=== PATIENT | male | born 1950 | race Caucasian/White ===

== ENCOUNTER 2017-06-30 04:22 | Inpatient (IN) | payer MEDICARE, OTHER ==
[2017-06-30] MEDS ORDERED: IBUPROFEN 600 MG TAB PO STA (04:39)
[2017-06-30] MEDS ORDERED: ACETAMINOPHEN TAB 500 MG TAB PO STA (04:39)
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
[2017-06-30] MEDS ORDERED: ONDANSETRON 4 MG/2 ML VIAL IVP STA (04:55)
[2017-06-30] MEDS: SODIUM CHLORIDE 0.9% 500 ML IV SCH ×2 (05:12→05:47)
[2017-06-30 05:21] LABS: Basophils # (A) 0.1 k/uL (0-0.2); Basophils % (A) 0 %; Eosinophils # (A) 0.1 k/uL (0-0.7); Eosinophils % (A) 1 %; HCT 38.3 % (39.0-53.0); HGB 12.9 gm/dL (13.0-17.5); Lymphocytes # (A) 1.7 k/uL (1.0-4.8); Lymphocytes % (A) 10 %; MCH 31.2 pg (25.0-35.0); MCHC 33.8 g/dL (31.0-37.0); MCV 92.4 fL (80.0-100.0); Mean Platelet Volume 7.4; Monocytes # (A) 1.2 k/uL (0-1.0); Monocytes % (A) 7 %; Neutrophils # (A) 14.3 k/uL (1.3-7.7); Neutrophils % (A) 82 %; Platelet Count 274 k/uL (150-450); RBC 4.15 m/uL (4.30-5.90); RDW 13.9 % (11.5-15.5); WBC 17.5 k/uL (3.8-10.6)
[2017-06-30 05:27] LABS: INR 1.2 (<1.2); Prothrombin Time 11.5 sec (9.0-12.0)
[2017-06-30 05:36] LABS: Calcium 9.3 mg/dL (8.4-10.2); Potassium 5.1 mmol/L (3.5-5.1); Total Bilirubin 0.3 mg/dL (0.2-1.3); Total Protein 7.3 g/dL (6.3-8.2)
[2017-06-30 05:54] LABS: Appearance,Urine Clear (Clear); Bilirubin,Urine Negative (Negative); Blood,Urine Negative (Negative); Color,Urine Yellow; Glucose,Urine (UA) Negative (Negative); Ketones,Urine Trace (Negative); Leukocyte Esterase,Urine Negative (Negative); Nitrite,Urine Negative (Negative); PH, Urine 5.5 (5.0-8.0); Protein,Urine Negative (Negative); Urobilinogen,Urine <2.0 mg/dL (<2.0)
--- NOTE | 2017-06-30 06:17 | CT ---
EXAM: CT Head Without Intravenous Contrast CLINICAL HISTORY: ITS.REASON CT Reason: Pain TECHNIQUE: Axial computed tomography images of the head/brain without intravenous contrast. CTDI is 58 mGy and DLP is 1047 mGy-cm. This CT exam was performed using one or more of the following dose reduction techniques: automated exposure control, adjustment of the mA and/or kV according to patient size, and/or use of iterative reconstruction technique. COMPARISON: No relevant prior studies available. FINDINGS: Brain: No hemorrhage, large hypodensity, or mass effect. Patchy periventricular matter hypodensities reflective of senescent changes. Ventricles: No hydrocephalus. Moderate ventriculomegaly secondary to cerebral volume loss. Bones/joints: Unremarkable. Soft tissues: Unremarkable. Sinuses: Unremarkable. Mastoid air cells: Clear. IMPRESSION: No acute hemorrhage, hydrocephalus, or mass effect.
--- NOTE | 2017-06-30 06:26 | XR ---
EXAM: XR Chest, 2 Views CLINICAL HISTORY: ITS.REASON XR Reason: Fever TECHNIQUE: Frontal and lateral views of the chest. COMPARISON: No relevant prior studies available. FINDINGS: Lungs: Right middle/lower lobe airspace opacity. Pleural space: Trace effusion along the bilateral major fissures. No pneumothorax. Heart: Unremarkable. No cardiomegaly. Mediastinum: Unremarkable. Bones/joints: Unremarkable. IMPRESSION: Right middle/lower lobe opacity. Represent edema versus infection. Trace pleural effusions along the fissures.
[2017-06-30] MEDS ORDERED: SODIUM CHLORIDE 0.9% 1,000 ML IV ONE (06:37)
[2017-06-30] MEDS ORDERED: LEVOFLOXACIN 750MG-D5W PMX 750 MG in DEXTROSE/WATER 1 150ML.BAG IVPB STA (06:37)
[2017-06-30] MEDS ORDERED: PNEUMONIA PROTOCOL UTILIZED 1 EACH MISC PO PRN (06:39)
[2017-06-30] MEDS ORDERED: ONDANSETRON 4 MG/2 ML VIAL IVP PRN (06:40)
[2017-06-30] MEDS ORDERED: LEVOFLOXACIN 750MG-D5W PMX 750 MG in DEXTROSE/WATER 1 150ML.BAG IVPB SCH (06:45)
[2017-06-30] MEDS: ALBUTEROL NEBULIZED 2.5 MG/3 ML INHALATION SCH ×4 (08:44→21:00)
--- NOTE | 2017-06-30 11:45 | CT ---
EXAMINATION TYPE: CT chest wo con DATE OF EXAM: 06/30/2017 COMPARISON: NONE HISTORY: Patient poor historian CT DLP: 422.3 mGycm, Automated exposure control for dose reduction was used. CONTRAST: Performed injected with 0 mL of Omnipaque 350. TECHNIQUE: Axial images were obtained at 5 mm thick sections. Reconstructed images are reviewed on [place] computer in the coronal plane. FINDINGS: Portion of the thyroid visualized is normal. There appears be some mild atelectasis or pneumonia within the right middle lobe above the diaphragm. Mild infiltrate is also present within the posterior lung bases bilaterally. Atelectasis and pneumon ia could be considered. Very minimal pleural effusions may be present. There is a 1.0 cm transverse dimension lymph node in the pretracheal space. Additional [place] lymphad enopathy is through the mediastinum. The ascending aorta diameter at the level of the main pulmonary artery is 3.5 cm. The main pulmonary artery diameter at the bifurcation is 3.6 cm. Coronary artery c alcification is present. Limited CT sections are obtained through the upper abdomen. Abdomen is essentially unremarkable. IMPRESSIONS: 1. Clinical correlation recommended for right middle lobe pneumonia. 2. Additional pneumonia or atelectasis is within the dependent portions of the lung bases bilaterally . 3. Enlarged mediastinal lymph node with additional smaller lymph nodes. Follow-up is recommended.
[2017-06-30 11:47] LABS: Glucose,Whole Blood 238 mg/dL (75-99)
[2017-06-30] MEDS: SERTRALINE 25 MG TAB PO SCH (13:22)
[2017-06-30] MEDS: DIVALPROEX 500 MG TABLET.DR PO SCH ×3 (13:23→20:58)
[2017-06-30] MEDS: CLINDAMYCIN 300 MG in DEXTROSE 5% IN WATER 50 ML IVPB SCH ×6 (13:31→23:16)
[2017-06-30] MEDS: SODIUM CHLORIDE 0.9% 1,000 ML IV SCH (13:31)
[2017-06-30] MEDS: INSULIN ASPART 100 UNIT/ML 1 ML 10 ML VIAL SQ SCH ×3 (13:35→22:23)
--- NOTE | 2017-06-30 14:07 | HP ---
HISTORY AND PHYSICAL ATTENDING PHYSICIAN: Dr. Louie Stearns. ADMITTING PHYSICIAN: Dr. Castro Mccollum. CHIEF COMPLAINT: Nausea, vomiting. HISTORY OF PRESENT ILLNESS: This is a 67-year-old gentleman who lives at the [facility]. The patient apparently this morning started vomiting spontaneously. He also had an associated fever. The patient in view of this, brought in the emergency room. The patient does not have any headache associated with that. He does have a previous history of head injury. He has some right hemiparesis from that. The patient is able to give adequate history. He denies any abdominal pain. No diarrhea. The patient since being in the emergency room has had no further episodes of vomiting. The patient in the ER had a brain CT scan done, which revealed no evidence of any mass effect or hemorrhage. Chest x-ray suggested right upper lobe and right middle lobe infiltrate. It is actually a poor inspiration view. In view of this, I have ordered a CT scan of the chest. The patient had leukocytosis. The patient at the time of examination, denies any major cough, congestion symptoms. His right eye has some crustiness and stuck together. PAST MEDICAL HISTORY: Significant for previous left foot infection. History of diabetes mellitus, previous head injury with some right hemiparesis, history of hypertension, seizure disorder. PAST SURGICAL HISTORY: Left leg. PERSONAL HISTORY: Never smoker. Alcohol none. ALLERGIES: TO PIPERACILLIN, TAZOBACTAM AND SODIUM. MEDICATIONS: Medications at present include metformin 1000 mg b.i.d., glipizide 10 mg daily, Norvasc 10 mg daily, spironolactone 25 mg b.i.d., Zocor 20 mg daily, Zoloft 75 mg daily, Prilosec 20 mg daily, Claritin 10 mg daily, Novolin 70/30 20 units every morning and then NovoLog 5 units at lunch and NovoLog 5 units at supper time p.r.n., Lasix 40 mg in the morning, 20 mg in the evening. Lisinopril 20 mg daily. Depakote 500 mg q.i.d., vitamin C, Lac-Hydrin. SOCIAL HISTORY: The patient lives in a nursing facility. FAMILY MEDICAL HISTORY: Not obtainable. REVIEW OF SYSTEMS: NEURO: Denies any headaches, dizziness. No double vision, blurred vision. No symptoms of seizures. Psych: No anxiety or depression. Cardiac: No chest pain, angina, palpitations. Respiratory: Denies shortness of breath, cough, hemoptysis. GI: Episode of nausea, vomiting. No abdominal pain. No diarrhea, constipation, hematochezia, melena. : No symptoms of dysuria, hematuria, urgency, frequency. Does have some incontinence. Extremities denies pain. Has chronic edema. Musculoskeletal: Some pain in various joints. Skin: Chronic and venous stasis changes in the left lower leg. Constitutional: Fever, no chills. HEENT denies any symptoms. Eyes: Sticky eyelids on the right side today. PHYSICAL EXAMINATION: Pleasant gentleman in no distress. His vital signs are temperature 100.4, pulse 111, respirations 20, blood pressure 120/72, pulse ox 92% on room air. HEENT: Normocephalic. Neck is decreased range of motion. Nostrils are clear. Oral cavity is dry. Ears reveal no drainage. Neck reveals no JVD, carotid bruits or thyromegaly. CHEST: Clear to auscultation with mild decreased air flow at the bases. Cardiac: Normal S1, S2 with no gallop. Systolic murmur 2/6 left sternal border. ABDOMEN: Soft. No palpable masses. Bowel sounds normal. No organomegaly. No abdominal bruits. Extremities reveal 1+ edema. The patient does have chronic venous stasis changes both lower legs. Pedal pulses are adequate. Neurological awake, alert, oriented to place, person. Moves both upper and lower extremities. However, he has definite weakness on the right upper extremity, which is apparently an old finding. LABORATORY DATA: CT scan of the brain which was unremarkable. Chest x-ray suggested a right middle and right upper lobe infiltrates. CT scan done reveals a right middle lobe pneumonia. There is some mediastinal lymphadenopathy. White count was 17.5, hemoglobin 12.9. Electrolytes were okay. BUN 42, creatinine 1.53, glucose is 214, albumin 4.0. Urinalysis is unremarkable. Influenza negative. ASSESSMENT: 1. Right middle lobe pneumonia and also basal pneumonias bilateral. The possibility of aspiration pneumonia not ruled out. 2. Nausea, vomiting. 3. Diabetes mellitus with chronic kidney disease. 4. Chronic kidney disease, stage III. 5. Previous head injury with sequelae. 6. Chronic venous stasis with skin changes. PLAN: Continue present medical regimen. Patient's condition is discussed with the patient. Prognosis remains guarded. The patient since HE IS ALLERGIC TO ZOSYN, we will start the patient on Clindamycin and Levaquin. Patient's condition discussed with the patient. Prognosis guarded. MICHEL / SNEHA: [id number] /
[2017-06-30 17:15] LABS: Glucose,Whole Blood 297 mg/dL (75-99)
[2017-06-30 21:41] LABS: Glucose,Whole Blood 209 mg/dL (75-99)
[2017-07-01] MEDS: CLINDAMYCIN 300 MG in DEXTROSE 5% IN WATER 50 ML IVPB SCH ×8 (05:18→23:57)
[2017-07-01 07:10] LABS: Glucose,Whole Blood 308 mg/dL (75-99)
[2017-07-01] MEDS: ALBUTEROL NEBULIZED 2.5 MG/3 ML INHALATION SCH (07:16)
[2017-07-01] MEDS: LEVOFLOXACIN 750MG-D5W PMX 750 MG in DEXTROSE/WATER 1 150ML.BAG IVPB SCH (08:06)
[2017-07-01] MEDS: amLODIPine 10 MG TAB PO SCH (08:14)
[2017-07-01] MEDS: DIVALPROEX 500 MG TABLET.DR PO SCH ×4 (08:14→21:32)
[2017-07-01] MEDS: SERTRALINE 25 MG TAB PO SCH (08:15)
[2017-07-01] MEDS: PANTOPRAZOLE 40 MG TABLET PO SCH (08:15)
[2017-07-01] MEDS: INSULIN ASPART 100 UNIT/ML 1 ML 10 ML VIAL SQ SCH ×4 (08:15→21:32)
[2017-07-01] MEDS: LISINOPRIL 20 MG TAB PO SCH (08:15)
[2017-07-01] MEDS: SODIUM CHLORIDE 0.9% 1,000 ML IV SCH (08:16)
[2017-07-01] MEDS: ACETAMINOPHEN TAB 325 MG TAB PO PRN (08:27)
--- NOTE | 2017-07-01 08:58 | XR ---
EXAMINATION TYPE: XR chest 1V portable DATE OF EXAM: 07/01/2017 CLINICAL HISTORY: Difficulty breathing and pneumonia progress study. TECHNIQUE: Single AP portable upright view of the chest is obtained. COMPARISON: Chest x-ray and CTA chest from one day earlier FINDINGS: There are low lung volumes with bibasilar opacities redemonstrated. There is mild cardiome fortunato with atherosclerotic thoracic aorta. Osseous structures are intact. IMPRESSION: Overall stable findings, cardiomegaly and low lung volumes with persistent bibasilar in filtrate and/or atelectasis.
[2017-07-01] MEDS: SODIUM CHLORIDE 0.9% 500 ML IV SCH (09:41)
[2017-07-01] MEDS ORDERED: VANCOMYCIN IV PER PHARMACY 1 EACH MISC MISCELLANE PRN (10:57)
[2017-07-01] MEDS: IPRATROPIUM-ALBUTEROL 3 ML NEB INHALATION SCH ×3 (11:18→20:25)
[2017-07-01 11:26] LABS: Glucose,Whole Blood 321 mg/dL (75-99)
[2017-07-01] MEDS ORDERED: VANCOMYCIN 1,750 MG in SODIUM CHLORIDE 0.9% 250 ML IVPB ONE (11:30)
[2017-07-01] MEDS: CIPROFLOXACIN 0.3% OPHTH SOLN 5 ML BTL BOTH EYES SCH ×4 (13:17→23:57)
--- NOTE | 2017-07-01 13:18 | NM ---
EXAMINATION TYPE: NM pul vent and perfuse DATE OF EXAM: 07/01/2017 COMPARISON: CT chest from yesterday. HISTORY: Shortness of breath rule out pulmonary embolism TECHNIQUE: Utilizing inhalation of 68.5 mCi Tc 99m DTPA aerosol and intravenous injection of 5.5 mCi of Tc 99m MAA, ventilation and perfusion images are acquired post injection in multiple projections. FINDINGS: Normal radiotracer distribution is noted in the lungs. There is no evidence of mismatched defects. IMPRESSION: Low scintigraphic evidence for pulmonary embolism
[2017-07-01] MEDS: MULTIVITAMINS, THERA 1 EACH TAB PO SCH (13:20)
--- NOTE | 2017-07-01 13:21 | US ---
EXAMINATION TYPE: US venous doppler duplex LE DATE OF EXAM: 07/01/2017 12:58 PM COMPARISON: US December 31 2014 CLINICAL HISTORY: eval for DVT. Bilateral leg swelling, patient disoriented, poor historian SIDE PERFORMED: Bilateral TECHNIQUE: The lower extremity deep venous system is examined utilizing real time linear array sonog elvia with graded compression, doppler sonography and color-flow sonography. VESSELS IMAGED: External Iliac Vein (EIV) Common Femoral Vein Deep Femoral Vein Greater Saphenous Vein * Femoral Vein Popliteal Vein Small Saphenous Vein * Proximal Calf Veins (* superficial vessels) Technically difficult study due to bilateral leg swelling Right Leg: Appears negative for DVT Left Leg: Appears negative for DVT Grayscale, color doppler, spectral doppler imaging performed of the deep veins of the bilateral lower extremities. There is normal flow, compressibility, vascular waveforms. IMPRESSION: Suboptimal study but no ultrasound evidence for acute DVT in either lower extremity.
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
[2017-07-01 17:00] LABS: Glucose,Whole Blood 332 mg/dL (75-99)
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
[2017-07-01 21:25] LABS: Glucose,Whole Blood 263 mg/dL (75-99)
[2017-07-01] MEDS: HEPARIN SODIUM,PORCINE 5,000 UNIT/ML 1 ML VIAL SQ SCH (21:32)
[2017-07-02] MEDS: CIPROFLOXACIN 0.3% OPHTH SOLN 5 ML BTL BOTH EYES SCH ×6 (03:54→23:22)
[2017-07-02] MEDS: CLINDAMYCIN 300 MG in DEXTROSE 5% IN WATER 50 ML IVPB SCH ×8 (05:08→23:24)
[2017-07-02] MEDS ORDERED: VANCOMYCIN 1,750 MG in SODIUM CHLORIDE 0.9% 250 ML IVPB SCH ×2 (06:00→22:00)
[2017-07-02 07:40] LABS: Glucose,Whole Blood 292 mg/dL (75-99)
[2017-07-02] MEDS: SERTRALINE 25 MG TAB PO SCH (07:51)
[2017-07-02] MEDS: LEVOFLOXACIN 750MG-D5W PMX 750 MG in DEXTROSE/WATER 1 150ML.BAG IVPB SCH (07:51)
[2017-07-02] MEDS: DIVALPROEX 500 MG TABLET.DR PO SCH ×4 (07:51→20:44)
[2017-07-02] MEDS: HEPARIN SODIUM,PORCINE 5,000 UNIT/ML 1 ML VIAL SQ SCH ×2 (07:51→20:44)
[2017-07-02] MEDS: PANTOPRAZOLE 40 MG TABLET PO SCH (07:52)
[2017-07-02] MEDS: LISINOPRIL 20 MG TAB PO SCH (07:52)
[2017-07-02] MEDS: amLODIPine 10 MG TAB PO SCH (07:52)
[2017-07-02] MEDS: INSULIN ASPART 100 UNIT/ML 1 ML 10 ML VIAL SQ SCH ×4 (07:52→20:44)
[2017-07-02 08:13] LABS: HCT 34.1 % (39.0-53.0); HGB 11.9 gm/dL (13.0-17.5); MCH 31.8 pg (25.0-35.0); MCHC 34.7 g/dL (31.0-37.0); MCV 91.6 fL (80.0-100.0); Mean Platelet Volume 7.4; Platelet Count 227 k/uL (150-450); RBC 3.73 m/uL (4.30-5.90); RDW 14.2 % (11.5-15.5); WBC 11.6 k/uL (3.8-10.6)
[2017-07-02 08:38] LABS: ALT 20 U/L (21-72); AST 17 U/L (17-59); Albumin 3.2 g/dL (3.5-5.0); Alkaline Phosphatase 58 U/L (38-126); Anion Gap 11 mmol/L; Blood Urea Nitrogen 21 mg/dL (9-20); Calcium 9.2 mg/dL (8.4-10.2); Carbon Dioxide 27 mmol/L (22-30); Chloride 105 mmol/L (98-107); Glucose 276 mg/dL (74-99); Magnesium 2.1 mg/dL (1.6-2.3); Phosphorus 3.2 mg/dL (2.5-4.5); Potassium 4.6 mmol/L (3.5-5.1); Sodium 143 mmol/L (137-145); Total Bilirubin 0.3 mg/dL (0.2-1.3); Total Protein 6.2 g/dL (6.3-8.2)
[2017-07-02] MEDS: IPRATROPIUM-ALBUTEROL 3 ML NEB INHALATION SCH ×4 (08:49→19:50)
--- NOTE | 2017-07-02 08:56 | XR ---
EXAMINATION TYPE: XR chest 1V portable DATE OF EXAM: 07/02/2017 Comparison: 07/01/2017 Clinical History: 67-year-old male f/u pneumonia Findings: Low volumes. Heart likely upper limits of normal in size but heart margins are partially obscured by adjacent pleural-parenchymal disease. Interstitial and perihilar densities. Suggestion of small effus ions with prominent bibasilar densities. Impression: Continued interstitial and focal bibasilar densities. Small effusions are suggested. While underlying pneumonia is possible, correlate to exclude CHF and interstitial pulmonary edema.
[2017-07-02] MEDS: SODIUM CHLORIDE 0.9% 1,000 ML IV SCH (11:14)
[2017-07-02] MEDS: SODIUM CHLORIDE 0.9% 500 ML IV SCH (11:15)
[2017-07-02 12:09] LABS: Glucose,Whole Blood 358 mg/dL (75-99)
[2017-07-02] MEDS: MULTIVITAMINS, THERA 1 EACH TAB PO SCH (12:51)
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
[2017-07-02] MEDS: ACETAMINOPHEN TAB 325 MG TAB PO PRN (15:12)
[2017-07-02 17:18] LABS: Glucose,Whole Blood 276 mg/dL (75-99)
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
[2017-07-02 21:10] LABS: Glucose,Whole Blood 290 mg/dL (75-99)
[2017-07-03] MEDS: CIPROFLOXACIN 0.3% OPHTH SOLN 5 ML BTL BOTH EYES SCH ×6 (04:01→23:01)
[2017-07-03] MEDS: CLINDAMYCIN 300 MG in DEXTROSE 5% IN WATER 50 ML IVPB SCH ×8 (05:16→23:01)
[2017-07-03 07:11] LABS: Glucose,Whole Blood 287 mg/dL (75-99)
[2017-07-03] MEDS: HEPARIN SODIUM,PORCINE 5,000 UNIT/ML 1 ML VIAL SQ SCH ×2 (07:35→21:26)
[2017-07-03] MEDS: INSULIN ASPART 100 UNIT/ML 1 ML 10 ML VIAL SQ SCH ×4 (07:35→21:26)
[2017-07-03] MEDS: LEVOFLOXACIN 750 MG TAB PO SCH (07:35)
[2017-07-03] MEDS: amLODIPine 10 MG TAB PO SCH (07:36)
[2017-07-03] MEDS: DIVALPROEX 500 MG TABLET.DR PO SCH ×4 (07:36→21:25)
[2017-07-03] MEDS: LISINOPRIL 20 MG TAB PO SCH (07:36)
[2017-07-03] MEDS: PANTOPRAZOLE 40 MG TABLET PO SCH (07:36)
[2017-07-03] MEDS: SERTRALINE 25 MG TAB PO SCH (07:36)
[2017-07-03] MEDS: IPRATROPIUM-ALBUTEROL 3 ML NEB INHALATION SCH ×4 (07:39→20:23)
[2017-07-03] MEDS: SODIUM CHLORIDE 0.9% 500 ML IV SCH (07:55)
[2017-07-03 12:47] LABS: Glucose,Whole Blood 255 mg/dL (75-99)
[2017-07-03] MEDS ORDERED: FUROSEMIDE 10 MG/ML 4 ML VIAL IV STA (13:31)
[2017-07-03] MEDS: MULTIVITAMINS, THERA 1 EACH TAB PO SCH (13:47)
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
[2017-07-03] MEDS: VANCOMYCIN 1,750 MG in SODIUM CHLORIDE 0.9% 250 ML IVPB SCH (15:37)
--- NOTE | 2017-07-03 15:58 | P.CRDCN ---
History of Present Illness Consult date: 07/03/17 Consult reason: congestive heart failure, shortness of breath History of present illness: Mr. Molina is a pleasant 67-year-old male past medical history significant for closed heard injury, hypertension, diabetes mellitus, chronic venous stasis, seizure disorder and gastroesophageal reflux disease. He came to the hospital after having frequent episodes of vomiting. He was febrile on admission and found to have b/l lobe pneumonia with infiltrated in b/l lower lobes and a questionable infiltrate in the right middle lobe. He has been receiving IV antibiotics. He is requiring high flow oxygen to maintain oxygen saturations. Upon admission his creatinine was elevated at 1.53 and for that reason his lasix and aldactone were held. Repeat chest xray yesterday revealed evidence of underlying heart failure and interstitial pulmonary edema. ProBNP was ordered and came back 3680. He was given a one time dose of IV lasix today 40 mg and placed back on his oral regimen. EKG on arrival reveals sinus tachycardia with first degree AV block with flattening of T-waves inferiorly. Laboratory data reviewed, proBNP 3680, creatinine 1.12, potassium 4.6, magnesium 2.1, hemoglobin 11.9, platelets 227, and WBC 11.6. Current cardiac medications include amlodipine 10 mg daily, Aldactone 25 mg twice a day, Zocor 20 mg daily, Lasix 40 mg in the morning and 20 mg at night, and enalapril 20 mg daily. Review of Systems At the time of exam: CONSTITUTIONAL: Denies fever. Denies chills. EYES: Denies blurred vision. Denies vision changes. Denies eye pain. EARS, NOSE, MOUTH & THROAT: Denies headache. Denies sore throat. Denies ear pain. CARDIOVASCULAR: Denies chest pain. Complains of shortness of breath. Denies orthopnea. Denies PND. Denies palpitations. RESPIRATORY: Complains of cough. GASTROINTESTINAL: Denies abdominal pain. Denies diarrhea. Denies constipation. Denies nausea. Denies vomiting. MUSCULOSKELETAL: Denies myalgias. INTEGUMENTARY: Denies pruitis. Denies rash. NEUROLOGIC: Denies numbness. Denies tingling. Denies weakness. PSYCHIATRIC: Denies anxiety. Denies depression. ENDOCRINE: Denies fatigue. Denies weight change. Denies polydipsia. Denies polyurina. GENITOURINARY: Denies burning, hematuria or urgency with micturation. HEMATOLOGIC: Denies history of anemia. Denies bleeding. Past Medical History Past Medical History: Asthma, CVA/TIA, Diabetes Mellitus, GERD/Reflux, Hypertension, Neurologic Disorder, Skin Disorder, Vascular Disorder Additional Past Medical History / Comment(s): PRIOR CLOSED HEAD INJURY/ WOUND ON RIGHT FOOT; Seizures History of Any Multi-Drug Resistant Organisms: MRSA Date of last positivie culture/infection: 2013 MDRO Source:: RT FOOT Past Surgical History: Appendectomy, Orthopedic Surgery, Tonsillectomy Additional Past Surgical History / Comment(s): spleenectomy, partial removal of pancreas Past Anesthesia/Blood Transfusion Reactions: No Reported Reaction Past Psychological History: Anxiety, Depression Smoking Status: Never smoker Past Alcohol Use History: None Reported Past Drug Use History: None Reported - Past Family History Mother Family Medical History: Unable to Obtain Father Family Medical History: Unable to Obtain Medications and Allergies Home Medications Medication Instructions Recorded Confirmed Type Divalproex [Depakote] 500 mg PO QID 08/27/13 06/30/17 History Omeprazole [PriLOSEC] 20 mg PO DAILY 08/27/13 06/30/17 History Eucerin Topical Cream 1 applic TOPICAL DAILY 03/04/16 06/30/17 History Insulin Aspart [NovoLOG Flexpen] 5 units SQ AC-LUNCH PRN 03/04/16 06/30/17 History Insulin Aspart [NovoLOG Flexpen] 5 units SQ AC-SUPPER PRN 03/04/16 06/30/17 History Enalapril Maleate [Vasotec] 20 mg PO DAILY 03/21/16 06/30/17 History Furosemide [Lasix] 20 mg PO HS 03/21/16 06/30/17 History Insulin NPH Hum/Reg Insulin Hm 20 unit SQ AC-BRKFST 03/21/16 06/30/17 History [NovoLIN 70-30 100 UNIT/ML VIAL] Mometasone Furoate [Nasonex Nasal 1 - 2 spray EA NOSTRIL DAILY PRN 03/21/1608/14 History Gary] Sertraline [Zoloft] 75 mg PO DAILY 03/21/16 06/30/17 History Ammonium Lactate Cream [Lac-Hydrin 1 applic TOPICAL DAILY 06/30/17 06/30/17 History 12% Cream] Ascorbic Acid [Vitamin C] 250 mg PO DAILY 06/30/17 06/30/17 History Clotrimazole [Clotrimazole 1% Top 2 drops TOPICAL DAILY 06/30/17 06/30/17 History Soln] Furosemide [Lasix] 40 mg PO DAILY 06/30/17 06/30/17 History Loratadine [Claritin] 10 mg PO DAILY 06/30/17 06/30/17 History Multivitamins, Thera [Multivitamin 1 tab PO DAILY 06/30/17 06/30/17 History (formulary)] Mupirocin [Mupirocin 2%] 1 applic TOPICAL DAILY 06/30/17 06/30/17 History Simvastatin [Zocor] 20 mg PO DAILY@199906/30/17 06/30/17 History Spironolactone [Aldactone] 25 mg PO BID 06/30/17 06/30/17 History amLODIPine [Norvasc] 10 mg PO DAILY 06/30/17 06/30/17 History glipiZIDE [Glucotrol XL] 10 mg PO DAILY 06/30/17 06/30/17 History metFORMIN HCL [metFORMIN HCL ER] 1,000 mg PO AC-BID 06/30/17 06/30/17 History Allergies Allergy/AdvReac Type Severity Reaction Status Date / Time piperacillin sodium Allergy Rash/Hives Verified 06/30/17 09:03 [From Zosyn] tazobactam sodium Allergy Rash/Hives Verified 06/30/17 09:03 [From Zosyn] Physical Exam Vitals: Vital Signs Temp Pulse Pulse Resp BP BP Pulse Ox 07/03/17 15:00 98.5 F 95 28 H 120/65 86 L 07/03/17 11:22 100 07/03/17 11:11 98 07/03/17 07:50 102 H 07/03/17 07:42 96 07/03/17 06:15 96.9 F L 95 16 145/83 87 L 07/02/17 23:20 91 L 07/02/17 22:50 100.4 F H 91 20 142/79 85 L 07/02/17 20:00 112 H 07/02/17 19:53 112 H 07/02/17 16:35 112 H 07/02/17 16:16 112 H Intake and Output 07/03/17 07/03/17 07/03/17 06:59 14:59 22:59 Intake Total 240 Balance 240 Intake: Oral 240 Other: Voiding Method Incontinent # Voids 4 1 # Bowel Movements 0 Blood pressure 120/65 heart rate 95 afebrile high flow oxygen being administered. GENERAL: This is a 67-year-old male in mild respiratory distress at the time of my examination. HEENT: Head is atraumatic, normocephalic. Pupils are equal, round. Sclerae anicteric. Conjunctivae are clear. Mucous membranes of the mouth are moist. Neck is supple. There is no jugular venous distention. No carotid bruit is heard. LUNGS: Bibasilar rales with scattered rhonchi throughout and expiratory wheezes. No chest wall tenderness is noted on palpation or with deep breathing. HEART: Regular rate and rhythm with systolic ejection murmur at the base, no rubs or gallops. S1 and S2 heard. ABDOMEN: Soft, nontender. Bowel sounds are heard. No organomegaly noted. EXTREMITIES: Significant b/l lower extremity edema 2+ pitting. No calf tenderness noted. VASCULAR: Radial and dorsalis pedis pulses palpated, no evidence of clubbing. NEUROLOGIC: Patient is awake, alert and oriented x3. Somewhat limited secondary to high flow oxygen. Results 07/02/17 07:33 07/02/17 07:33 Current Medications Generic Name Dose Route Start Last Admin Trade Name Freq PRN Reason Stop Dose Admin Acetaminophen 650 mg 07/01/17 08:17 07/02/17 15:12 Tylenol Tab PO 650 mg Q6HR PRN Administration Fever and/ or Mild Pain Albuterol/Ipratropium 3 ml 07/01/17 12:00 07/03/17 11:11 Duoneb 0.5 Mg-3 Mg/3 Ml Soln INHALATION 3 ml RT-QID OSVALDO Administration Amlodipine Besylate 10 mg 07/01/17 09:00 07/03/17 07:36 Norvasc PO 10 mg DAILY OSVALDO Administration Ciprofloxacin 1 drops 07/01/17 12:00 07/03/17 15:11 Cipro Ophth Soln BOTH EYES 07/04/17 20:01 1 drops Q4HR OSVALDO Administration Divalproex Sodium 500 mg 06/30/17 13:00 07/03/17 13:52 Depakote PO 500 mg QID OSVALDO Administration Furosemide 40 mg 07/03/17 16:00 07/03/17 15:11 Lasix PO 40 mg BID@0900,1600 OSVALDO Administration Heparin Sodium (Porcine) 5,000 unit 07/01/17 21:00 07/03/17 07:35 Heparin SQ 5,000 unit Q12HR OSVALDO Administration Clindamycin Phosphate 300 mg/ 52 mls @ 100 mls/hr 06/30/17 12:00 07/03/17 13: 46 Dextrose/Water IVPB 100 mls/hr Q6HR OSVALDO Administration Sodium Chloride 500 mls @ 20 mls/hr 07/01/17 09:30 07/03/17 07:55 Saline 0.9% IV Not Given .Q24H OSVALDO Vancomycin HCl 1,750 mg/ 250 mls @ 125 mls/hr 07/03/17 15:00 Sodium Chloride IVPB Q16H OSVALDO Insulin Aspart 0 unit 06/30/17 12:30 07/03/17 13:47 Novolog SQ 4 unit ACHS OSVALDO Administration Protocol Levofloxacin 750 mg 07/03/17 09:00 07/03/17 07:35 Levaquin PO 750 mg DAILY OSVALDO Administration Lisinopril 40 mg 07/01/17 09:00 07/03/17 07:36 Zestril PO 40 mg DAILY OSVALDO Administration Miscellaneous Information 1 each 06/30/17 06:39 Pneumonia Protocol Utilized PO ONCE PRN Per Protocol Multivitamins 1 each 07/01/17 12:00 07/03/17 13:47 Theragran PO 1 each DAILY@1200 OSVALDO Administration Ondansetron HCl 4 mg 06/30/17 06:40 Zofran IVP Q6HR PRN Nausea And Vomiting Pantoprazole Sodium 40 mg 07/01/17 07:30 07/03/17 07:36 Protonix PO 40 mg AC-BRKFST OSVALDO Administration Sertraline HCl 75 mg 06/30/17 11:00 07/03/17 07:36 Zoloft PO 75 mg DAILY OSVALDO Administration Intake and Output 07/03/17 07/03/17 07/03/17 06:59 14:59 22:59 Intake Total 240 Balance 240 Intake: Oral 240 Other: Voiding Method Incontinent # Voids 4 1 # Bowel Movements 0 07/02/17 07:33 07/02/17 07:33 Assessment and Plan Assessment: ASSESSMENT 1. Acute on chronic diastolic heart failure 2. Bilateral lower lobe pneumonia with also a component of possible aspiration pneumonia 3. Acute hypoxic respiratory failure 4. Leukocytosis 5. Hypertension 6. Diabetes mellitus 7. History of closed head injury PLAN We will review 2-D echocardiogram and Doppler study to assess cardiac structure and function. Will add Lasix 40 mg IV twice a day. Possibly re-add Aldactone shows no improvement by tomorrow. Daily weights. Strict intake and output. Follow kidney function and electrolytes daily. Further recommendations to follow. Thank you kindly for this consultation. Nurse Practitioner note has been reviewed, I agree with a documented findings and plan of care. Patient was seen and examined.
[2017-07-03] MEDS ORDERED: FUROSEMIDE 40 MG TAB PO SCH (16:00)
--- NOTE | 2017-07-03 16:57 | ECHOF ---
Referral Reason:Cardiac echo, chf MEASUREMENTS -------- HEIGHT: 167.6 cm WEIGHT: 98.0 kg BP: RVIDd: 3.1 cm (< 3.3) IVSd: 1.1 cm (0.6 - 1.1) LVIDd: 4.3 cm (3.9 - 5.3) LVPWd: 1.1 cm (0.6 - 1.1) IVSs: 1.8 cm LVIDs: 2.4 cm LVPWs: 1.7 cm LAESV Index (A-L): 30.98 ml/m Ao Diam: 3.3 cm (2.0 - 3.7) AV Cusp: 0.8 cm (1.5 - 2.6) LA Diam: 4.6 cm (2.7 - 3.8) MV E Marco Antonio: 1.11 m/s MV DecT: 255 ms MV A Marco Antonio: 1.27 m/s MV E/A Ratio: 0.87 AV maxP.23 mmHg AV meanP.98 mmHg RAP: 5.00 mmHg RVSP: 15.04 mmHg FINDINGS -------- Sinus rhythm. This was a technically difficult study with suboptimal views. The left ventricular size is normal. There is mild concentric left ventricular hypertrophy. Overa ll left ventricular systolic function is normal with, an EF between 65 - 70 %. The right ventricle is mildly enlarged. LA is midly dilated 29-33ml/m2. The right atrium was not well visualized. 5ml of Lumason was utilized for enhancement of images. There is mild to moderate aortic valve sclerosis. There is no evidence of aortic regurgitation. T here is mild to moderate aortic stenosis present. Peak/mean gradient across the Aortic Valve is 34. 23mmHg / 19.98mmHg. The mitral valve leaflets are mildly thickened. Mild mitral regurgitation is present. Mild tricuspid regurgitation present. Right ventricular systolic pressure is normal at < 35 mmHg. There is no evidence of pulmonary hypertension. The pulmonic valve was not well visualized. The aortic root size is normal. Normal inferior vena cava with normal inspiratory collapse consistent with estimated right atrial pre ssure of 5 mmHg. The pericardium is normal. There is no pericardial effusion. CONCLUSIONS -------- 1. Sinus rhythm. 2. This was a technically difficult study with suboptimal views. 3. The left ventricular size is normal. 4. There is mild concentric left ventricular hypertrophy. 5. Overall left ventricular systolic function is normal with, an EF between 65 - 70 %. 6. The right ventricle is mildly enlarged. 7. LA is midly dilated 29-33ml/m2. 8. The right atrium was not well visualized. 9. 5ml of Lumason was utilized for enhancement of images. 10. There is mild to moderate aortic valve sclerosis. 11. There is mild to moderate aortic stenosis present. 12. Peak/mean gradient across the Aortic Valve is 34.23mmHg / 19.98mmHg. 13. The mitral valve leaflets are mildly thickened. 14. Mild mitral regurgitation is present. 15. Mild tricuspid regurgitation present. 16. Right ventricular systolic pressure is normal at < 35 mmHg. 17. There is no evidence of pulmonary hypertension. 18. The pulmonic valve was not well visualized. 19. The aortic root size is normal. 20. There is no pericardial effusion. CNA: Alcides Tilley RDCS
[2017-07-03 17:06] LABS: Glucose,Whole Blood 289 mg/dL (75-99)
--- NOTE | 2017-07-03 19:09 | P.PN ---
Subjective Progress Note Date: 07/03/17 Principal diagnosis: Bilateral pneumonia likely aspiration pneumonia, acute hypoxic respiratory failure, acute exacerbation of CHF likely acute on chronic diastolic heart failure, associated systolic heart failure cannot be associated excluded, lower extremity cellulitis, morbid obesity hypertension hypertensive cardiovascular disease 07/03/2017, patient seen eval examined during the rounds he is more calm and comfortable and breathing more regularly respiratory congestion has improved patient has been diuresed aggressively has received 3 doses of Lasix today eyes and nose are reviewed, patient remains on airvo 50%, appears to be tolerating well along with continuation of antibiotics, urine and blood culture results and reports are reviewed, leukocytosis have improved significantly sugar continued to be run continue to be running on higher 200s side Ammann primary service is adjusting insulin off note patient is not on his steroids, radiographic studies reviewed 07/02/2017, patient seen and evaluated examined today care plan discussed with the primary service also nursing staff and [id number] present at bedside, patient the noted to have severe D of inflammatory changes in the right eye has improved significantly able to open eyes to discharge as well as noted yesterday has improved, patient underwent duplex ultrasound lower extremity and VQ scan both are negative, patient is currently on airvo high flow 50% oxygen, tolerating very well, laboratory data reviewed x-ray findings reviewed care plan discussed the leukocytosis seen yesterday has improved down to 11,600 Sirs including urine and blood are negative patient slightly breathing more comfortably chest x-ray from today reviewed and compared with prior x-ray noted to have bibasilar atelectasis versus infiltrate as per RN patient noted to have some choking sensation as well while eating a chronic intermittent aspiration cannot be excluded no more episodes of emesis or nausea vomiting has been noted at this point of time Erik Hayes is a 67-year-old male with closed head injury, consult is requested for severe hypoxia and hypoxic respiratory failure appears to be acute process, patient is a resident of [facility]. Patient was noted to have a spiking fever or shortness of breath and was transferred to [facility] for further evaluation, it appears that patient major concern was in Mrs. when he presented into the emergency department without any nausea or abdominal pain, most of the data has been opted from the chart as well as sister present at bedside, patient continued to require significant amount of oxygen inspired on 15 L high flow oxygen patient sats remained in mid to high 80s however does not appear to be severely short of breath patient somnolent but arousable opens eyes does follow simple commands the right eyes closed as per sister has recent inflammatory processes and lot of discharge has been noted , on arrival in the emergency department patient was not only hypoxic but also had low-grade temperature 100.4 patient was tachypneic and the cardiac as well, review of the data reveals that patient had recent intermittent falls as well as has been vomiting as well, on arrival to emergency department patient was noted to be leukocytosis along with a stage III renal failure my EKG revealed sinus tachycardia was in the AV block chest x-ray revealed developing right mid lower lobe opacity suspicious of developing pneumonia him a computed tomography scan of the chest revealed right middle lobe pneumonia as well as by basilar lower lobe pneumonia mediastinal and hilar likely reactive lymphadenopathy, computed tomography scan of the brain failed to reveal any significant acute pathology Objective - Vital Signs Vital signs: Vital Signs Temp 98.5 F 07/03/17 15:00 Pulse 93 07/03/17 16:05 Resp 28 H 07/03/17 15:00 BP 120/65 07/03/17 15:00 Pulse Ox 86 L 07/03/17 15:00 Intake & Output 07/03/17 07/03/17 07/04/17 06:59 18:59 06:59 Intake Total 250 480 Balance 250 480 Weight 97.976 kg 86.5 kg Intake: Oral 250 480 Other: Voiding Method Incontinent Diaper Incontinent # Voids 4 3 # Bowel Movements 0 - Exam GENERAL: Patient is well-developed and well-nourished. Patient is nontoxic and well- hydrated and is in mild distress. ENT: Neck is soft and supple. No significant lymphadenopathy is noted. Oropharynx is clear. Moist mucous membranes. EYES: The sclera were anicteric and right conjunctiva were less pink and moist significant reduction in discharge. Extraocular movements were intact and pupils were equal round and reactive to light. Eyelids were unremarkable. PULMONARY: Unlabored respirations. Good breath sounds bilaterally. Slight crackles noted bilateral bases with bilateral basal bronchial breath sounds CARDIOVASCULAR: There is a regular rate and rhythm without any murmurs gallops or rubs. ABDOMEN: Soft and nontender with normal bowel sounds. No palpable organomegaly was noted. There is no palpable pulsatile mass. SKIN: Skin is clear with no lesions or rashes and otherwise unremarkable. NEUROLOGIC: Patient is alert and oriented x3. Cranial nerves II through XII are grossly intact. Motor and sensory are also intact. Normal speech, volume and content. Symmetrical smile. MUSCULOSKELETAL: Normal extremities with adequate strength and full range of motion. 2+ with left being larger than the right. Chronic bilateral lower extremity inflammation he skin changes are noted right greater than left LYMPHATICS: No significant lymphadenopathy is noted - Labs CBC & Chem 7: 07/02/17 07:33 07/02/17 07:33 Labs: Abnormal Lab Results - Last 24 Hours (Table) 07/02/17 07/03/17 07/03/17 Range/Units 20:36 07:09 12:20 POC Glucose (mg/dL) 290 H 287 H 255 H (75-99) mg/dL 07/03/17 Range/Units 17:03 POC Glucose (mg/dL) 289 H (75-99) mg/dL Microbiology - Last 24 Hours (Table) 06/30/17 04:57 Blood Culture - Preliminary Blood No Growth after 72 hours Assessment and Plan Assessment: Severe and acute sepsis related to aspiration pneumonia Acute exacerbation of CHF likely acute diastolic heart failure Ammann gently being diuresed Acute hypoxic respiratory failure related to above Right middle lobe, bilateral lower lobe pneumonia likely aspiration related Uncontrolled diabetes and hyperglycemia Severe morbid obesity with baseline close head injury Bilateral lower extremity cellulitis 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 Maintain patient on heparin 5000 units subcu every 12 Patient will undergo echocardiogram with cardiovascular evaluation, will do the aspiration evaluation including swallow with speech with this region cardiovascular services has been consulted Time with Patient: Greater than 30
[2017-07-03 20:55] LABS: Glucose,Whole Blood 235 mg/dL (75-99)
[2017-07-03] MEDS: FUROSEMIDE 10 MG/ML 4 ML VIAL IV SCH (21:26)
[2017-07-03] MEDS: ACETAMINOPHEN TAB 325 MG TAB PO PRN (23:01)
[2017-07-04] MEDS: CIPROFLOXACIN 0.3% OPHTH SOLN 5 ML BTL BOTH EYES SCH ×5 (04:06→21:02)
[2017-07-04] MEDS: CLINDAMYCIN 300 MG in DEXTROSE 5% IN WATER 50 ML IVPB SCH ×2 (06:07)
[2017-07-04 07:26] LABS: Glucose,Whole Blood 303 mg/dL (75-99)
[2017-07-04] MEDS: IPRATROPIUM-ALBUTEROL 3 ML NEB INHALATION SCH ×4 (07:47→19:06)
[2017-07-04] MEDS: VANCOMYCIN 1,750 MG in SODIUM CHLORIDE 0.9% 250 ML IVPB SCH ×2 (08:02→23:56)
[2017-07-04] MEDS: SODIUM CHLORIDE 0.9% 500 ML IV SCH (08:02)
[2017-07-04] MEDS: INSULIN ASPART 100 UNIT/ML 1 ML 10 ML VIAL SQ SCH ×4 (08:03→21:20)
[2017-07-04] MEDS: PANTOPRAZOLE 40 MG TABLET PO SCH (08:04)
[2017-07-04] MEDS: FUROSEMIDE 10 MG/ML 4 ML VIAL IV SCH ×2 (08:04→21:01)
[2017-07-04] MEDS: HEPARIN SODIUM,PORCINE 5,000 UNIT/ML 1 ML VIAL SQ SCH ×2 (08:04→21:01)
[2017-07-04] MEDS: LEVOFLOXACIN 750 MG TAB PO SCH (08:05)
[2017-07-04] MEDS: amLODIPine 10 MG TAB PO SCH (08:05)
[2017-07-04] MEDS: SERTRALINE 25 MG TAB PO SCH (08:05)
[2017-07-04] MEDS: DIVALPROEX 500 MG TABLET.DR PO SCH ×4 (08:05→21:01)
[2017-07-04] MEDS: LISINOPRIL 20 MG TAB PO SCH (08:05)
--- NOTE | 2017-07-04 09:25 | P.PN ---
Subjective Progress Note Date: 07/04/17 Principal diagnosis: Bilateral pneumonia likely aspiration pneumonia, acute hypoxic respiratory failure, acute exacerbation of CHF likely acute on chronic diastolic heart failure, associated systolic heart failure cannot be associated excluded, lower extremity cellulitis, morbid obesity hypertension hypertensive cardiovascular disease 07/04/2017, patient seen eval reexamined during the rounds he is awake has significant tremors today which appears to be worsening of chronic tremors however advise RN to get in touch with the primary service if neurological evaluation is needed or a trial of Sinemet can be considered, from respiratory standpoint patient is doing slightly better he's off of airvo, he is on the 100 % oxygen with a saturation 100%, patient was on room air for short period of time but that his oxygen were 88% we'll try 4-6 L nasal cannula as tolerated, continue antibiotics continue gentle diuresis patient had a Alfredo's catheter placed due to acute urinary retention over 700 mL of urine has been evacuated besides tremor he appears more calm and comfortable 07/03/2017, patient seen eval examined during the rounds he is more calm and comfortable and breathing more regularly respiratory congestion has improved patient has been diuresed aggressively has received 3 doses of Lasix today eyes and nose are reviewed, patient remains on airvo 50%, appears to be tolerating well along with continuation of antibiotics, urine and blood culture results and reports are reviewed, leukocytosis have improved significantly sugar continued to be run continue to be running on higher 200s side Ammann primary service is adjusting insulin off note patient is not on his steroids, radiographic studies reviewed 07/02/2017, patient seen and evaluated examined today care plan discussed with the primary service also nursing staff and [id number] present at bedside, patient the noted to have severe D of inflammatory changes in the right eye has improved significantly able to open eyes to discharge as well as noted yesterday has improved, patient underwent duplex ultrasound lower extremity and VQ scan both are negative, patient is currently on airvo high flow 50% oxygen, tolerating very well, laboratory data reviewed x-ray findings reviewed care plan discussed the leukocytosis seen yesterday has improved down to 11,600 Sirs including urine and blood are negative patient slightly breathing more comfortably chest x-ray from today reviewed and compared with prior x-ray noted to have bibasilar atelectasis versus infiltrate as per RN patient noted to have some choking sensation as well while eating a chronic intermittent aspiration cannot be excluded no more episodes of emesis or nausea vomiting has been noted at this point of time Erik Hayes is a 67-year-old male with closed head injury, consult is requested for severe hypoxia and hypoxic respiratory failure appears to be acute process, patient is a resident of [facility]. Patient was noted to have a spiking fever or shortness of breath and was transferred to [facility] for further evaluation, it appears that patient major concern was in Mrs. when he presented into the emergency department without any nausea or abdominal pain, most of the data has been opted from the chart as well as sister present at bedside, patient continued to require significant amount of oxygen inspired on 15 L high flow oxygen patient sats remained in mid to high 80s however does not appear to be severely short of breath patient somnolent but arousable opens eyes does follow simple commands the right eyes closed as per sister has recent inflammatory processes and lot of discharge has been noted , on arrival in the emergency department patient was not only hypoxic but also had low-grade temperature 100.4 patient was tachypneic and the cardiac as well, review of the data reveals that patient had recent intermittent falls as well as has been vomiting as well, on arrival to emergency department patient was noted to be leukocytosis along with a stage III renal failure my EKG revealed sinus tachycardia was in the AV block chest x-ray revealed developing right mid lower lobe opacity suspicious of developing pneumonia him a computed tomography scan of the chest revealed right middle lobe pneumonia as well as by basilar lower lobe pneumonia mediastinal and hilar likely reactive lymphadenopathy, computed tomography scan of the brain failed to reveal any significant acute pathology Objective - Vital Signs Vital signs: Vital Signs Temp 98.2 F 07/04/17 06:13 Pulse 94 07/04/17 07:57 Resp 16 07/04/17 06:13 BP 137/84 07/04/17 06:13 Pulse Ox 93 L 07/04/17 07:47 Intake & Output 07/03/17 07/04/17 07/04/17 18:59 06:59 18:59 Intake Total 480 Output Total 675 Balance 480 -675 Weight 86.5 kg 74.5 kg Intake: Oral 480 Output: Urine 675 Other: Voiding Method Diaper Diaper Incontinent # Voids 3 # Bowel Movements 0 - Exam GENERAL: Patient is well-developed and well-nourished. Patient is nontoxic and well- hydrated and is in mild distress. ENT: Neck is soft and supple. No significant lymphadenopathy is noted. Oropharynx is clear. Moist mucous membranes. EYES: The sclera were anicteric and right conjunctiva were less pink and moist significant reduction in discharge. Extraocular movements were intact and pupils were equal round and reactive to light. Eyelids were unremarkable. PULMONARY: Unlabored respirations. Good breath sounds bilaterally. Slight crackles noted bilateral bases with bilateral basal bronchial breath sounds CARDIOVASCULAR: There is a regular rate and rhythm without any murmurs gallops or rubs. ABDOMEN: Soft and nontender with normal bowel sounds. No palpable organomegaly was noted. There is no palpable pulsatile mass. SKIN: Skin is clear with no lesions or rashes and otherwise unremarkable. NEUROLOGIC: Patient is alert and oriented x3. Cranial nerves II through XII are grossly intact. Motor and sensory are also intact. Normal speech, volume and content. Symmetrical smile. More tremors than usual, usually patient does not have tremors when sleeping MUSCULOSKELETAL: Normal extremities with adequate strength and full range of motion. 2+ with left being larger than the right. Chronic bilateral lower extremity inflammation he skin changes are noted right greater than left LYMPHATICS: No significant lymphadenopathy is noted - Labs CBC & Chem 7: 07/02/17 07:33 07/02/17 07:33 Labs: Abnormal Lab Results - Last 24 Hours (Table) 07/03/17 07/03/17 07/03/17 Range/Units 12:20 17:03 20:51 POC Glucose (mg/dL) 255 H 289 H 235 H (75-99) mg/dL 07/04/17 Range/Units 07:24 POC Glucose (mg/dL) 303 H (75-99) mg/dL Microbiology - Last 24 Hours (Table) 06/30/17 04:57 Blood Culture - Preliminary Blood No Growth after 96 hours Assessment and Plan Assessment: Severe and acute sepsis related to aspiration pneumonia Acute exacerbation of CHF likely acute diastolic heart failure Ammann gently being diuresed Acute hypoxic respiratory failure related to above Right middle lobe, bilateral lower lobe pneumonia likely aspiration related Uncontrolled diabetes and hyperglycemia Severe morbid obesity with baseline close head injury Bilateral lower extremity cellulitis 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 Severe tremors likely related to close head injury or Parkinson's disease will recommend further evaluation if deemed necessary by primary service Plan: Continue gentle hydration Titrated oxygen as tolerated patient would benefit for BiPAP or airvo high flow oxygen, now patient can be tried on the nasal cannula forced to 6 L in for saturation 88-90% and above We'll set him off for duplex ultrasound of the lower extremity as well as VQ scan, CT of the chest with contrast cannot be performed due to renal failure We will continue Levaquin, IV vancomycin, and DC clindamycin Will continue eyedrops with Cipro Follow up on brooks cultures Maintain patient on DVT and peptic ulcer disease prophylaxis further recommendations pending plan of care as per clinical response of the patient, would. Maintain patient on heparin 5000 units subcu every 12 Patient will undergo echocardiogram with cardiovascular evaluation, will do the aspiration evaluation including swallow with speech with this region cardiovascular services has been consulted Time with Patient: Greater than 30
[2017-07-04 09:36] LABS: Calcium 8.9 mg/dL (8.4-10.2)
[2017-07-04 09:41] LABS: Potassium 4.5 mmol/L (3.5-5.1)
[2017-07-04 12:07] LABS: Glucose,Whole Blood 300 mg/dL (75-99)
[2017-07-04] MEDS: MULTIVITAMINS, THERA 1 EACH TAB PO SCH (12:18)
--- NOTE | 2017-07-04 12:47 | PN ---
PROGRESS NOTE DATE OF SERVICE: 07/04/2017 This is a 67-year-old white male who has history of closed head injury with mental impairment and seizure disorder and also he has had an extensive abdominal surgery for the injury caused by the accident and he has had a splenectomy and partial pancreatectomy and he is known to have diabetes mellitus. He was admitted at this time with nausea, vomiting, and shortness of breath and fever and chills and chest x-ray showing evidence of pneumonia and suspected to have aspiration pneumonia. Patient was admitted to the hospital for further evaluation and treatment. The patient was seen by Dr. Wiley Simms in consultation and the patient was started on IV antibiotics and currently he is receiving vancomycin and Levaquin. Patient also was found to have fluid retention and increasing shortness of breath and hypoxemia. The patient was started on IV Lasix and his BNP also was elevated and he was started on IV Lasix. He was also seen by [facility] in consultation. He had a V/Q scan which was negative for any pulmonary embolism and also had a venous Doppler of the lower extremities. This was also negative for DVT. His general condition and respiratory status are gradually improving, but still he is using oxygen constantly. Diabetes being controlled with NovoLog sliding scale. Overall prognosis is guarded. We will continue current medications and because of the elevated BUN, creatinine, and decreased urine output, we will consult housing director and Dr. Sousa has been consulted. Overall prognosis is guarded. MMODL / ABN: [id number] /
[2017-07-04 17:33] LABS: Glucose,Whole Blood 310 mg/dL (75-99)
--- NOTE | 2017-07-04 18:43 | P.PN ---
Subjective Progress Note Date: 07/04/17 This is a 67-year-old gentleman who was admitted to the hospital with sepsis, pneumonia and possible aspiration. We're asked to see the patient because of x- ray findings of CHF. His echocardiogram on July 02 showed preserved LV function with evidence of mild aortic stenosis. His proBNP is elevated. He may have a Combivent of diastolic CHF. However, auscultation of the lungs show expiratory wheezing and rhonchi consistent with pneumonia and exacerbation of COPD or bronchitis. We'll continue with diuretics as ordered. Rest of the management as for pulmonology. Prognosis appears to be guarded Objective - Vital Signs Vital signs: Vital Signs Temp 98.6 F 07/04/17 14:58 Pulse 87 07/04/17 15:22 Resp 20 07/04/17 15:22 BP 134/72 07/04/17 14:58 Pulse Ox 95 07/04/17 15:16 Intake & Output 07/03/17 07/04/17 07/04/17 18:59 06:59 18:59 Intake Total 480 370 Output Total 675 900 Balance 480 -675 -530 Weight 86.5 kg 74.5 kg Intake: IV 370 Sodium Chloride 0.9% 500 120 ml @ 20 mls/hr IV .Q24H OSVALDO Rx#:[id number] Vancomycin 1,750 mg In 250 Sodium Chloride 0.9% 250 ml @ 125 mls/hr IVPB Q24H OSVALDO Rx#:[id number] Oral 480 Output: Urine 675 900 Other: Voiding Method Diaper Diaper Indwelling Catheter Incontinent # Voids 3 # Bowel Movements 0 - Exam GENERAL EXAM: Patient is alert and unable to communicate well. Seems to be needed as stated distress HEENT: Normocephalic. Normal reaction of pupils, equal size, normal range of extraocular motion. No erythema or exudates in the throat. NECK: No masses, no nuchal rigidity. CHEST: No chest wall deformity. LUNGS: Bilateral expiratory wheezes and rhonchi HEART: Systolic murmur heard ABDOMEN: No hepatosplenomegaly, normal bowel sounds, no guarding or rigidity. SKIN: No rashes CENTRAL NERVOUS SYSTEM: Deferred EXTREMITIES: No cyanosis, clubbing or edema. - Labs CBC & Chem 7: 07/02/17 07:33 07/04/17 08:35 Labs: Abnormal Lab Results - Last 24 Hours (Table) 07/03/17 07/04/17 07/04/17 Range/Units 20:51 07:24 08:35 BUN 28 H (9-20) mg/dL Glucose 319 H (74-99) mg/dL POC Glucose (mg/dL) 235 H 303 H (75-99) mg/dL 07/04/17 07/04/17 Range/Units 12:00 17:29 BUN (9-20) mg/dL Glucose (74-99) mg/dL POC Glucose (mg/dL) 300 H 310 H (75-99) mg/dL Microbiology - Last 24 Hours (Table) 06/30/17 04:57 Blood Culture - Preliminary Blood No Growth after 96 hours Assessment and Plan (1) Diastolic CHF Current Visit: Yes Status: Acute Code(s): I50.30 - UNSPECIFIED DIASTOLIC ( CONGESTIVE) HEART FAILURE SNOMED Code(s): 438104343 (2) Pneumonia Current Visit: Yes Status: Acute Code(s): J18.9 - PNEUMONIA, UNSPECIFIED ORGANISM SNOMED Code(s): 826094299 (3) Renal insufficiency Current Visit: No Status: Acute Code(s): N28.9 - DISORDER OF KIDNEY AND URETER, UNSPECIFIED SNOMED Code(s): 223339478 Plan: Continue current management. Seemed to be most of his problems are aspiration pneumonia and asthmatic bronchitis. His echo showed good LV function and evidence of mild aortic stenosis
--- NOTE | 2017-07-04 20:20 | CONS ---
CONSULTATION REASON FOR CONSULT: Renal failure. DATE OF CONSULTATION: 07/04/2012. HISTORY OF PRESENT ILLNESS: The patient is a 67-year-old male who was admitted to the hospital on 06/30/2017 with complaints of nausea, vomiting, diarrhea. The patient also has underlying pneumonia. He had a CT of the chest done which showed right lobe pneumonia with bibasilar lower lobe pneumonia. Mediastinal and hilar lymphadenopathy was also noted. Serum creatinine was 1.5 mg/dL on initial admission. It has been decreasing. It is down to 1.06 mg/dL today. Currently, patient is being diuresed. This looks like he had fever and IV fluids initially. He is maintained on antibiotics in the form of vancomycin. The patient also remained on Zestril 40 mg daily. He has been voiding and had been incontinent and looks like an indwelling Alfredo catheter has now been placed. PAST MEDICAL HISTORY: Asthma, COPD, type 2 diabetes, gastroesophageal reflux disease, hypertension, tremors, history of closed head injury, previous history of MRSA of the right foot. PAST SURGICAL HISTORY: Appendectomy, tonsillectomy, splenectomy, partial removal of pancreas details not known, anxiety, depression. MEDICATIONS: Prior to admission included insulin, Vasotec, Prilosec, Depakote, Lasix, Zoloft, vitamin C, Claritin, Zocor, Aldactone, Norvasc, Glucotrol, metformin. ALLERGIES: ZOSYN causes rash and hives. REVIEW OF SYSTEMS: Patient did have a fever. He has continued shaking of his head. He had some nausea and vomiting on admission. No significant urinary symptoms, however, Alfredo catheter is now in place. EXAMINATION: Blood pressure is 134/72, heart rate 87 per minute. Patient is afebrile. Examination of the heart: S1, S2 present. Examination of the lungs: Bilateral breath sounds are heard. Decreased breath sounds at bases. Bilateral crackles are heard. Abdomen is soft, nontender. Examination lower extremity shows edema of face bilaterally. DOCUMENT CONTROL MANAGER exam is shows the patient has involuntary tremor of the head. He is moving all 4 extremities. LAB: Show sodium 140, potassium 4.5, BUN 28, serum creatinine 1.06, and calcium is 8.9. UA shows trace ketones, no blood or protein on 06/30/2017. Influenza serologies are negative. ASSESSMENT: 1. Acute kidney injury on initial admission, currently significantly improved. 2. Volume overload with congestive heart failure, maintained on Lasix 40 mg IV q.12 hours, which we can continue for now. 3. Pneumonia maintained on antibiotics. The patient has been on clindamycin, which is now discontinued. He is on vancomycin, which was started today. 4. Hypertension, maintained on Norvasc. 5. Hypoxic respiratory failure, currently on 100% non-rebreather. Expect improvement with diuresis. PLAN: Continue with Lasix and increase Lasix depending on response with urine output. Repeat labs in a.m. May continue with the lisinopril for now. Thank you for this consultation. We will continue to follow the patient with you during his hospitalization. MMODL / IJN: [id number] /
[2017-07-04 21:41] LABS: Glucose,Whole Blood 320 mg/dL (75-99)
[2017-07-04] MEDS ORDERED: VANCOMYCIN TROUGH DUE 1 EACH MISC MISCELLANE ONE (22:00)
[2017-07-05] MEDS: ACETAMINOPHEN TAB 325 MG TAB PO PRN (00:36)
[2017-07-05 02:06] LABS: Glucose,Whole Blood 307 mg/dL (75-99)
[2017-07-05] MEDS: IPRATROPIUM-ALBUTEROL 3 ML NEB INHALATION SCH ×4 (07:31→19:28)
[2017-07-05 07:44] LABS: Glucose,Whole Blood 299 mg/dL (75-99)
[2017-07-05] MEDS: INSULIN ASPART 100 UNIT/ML 1 ML 10 ML VIAL SQ SCH ×4 (08:12→22:42)
[2017-07-05] MEDS: LISINOPRIL 20 MG TAB PO SCH (08:13)
[2017-07-05] MEDS: LEVOFLOXACIN 750 MG TAB PO SCH (08:13)
[2017-07-05] MEDS: PANTOPRAZOLE 40 MG TABLET PO SCH (08:13)
[2017-07-05] MEDS: SERTRALINE 25 MG TAB PO SCH (08:13)
[2017-07-05] MEDS: amLODIPine 10 MG TAB PO SCH (08:13)
[2017-07-05] MEDS: DIVALPROEX 500 MG TABLET.DR PO SCH ×4 (08:13→22:24)
[2017-07-05] MEDS: FUROSEMIDE 10 MG/ML 4 ML VIAL IV SCH ×2 (08:14→22:25)
[2017-07-05] MEDS: HEPARIN SODIUM,PORCINE 5,000 UNIT/ML 1 ML VIAL SQ SCH ×2 (08:14→22:24)
[2017-07-05 12:17] LABS: Glucose,Whole Blood 360 mg/dL (75-99)
[2017-07-05] MEDS: MULTIVITAMINS, THERA 1 EACH TAB PO SCH (12:53)
--- NOTE | 2017-07-05 13:40 | P.PN ---
Subjective Progress Note Date: 07/05/17 [facility] is covering for Dr. Simms Patient is being seen examined and evaluated on rounds for follow-up. Patient has bilateral pneumonia right leg from aspiration. Upon examination the patient is resting up in bed on 15 L of high flow nasal cannula, the patient was on airflow yesterday, and has been slowly weaned off. The patient has a indwelling Alfredo catheter at this time due to acute urinary retention. Urology is also on consult. The patient does have an enlarged testicle as well. He continues on Levaquin and vancomycin. There were no labs drawn this morning. We put in for stat labs at this time. Sputum culture has not been obtained at this time. Cardiology, neurology and nephrology is also following with the patient. He continues to complain of shortness of breath with exertion and activity. He does have a congested cough. Repeat chest x-ray will be completed in the morning. He continues on a dysphagia diet with one-to-one supervision. Continues with PT and OT. Objective - Vital Signs Vital signs: Vital Signs Temp 98.2 F 07/05/17 07:00 Pulse 93 07/05/17 11:06 Resp 18 07/05/17 08:00 BP 139/96 07/05/17 07:00 Pulse Ox 95 07/05/17 07:00 Intake & Output 07/04/17 07/05/17 07/05/17 18:59 06:59 18:59 Intake Total 370 Output Total 900 850 Balance -530 -850 Weight 74.7 kg 74.7 kg Intake: IV 370 Sodium Chloride 0.9% 500 120 ml @ 20 mls/hr IV .Q24H OSVALDO Rx#:[id number] Vancomycin 1,750 mg In 250 Sodium Chloride 0.9% 250 ml @ 125 mls/hr IVPB Q24H OSVALDO Rx#:[id number] Output: Urine 900 850 Other: Voiding Method Indwelling Catheter Indwelling Catheter Indwelling Catheter - Exam GENERAL EXAM: Alert, comfortable in no apparent distress. HEAD: Normocephalic. EYES: Normal reaction of pupils, equal size. NOSE: Clear with pink turbinates. THROAT: No erythema or exudates. NECK: No masses, no JVD. CHEST: No chest wall deformity. LUNGS: Lung sounds noted to be somewhat coarse bilaterally with decreased bases. CVS: S1 and S2 normal with no audible mumurs, regular rhythm. ABDOMEN: No hepatosplenomegaly, normal bowel sounds, no guarding or rigidity. EXTREMITIES: +1-2 edema noted, pedal pulses palpable. CENTRAL NERVOUS SYSTEM: No focal deficits, tone is normal in all 4 extremities. - Labs CBC & Chem 7: 07/02/17 07:33 07/04/17 08:35 Labs: Abnormal Lab Results - Last 24 Hours (Table) 07/04/17 07/04/17 07/05/17 Range/Units 17:29 21:07 02:03 POC Glucose (mg/dL) 310 H 320 H 307 H (75-99) mg/dL 07/05/17 07/05/17 Range/Units 07:41 12:13 POC Glucose (mg/dL) 299 H 360 H (75-99) mg/dL Microbiology - Last 24 Hours (Table) 06/30/17 04:57 Blood Culture - Preliminary Blood No Growth after 120 hours Assessment and Plan Assessment: Assessment Severe and acute sepsis related to aspiration pneumonia Acute exacerbation of CHF likely acute diastolic heart failure Ammann gently being diuresed Acute hypoxic respiratory failure related to above Right middle lobe, bilateral lower lobe pneumonia likely aspiration related Uncontrolled diabetes and hyperglycemia Severe morbid obesity with baseline close head injury Bilateral lower extremity cellulitis 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 Repeat chest x -ray in the morning. Aspirations precautions. Continue with pulmonary hygiene, coughing and deep breathing exercises, and supportive care. Supplemental oxygen to maintain oxygen saturations of 92% or better, try to titrate down. Continue nebulizer treatments. Cardiology, nephrology, neurology and urology on consult and appreciate recommendations. Indwelling catheter related to urinary retention GI and DVT prophylaxis. We will continue to monitor labs/results and adjust treatment as necessary. Further recommendations pending. We are covering for Dr. Simms I performed an examination of the patient and discussed their management with the nurse practitioner. I have reviewed the nurse practitioner's note and agree with the documented findings and plan of care.
[2017-07-05] MEDS ORDERED: INSULIN ASPART 100 UNIT/ML 1 ML 10 ML VIAL SQ PRN (13:58)
[2017-07-05 14:27] LABS: Basophils # (A) 0.1 k/uL (0-0.2); Basophils % (A) 1 %; Eosinophils # (A) 0.1 k/uL (0-0.7); Eosinophils % (A) 1 %; HCT 34.2 % (39.0-53.0); HGB 11.6 gm/dL (13.0-17.5); Lymphocytes # (A) 1.9 k/uL (1.0-4.8); Lymphocytes % (A) 20 %; MCH 30.7 pg (25.0-35.0); MCHC 33.9 g/dL (31.0-37.0); MCV 90.7 fL (80.0-100.0); Mean Platelet Volume 7.7; Monocytes # (A) 1.1 k/uL (0-1.0); Monocytes % (A) 12 %; Neutrophils # (A) 5.8 k/uL (1.3-7.7); Neutrophils % (A) 62 %; Platelet Count 250 k/uL (150-450); Poikilocytosis Slight; RBC 3.77 m/uL (4.30-5.90); RDW 14.2 % (11.5-15.5); WBC 9.4 k/uL (3.8-10.6)
[2017-07-05 14:34] LABS: Albumin 2.9 g/dL (3.5-5.0); Calcium 8.8 mg/dL (8.4-10.2); Potassium 4.1 mmol/L (3.5-5.1); Total Bilirubin 0.1 mg/dL (0.2-1.3); Total Protein 5.8 g/dL (6.3-8.2)
[2017-07-05 14:40] LABS: Valproic Acid (Depakene) 75.1 ug/mL
[2017-07-05] MEDS: methylPREDNISolone SOD SUCCI 125 MG/2 ML VIAL IV SCH ×2 (16:03→18:39)
[2017-07-05] MEDS: VANCOMYCIN 1,750 MG in SODIUM CHLORIDE 0.9% 250 ML IVPB SCH (16:04)
--- NOTE | 2017-07-05 16:09 | PN ---
PROGRESS NOTE Patient is seen for followup for acute kidney injury and volume overload. He is currently maintained on Lasix IV 40 mg q.12 hours and has done well from respiratory standpoint. On examination today, blood pressure is 139/96, heart rate 104 per minute. He is afebrile. EXAMINATION OF THE HEART: S1, S2. EXAMINATION OF LUNGS: Bilateral breath sounds are heard. ABDOMEN: Soft, non-tender. Examination of lower extremities shows 1+ edema bilaterally. Patient continues to have tremors of his jaw and head. Otherwise he is moving all 4 extremities. Labs show sodium 140, potassium 4.1, serum creatinine 1.10, BUN 29, hemoglobin 11.6 g/dL. ASSESSMENT: 1. Acute kidney injury, currently significantly improved, non-oliguric. Continue with the IV Lasix. Patient is not hypotensive. There are no nephrotoxic agents on board. We can continue with the HANANE inhibitors as well. 2. Volume overload/congestive heart failure, maintained on IV Lasix and currently improving. Echocardiogram showed ejection fraction 65% to 70% with mildly dilated left atrium. 3. Pneumonia, currently maintained on vancomycin. Patient had been on clindamycin previously. PLAN: Continue current dose of IV Lasix. Patient still has some degree of hypervolemia. Repeat labs in a.m. Monitor electrolytes. MMODL / IJN: [id number] /
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
[2017-07-05 17:10] LABS: Glucose,Whole Blood 338 mg/dL (75-99)
[2017-07-05] MEDS: metFORMIN 500 MG TAB PO SCH (17:25)
[2017-07-05] MEDS: SODIUM CHLORIDE 0.9% 500 ML IV SCH (17:41)
--- NOTE | 2017-07-05 19:18 | P.PN ---
Subjective Progress Note Date: 07/05/17 This 67-year-old gentleman with history of parkinsonism is admitted with sepsis and pneumonia. Patient has history of diastolic congestive heart failure. Patient was off diuretics and appears that patient might have developed fluid overload. His back on diuretics. Patient does have expiratory wheezing and rhonchi and pneumonia. Patient is getting antibiotics. His kidney functions have improved. From cardiac standpoint. We'll continue with current diuretic therapy. We'll follow as needed Objective - Vital Signs Vital signs: Vital Signs Temp 99.4 F 07/05/17 15:00 Pulse 96 07/05/17 16:21 Resp 18 07/05/17 16:00 BP 123/56 07/05/17 15:00 Pulse Ox 93 L 07/05/17 15:00 Intake & Output 07/05/17 07/05/17 07/06/17 06:59 18:59 06:59 Output Total 850 600 Balance -850 -600 Weight 74.7 kg 74.7 kg Output: Urine 850 600 Other: Voiding Method Indwelling Catheter Indwelling Catheter - Exam GENERAL EXAM: Patient is alert and unable to communicate well. Seems to be needed as stated distress HEENT: Normocephalic. Normal reaction of pupils, equal size, normal range of extraocular motion. No erythema or exudates in the throat. NECK: No masses, no nuchal rigidity. CHEST: No chest wall deformity. LUNGS: Bilateral expiratory wheezes and rhonchi HEART: Systolic murmur heard ABDOMEN: No hepatosplenomegaly, normal bowel sounds, no guarding or rigidity. SKIN: No rashes CENTRAL NERVOUS SYSTEM: Deferred EXTREMITIES: No cyanosis, clubbing or edema. - Labs CBC & Chem 7: 07/05/17 13:56 07/05/17 13:56 Labs: Abnormal Lab Results - Last 24 Hours (Table) 07/04/17 07/05/17 07/05/17 Range/Units 21:07 02:03 07:41 RBC (4.30-5.90) m/uL Hgb (13.0-17.5) gm/dL Hct (39.0-53.0) % Monocytes # (0-1.0) k/uL BUN (9-20) mg/dL Glucose (74-99) mg/dL POC Glucose (mg/dL) 320 H 307 H 299 H (75-99) mg/dL Total Bilirubin (0.2-1.3) mg/dL ALT (21-72) U/L Total Protein (6.3-8.2) g/dL Albumin (3.5-5.0) g/dL 07/05/17 07/05/17 07/05/17 Range/Units 12:13 13:56 13:56 RBC 3.77 L (4.30-5.90) m/uL Hgb 11.6 L (13.0-17.5) gm/dL Hct 34.2 L (39.0-53.0) % Monocytes # 1.1 H (0-1.0) k/uL BUN 29 H (9-20) mg/dL Glucose 359 H (74-99) mg/dL POC Glucose (mg/dL) 360 H (75-99) mg/dL Total Bilirubin 0.1 L (0.2-1.3) mg/dL ALT 14 L (21-72) U/L Total Protein 5.8 L (6.3-8.2) g/dL Albumin 2.9 L (3.5-5.0) g/dL 07/05/17 Range/Units 17:08 RBC (4.30-5.90) m/uL Hgb (13.0-17.5) gm/dL Hct (39.0-53.0) % Monocytes # (0-1.0) k/uL BUN (9-20) mg/dL Glucose (74-99) mg/dL POC Glucose (mg/dL) 338 H (75-99) mg/dL Total Bilirubin (0.2-1.3) mg/dL ALT (21-72) U/L Total Protein (6.3-8.2) g/dL Albumin (3.5-5.0) g/dL Microbiology - Last 24 Hours (Table) 06/30/17 04:57 Blood Culture - Preliminary Blood No Growth after 120 hours Assessment and Plan (1) Diastolic CHF Current Visit: Yes Status: Acute Code(s): I50.30 - UNSPECIFIED DIASTOLIC ( CONGESTIVE) HEART FAILURE SNOMED Code(s): 299146052 (2) Pneumonia Current Visit: Yes Status: Acute Code(s): J18.9 - PNEUMONIA, UNSPECIFIED ORGANISM SNOMED Code(s): 600485004 (3) Renal insufficiency Current Visit: No Status: Acute Code(s): N28.9 - DISORDER OF KIDNEY AND URETER, UNSPECIFIED SNOMED Code(s): 199239047 Plan: We will continue with current management and current dose of diuretics. Being followed by nephrology and also neurology. We'll follow him as needed
[2017-07-05 20:52] LABS: Glucose,Whole Blood 293 mg/dL (75-99)
[2017-07-05] MEDS: CARBIDOPA-LEVODOPA 25-100 MG 1 EACH TAB PO SCH (22:24)
[2017-07-05] MEDS: ATORVASTATIN 20 MG TAB PO SCH (22:26)
[2017-07-05] MEDS: SPIRONOLACTONE 25 MG TAB PO SCH (22:26)
[2017-07-06] MEDS: methylPREDNISolone SOD SUCCI 125 MG/2 ML VIAL IV SCH ×5 (00:46→23:07)
[2017-07-06] MEDS: VANCOMYCIN 1,750 MG in SODIUM CHLORIDE 0.9% 250 ML IVPB SCH ×2 (06:41→22:08)
[2017-07-06 07:24] LABS: Glucose,Whole Blood 410 mg/dL (75-99)
[2017-07-06 07:24] LABS: Glucose,Whole Blood 554 mg/dL (75-99)
[2017-07-06] MEDS ORDERED: glipiZIDE 5 MG TAB PO SCH (07:30)
[2017-07-06] MEDS ORDERED: INSULN ASP PRT/INSULIN ASPART 100 UNIT/ML 10 ML VIAL SQ SCH (07:30)
[2017-07-06] MEDS ORDERED: INSULIN NPH/REG INSULIN 70/30 300 UNIT/3 ML VIAL SQ SCH (07:30)
[2017-07-06] MEDS: SPIRONOLACTONE 25 MG TAB PO SCH ×2 (07:56→16:35)
[2017-07-06] MEDS: LORATADINE 10 MG TAB PO SCH (07:56)
[2017-07-06] MEDS: DIVALPROEX 500 MG TABLET.DR PO SCH ×4 (07:57→20:40)
[2017-07-06] MEDS: FUROSEMIDE 10 MG/ML 4 ML VIAL IV SCH ×2 (07:57→20:40)
[2017-07-06] MEDS: LISINOPRIL 20 MG TAB PO SCH (07:57)
[2017-07-06] MEDS: glipiZIDE 5 MG TAB PO SCH ×2 (07:57→16:35)
[2017-07-06] MEDS: amLODIPine 10 MG TAB PO SCH (07:57)
[2017-07-06] MEDS: HEPARIN SODIUM,PORCINE 5,000 UNIT/ML 1 ML VIAL SQ SCH ×2 (07:57→20:40)
[2017-07-06] MEDS: metFORMIN 500 MG TAB PO SCH ×2 (07:58→17:58)
[2017-07-06] MEDS: PANTOPRAZOLE 40 MG TABLET PO SCH (07:58)
[2017-07-06] MEDS: SERTRALINE 25 MG TAB PO SCH (07:58)
[2017-07-06] MEDS: LEVOFLOXACIN 750 MG TAB PO SCH (07:58)
[2017-07-06] MEDS: CARBIDOPA-LEVODOPA 25-100 MG 1 EACH TAB PO SCH ×2 (07:58→20:40)
[2017-07-06 08:05] LABS: Basophils % (A) 1 %; Eosinophils % (A) 0 %; HGB 11.6 gm/dL (13.0-17.5); Lymphocytes # (A) 1.3 k/uL (1.0-4.8); Lymphocytes % (A) 16 %; MCH 30.4 pg (25.0-35.0); MCV 92.2 fL (80.0-100.0); Mean Platelet Volume 8.2; Monocytes # (A) 0.3 k/uL (0-1.0); Monocytes % (A) 4 %; Neutrophils # (A) 6.3 k/uL (1.3-7.7); Neutrophils % (A) 77 %; Platelet Count 306 k/uL (150-450); RDW 14.4 % (11.5-15.5); WBC 8.2 k/uL (3.8-10.6)
[2017-07-06] MEDS: INSULIN ASPART 100 UNIT/ML 1 ML 10 ML VIAL SQ SCH ×4 (08:06→22:07)
[2017-07-06 08:31] LABS: Albumin 2.9 g/dL (3.5-5.0); Potassium 4.8 mmol/L (3.5-5.1); Total Bilirubin 0.3 mg/dL (0.2-1.3); Total Protein 6.1 g/dL (6.3-8.2)
[2017-07-06] MEDS: IPRATROPIUM-ALBUTEROL 3 ML NEB INHALATION SCH ×4 (08:41→21:13)
--- NOTE | 2017-07-06 09:48 | XR ---
EXAMINATION TYPE: XR chest 2V DATE OF EXAM: 07/06/2017 COMPARISON: Chest x-ray from [address] chest June 30, 2017. HISTORY: Pneumonia and difficulty in breathing. TECHNIQUE: Frontal and lateral views of the chest are obtained. FINDINGS: There is persistent cardiomegaly and low lung volumes with bibasilar opacities felt to ref lect infiltrate and/or atelectasis and probable persistent small right pleural effusion. The osseou s structures are intact. IMPRESSION: Overall stable findings, low lung volumes and cardiomegaly with bibasilar infiltrate and /or atelectasis and suspected small right pleural effusion all redemonstrated.
--- NOTE | 2017-07-06 10:13 | P.PN ---
Progress Note - Text The patient is a 67-year-old gentleman who is a patient of Dr. Louie Stearns for whom I am covering with a history of closed head injury and mental impairment along with seizure disorder. Apparently he was admitted about 6 days ago with pneumonia at that time. He does have comorbidities with diabetes and chronic kidney disease stage III. The previous head injury as mentioned. He is also being treated for acute diastolic congestive heart failure. Patient has been evaluated by neurology, urology, pulmonary medicine and cardiology. In discussing with staff apparently he is doing somewhat better this morning. Vital signs reveal temperature of 97.3 with a pulse of 98 and respirations 28. Blood pressure is 139/79. Patient was at 84% saturation but this does increase to 91% saturation although he is on high flow at 10. Presently he does not appear to be in any distress though. Lungs are diminished at bases with fine rales present there also. Heart tones are somewhat distant and borderline tachycardic. Abdomen is nontender. No marked distal edema noted. Neurologic status apparently stable for his previous history of closed head injury. Laboratory White count is 8.2 with a hemoglobin 11.6 and a platelet count of 306. Sodium is 140 with potassium 4.8. BUN is 41 with creatinine 1.19 giving him a GFR of 63. Blood sugar this morning was 424 this was after his corticosteroids. Albumin is low at 2.9. Chest x-ray showed overall stable findings with low lung volumes and cardiomegaly. Bibasilar infiltrates with right pleural effusion noted. Mildly better aeration in my opinion from previous. Patient does overall seem to be having negative urine outputs approximately 5- 700 mL. Although weight seems to be stable at 74.7 kg. Impressions and plans Continue on his long-acting insulin and will adjust upward if needed for hyperglycemia as discussed with staff this morning. He is to continue on his respiratory treatments, antibiotics and Lasix as per pulmonary and cardiology. Prognosis is very guarded in light of his medical condition and comorbidities as mentioned above.
[2017-07-06] MEDS ORDERED: TAMSULOSIN 0.4 MG CAP.ER.24H PO STA (10:39)
[2017-07-06] MEDS: SODIUM CHLORIDE 0.9% 500 ML IV SCH (10:41)
--- NOTE | 2017-07-06 10:42 | P.GSCN ---
History of Present Illness Consult date: 07/06/17 Reason for Consult: Scrotal and right testicular swelling History of present illness: The patient is a 67-year-old male with a history of mental impairment apparently related to previous head injury who resides in a longterm. He was admitted on 06/30 for evaluation of a fever, nausea and vomiting and at that time was felt to have a right-sided pneumonia. The patient has been treated with antibiotics and his fever has essentially resolved. He developed fluid overload which has been treated with diuretics. He was recently noted to have some right testicular enlargement and generalized scrotal swelling and I was asked to see him for further evaluation. The patient denies any testicular or scrotal pain. He says he thinks he's had the swelling in the scrotum previously however this was not specifically noted on any of his previous examinations. He denies a history of urinary tract infections. A Alfredo catheter was inserted on 07/04 and drained approximately 650 mL. The catheter has remained in place since then. 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; Seizures History of Any Multi-Drug Resistant Organisms: MRSA Year Discovered:: 2013 MDRO Source:: RT FOOT Past Surgical History: Appendectomy, Orthopedic Surgery, Tonsillectomy Additional Past Surgical History / Comment(s): spleenectomy, partial removal of pancreas Past Anesthesia/Blood Transfusion Reactions: No Reported Reaction Past Psychological History: Anxiety, Depression Additional Psychological History / Comment(s): closed head injury Smoking Status: Never smoker Past Alcohol Use History: None Reported Past Drug Use History: None Reported - Past Family History Mother Family Medical History: Unable to Obtain Father Family Medical History: Unable to Obtain Medications and Allergies Home Medications Medication Instructions Recorded Confirmed Type Divalproex [Depakote] 500 mg PO QID 08/27/13 06/30/17 History Omeprazole [PriLOSEC] 20 mg PO DAILY 08/27/13 06/30/17 History Eucerin Topical Cream 1 applic TOPICAL DAILY 03/04/16 06/30/17 History Insulin Aspart [NovoLOG Flexpen] 5 units SQ AC-LUNCH PRN 03/04/16 06/30/17 History Insulin Aspart [NovoLOG Flexpen] 5 units SQ AC-SUPPER PRN 03/04/16 06/30/17 History Enalapril Maleate [Vasotec] 20 mg PO DAILY 03/21/16 06/30/17 History Furosemide [Lasix] 20 mg PO HS 03/21/16 06/30/17 History Mometasone Furoate [Nasonex Nasal 1 - 2 spray EA NOSTRIL DAILY PRN 03/21/1608/14 History [place]] Sertraline [Zoloft] 75 mg PO DAILY 03/21/16 06/30/17 History Ammonium Lactate Cream [Lac-Hydrin 1 applic TOPICAL DAILY 06/30/17 06/30/17 History 12% Cream] Ascorbic Acid [Vitamin C] 250 mg PO DAILY 06/30/17 06/30/17 History Clotrimazole [Clotrimazole 1% Top 2 drops TOPICAL DAILY 06/30/17 06/30/17 History Soln] Furosemide [Lasix] 40 mg PO DAILY 06/30/17 06/30/17 History Loratadine [Claritin] 10 mg PO DAILY 06/30/17 06/30/17 History Multivitamins, Thera [Multivitamin 1 tab PO DAILY 06/30/17 06/30/17 History (formulary)] Mupirocin [Mupirocin 2%] 1 applic TOPICAL DAILY 06/30/17 06/30/17 History Simvastatin [Zocor] 20 mg PO DAILY@199906/30/17 06/30/17 History Spironolactone [Aldactone] 25 mg PO BID 06/30/17 06/30/17 History amLODIPine [Norvasc] 10 mg PO DAILY 06/30/17 06/30/17 History glipiZIDE [Glucotrol XL] 10 mg PO DAILY 06/30/17 06/30/17 History metFORMIN HCL [metFORMIN HCL ER] 1,000 mg PO AC-BID 06/30/17 06/30/17 History Insulin Aspart Protam & Aspart 20 unit SQ AC-BRKFST 07/05/17 07/05/17 History [NovoLOG MIX 70-30 Flexpen] Allergies Allergy/AdvReac Type Severity Reaction Status Date / Time piperacillin sodium Allergy Rash/Hives Verified 06/30/17 09:03 [From Zosyn] tazobactam sodium Allergy Rash/Hives Verified 06/30/17 09:03 [From Zosyn] Surgical - Exam Vital Signs Temp Pulse Resp BP Pulse Ox 100.4 F H 111 H 20 120/70 92 L 06/30/17 04:31 06/30/17 04:31 06/30/17 04:31 06/30/17 04:31 06/30/17 04:31 - General well developed, no distress, obese - Respiratory normal respiratory effort - Abdomen Abdomen: soft, no organomegaly - Genitourinary other (A Alfredo catheter is in place and is draining clear urine. The penis is unremarkable. There is some mild edema of the scrotal skin. There is soft tissue swelling adjacent to the right testicle consistent with epididymoorchitis. There is minimal tenderness.) Results - Labs 07/06/17 07:49 07/06/17 07:49 Abnormal Lab Results - Last 24 Hours (Table) 07/05/17 07/05/17 07/05/17 Range/Units 12:13 13:56 13:56 RBC 3.77 L (4.30-5.90) m/uL Hgb 11.6 L (13.0-17.5) gm/dL Hct 34.2 L (39.0-53.0) % Monocytes # 1.1 H (0-1.0) k/uL BUN 29 H (9-20) mg/dL Glucose 359 H (74-99) mg/dL POC Glucose (mg/dL) 360 H (75-99) mg/dL Total Bilirubin 0.1 L (0.2-1.3) mg/dL ALT 14 L (21-72) U/L Total Protein 5.8 L (6.3-8.2) g/dL Albumin 2.9 L (3.5-5.0) g/dL 07/05/17 07/05/17 07/06/17 Range/Units 17:08 20:29 07:21 RBC (4.30-5.90) m/uL Hgb (13.0-17.5) gm/dL Hct (39.0-53.0) % Monocytes # (0-1.0) k/uL BUN (9-20) mg/dL Glucose (74-99) mg/dL POC Glucose (mg/dL) 338 H 293 H 554 H (75-99) mg/dL Total Bilirubin (0.2-1.3) mg/dL ALT (21-72) U/L Total Protein (6.3-8.2) g/dL Albumin (3.5-5.0) g/dL 07/06/17 07/06/17 07/06/17 Range/Units 07:23 07:49 07:49 RBC 3.80 L (4.30-5.90) m/uL Hgb 11.6 L (13.0-17.5) gm/dL Hct 35.0 L (39.0-53.0) % Monocytes # (0-1.0) k/uL BUN 41 H (9-20) mg/dL Glucose 424 H (74-99) mg/dL POC Glucose (mg/dL) 410 H (75-99) mg/dL Total Bilirubin (0.2-1.3) mg/dL ALT 13 L (21-72) U/L Total Protein 6.1 L (6.3-8.2) g/dL Albumin 2.9 L (3.5-5.0) g/dL Microbiology - Last 24 Hours (Table) 06/30/17 04:57 Blood Culture - Final Blood No Growth after 144 hours Diabetes panel 07/05/17 07/06/17 Range/Units 13:56 07:49 Sodium 140 140 (137-145) mmol/L Potassium 4.1 4.8 (3.5-5.1) mmol/L Chloride 101 101 (98-107) mmol/L Carbon Dioxide 30 28 (22-30) mmol/L BUN 29 H 41 H (9-20) mg/dL Creatinine 1.10 1.19 (0.66-1.25) mg/dL Glucose 359 H 424 H (74-99) mg/dL Calcium 8.8 9.0 (8.4-10.2) mg/dL AST 19 23 (17-59) U/L ALT 14 L 13 L (21-72) U/L Alkaline Phosphatase 48 49 (38-126) U/L Total Protein 5.8 L 6.1 L (6.3-8.2) g/dL Albumin 2.9 L 2.9 L (3.5-5.0) g/dL Calcium panel 07/05/17 07/06/17 Range/Units 13:56 07:49 Calcium 8.8 9.0 (8.4-10.2) mg/dL Albumin 2.9 L 2.9 L (3.5-5.0) g/dL Pituitary panel 07/05/17 07/06/17 Range/Units 13:56 07:49 Sodium 140 140 (137-145) mmol/L Potassium 4.1 4.8 (3.5-5.1) mmol/L Chloride 101 101 (98-107) mmol/L Carbon Dioxide 30 28 (22-30) mmol/L BUN 29 H 41 H (9-20) mg/dL Creatinine 1.10 1.19 (0.66-1.25) mg/dL Glucose 359 H 424 H (74-99) mg/dL Calcium 8.8 9.0 (8.4-10.2) mg/dL Adrenal panel 07/05/17 07/06/17 Range/Units 13:56 07:49 Sodium 140 140 (137-145) mmol/L Potassium 4.1 4.8 (3.5-5.1) mmol/L Chloride 101 101 (98-107) mmol/L Carbon Dioxide 30 28 (22-30) mmol/L BUN 29 H 41 H (9-20) mg/dL Creatinine 1.10 1.19 (0.66-1.25) mg/dL Glucose 359 H 424 H (74-99) mg/dL Calcium 8.8 9.0 (8.4-10.2) mg/dL Total Bilirubin 0.1 L 0.3 (0.2-1.3) mg/dL AST 19 23 (17-59) U/L ALT 14 L 13 L (21-72) U/L Alkaline Phosphatase 48 49 (38-126) U/L Total Protein 5.8 L 6.1 L (6.3-8.2) g/dL Albumin 2.9 L 2.9 L (3.5-5.0) g/dL Assessment and Plan (1) Right epididymitis Narrative/Plan: The patient's history and physical examination are consistent with the development of right epididymitis subsequent toe placement of a Alfredo catheter. At the present time he has minimal discomfort and there are rugae present in the scrotum skin consistent with resolving scrotal edema. The patient is on an antibiotic and his urine is grossly clear. The patient's urinary retention may have been precipitated by rapid diuresis when his fluid overload was treated. Recommendation: For the time being the patient should be continued on his current antibiotic. I would suggest elevating the scrotum on an ice pack. The patient's catheter should be removed in 1-2 days for a voiding trial but he should be monitored with the bladder scan unit to ensure that he is voiding completely. He may also benefit from starting tamsulosin 0.4 mg daily. Current Visit: Yes Status: Acute Code(s): N45.1 - EPIDIDYMITIS SNOMED Code (s): 58956414
[2017-07-06] MEDS: ASCORBIC ACID 500 MG TAB PO SCH (11:37)
[2017-07-06] MEDS: MULTIVITAMINS, THERA 1 EACH TAB PO SCH (11:38)
[2017-07-06 12:34] LABS: Glucose,Whole Blood 425 mg/dL (75-99)
[2017-07-06] MEDS: INSULIN ASPART 100 UNIT/ML 1 ML 10 ML VIAL SQ PRN (12:56)
--- NOTE | 2017-07-06 15:49 | P.PN ---
Subjective Progress Note Date: 07/06/17 This patient is a 67-year-old male who is being evaluated for Parkinson's disease. His neurological exam findings yesterday were very consistent with moderate to severe Parkinson's disease. He was started on low-dose Sinemet yesterday. He does seem to show some improvement with less degree of tremors noted today on examination. We will continue to titrate the dose of Sinemet for him accordingly. Patient does have a history of closed head injury with mental impairment along with seizure disorder. We did check his Depakote level yesterday and it was therapeutic at 75.1. This is a therapeutic level and we will continue him on his current dose of Depakote. Would recommend consultation with PT OT for him as well during this admission. Patient states he was able to eat his breakfast fairly well but did not eat much of his lunch. He is being treated for several comorbidities including diabetes mellitus, and chronic kidney disease stage III. We're waiting for the recommendations from urology were evaluating him for right testicular swelling. He is to continue on his current antibiotics. His catheter is to be removed in one to 2 days for voiding trial but will need close monitoring. The patient is resting comfortably this afternoon in his bed. He is able to answer most questions appropriately. We will continue close neurological follow-up with the patient during this admission. Objective - Vital Signs Vital signs: Vital Signs Temp 98.1 F 07/06/17 14:58 Pulse 97 07/06/17 14:58 Resp 20 07/06/17 14:58 BP 123/98 07/06/17 14:58 Pulse Ox 91 L 07/06/17 14:58 Intake & Output 07/05/17 07/06/17 07/06/17 18:59 06:59 18:59 Intake Total 100 720 Output Total 108 076 3233 Balance -600 -600 -405 Weight 74.7 kg 91 kg Intake: Oral 100 720 Output: Urine 559 153 2066 Uretheral (Alfredo) 700 Other: Voiding Method Indwelling Catheter Indwelling Catheter Indwelling Catheter # Voids 0 # Bowel Movements 0 0 - Exam Physical examination: PHYSICAL EXAMINATION: Patient is resting comfortably in bed. VITAL SIGNS: Blood pressure is [139/79]. Heart rate is [101]. Respiration is [94 ]. Temperature is [97.3]. HEENT: Head is atraumatic, neck is supple, there were no carotid bruits. CHEST: Lungs are clear to auscultation and percussion. CARDIAC: S1, S2 normal rate and rhythm. There is no murmur. ABDOMEN: Soft and nontender. Bowel sounds are present. EXTREMITIES: There is no pedal edema. Peripheral pulses are present. Neurological examination: Patient's neurological examination continues to reveal evidence of significant bilateral hand tremors and cogwheel rigidity on exam. Muscle tone is showing rigidity mostly in the upper extremities. - Labs CBC & Chem 7: 07/06/17 07:49 07/06/17 07:49 Labs: Abnormal Lab Results - Last 24 Hours (Table) 07/05/17 07/05/17 07/06/17 Range/Units 17:08 20:29 07:21 RBC (4.30-5.90) m/uL Hgb (13.0-17.5) gm/dL Hct (39.0-53.0) % BUN (9-20) mg/dL Glucose (74-99) mg/dL POC Glucose (mg/dL) 338 H 293 H 554 H (75-99) mg/dL ALT (21-72) U/L Total Protein (6.3-8.2) g/dL Albumin (3.5-5.0) g/dL 07/06/17 07/06/17 07/06/17 Range/Units 07:23 07:49 07:49 RBC 3.80 L (4.30-5.90) m/uL Hgb 11.6 L (13.0-17.5) gm/dL Hct 35.0 L (39.0-53.0) % BUN 41 H (9-20) mg/dL Glucose 424 H (74-99) mg/dL POC Glucose (mg/dL) 410 H (75-99) mg/dL ALT 13 L (21-72) U/L Total Protein 6.1 L (6.3-8.2) g/dL Albumin 2.9 L (3.5-5.0) g/dL 07/06/17 Range/Units 12:26 RBC (4.30-5.90) m/uL Hgb (13.0-17.5) gm/dL Hct (39.0-53.0) % BUN (9-20) mg/dL Glucose (74-99) mg/dL POC Glucose (mg/dL) 425 H (75-99) mg/dL ALT (21-72) U/L Total Protein (6.3-8.2) g/dL Albumin (3.5-5.0) g/dL Microbiology - Last 24 Hours (Table) 06/30/17 04:57 Blood Culture - Final Blood No Growth after 144 hours Assessment and Plan (1) Parkinsonism Current Visit: Yes Status: Acute Code(s): G20 - PARKINSON'S DISEASE SNOMED Code(s): 67185788 (2) Closed head injury Current Visit: Yes Status: Acute Code(s): S09.90XA - UNSPECIFIED INJURY OF HEAD, INITIAL ENCOUNTER SNOMED Code(s): 801281318574 (3) Seizure disorder Current Visit: Yes Status: Acute Code(s): G40.909 - EPILEPSY, UNSP, NOT INTRACTABLE, WITHOUT STATUS EPILEPTICUS SNOMED Code(s): 052040075 (4) Pneumonia Current Visit: Yes Status: Acute Code(s): J18.9 - PNEUMONIA, UNSPECIFIED ORGANISM SNOMED Code(s): 758370417 Plan: This patient is a 67-year-old right-handed white male who is currently residing at [facility]. He was admitted for symptoms of possible pneumonia. He is currently on antibiotic therapy. Neurology was consulted for evaluation of possible Parkinson's disease. His clinical exam findings yesterday were highly suggesting underlying moderate to severe degree of Parkinson's disease. He was started on low-dose Sinemet for further treatment. We will continue titration of Sinemet over the next few days. Would continue current treatment plans and would consider physical therapy occupational therapy consultation and evaluation for him as well. Patient is being treated for closed head injury and seizure disorder. His Depakote level was therapeutic at 75.1. He is to continue on his current dose of Depakote. We will continue close neurological follow-up with this patient over the next few days. His overall prognosis at this time remains guarded.
[2017-07-06 16:52] LABS: Glucose,Whole Blood 318 mg/dL (75-99)
--- NOTE | 2017-07-06 17:22 | PN ---
PROGRESS NOTE DATE OF SERVICE: 07/06/2017 This patient has been hemodynamically stable. He seems less short of breath. On physical examination, blood pressure is 123/98, respiratory rate of 20, pulse rate 97, temperature 98.1. Oxygen saturation on high-flow cannula is 91%. HEENT is unremarkable. Chest reveals coarse rhonchi. Cardiovascular system is in S1, S2. Abdomen is soft. There is trace pedal edema. Chest x-ray shows cardiomegaly with basilar opacities. IMPRESSION AT THIS TIME: 1. Aspiration-type pneumonia. 2. Bronchospasm secondary to asthma with exacerbation. Continue Levaquin, IV steroids, DuoNeb. Add budesonide to his regimen. Depending on how he does, we shall make further changes to his care. MICHEL / ABN: [id number] /
[2017-07-06] MEDS: INSULN ASP PRT/INSULIN ASPART 100 UNIT/ML 10 ML VIAL SQ SCH (18:02)
[2017-07-06] MEDS: ATORVASTATIN 20 MG TAB PO SCH (20:39)
[2017-07-06] MEDS: BUDESONIDE 0.5 MG/2 ML NEBU INHALATION SCH (21:12)
[2017-07-06 21:43] LABS: Glucose,Whole Blood 340 mg/dL (75-99)
[2017-07-07] MEDS: methylPREDNISolone SOD SUCCI 125 MG/2 ML VIAL IV SCH ×4 (05:39→23:56)
[2017-07-07] MEDS: BUDESONIDE 0.5 MG/2 ML NEBU INHALATION SCH ×2 (07:32→19:22)
[2017-07-07] MEDS: IPRATROPIUM-ALBUTEROL 3 ML NEB INHALATION SCH ×4 (07:32→19:22)
[2017-07-07] MEDS: INSULIN ASPART 100 UNIT/ML 1 ML 10 ML VIAL SQ SCH ×4 (08:08→21:50)
[2017-07-07] MEDS: INSULN ASP PRT/INSULIN ASPART 100 UNIT/ML 10 ML VIAL SQ SCH ×2 (08:09→18:17)
[2017-07-07] MEDS: HEPARIN SODIUM,PORCINE 5,000 UNIT/ML 1 ML VIAL SQ SCH ×2 (08:09→21:50)
[2017-07-07] MEDS: FUROSEMIDE 10 MG/ML 4 ML VIAL IV SCH (08:10)
[2017-07-07] MEDS: LISINOPRIL 20 MG TAB PO SCH (08:12)
[2017-07-07] MEDS: glipiZIDE 5 MG TAB PO SCH ×2 (08:12→18:18)
[2017-07-07] MEDS: DIVALPROEX 500 MG TABLET.DR PO SCH ×4 (08:12→21:51)
[2017-07-07] MEDS: metFORMIN 500 MG TAB PO SCH ×2 (08:12→18:17)
[2017-07-07] MEDS: PANTOPRAZOLE 40 MG TABLET PO SCH (08:12)
[2017-07-07] MEDS: amLODIPine 10 MG TAB PO SCH (08:12)
[2017-07-07] MEDS: LORATADINE 10 MG TAB PO SCH (08:12)
[2017-07-07] MEDS: SERTRALINE 25 MG TAB PO SCH (08:13)
[2017-07-07] MEDS: SPIRONOLACTONE 25 MG TAB PO SCH (08:13)
[2017-07-07] MEDS: LEVOFLOXACIN 750 MG TAB PO SCH (08:13)
[2017-07-07] MEDS: CARBIDOPA-LEVODOPA 25-100 MG 1 EACH TAB PO SCH ×2 (08:13→21:50)
[2017-07-07 08:16] LABS: Glucose,Whole Blood 450 mg/dL (75-99)
[2017-07-07 08:16] LABS: Glucose,Whole Blood 420 mg/dL (75-99)
[2017-07-07] MEDS ORDERED: INSULN ASP PRT/INSULIN ASPART 100 UNIT/ML 10 ML VIAL SQ ONE (08:19)
--- NOTE | 2017-07-07 09:42 | P.PN ---
Progress Note - Text The patient is a 67-year-old gentleman of Dr. Louie Chapa for whom I am covering. The patient has a history of a closed head injury and mental impairment. Patient was admitted approximately one week ago with pneumonia and at that time possibly aspiration pneumonia. He does have comorbidities with diabetes and chronic kidney disease and is had elevated blood sugars with the use of IV corticosteroids. Also history of acute diastolic congestive heart failure. This morning he is noted to have the diffuse tremors. He does appear to respond to questioning. Temperature was 99.1 with a pulse of 92 and respirations 20. Blood pressure 121 /58 and he was 90% saturated on high flow 10 L. Lungs are generally clear although scattered rhonchi at the bases. Heart tones were regular. Abdomen nontender. Chronic stasis edema noted. He does have underlying mental impairment secondary to his remote closed head injury. Laboratory Blood sugar this morning was 420 despite second dose of 70/30 yesterday evening. He will receive a another 10 units. Total 30 units 70/30 this morning. We will continue with his Accu-Cheks and additional coverage. Dr. Sandoval from neurology is started patient on Sinemet for possible Parkinson disease. Dr. Sharma, urology has evaluated the patient for likely right epididymitis. Patient also followed by Dr. Gonsales from pulmonary medicine. Please refer to their notes. Dr. Stearns to resume care on Saturday.
[2017-07-07 10:09] LABS: Basophils % (A) 0 %; Eosinophils % (A) 0 %; HGB 11.4 gm/dL (13.0-17.5); Lymphocytes # (A) 1.5 k/uL (1.0-4.8); Lymphocytes % (A) 11 %; MCH 30.1 pg (25.0-35.0); MCHC 32.6 g/dL (31.0-37.0); MCV 92.3 fL (80.0-100.0); Mean Platelet Volume 8.9; Monocytes # (A) 0.5 k/uL (0-1.0); Monocytes % (A) 4 %; Neutrophils # (A) 10.7 k/uL (1.3-7.7); Neutrophils % (A) 83 %; Platelet Count 332 k/uL (150-450); RBC 3.79 m/uL (4.30-5.90); RDW 14.3 % (11.5-15.5); WBC 12.8 k/uL (3.8-10.6)
[2017-07-07 10:13] LABS: Albumin 3.1 g/dL (3.5-5.0); Calcium 9.2 mg/dL (8.4-10.2); Potassium 4.1 mmol/L (3.5-5.1); Total Bilirubin 0.3 mg/dL (0.2-1.3); Total Protein 6.3 g/dL (6.3-8.2)
--- NOTE | 2017-07-07 11:18 | P.PN ---
Subjective Progress Note Date: 07/07/17 Seen and examined for the follow-up of acute kidney injury. Renal function is creeping. Blood pressures running low normal. He is also on Lasix and lisinopril and Aldactone. Objective - Vital Signs Vital signs: Vital Signs Temp 99.1 F 07/07/17 07:00 Pulse 92 07/07/17 07:46 Resp 20 07/07/17 07:00 BP 121/58 07/07/17 07:00 Pulse Ox 90 L 07/07/17 07:00 Intake & Output 07/06/17 07/07/17 07/07/17 17:59 06:59 18:59 Intake Total Output Total Balance Weight Intake: Oral Output: Urine Other: Voiding Method # Voids # Bowel Movements - Exam Lying in bed no acute distress S1 S2 heard Lungs clear No edema - Labs CBC & Chem 7: 07/07/17 08:50 07/07/17 08:50 Labs: Abnormal Lab Results - Last 24 Hours (Table) 07/06/17 07/06/17 07/06/17 Range/Units 12:26 16:48 21:34 WBC (3.8-10.6) k/uL RBC (4.30-5.90) m/uL Hgb (13.0-17.5) gm/dL Hct (39.0-53.0) % Neutrophils # (1.3-7.7) k/uL BUN (9-20) mg/dL Creatinine (0.66-1.25) mg/dL Glucose (74-99) mg/dL POC Glucose (mg/dL) 425 H 318 H 340 H (75-99) mg/dL ALT (21-72) U/L Albumin (3.5-5.0) g/dL 07/07/17 07/07/17 07/07/17 Range/Units 07:53 07:56 08:50 WBC (3.8-10.6) k/uL RBC (4.30-5.90) m/uL Hgb (13.0-17.5) gm/dL Hct (39.0-53.0) % Neutrophils # (1.3-7.7) k/uL BUN 55 H (9-20) mg/dL Creatinine 1.40 H (0.66-1.25) mg/dL Glucose 406 H (74-99) mg/dL POC Glucose (mg/dL) 450 H 420 H (75-99) mg/dL ALT 11 L (21-72) U/L Albumin 3.1 L (3.5-5.0) g/dL 07/07/17 Range/Units 08:50 WBC 12.8 H (3.8-10.6) k/uL RBC 3.79 L (4.30-5.90) m/uL Hgb 11.4 L (13.0-17.5) gm/dL Hct 35.0 L (39.0-53.0) % Neutrophils # 10.7 H (1.3-7.7) k/uL BUN (9-20) mg/dL Creatinine (0.66-1.25) mg/dL Glucose (74-99) mg/dL POC Glucose (mg/dL) (75-99) mg/dL ALT (21-72) U/L Albumin (3.5-5.0) g/dL Microbiology - Last 24 Hours (Table) 06/30/17 04:57 Blood Culture - Final Blood No Growth after 144 hours Assessment and Plan Assessment: Impression: #1 acute kidney injury secondary to nonoliguric ATN. Creatinine creeping suspect overdiuresis. #2 diastolic CHF with a year for 65% #3 pneumonia on vancomycin #4 low normal blood pressures. Recommendations: #1 hold Lasix, lisinopril and Aldactone for now. Continue with amlodipine for now #2 check vancomycin trough levels #3 repeat labs in the morning #4 maintain systolic blood pressure 1:30 to 140/90. #5 if renal function worsening stop metformin.
--- NOTE | 2017-07-07 11:37 | P.PN ---
Progress Note - Text Progress Note Date: 07/07/17 The patient is afebrile. He continues to have some discomfort in the right scrotum. The degree of swelling of the right testicle and epididymis is not significantly different from yesterday. There is no overlying erythema and only minimal skin edema. There is no evidence of fluctuance and the findings are consistent with uncomplicated right epididymoorchitis which was probably related to placement of his catheter. The patient will be continued on antibiotics. Hopefully his catheter can be removed in the next day or two. I explained to the patient that it frequently takes several weeks for the swelling to resolve following epididymoorchitis.
[2017-07-07] MEDS: SODIUM CHLORIDE 0.9% 500 ML IV SCH (11:46)
[2017-07-07 12:13] LABS: Glucose,Whole Blood 314 mg/dL (75-99)
[2017-07-07] MEDS: INSULIN ASPART 100 UNIT/ML 1 ML 10 ML VIAL SQ PRN (12:45)
[2017-07-07] MEDS: MULTIVITAMINS, THERA 1 EACH TAB PO SCH (12:52)
[2017-07-07] MEDS: ASCORBIC ACID 500 MG TAB PO SCH (12:53)
[2017-07-07] MEDS ORDERED: VANCOMYCIN TROUGH DUE 1 EACH MISC MISCELLANE ONE (14:00)
[2017-07-07] MEDS: VANCOMYCIN 1,750 MG in SODIUM CHLORIDE 0.9% 250 ML IVPB SCH (14:57)
[2017-07-07] MEDS ORDERED: VANCOMYCIN IV PER PHARMACY 1 EACH MISC MISCELLANE PRN (14:57)
[2017-07-07 17:56] LABS: Glucose,Whole Blood 143 mg/dL (75-99)
[2017-07-07 21:04] LABS: Glucose,Whole Blood 235 mg/dL (75-99)
[2017-07-07] MEDS: ATORVASTATIN 20 MG TAB PO SCH (21:50)
--- NOTE | 2017-07-07 22:02 | PN ---
PROGRESS NOTE DATE OF SERVICE: 07/07/17 He was seen again on July 07, 2017. He is less short of breath, seems to be doing better overall. PHYSICAL EXAMINATION: Vital signs are stable. He is afebrile. His chest reveals expiratory wheeze. Cardiovascular system is S1, S2. ABDOMEN: Soft. There is no pedal edema. LABS: Reviewed. Medications were reviewed. IMPRESSION: At this time. 1. Aspiration type pneumonia. 2. Bronchospasm secondary to asthma with exacerbation. Continue antibiotics, DuoNeb, steroids, bronchodilators. Increase activity level. May be able to wean or switch him to oral steroids tomorrow. Depending on how he does we should make further changes to his care. MMODL / IJN: [id number] /
[2017-07-08] MEDS: methylPREDNISolone SOD SUCCI 125 MG/2 ML VIAL IV SCH ×2 (05:34→12:47)
[2017-07-08 07:28] LABS: Glucose,Whole Blood 335 mg/dL (75-99)
[2017-07-08] MEDS: INSULN ASP PRT/INSULIN ASPART 100 UNIT/ML 10 ML VIAL SQ SCH ×2 (08:29→17:12)
[2017-07-08] MEDS: INSULIN ASPART 100 UNIT/ML 1 ML 10 ML VIAL SQ SCH ×4 (08:29→22:00)
[2017-07-08] MEDS: glipiZIDE 5 MG TAB PO SCH ×2 (08:30→17:00)
[2017-07-08] MEDS: metFORMIN 500 MG TAB PO SCH ×2 (08:30→17:00)
[2017-07-08] MEDS: BUDESONIDE 0.5 MG/2 ML NEBU INHALATION SCH ×2 (08:38→19:00)
[2017-07-08] MEDS: IPRATROPIUM-ALBUTEROL 3 ML NEB INHALATION SCH ×4 (08:38→19:00)
[2017-07-08 08:52] LABS: Basophils # (A) 0.1 k/uL (0-0.2); Basophils % (A) 0 %; Eosinophils % (A) 0 %; HCT 36.9 % (39.0-53.0); HGB 12.2 gm/dL (13.0-17.5); Lymphocytes # (A) 1.4 k/uL (1.0-4.8); Lymphocytes % (A) 11 %; MCH 30.5 pg (25.0-35.0); MCV 92.2 fL (80.0-100.0); Mean Platelet Volume 8.2; Monocytes # (A) 0.7 k/uL (0-1.0); Monocytes % (A) 6 %; Neutrophils % (A) 81 %; Platelet Count 359 k/uL (150-450); Poikilocytosis Slight; RDW 14.6 % (11.5-15.5); WBC 12.3 k/uL (3.8-10.6)
[2017-07-08 09:01] LABS: Albumin 3.1 g/dL (3.5-5.0); Calcium 9.2 mg/dL (8.4-10.2); Potassium 4.5 mmol/L (3.5-5.1); Total Bilirubin 0.3 mg/dL (0.2-1.3); Total Protein 6.3 g/dL (6.3-8.2)
[2017-07-08 09:19] LABS: Vancomycin,Random 17.1 ug/mL
[2017-07-08] MEDS: DIVALPROEX 500 MG TABLET.DR PO SCH ×4 (09:27→21:57)
[2017-07-08] MEDS: PANTOPRAZOLE 40 MG TABLET PO SCH (09:28)
[2017-07-08] MEDS: CARBIDOPA-LEVODOPA 25-100 MG 1 EACH TAB PO SCH ×2 (09:28→21:58)
[2017-07-08] MEDS: SERTRALINE 25 MG TAB PO SCH (09:28)
[2017-07-08] MEDS: LEVOFLOXACIN 750 MG TAB PO SCH (09:28)
[2017-07-08] MEDS: LORATADINE 10 MG TAB PO SCH (09:28)
[2017-07-08] MEDS: SODIUM CHLORIDE 0.9% 500 ML IV SCH (09:29)
[2017-07-08] MEDS: HEPARIN SODIUM,PORCINE 5,000 UNIT/ML 1 ML VIAL SQ SCH ×2 (09:29→22:01)
[2017-07-08] MEDS: amLODIPine 10 MG TAB PO SCH (10:12)
[2017-07-08 12:28] LABS: Glucose,Whole Blood 425 mg/dL (75-99)
[2017-07-08] MEDS: ASCORBIC ACID 500 MG TAB PO SCH (12:47)
[2017-07-08] MEDS: MULTIVITAMINS, THERA 1 EACH TAB PO SCH (12:47)
--- NOTE | 2017-07-08 15:56 | P.PN ---
Subjective Progress Note Date: 07/08/17 [facility] is covering for Dr. Simms 07/05/17- Patient is being seen examined and evaluated on rounds for follow-up. Patient has bilateral pneumonia right leg from aspiration. Upon examination the patient is resting up in bed on 15 L of high flow nasal cannula, the patient was on airflow yesterday, and has been slowly weaned off. The patient has a indwelling Alfredo catheter at this time due to acute urinary retention. Urology is also on consult. The patient does have an enlarged testicle as well. He continues on Levaquin and vancomycin. There were no labs drawn this morning. We put in for stat labs at this time. Sputum culture has not been obtained at this time. Cardiology, neurology and nephrology is also following with the patient. He continues to complain of shortness of breath with exertion and activity. He does have a congested cough. Repeat chest x-ray will be completed in the morning. He continues on a dysphagia diet with one-to- one supervision. Continues with PT and OT. 07/06/17-07/07/17- 07/08/17- patient has been seen examined and evaluated today on rounds. He is resting up in bed on 10 L of supplemental oxygen via nasal cannula. I did speak with respiratory therapy we will be working to try to wean that down. We will adjust his steroids at this time. He has been working with PT and OT. He does have shortness of breath with exertion as well as a cough that is congested. He is afebrile no further complaints. Objective - Vital Signs Vital signs: Vital Signs Temp 98.6 F 07/08/17 14:48 Pulse 103 H 07/08/17 14:48 Resp 16 07/08/17 15:41 BP 126/62 07/08/17 14:48 Pulse Ox 92 L 07/08/17 14:48 Intake & Output 07/07/17 07/08/17 07/08/17 18:59 06:59 18:59 Intake Total 120 Output Total 900 975 Balance 120 -900 -975 Weight 77 kg Intake: Oral 120 Output: Urine 900 975 Other: Voiding Method Indwelling Catheter Indwelling Catheter Indwelling Catheter - Exam GENERAL EXAM: Alert, comfortable in no apparent distress. HEAD: Normocephalic. EYES: Normal reaction of pupils, equal size. NOSE: Clear with pink turbinates. THROAT: No erythema or exudates. NECK: No masses, no JVD. CHEST: No chest wall deformity. LUNGS: Lung sounds noted to be somewhat coarse bilaterally with decreased bases. CVS: S1 and S2 normal with no audible mumurs, regular rhythm. ABDOMEN: No hepatosplenomegaly, normal bowel sounds, no guarding or rigidity. EXTREMITIES: +1-2 edema noted, pedal pulses palpable. CENTRAL NERVOUS SYSTEM: No focal deficits, tone is normal in all 4 extremities. - Labs CBC & Chem 7: 07/08/17 08:19 07/08/17 08:19 Labs: Abnormal Lab Results - Last 24 Hours (Table) 07/07/17 07/07/17 07/08/17 Range/Units 17:21 20:58 07:16 WBC (3.8-10.6) k/uL RBC (4.30-5.90) m/uL Hgb (13.0-17.5) gm/dL Hct (39.0-53.0) % Neutrophils # (1.3-7.7) k/uL Sodium (137-145) mmol/L BUN (9-20) mg/dL Creatinine (0.66-1.25) mg/dL Glucose (74-99) mg/dL POC Glucose (mg/dL) 143 H 235 H 335 H (75-99) mg/dL ALT (21-72) U/L Albumin (3.5-5.0) g/dL 07/08/17 07/08/17 07/08/17 Range/Units 08:19 08:19 11:52 WBC 12.3 H (3.8-10.6) k/uL RBC 4.00 L (4.30-5.90) m/uL Hgb 12.2 L (13.0-17.5) gm/dL Hct 36.9 L (39.0-53.0) % Neutrophils # 10.0 H (1.3-7.7) k/uL Sodium 146 H (137-145) mmol/L BUN 62 H (9-20) mg/dL Creatinine 1.46 H (0.66-1.25) mg/dL Glucose 360 H (74-99) mg/dL POC Glucose (mg/dL) 425 H (75-99) mg/dL ALT 18 L (21-72) U/L Albumin 3.1 L (3.5-5.0) g/dL Assessment and Plan Assessment: Assessment Severe and acute sepsis related to aspiration pneumonia Acute exacerbation of CHF likely acute diastolic heart failure Ammann gently being diuresed Acute hypoxic respiratory failure related to above Right middle lobe, bilateral lower lobe pneumonia likely aspiration related Uncontrolled diabetes and hyperglycemia Severe morbid obesity with baseline close head injury Bilateral lower extremity cellulitis 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 Steroids have been tapered. Continue to wean down oxygen. Aspirations precautions. Continue with pulmonary hygiene, coughing and deep breathing exercises, and supportive care. Supplemental oxygen to maintain oxygen saturations of 92% or better, try to titrate down. Continue nebulizer treatments. Cardiology, nephrology, neurology and urology on consult and appreciate recommendations. Indwelling catheter related to urinary retention GI and DVT prophylaxis. We will continue to monitor labs/results and adjust treatment as necessary. Further recommendations pending. We are covering for Dr. Simms I performed an examination of the patient and discussed their management with the nurse practitioner. I have reviewed the nurse practitioner's note and agree with the documented findings and plan of care.
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
--- NOTE | 2017-07-08 16:03 | PN ---
PROGRESS NOTE DATE OF SERVICE: 07/08/2017 This 67-year-old white male was admitted with severe shortness of breath and nausea, vomiting and dehydration. The patient was found to have pneumonia, possibly aspiration pneumonia. The patient also was found to have congestive failure. The patient was seen by Dr. Simms consultation and he is currently receiving updraft treatments, IV Solu- Medrol and also IV antibiotics vancomycin and Levaquin. The patient was also found to have congestive heart failure which is acute on chronic diastolic congestive heart failure. The patient was seen by [facility] in consultation. The patient is getting IV Lasix. The patient had renal insufficiency, possibly due to the dehydration. The patient was seen by Dr. Sousa in consultation. Patient also had an increased tremor of the head and extremities. Dr. Pineda saw the patient and he has been placed on Sinemet because Dr. Pineda felt that the patient has parkinsonism. Patient developed some swelling of the legs as well. He was seen by Dr. Kumari. Overall prognosis is guarded, even though patient seems to be improving and he is more today. He still has a sever tremor. We will continue current treatments and medications. MMODL / IJN: [id number] /
[2017-07-08] MEDS: methylPREDNISolone SOD SUCCI 40 MG/ML 1 ML VIAL IV SCH (17:00)
[2017-07-08] MEDS: VANCOMYCIN 1,500 MG in SODIUM CHLORIDE 0.9% 250 ML IVPB SCH (17:11)
[2017-07-08 17:22] LABS: Glucose,Whole Blood 163 mg/dL (75-99)
[2017-07-08 21:00] LABS: Glucose,Whole Blood 188 mg/dL (75-99)
[2017-07-08] MEDS: ATORVASTATIN 20 MG TAB PO SCH (21:58)
[2017-07-08] MEDS: TAMSULOSIN 0.4 MG CAP.ER.24H PO SCH (22:50)
--- NOTE | 2017-07-08 23:03 | PN ---
PROGRESS NOTE The patient is seen for followup for acute kidney injury and CHF. His volume status is improved significantly. Serum creatinine is about 1.4 mg/dL. This morning blood pressure was 138/75, heart rate 100 per minute. Patient was afebrile. Examination of the heart S1, S2. Examination lungs decreased breath sounds at bases. Abdomen is soft, nontender. Examination lower extremity shows no edema. LABS SHOW: Serum creatinine 1.46, sodium 146, potassium 4.5, hemoglobin 12.2 g/dL. ASSESSMENT: 1. Acute kidney injury mainly cardiorenal, currently stable with serum creatinine about 1.4 for the last 2 days. The patient has had good urine output. He has an indwelling Alfredo catheter. The 24 hour output was about 2.2 L, IV Lasix is now discontinued. 2. Congestive heart failure, diastolic dysfunction, acute on top of chronic, currently improved. 3. Parkinson disease. 4. Right middle lobe and bilateral lower lobe pneumonia. 5. Urine retention, currently with indwelling Alfredo catheter. Will start Flomax. PLAN: Continue off of Lasix. Add Flomax and repeat labs in a.m.. MMODL / IJN: [id number] /
--- NOTE | 2017-07-08 23:08 | P.PN ---
Subjective Progress Note Date: 07/08/17 This patient is a 67-year-old male who is being evaluated for Parkinson's disease. His neurological exam findings yesterday were very consistent with moderate to severe Parkinson's disease. He was started on low-dose Sinemet yesterday. He does seem to show some improvement with less degree of tremors noted today on examination. We will continue to titrate the dose of Sinemet for him accordingly. Patient does have a history of closed head injury with mental impairment along with seizure disorder. We did check his Depakote level yesterday and it was therapeutic at 75.1. This is a therapeutic level and we will continue him on his current dose of Depakote. Would recommend consultation with PT OT for him as well during this admission. Patient states he was able to eat his breakfast fairly well but did not eat much of his lunch. He is being treated for several comorbidities including diabetes mellitus, and chronic kidney disease stage III. We're waiting for the recommendations from urology were evaluating him for right testicular swelling. He is to continue on his current antibiotics. His catheter is to be removed in one to 2 days for voiding trial but will need close monitoring. The patient is resting comfortably this afternoon in his bed. He is able to answer most questions appropriately. The patient does seem to have less tremors today on exam. His tremors are exacerbated if he becomes anxious. We are recommending to increase his dose of Sinemet today to 25/100 one tablet 3 times a day. Dose will likely need further adjustment and increase over the next several weeks. At this time we will continue to follow his response closely. We will continue close neurological follow-up with the patient during this admission. Objective - Vital Signs Vital signs: Vital Signs Temp 98.6 F 07/08/17 14:48 Pulse 103 H 07/08/17 14:48 Resp 16 07/08/17 15:41 BP 126/62 07/08/17 14:48 Pulse Ox 92 L 07/08/17 14:48 Intake & Output 07/07/17 07/08/17 07/08/17 18:59 06:59 18:59 Intake Total 120 Output Total 900 975 Balance 120 -900 -975 Weight 77 kg Intake: Oral 120 Output: Urine 900 975 Other: Voiding Method Indwelling Catheter Indwelling Catheter Indwelling Catheter - Exam Physical examination: PHYSICAL EXAMINATION: Patient is resting comfortably in bed. VITAL SIGNS: Blood pressure is [126/62]. Heart rate is [103]. Respiration is [16 ]. Temperature is [98.6]. HEENT: Head is atraumatic, neck is supple, there were no carotid bruits. CHEST: Lungs are clear to auscultation and percussion. CARDIAC: S1, S2 normal rate and rhythm. There is no murmur. ABDOMEN: Soft and nontender. Bowel sounds are present. EXTREMITIES: There is no pedal edema. Peripheral pulses are present. Neurological examination: Patient's neurological examination continues to reveal evidence of significant bilateral hand tremors and cogwheel rigidity on exam. Muscle tone is showing rigidity mostly in the upper extremities. Overall assessment of his tremors seemed to be less severe as compared to yesterday. - Labs CBC & Chem 7: 07/08/17 08:19 07/08/17 08:19 Labs: Abnormal Lab Results - Last 24 Hours (Table) 07/07/17 07/08/17 07/08/17 Range/Units 20:58 07:16 08:19 WBC (3.8-10.6) k/uL RBC (4.30-5.90) m/uL Hgb (13.0-17.5) gm/dL Hct (39.0-53.0) % Neutrophils # (1.3-7.7) k/uL Sodium 146 H (137-145) mmol/L BUN 62 H (9-20) mg/dL Creatinine 1.46 H (0.66-1.25) mg/dL Glucose 360 H (74-99) mg/dL POC Glucose (mg/dL) 235 H 335 H (75-99) mg/dL ALT 18 L (21-72) U/L Albumin 3.1 L (3.5-5.0) g/dL 07/08/17 07/08/17 07/08/17 Range/Units 08:19 11:52 17:09 WBC 12.3 H (3.8-10.6) k/uL RBC 4.00 L (4.30-5.90) m/uL Hgb 12.2 L (13.0-17.5) gm/dL Hct 36.9 L (39.0-53.0) % Neutrophils # 10.0 H (1.3-7.7) k/uL Sodium (137-145) mmol/L BUN (9-20) mg/dL Creatinine (0.66-1.25) mg/dL Glucose (74-99) mg/dL POC Glucose (mg/dL) 425 H 163 H (75-99) mg/dL ALT (21-72) U/L Albumin (3.5-5.0) g/dL Assessment and Plan (1) Parkinsonism Current Visit: Yes Status: Acute Code(s): G20 - PARKINSON'S DISEASE SNOMED Code(s): 65742620 (2) Closed head injury Current Visit: Yes Status: Acute Code(s): S09.90XA - UNSPECIFIED INJURY OF HEAD, INITIAL ENCOUNTER SNOMED Code(s): 170454316014 (3) Seizure disorder Current Visit: Yes Status: Acute Code(s): G40.909 - EPILEPSY, UNSP, NOT INTRACTABLE, WITHOUT STATUS EPILEPTICUS SNOMED Code(s): 821363058 (4) Pneumonia Current Visit: Yes Status: Acute Code(s): J18.9 - PNEUMONIA, UNSPECIFIED ORGANISM SNOMED Code(s): 796795988 Plan: Patient is a 67-year-old male with history of severe NICU sepsis related to aspiration pneumonia. Patient does have history of closed head injury and symptoms of parkinsonism. He has been started on Sinemet done dose is being titrated during his admission. He will likely need ongoing titration even as outpatient. Patient otherwise seems to be showing slight improvement on his current dose of Sinemet. We will continue to adjust him gradually over the next few days. Patient underwent routine EEG which failed to reveal any epileptiform discharges. We will continue close neurological follow-up the patient during this admission. His overall prognosis at this time remains guarded.
--- NOTE | 2017-07-08 23:45 | EEG ---
ELECTROENCEPHALOGRAM REPORT DATE OF EE07/08/2017 REFERRING PHYSICIAN: Dr. Louie Stearns. CONSULTING AND INTERPRETING PHYSICIAN: Dr. Mandi Pineda. ELECTROENCEPHALOGRAPHIC EXAMINATION REPORT: INDICATION FOR EXAMINATION: This patient is a 67-year-old male being evaluated for Parkinson's disease and severe tremors. AGE: [age]. EEG FINDINGS: A routine 21 channel awake digital EEG recording was accomplished utilizing the 10-20 international system with bipolar and referential montages. The background activity in the most alert resting state consists of a low to medium amplitude, fairly well- developed and well-sustained 5-6 Hz activity over the posterior head regions. This posterior rhythm attenuates to eye opening. There is a small amount of low amplitude 18-20 Hz beta activity seen maximally over the anterior head regions. Muscle and movement artifact was observed on a few occasions during the tracing. Hyperventilation was not performed. Photic stimulation at flash frequencies of 2-30 Hz produced a minimal occipital driving response. No epileptiform discharges were seen. IMPRESSION: This EEG is moderately abnormal in a diffuse fashion due to slowing of the EEG background. The EEG failed to reveal any focal, lateralized, or epileptiform abnormalities. Clinical correlation is recommended. MMODL / IJN: [id number] /
[2017-07-09] MEDS: methylPREDNISolone SOD SUCCI 40 MG/ML 1 ML VIAL IV SCH ×4 (00:12→23:43)
[2017-07-09] MEDS: BUDESONIDE 0.5 MG/2 ML NEBU INHALATION SCH ×2 (07:07→20:38)
[2017-07-09] MEDS: IPRATROPIUM-ALBUTEROL 3 ML NEB INHALATION SCH ×4 (07:07→20:38)
[2017-07-09 07:23] LABS: Glucose,Whole Blood 290 mg/dL (75-99)
[2017-07-09] MEDS: metFORMIN 500 MG TAB PO SCH ×2 (08:38→17:58)
[2017-07-09] MEDS: DIVALPROEX 500 MG TABLET.DR PO SCH ×4 (08:39→22:04)
[2017-07-09] MEDS: glipiZIDE 5 MG TAB PO SCH ×2 (08:39→17:58)
[2017-07-09] MEDS: CARBIDOPA-LEVODOPA 25-100 MG 1 EACH TAB PO SCH ×3 (08:39→22:03)
[2017-07-09] MEDS: amLODIPine 10 MG TAB PO SCH (08:39)
[2017-07-09] MEDS: SERTRALINE 25 MG TAB PO SCH (08:39)
[2017-07-09] MEDS: HEPARIN SODIUM,PORCINE 5,000 UNIT/ML 1 ML VIAL SQ SCH ×2 (08:40→22:04)
[2017-07-09] MEDS: PANTOPRAZOLE 40 MG TABLET PO SCH (08:40)
[2017-07-09] MEDS: LORATADINE 10 MG TAB PO SCH (08:40)
[2017-07-09] MEDS: INSULN ASP PRT/INSULIN ASPART 100 UNIT/ML 10 ML VIAL SQ SCH ×2 (08:41→17:59)
[2017-07-09] MEDS: INSULIN ASPART 100 UNIT/ML 1 ML 10 ML VIAL SQ SCH ×4 (08:41→22:06)
[2017-07-09] MEDS: SODIUM CHLORIDE 0.9% 500 ML IV SCH (08:48)
[2017-07-09 09:10] LABS: Calcium 9.2 mg/dL (8.4-10.2); Potassium 4.5 mmol/L (3.5-5.1)
--- NOTE | 2017-07-09 11:01 | PN ---
PROGRESS NOTE He was seen on 07/09/2017. He has been hemodynamically stable, seems less short of breath. PHYSICAL EXAMINATION: On physical examination, blood pressure is 122/95, respiratory rate of 18, pulse rate of 100, temperature 100.2, O2 saturation on 12 L by high-flow cannula is 95%. HEENT is unremarkable. Chest reveals occasional rhonchi. Cardiovascular system reveals an S1, S2. Abdomen is soft. There is no edema. Sodium is 147, potassium 4.5, chloride 110, bicarb 26, BUN 51, creatinine 1.33. IMPRESSION AT THIS TIME: 1. Acute hypoxic respiratory failure secondary to aspiration-type pneumonia. 2. Bronchospasm. 3. Lower extremity cellulitis. 4. Previous closed head injury. At this point in time, continue bronchodilators aerosolized steroids, Levaquin, Solu- Medrol and vancomycin and supportive care. Consult Dr. Rodriguez from CT for further evaluation and duration of antibiotics. MMODL / IJN: [id number] /
[2017-07-09 12:34] LABS: Glucose,Whole Blood 255 mg/dL (75-99)
[2017-07-09] MEDS: ASCORBIC ACID 500 MG TAB PO SCH (12:39)
[2017-07-09] MEDS: MULTIVITAMINS, THERA 1 EACH TAB PO SCH (12:39)
[2017-07-09] MEDS: VANCOMYCIN 1,500 MG in SODIUM CHLORIDE 0.9% 250 ML IVPB SCH (12:39)
[2017-07-09] MEDS: AZTREONAM 2 GM in SODIUM CHLORIDE 0.9% 100 ML IVPB SCH ×2 (15:33→22:12)
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
[2017-07-09 17:31] LABS: Glucose,Whole Blood 270 mg/dL (75-99)
[2017-07-09] MEDS: TAMSULOSIN 0.4 MG CAP.ER.24H PO SCH (17:58)
[2017-07-09 20:42] LABS: Glucose,Whole Blood 319 mg/dL (75-99)
[2017-07-09] MEDS: ATORVASTATIN 20 MG TAB PO SCH (22:04)
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
--- NOTE | 2017-07-09 23:10 | CONS ---
CONSULTATION DATE OF SERVICE: 07/09/2017 REASON FOR CONSULTATION: Pneumonia, persistent low-grade fever and antibiotic recommendation. HISTORY OF PRESENT ILLNESS: The patient is a 67-year-old male brought into the ER at [facility] 06/30/2017 the patient having vomiting spontaneously that started in the morning. He presented to the hospital. There was also associated fever, but no abdominal pain and no diarrhea. The patient did have a chest x-ray, which did show evidence of a right upper lobe and middle lobe infiltrate with concern for possible pneumonia. A CT scan of the chest subsequently done by the admitting physician did show evidence of a right middle lobe pneumonia with concern for possible aspiration etiology. The patient has been started on clindamycin and Levaquin because of his ZOSYN ALLERGY. Subsequently the patient was evaluated by Pulmonary. While clindamycin was discontinued, vancomycin was added. He was continued on Levaquin. The patient, who did have a fever of 100.3, subsequently spiked a fever of 102 on the 6th with 100.9 on the as well as the 8th, was afebrile for 2 days, then had a low-grade fever of 100.2 on 07/07 and a low-grade fever this morning of 100.2. Because of this persistent low-grade fever, Infectious Disease was consulted this morning for further recommendation regarding antibiotic therapy. At the same time, the patient still requiring high-flow oxygen, currently on 12L nasal cannula. The patient is not a very good historian and would not provide any significant history, but when asked specifically from the RN, she did not mention the patient having a problem with swallowing or choking on the food. No further nausea, vomiting has been noticed or any diarrhea. The patient currently no open sores. Most of this information obtained per review of the chart and talking to nursing staff. REVIEW OF SYSTEMS: Could not be obtained. The positive points have been mentioned in the HPI. PAST MEDICAL HISTORY: Significant for diabetes mellitus, gastroesophageal reflux disease, hypertension, closed head injury. The patient has a wound on the right foot with MRSA infection. PAST SURGICAL HISTORY: Appendectomy, splenectomy, partial removal of pancreatitis, tonsillectomy. SOCIAL HISTORY: No history of smoking, drinking or drug use. Currently resides at [facility]. FAMILY HISTORY: No pertinent findings. ALLERGY: To ZOSYN with a rash. No anaphylaxis. MEDICATION: Include the patient is currently on: 1. Tylenol. 2. DuoNeb. 3. Norvasc. 4. Vitamin C. 5. Lipitor. 6. Carbidopa/levodopa. 7. Depakote. 8. Glucotrol. 9. Heparin. 10.NovoLog. 11.Levofloxacin. 12.Claritin. 13.Glucophage. 14.Solu-Medrol. 15.Theragran. 16.Zofran. 17.Protonix. 18.Zoloft. 19.Flomax and. 20.Vancomycin. EXAMINATION: His blood pressure is 141/89 with a pulse of 90, temperature 97.4. He is 94% on 2L high-flow oxygen. General description is an elderly male lying in bed in no distress. No tachypnea or accessory muscle for respiration use. HEENT shows pallor. No scleral icterus. Oral mucous membranes are dry. NECK: Trachea central. No thyromegaly. LUNGS: Unlabored breathing. Decreased breath sounds bilaterally. No wheeze or crackle. HEART: S1, S2. Regular rate and rhythm. ABDOMEN: Soft. No tenderness. No guarding or rigidity. No organomegaly. EXTREMITIES: No edema of feet. SKIN: No rash or masses palpable. NEUROLOGICAL: Patient is awake, alert and oriented x1. No rigidity. LABS: Hemoglobin 12.2, white count 4.3 with a BUN of 51, creatinine 1.3. Platelet count has been normal. Urine is negative. Vancomycin trough is 17.1. Influenza serology was negative. Chest x-ray report as mentioned above. DIAGNOSTIC IMPRESSION AND PLAN: 1. Patient admitted to hospital with a fever, did have elevated white count meeting criteria for systemic inflammatory response syndrome/sepsis. Source is likely pneumonia or aspiration etiology which is not usually a gram-positive pathogen. The patient did have persistent low-grade fever, despite being on vancomycin and Levaquin. Will need to therapy by both gram-negative and anaerobic coverage with the patient, which the patient's current antibiotic therapy is lacking. 2. In view of his persistent low-grade fever, patient to be evaluated with a swallow evaluation to make sure there is no evidence of any recurrent aspiration. 3. Patient noted to have a ZOSYN ALLERGY that will limit the number of antibiotics that could be safely used. 4. Patient with borderline kidney function, high risk of nephrotoxicity from the vancomycin. PLAN: 1. We will discontinue the Levaquin and vancomycin. 2. Start the patient on Azactam and Flagyl combination. 3. Will try to obtain sputum for Gram stain, culture and sensitivity. 4. Swallow evaluation. 5. I will follow up on clinical condition and culture to further adjust medication if needed. Thank you for this consultation. Will follow this patient along with you. MMROBERTL / IJN: [id number] /
[2017-07-10] MEDS: VANCOMYCIN 1,500 MG in SODIUM CHLORIDE 0.9% 250 ML IVPB SCH (05:22)
[2017-07-10] MEDS: IPRATROPIUM-ALBUTEROL 3 ML NEB INHALATION SCH ×4 (07:22→19:12)
[2017-07-10] MEDS: BUDESONIDE 0.5 MG/2 ML NEBU INHALATION SCH ×2 (07:22→19:12)
[2017-07-10 07:41] LABS: Glucose,Whole Blood 129 mg/dL (75-99)
[2017-07-10] MEDS: INSULIN ASPART 100 UNIT/ML 1 ML 10 ML VIAL SQ SCH ×4 (07:53→23:21)
[2017-07-10] MEDS: DIVALPROEX 500 MG TABLET.DR PO SCH ×4 (08:30→21:30)
[2017-07-10] MEDS: SERTRALINE 25 MG TAB PO SCH (08:30)
[2017-07-10] MEDS: HEPARIN SODIUM,PORCINE 5,000 UNIT/ML 1 ML VIAL SQ SCH ×2 (08:31→21:30)
[2017-07-10] MEDS: amLODIPine 10 MG TAB PO SCH (08:31)
[2017-07-10] MEDS: PANTOPRAZOLE 40 MG TABLET PO SCH (08:31)
[2017-07-10] MEDS: metFORMIN 500 MG TAB PO SCH ×2 (08:31→17:54)
[2017-07-10] MEDS: glipiZIDE 5 MG TAB PO SCH ×2 (08:31→17:54)
[2017-07-10] MEDS: CARBIDOPA-LEVODOPA 25-100 MG 1 EACH TAB PO SCH ×3 (08:31→21:30)
[2017-07-10] MEDS: methylPREDNISolone SOD SUCCI 40 MG/ML 1 ML VIAL IV SCH ×3 (08:31→23:22)
[2017-07-10] MEDS: LORATADINE 10 MG TAB PO SCH (08:31)
[2017-07-10] MEDS: AZTREONAM 2 GM in SODIUM CHLORIDE 0.9% 100 ML IVPB SCH ×2 (08:32→21:28)
[2017-07-10] MEDS: INSULN ASP PRT/INSULIN ASPART 100 UNIT/ML 10 ML VIAL SQ SCH ×2 (08:42→18:00)
[2017-07-10] MEDS ORDERED: LEVOFLOXACIN 750 MG TAB PO SCH (09:00)
[2017-07-10] MEDS: SODIUM CHLORIDE 0.9% 500 ML IV SCH (09:58)
[2017-07-10 10:53] LABS: Potassium 4.7 mmol/L (3.5-5.1)
[2017-07-10 12:07] LABS: Glucose,Whole Blood 180 mg/dL (75-99)
[2017-07-10] MEDS: MULTIVITAMINS, THERA 1 EACH TAB PO SCH (12:44)
[2017-07-10] MEDS: ASCORBIC ACID 500 MG TAB PO SCH (12:44)
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
--- NOTE | 2017-07-10 14:35 | P.PN ---
Subjective Progress Note Date: 07/10/17 [facility] is covering for Dr. Simms 07/05/17- Patient is being seen examined and evaluated on rounds for follow-up. Patient has bilateral pneumonia right leg from aspiration. Upon examination the patient is resting up in bed on 15 L of high flow nasal cannula, the patient was on airflow yesterday, and has been slowly weaned off. The patient has a indwelling Alfredo catheter at this time due to acute urinary retention. Urology is also on consult. The patient does have an enlarged testicle as well. He continues on Levaquin and vancomycin. There were no labs drawn this morning. We put in for stat labs at this time. Sputum culture has not been obtained at this time. Cardiology, neurology and nephrology is also following with the patient. He continues to complain of shortness of breath with exertion and activity. He does have a congested cough. Repeat chest x-ray will be completed in the morning. He continues on a dysphagia diet with one-to- one supervision. Continues with PT and OT. 07/06/17-07/07/17- 07/08/17- patient has been seen examined and evaluated today on rounds. He is resting up in bed on 10 L of supplemental oxygen via nasal cannula. I did speak with respiratory therapy we will be working to try to wean that down. We will adjust his steroids at this time. He has been working with PT and OT. He does have shortness of breath with exertion as well as a cough that is congested. He is afebrile no further complaints. 07/09/17- Please see Dr. Erendira Abraham note 07/10/17- patient is seen and examined and evaluated on rounds. The patient is resting up in bed on 10 L of supplemental oxygen via nasal cannula. Family is at bedside and updated on plan of care. Patient was seen by Dr. Rodriguez for infectious disease antibiotics are currently being adjusted. Patient is a one- to-one feed and it is suspected that the patient is experiencing recurrent aspiration pneumonias. Patient therapy has been consult that. We can continue to try to wean down his oxygen and demands. He continues on breathing treatments and steroids at this time. Objective - Vital Signs Vital signs: Vital Signs Temp 98.3 F 07/10/17 06:31 Pulse 96 07/10/17 12:02 Resp 20 07/10/17 08:00 BP 128/59 07/10/17 06:31 Pulse Ox 90 L 07/10/17 06:31 Intake & Output 07/09/17 07/10/17 07/10/17 18:59 06:59 18:59 Intake Total 250 Output Total 1200 800 575 Balance -1200 -800 -325 Weight 79 kg Intake: Oral 250 Output: Urine 1200 800 575 Other: Voiding Method Indwelling Catheter Indwelling Catheter # Voids 0 # Bowel Movements 0 - Exam GENERAL EXAM: Alert, comfortable in no apparent distress. HEAD: Normocephalic. EYES: Normal reaction of pupils, equal size. NOSE: Clear with pink turbinates. THROAT: No erythema or exudates. NECK: No masses, no JVD. CHEST: No chest wall deformity. LUNGS: Lung sounds noted to be somewhat coarse bilaterally with decreased bases. CVS: S1 and S2 normal with no audible mumurs, regular rhythm. ABDOMEN: No hepatosplenomegaly, normal bowel sounds, no guarding or rigidity. EXTREMITIES: +1-2 edema noted, pedal pulses palpable. CENTRAL NERVOUS SYSTEM: No focal deficits, tone is normal in all 4 extremities. - Labs CBC & Chem 7: 07/08/17 08:19 07/10/17 09:26 Labs: Abnormal Lab Results - Last 24 Hours (Table) 07/09/17 07/09/17 07/10/17 Range/Units 17:28 20:41 06:58 Sodium (137-145) mmol/L Chloride (98-107) mmol/L BUN (9-20) mg/dL Glucose (74-99) mg/dL POC Glucose (mg/dL) 270 H 319 H 129 H (75-99) mg/dL 07/10/17 07/10/17 Range/Units 09:26 12:00 Sodium 147 H (137-145) mmol/L Chloride 110 H (98-107) mmol/L BUN 39 H (9-20) mg/dL Glucose 186 H (74-99) mg/dL POC Glucose (mg/dL) 180 H (75-99) mg/dL Assessment and Plan Assessment: Assessment Severe and acute sepsis related to aspiration pneumonia Acute exacerbation of CHF likely acute diastolic heart failure Ammann gently being diuresed Acute hypoxic respiratory failure related to above Right middle lobe, bilateral lower lobe pneumonia likely aspiration related Uncontrolled diabetes and hyperglycemia Severe morbid obesity with baseline close head injury Bilateral lower extremity cellulitis 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 Steroids have been tapered. Continue to wean down oxygen. Aspirations precautions. Continue with pulmonary hygiene, coughing and deep breathing exercises, and supportive care. Supplemental oxygen to maintain oxygen saturations of 92% or better, try to titrate down. Continue nebulizer treatments. Cardiology, nephrology, neurology and urology on consult and appreciate recommendations. Infectious disease admitted to the case and are currently adjusting antibiotics. Maintain aspiration precautions and one-to-one supervision with feeding. Indwelling catheter related to urinary retention GI and DVT prophylaxis. We will continue to monitor labs/results and adjust treatment as necessary. Further recommendations pending. We are covering for Dr. Simms I performed an examination of the patient and discussed their management with the nurse practitioner. I have reviewed the nurse practitioner's note and agree with the documented findings and plan of care.
[2017-07-10] MEDS: metroNIDAZOLE 500 MG TAB PO SCH ×2 (15:51→21:30)
[2017-07-10 16:58] LABS: Glucose,Whole Blood 230 mg/dL (75-99)
[2017-07-10] MEDS: TAMSULOSIN 0.4 MG CAP.ER.24H PO SCH (17:58)
[2017-07-10] MEDS: ATORVASTATIN 20 MG TAB PO SCH (21:30)
--- NOTE | 2017-07-10 21:41 | PN ---
PROGRESS NOTE DATE OF SERVICE: 07/10/2017 REASON FOR FOLLOWUP: Pneumonia likely aspiration etiology. INTERVAL HISTORY: The patient did have a low-grade fever. He is breathing more comfortably though. No nausea, vomiting has been noticed or any choking on food, per the RN and no diarrhea. EXAMINATION: Blood pressure 117/54 with a pulse of 80, temperature 98. He is 99% on room air. General description is an elderly male up in the bed in no distress. Respiratory system unlabored breathing with decreased breath sounds in the bases. No wheeze. Heart S1, S2. Regular rate and rhythm. Abdomen soft, no tenderness. LABS: BUN of 39, creatinine 1.02, hemoglobin 12.2, white count 12.3 as of 07/08. . DIAGNOSTIC IMPRESSION AND PLAN: Patient with right-sided pneumonia, concern for likely aspiration etiology in a patient who dies have underlying ZOSYN ALLERGY. Antibiotic was switched to Azactam and Flagyl yesterday. Still have a low-grade fever. Try to obtain a sputum and swallow evaluation. Repeat chest x-ray. Continue supportive care. MMODL / IJN: [id number] /
[2017-07-10 22:21] LABS: Glucose,Whole Blood 220 mg/dL (75-99)
[2017-07-11 07:37] LABS: Glucose,Whole Blood 233 mg/dL (75-99)
[2017-07-11] MEDS: IPRATROPIUM-ALBUTEROL 3 ML NEB INHALATION SCH ×4 (07:53→19:50)
[2017-07-11] MEDS: BUDESONIDE 0.5 MG/2 ML NEBU INHALATION SCH ×2 (07:53→19:50)
[2017-07-11] MEDS: HEPARIN SODIUM,PORCINE 5,000 UNIT/ML 1 ML VIAL SQ SCH ×3 (08:33→20:50)
[2017-07-11] MEDS: methylPREDNISolone SOD SUCCI 40 MG/ML 1 ML VIAL IV SCH ×3 (08:33→23:38)
[2017-07-11] MEDS: INSULIN ASPART 100 UNIT/ML 1 ML 10 ML VIAL SQ SCH ×4 (08:33→21:45)
[2017-07-11] MEDS: AZTREONAM 2 GM in SODIUM CHLORIDE 0.9% 100 ML IVPB SCH ×2 (08:33→20:50)
[2017-07-11] MEDS: PANTOPRAZOLE 40 MG TABLET PO SCH (08:34)
[2017-07-11] MEDS: INSULN ASP PRT/INSULIN ASPART 100 UNIT/ML 10 ML VIAL SQ SCH ×2 (08:34→18:03)
[2017-07-11] MEDS: metFORMIN 500 MG TAB PO SCH ×2 (08:34→17:07)
[2017-07-11] MEDS: metroNIDAZOLE 500 MG TAB PO SCH ×3 (08:35→20:50)
[2017-07-11] MEDS: MULTIVITAMINS, THERA 1 EACH TAB PO SCH (08:35)
[2017-07-11] MEDS: SERTRALINE 25 MG TAB PO SCH (08:35)
[2017-07-11] MEDS: CARBIDOPA-LEVODOPA 25-100 MG 1 EACH TAB PO SCH ×3 (08:35→20:50)
[2017-07-11] MEDS: LORATADINE 10 MG TAB PO SCH (08:35)
[2017-07-11] MEDS: amLODIPine 10 MG TAB PO SCH (08:35)
[2017-07-11] MEDS: DIVALPROEX 500 MG TABLET.DR PO SCH ×4 (08:35→20:50)
[2017-07-11] MEDS: glipiZIDE 5 MG TAB PO SCH ×2 (08:35→17:06)
[2017-07-11] MEDS: SODIUM CHLORIDE 0.9% 500 ML IV SCH (08:37)
[2017-07-11] MEDS: ASCORBIC ACID 500 MG TAB PO SCH (08:37)
[2017-07-11 08:59] LABS: Albumin 2.6 g/dL (3.5-5.0); Potassium 5.1 mmol/L (3.5-5.1); Total Bilirubin 0.3 mg/dL (0.2-1.3); Total Protein 5.5 g/dL (6.3-8.2)
[2017-07-11 09:01] LABS: Basophils # (A) 0.1 k/uL (0-0.2); Basophils % (A) 0 %; Eosinophils % (A) 0 %; HCT 36.3 % (39.0-53.0); HGB 12.2 gm/dL (13.0-17.5); Lymphocytes # (A) 3.7 k/uL (1.0-4.8); Lymphocytes % (A) 20 %; MCH 30.7 pg (25.0-35.0); MCHC 33.5 g/dL (31.0-37.0); MCV 91.5 fL (80.0-100.0); Mean Platelet Volume 7.7; Monocytes # (A) 0.9 k/uL (0-1.0); Monocytes % (A) 5 %; Neutrophils # (A) 13.7 k/uL (1.3-7.7); Neutrophils % (A) 73 %; Platelet Count 357 k/uL (150-450); Poikilocytosis Slight; RBC 3.97 m/uL (4.30-5.90); RDW 14.5 % (11.5-15.5); WBC 18.6 k/uL (3.8-10.6)
--- NOTE | 2017-07-11 12:03 | XR ---
EXAMINATION TYPE: XR chest 2V DATE OF EXAM: 07/11/2017 COMPARISON: 07/06/2017 INDICATION: Shortness of breath TECHNIQUE: Frontal and lateral views of the chest are obtained. FINDINGS: The heart size is normal. The pulmonary vasculature is prominent. Bibasilar infiltrates are present. These are better visualized on the lateral projection.. This may has some improvement from the comparison. IMPRESSION: 1. Posterior bibasilar infiltrates. Correlate for pneumonia.
[2017-07-11 12:35] LABS: Glucose,Whole Blood 142 mg/dL (75-99)
--- NOTE | 2017-07-11 12:41 | P.PN ---
<Jasmine Augustine E - Last Filed: 07/11/17 12:39> Subjective Progress Note Date: 07/11/17 [facility] is covering for Dr. Simms 07/05/17- Patient is being seen examined and evaluated on rounds for follow-up. Patient has bilateral pneumonia right leg from aspiration. Upon examination the patient is resting up in bed on 15 L of high flow nasal cannula, the patient was on airflow yesterday, and has been slowly weaned off. The patient has a indwelling Alfredo catheter at this time due to acute urinary retention. Urology is also on consult. The patient does have an enlarged testicle as well. He continues on Levaquin and vancomycin. There were no labs drawn this morning. We put in for stat labs at this time. Sputum culture has not been obtained at this time. Cardiology, neurology and nephrology is also following with the patient. He continues to complain of shortness of breath with exertion and activity. He does have a congested cough. Repeat chest x-ray will be completed in the morning. He continues on a dysphagia diet with one-to- one supervision. Continues with PT and OT. 07/06/17-07/07/17- 07/08/17- patient has been seen examined and evaluated today on rounds. He is resting up in bed on 10 L of supplemental oxygen via nasal cannula. I did speak with respiratory therapy we will be working to try to wean that down. We will adjust his steroids at this time. He has been working with PT and OT. He does have shortness of breath with exertion as well as a cough that is congested. He is afebrile no further complaints. 07/09/17- Please see Dr. Erendira Abraham note 07/10/17- patient is seen and examined and evaluated on rounds. The patient is resting up in bed on 10 L of supplemental oxygen via nasal cannula. Family is at bedside and updated on plan of care. Patient was seen by Dr. Rodriguez for infectious disease antibiotics are currently being adjusted. Patient is a one- to-one feed and it is suspected that the patient is experiencing recurrent aspiration pneumonias. Patient therapy has been consult that. We can continue to try to wean down his oxygen and demands. He continues on breathing treatments and steroids at this time. 07/11/17- patient is being seen examined and evaluated today on rounds. He continues on 10 L of high flow oxygen via nasal cannula. Chest x-ray was completed today and does show posterior bibasilar infiltrates which may have some improvement from previous chest x-ray. Currently he is also being seen by infectious disease and they're adjusting antibiotics. Patient should continue on IV steroids at this time. All labs and reports have been reviewed. Objective - Vital Signs Vital signs: Vital Signs Temp 98.4 F 07/11/17 07:00 Pulse 90 07/11/17 12:08 Resp 18 07/11/17 07:00 BP 190/82 07/11/17 07:00 Pulse Ox 92 L 07/11/17 08:00 Intake & Output 07/10/17 07/11/17 07/11/17 18:59 06:59 18:59 Intake Total 250 250 Output Total 575 2800 800 Balance -325 -2550 -800 Weight 79 kg 77.5 kg Intake: Oral 250 250 Output: Urine 575 2800 800 Uretheral (Alfredo) 1400 300 Other: Voiding Method Indwelling Catheter Indwelling Catheter # Voids 0 # Bowel Movements 0 - Exam GENERAL EXAM: Alert, comfortable in no apparent distress. HEAD: Normocephalic. EYES: Normal reaction of pupils, equal size. NOSE: Clear with pink turbinates. THROAT: No erythema or exudates. NECK: No masses, no JVD. CHEST: No chest wall deformity. LUNGS: Lung sounds noted to be somewhat coarse bilaterally with decreased bases. CVS: S1 and S2 normal with no audible mumurs, regular rhythm. ABDOMEN: No hepatosplenomegaly, normal bowel sounds, no guarding or rigidity. EXTREMITIES: +1-2 edema noted, pedal pulses palpable. CENTRAL NERVOUS SYSTEM: No focal deficits, tone is normal in all 4 extremities. - Labs CBC & Chem 7: 07/11/17 08:10 07/11/17 08:10 Labs: Abnormal Lab Results - Last 24 Hours (Table) 07/10/17 07/10/17 07/11/17 Range/Units 16:48 22:19 07:33 WBC (3.8-10.6) k/uL RBC (4.30-5.90) m/uL Hgb (13.0-17.5) gm/dL Hct (39.0-53.0) % Neutrophils # (1.3-7.7) k/uL Chloride (98-107) mmol/L Carbon Dioxide (22-30) mmol/L BUN (9-20) mg/dL Glucose (74-99) mg/dL POC Glucose (mg/dL) 230 H 220 H 233 H (75-99) mg/dL ALT (21-72) U/L Total Protein (6.3-8.2) g/dL Albumin (3.5-5.0) g/dL 07/11/17 07/11/17 07/11/17 Range/Units 08:10 08:10 12:28 WBC 18.6 H (3.8-10.6) k/uL RBC 3.97 L (4.30-5.90) m/uL Hgb 12.2 L (13.0-17.5) gm/dL Hct 36.3 L (39.0-53.0) % Neutrophils # 13.7 H (1.3-7.7) k/uL Chloride 108 H (98-107) mmol/L Carbon Dioxide 31 H (22-30) mmol/L BUN 35 H (9-20) mg/dL Glucose 232 H (74-99) mg/dL POC Glucose (mg/dL) 142 H (75-99) mg/dL ALT 14 L (21-72) U/L Total Protein 5.5 L (6.3-8.2) g/dL Albumin 2.6 L (3.5-5.0) g/dL Assessment and Plan Assessment: Assessment Severe and acute sepsis related to aspiration pneumonia Acute exacerbation of CHF likely acute diastolic heart failure Ammann gently being diuresed Acute hypoxic respiratory failure related to above Right middle lobe, bilateral lower lobe pneumonia likely aspiration related Uncontrolled diabetes and hyperglycemia Severe morbid obesity with baseline close head injury Bilateral lower extremity cellulitis 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 Steroids have been tapered. Continue to wean down oxygen. Aspirations precautions. Continue with pulmonary hygiene, coughing and deep breathing exercises, and supportive care. Supplemental oxygen to maintain oxygen saturations of 92% or better, try to titrate down. Continue nebulizer treatments. Cardiology, nephrology, neurology and urology on consult and appreciate recommendations. Infectious disease admitted to the case and are currently adjusting antibiotics. Maintain aspiration precautions and one-to-one supervision with feeding. Indwelling catheter related to urinary retention GI and DVT prophylaxis. We will continue to monitor labs/results and adjust treatment as necessary. Further recommendations pending. We are covering for Dr. Simms I performed an examination of the patient and discussed their management with the nurse practitioner. I have reviewed the nurse practitioner's note and agree with the documented findings and plan of care. <Yohana Ricks A - Last Filed: 07/11/17 15:09> Objective - Vital Signs Vital signs: Vital Signs Temp 98.4 F 07/11/17 07:00 Pulse 90 07/11/17 12:08 Resp 18 07/11/17 07:00 BP 190/82 07/11/17 07:00 Pulse Ox 92 L 07/11/17 08:00 Intake & Output 07/10/17 07/11/17 07/11/17 18:59 06:59 18:59 Intake Total 250 250 Output Total 575 2800 800 Balance -325 -2550 -800 Weight 79 kg 77.5 kg Intake: Oral 250 250 Output: Urine 575 2800 800 Uretheral (Alfredo) 1400 300 Other: Voiding Method Indwelling Catheter Indwelling Catheter # Voids 0 # Bowel Movements 0 - Labs CBC & Chem 7: 07/11/17 08:10 07/11/17 08:10 Labs: Abnormal Lab Results - Last 24 Hours (Table) 07/10/17 07/10/17 07/11/17 Range/Units 16:48 22:19 07:33 WBC (3.8-10.6) k/uL RBC (4.30-5.90) m/uL Hgb (13.0-17.5) gm/dL Hct (39.0-53.0) % Neutrophils # (1.3-7.7) k/uL Chloride (98-107) mmol/L Carbon Dioxide (22-30) mmol/L BUN (9-20) mg/dL Glucose (74-99) mg/dL POC Glucose (mg/dL) 230 H 220 H 233 H (75-99) mg/dL ALT (21-72) U/L Total Protein (6.3-8.2) g/dL Albumin (3.5-5.0) g/dL 07/11/17 07/11/17 07/11/17 Range/Units 08:10 08:10 12:28 WBC 18.6 H (3.8-10.6) k/uL RBC 3.97 L (4.30-5.90) m/uL Hgb 12.2 L (13.0-17.5) gm/dL Hct 36.3 L (39.0-53.0) % Neutrophils # 13.7 H (1.3-7.7) k/uL Chloride 108 H (98-107) mmol/L Carbon Dioxide 31 H (22-30) mmol/L BUN 35 H (9-20) mg/dL Glucose 232 H (74-99) mg/dL POC Glucose (mg/dL) 142 H (75-99) mg/dL ALT 14 L (21-72) U/L Total Protein 5.5 L (6.3-8.2) g/dL Albumin 2.6 L (3.5-5.0) g/dL Assessment and Plan Assessment: Patient seen and examined. Patient is still on 10 L high flow nasal cannula. Chest x-ray shows bibasilar pneumonia. The patient has had limited improvement during his hospitalization. We will check a CTA of the chest today. Antibiotics per ID. Yohana Ricks DO
[2017-07-11] MEDS ORDERED: RX INFO: IV CONTRAST WAS GIVEN 1 EACH MISC MISCELLANE PRN (15:09)
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
[2017-07-11 17:03] LABS: Glucose,Whole Blood 197 mg/dL (75-99)
--- NOTE | 2017-07-11 17:04 | CT ---
EXAMINATION TYPE: CT angio chest DATE OF EXAM: 07/11/2017 4:53 PM COMPARISON: Chest CT scan without contrast 06/30/2017. HISTORY: Hypoxia. CT DLP: 527 mGycm Automated exposure control for dose reduction was used. CONTRAST: CTA scan of the thorax is performed with IV Contrast, patient injected with 72 mL of Visipaque 320, p ulmonary embolism protocol. There are 3-D post processed images.. FINDINGS: There is patchy interstitial and alveolar infiltrate in the mid and lower lung marcus. There is atele ctasis at the lung bases. There are bilateral pleural effusions. Thoracic aorta is atheromatous. Ther e is no sign of aneurysm or dissection. I see no filling defects in the pulmonary arteries. There is no pericardial effusion. Heart is enlarg ed. There are paratracheal lymph nodes that measure up to 1 cm. There are no hilar masses. There is a nterior wedging of a lower thoracic vertebra or L1 vertebra with 30% loss of height. CONCLUSION: No evidence of pulmonary embolism. Pleural effusions with basilar pulmonary infiltrates and atelectas is similar to old exam. T12 compression fracture is unchanged. Calcified gallstones is noted.
[2017-07-11] MEDS: TAMSULOSIN 0.4 MG CAP.ER.24H PO SCH (17:06)
--- NOTE | 2017-07-11 20:31 | P.PN ---
Subjective Progress Note Date: 07/11/17 This patient is a 67-year-old male who is being evaluated for Parkinson's disease. His neurological exam findings yesterday were very consistent with moderate to severe Parkinson's disease. He was started on low-dose Sinemet yesterday. He does seem to show some improvement with less degree of tremors noted today on examination. We will continue to titrate the dose of Sinemet for him accordingly. Patient does have a history of closed head injury with mental impairment along with seizure disorder. We did check his Depakote level yesterday and it was therapeutic at 75.1. This is a therapeutic level and we will continue him on his current dose of Depakote. Would recommend consultation with PT OT for him as well during this admission. Patient states he was able to eat his breakfast fairly well but did not eat much of his lunch. He is being treated for several comorbidities including diabetes mellitus, and chronic kidney disease stage III. We are waiting for the recommendations from urology were evaluating him for right testicular swelling. He is to continue on his current antibiotics. His catheter is to be removed in one to 2 days for voiding trial but will need close monitoring. The patient is resting comfortably this afternoon in his bed. He is able to answer most questions appropriately. The patient does seem to have less tremors today on exam. His tremors are exacerbated if he becomes anxious. We did increase his dose of Sinemet to 3 times a day. This is showing some further improvement in controlling his clinical features of Parkinson's disease. He may require further titration depending on his response. The fact that he is responding to Sinemet indicates he does have parkinsonism and possible Parkinson's disease. He is also being treated for known history of closed head injury as well. Dose will likely need further adjustment and increase over the next several weeks. At this time we will continue to follow his response closely. Patient does seem to show improvement with his overall tremors related to Parkinson's disease. He will likely need further titration of the Sinemet dosage over the next month. Patient was sent for CT angiogram of the test which did come back negative for pulmonary embolus. He continues to do fairly well in terms of his slow recovery since admission to the hospital. We will continue close neurological follow-up with the patient during this admission. Objective - Vital Signs Vital signs: Vital Signs Temp 97.3 F L 07/11/17 15:00 Pulse 96 03/15/18 15:00 Resp 18 07/11/17 15:00 BP 139/63 07/11/17 15:00 Pulse Ox 91 L 07/11/17 15:00 Intake & Output 07/10/17 07/11/17 07/11/17 18:59 06:59 18:59 Intake Total 250 250 Output Total 575 2800 1400 Balance -325 -2550 -1400 Weight 79 kg 77.5 kg Intake: Oral 250 250 Output: Urine 575 2800 1400 Uretheral (Alfredo) 1400 300 Other: Voiding Method Indwelling Catheter Indwelling Catheter # Voids 0 # Bowel Movements 0 - Exam Physical examination: PHYSICAL EXAMINATION: Patient is resting comfortably in bed. VITAL SIGNS: Blood pressure is [139/63]. Heart rate is [96]. Respiration is [18] . Temperature is [97.3]. HEENT: Head is atraumatic, neck is supple, there were no carotid bruits. CHEST: Lungs are clear to auscultation and percussion. CARDIAC: S1, S2 normal rate and rhythm. There is no murmur. ABDOMEN: Soft and nontender. Bowel sounds are present. EXTREMITIES: There is no pedal edema. Peripheral pulses are present. Neurological examination: Patient's neurological examination continues to reveal evidence of bilateral hand tremors and cogwheel rigidity on exam. Muscle tone is showing rigidity mostly in the upper extremities. Overall assessment of his tremors seemed to be less severe as compared to yesterday. - Labs CBC & Chem 7: 07/11/17 08:10 07/11/17 08:10 Labs: Abnormal Lab Results - Last 24 Hours (Table) 07/10/17 07/11/17 07/11/17 Range/Units 22:19 07:33 08:10 WBC 18.6 H (3.8-10.6) k/uL RBC 3.97 L (4.30-5.90) m/uL Hgb 12.2 L (13.0-17.5) gm/dL Hct 36.3 L (39.0-53.0) % Neutrophils # 13.7 H (1.3-7.7) k/uL Chloride (98-107) mmol/L Carbon Dioxide (22-30) mmol/L BUN (9-20) mg/dL Glucose (74-99) mg/dL POC Glucose (mg/dL) 220 H 233 H (75-99) mg/dL ALT (21-72) U/L Total Protein (6.3-8.2) g/dL Albumin (3.5-5.0) g/dL 07/11/17 07/11/17 07/11/17 Range/Units 08:10 12:28 16:53 WBC (3.8-10.6) k/uL RBC (4.30-5.90) m/uL Hgb (13.0-17.5) gm/dL Hct (39.0-53.0) % Neutrophils # (1.3-7.7) k/uL Chloride 108 H (98-107) mmol/L Carbon Dioxide 31 H (22-30) mmol/L BUN 35 H (9-20) mg/dL Glucose 232 H (74-99) mg/dL POC Glucose (mg/dL) 142 H 197 H (75-99) mg/dL ALT 14 L (21-72) U/L Total Protein 5.5 L (6.3-8.2) g/dL Albumin 2.6 L (3.5-5.0) g/dL Assessment and Plan (1) Parkinsonism Current Visit: Yes Status: Acute Code(s): G20 - PARKINSON'S DISEASE SNOMED Code(s): 68135290 (2) Closed head injury Current Visit: Yes Status: Acute Code(s): S09.90XA - UNSPECIFIED INJURY OF HEAD, INITIAL ENCOUNTER SNOMED Code(s): 221049009441 (3) Seizure disorder Current Visit: Yes Status: Acute Code(s): G40.909 - EPILEPSY, UNSP, NOT INTRACTABLE, WITHOUT STATUS EPILEPTICUS SNOMED Code(s): 676557390 (4) Pneumonia Current Visit: Yes Status: Acute Code(s): J18.9 - PNEUMONIA, UNSPECIFIED ORGANISM SNOMED Code(s): 770101507 Plan: This patient is a 67-year-old male who is being treated for uncontrollable tremors since admission to hospital. He has had tremors for many months at the halfway where he has been residing. His neurological examination supports evidence of probable underlying Parkinson's disease. He has been started on Sinemet and has shown some improvement in controlling his tremors. Tremors are much less noticeable especially when he has not agitated. His tremors do seem to become more noticeable when he is anxious. We will continue to follow with multiple specialists who are seeing this patient during this admission. He is to continue on his current dose of Sinemet 25/100 one tablet 3 times a day. We will continue to titrate his dose as needed for maximum therapy. His overall prognosis at this time remains guarded.
[2017-07-11] MEDS: ATORVASTATIN 20 MG TAB PO SCH (20:50)
--- NOTE | 2017-07-11 21:21 | PN ---
PROGRESS NOTE DATE OF SERVICE: 07/11/2017. REASON FOR FOLLOW UP: Aspiration pneumonia. INTERVAL HISTORY: The patient is afebrile. He seemed to be breathing comfortably, still requiring high- flow oxygen currently at 11L, slightly up from yesterday of 10L. No nausea, vomiting has been noticed or any diarrhea or any choking on food chest pain. Some shortness of breath and minimal cough, not bringing up any sputum and no diarrhea. EXAMINATION: Blood pressure 139/63 with a pulse of 90, temperature 97.3. He is 91% on 11L high-flow oxygen. General description is a healthy male lying in bed in no distress. RESPIRATORY SYSTEM: Unlabored breathing with decreased breath sounds in the bases. No wheeze. HEART S1, S2. Regular rate and rhythm. ABDOMEN: Soft. No tenderness. EXTREMITIES: No edema of the feet. LABS: Hemoglobin is 12.8 with a white count of 18.3. BUN of 35, creatinine 1.03. The patient did have a CT angiogram that was negative for PE, did show some patchy infiltrates right mid and lower lobes. DIAGNOSTIC IMPRESSION AND PLAN: Patient with right-sided pneumonia after the patient did have an episode of vomiting with question of aspiration pneumonia. Currently empirically on Azactam and Flagyl because of his ZOSYN ALLERGY. He did have slight jump in white count, questionably related to the steroid the patient is on. Has no fever, has been closely. May benefit from a swallow evaluation that will be ordered. Try to obtain a sputum. Continue supportive care. MMODL / IJN: [id number] /
[2017-07-11 21:25] LABS: Glucose,Whole Blood 136 mg/dL (75-99)
[2017-07-12 07:04] LABS: Glucose,Whole Blood 197 mg/dL (75-99)
[2017-07-12] MEDS: CARBIDOPA-LEVODOPA 25-100 MG 1 EACH TAB PO SCH ×3 (08:17→22:58)
[2017-07-12] MEDS: PANTOPRAZOLE 40 MG TABLET PO SCH (08:17)
[2017-07-12] MEDS: amLODIPine 10 MG TAB PO SCH (08:17)
[2017-07-12] MEDS: metroNIDAZOLE 500 MG TAB PO SCH ×3 (08:17→22:59)
[2017-07-12] MEDS: glipiZIDE 5 MG TAB PO SCH ×2 (08:17→18:09)
[2017-07-12] MEDS: LORATADINE 10 MG TAB PO SCH (08:18)
[2017-07-12] MEDS: DIVALPROEX 500 MG TABLET.DR PO SCH ×4 (08:18→22:58)
[2017-07-12] MEDS: HEPARIN SODIUM,PORCINE 5,000 UNIT/ML 1 ML VIAL SQ SCH ×2 (08:18→22:58)
[2017-07-12] MEDS: metFORMIN 500 MG TAB PO SCH ×2 (08:18→18:09)
[2017-07-12] MEDS: SERTRALINE 25 MG TAB PO SCH (08:18)
[2017-07-12] MEDS: SODIUM CHLORIDE 0.9% 500 ML IV SCH (08:19)
[2017-07-12] MEDS: INSULIN ASPART 100 UNIT/ML 1 ML 10 ML VIAL SQ SCH ×4 (08:20→22:58)
[2017-07-12] MEDS: methylPREDNISolone SOD SUCCI 40 MG/ML 1 ML VIAL IV SCH ×2 (08:20→16:44)
[2017-07-12] MEDS: INSULN ASP PRT/INSULIN ASPART 100 UNIT/ML 10 ML VIAL SQ SCH ×2 (08:20→18:08)
[2017-07-12] MEDS: AZTREONAM 2 GM in SODIUM CHLORIDE 0.9% 100 ML IVPB SCH ×2 (08:20→22:57)
[2017-07-12] MEDS: BUDESONIDE 0.5 MG/2 ML NEBU INHALATION SCH (09:01)
[2017-07-12] MEDS: IPRATROPIUM-ALBUTEROL 3 ML NEB INHALATION SCH ×4 (09:01→20:27)
--- NOTE | 2017-07-12 11:31 | P.PN ---
Subjective Progress Note Date: 07/12/17 [facility] is covering for Dr. Simms 07/05/17- Patient is being seen examined and evaluated on rounds for follow-up. Patient has bilateral pneumonia right leg from aspiration. Upon examination the patient is resting up in bed on 15 L of high flow nasal cannula, the patient was on airflow yesterday, and has been slowly weaned off. The patient has a indwelling Alfredo catheter at this time due to acute urinary retention. Urology is also on consult. The patient does have an enlarged testicle as well. He continues on Levaquin and vancomycin. There were no labs drawn this morning. We put in for stat labs at this time. Sputum culture has not been obtained at this time. Cardiology, neurology and nephrology is also following with the patient. He continues to complain of shortness of breath with exertion and activity. He does have a congested cough. Repeat chest x-ray will be completed in the morning. He continues on a dysphagia diet with one-to- one supervision. Continues with PT and OT. 07/06/17-07/07/17- 07/08/17- patient has been seen examined and evaluated today on rounds. He is resting up in bed on 10 L of supplemental oxygen via nasal cannula. I did speak with respiratory therapy we will be working to try to wean that down. We will adjust his steroids at this time. He has been working with PT and OT. He does have shortness of breath with exertion as well as a cough that is congested. He is afebrile no further complaints. 07/09/17- Please see Dr. Erendira Abraham note 07/10/17- patient is seen and examined and evaluated on rounds. The patient is resting up in bed on 10 L of supplemental oxygen via nasal cannula. Family is at bedside and updated on plan of care. Patient was seen by Dr. Rodriguez for infectious disease antibiotics are currently being adjusted. Patient is a one- to-one feed and it is suspected that the patient is experiencing recurrent aspiration pneumonias. Patient therapy has been consult that. We can continue to try to wean down his oxygen and demands. He continues on breathing treatments and steroids at this time. 07/11/17- patient is being seen examined and evaluated today on rounds. He continues on 10 L of high flow oxygen via nasal cannula. Chest x-ray was completed today and does show posterior bibasilar infiltrates which may have some improvement from previous chest x-ray. Currently he is also being seen by infectious disease and they're adjusting antibiotics. Patient should continue on IV steroids at this time. All labs and reports have been reviewed. 07/12/17- patient is seen seen examined and evaluated today on rounds. He continues resting up in bed on 10 L of high flow oxygen via nasal cannula. Patient is going for a modified barium swallow today. There are no labs for today, we will order some routine labs to be completed. He continues to follow with infectious disease. Continues with shortness of breath with exertion. States his cough and congestion in her getting better. Currently he is on Solu- Medrol 40 every 8 hours. She is also being seen by neurology. He is afebrile, no further complaints. CTA reviewed. Objective - Vital Signs Vital signs: Vital Signs Temp 98.2 F 07/11/17 23:00 Pulse 100 07/12/17 09:14 Resp 18 07/12/17 08:00 BP 139/71 07/11/17 23:00 Pulse Ox 92 L 07/11/17 23:00 Intake & Output 07/11/17 07/12/17 07/12/17 18:59 06:59 18:59 Intake Total 200 Output Total 1400 800 Balance -1400 -600 Weight 79 kg Intake: Oral 200 Output: Urine 1400 800 Uretheral (Alfredo) 300 800 Other: Voiding Method Indwelling Catheter Indwelling Catheter Indwelling Catheter - Exam GENERAL EXAM: Alert, comfortable in no apparent distress. HEAD: Normocephalic. EYES: Normal reaction of pupils, equal size. NOSE: Clear with pink turbinates. THROAT: No erythema or exudates. NECK: No masses, no JVD. CHEST: No chest wall deformity. LUNGS: Lung sounds noted to be somewhat coarse bilaterally with decreased bases. CVS: S1 and S2 normal with no audible mumurs, regular rhythm. ABDOMEN: No hepatosplenomegaly, normal bowel sounds, no guarding or rigidity. EXTREMITIES: +1-2 edema noted, pedal pulses palpable. CENTRAL NERVOUS SYSTEM: No focal deficits, tone is normal in all 4 extremities. - Labs CBC & Chem 7: 07/11/17 08:10 07/11/17 08:10 Labs: Abnormal Lab Results - Last 24 Hours (Table) 03/07/11/17 07/11/17 Range/Units 12:28 16:53 21:06 POC Glucose (mg/dL) 142 H 197 H 136 H (75-99) mg/dL 07/12/17 Range/Units 07:01 POC Glucose (mg/dL) 197 H (75-99) mg/dL Assessment and Plan Assessment: Assessment Severe and acute sepsis related to aspiration pneumonia Acute exacerbation of CHF likely acute diastolic heart failure Ammann gently being diuresed Acute hypoxic respiratory failure related to above Right middle lobe, bilateral lower lobe pneumonia likely aspiration related Uncontrolled diabetes and hyperglycemia Severe morbid obesity with baseline close head injury Bilateral lower extremity cellulitis 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 Modified barium swallow to be completed today. Steroids continued. CTA reviewed. Continue to wean down oxygen. Aspirations precautions. Continue with pulmonary hygiene, coughing and deep breathing exercises, and supportive care. Supplemental oxygen to maintain oxygen saturations of 92% or better, try to titrate down. Continue nebulizer treatments. Cardiology, nephrology, neurology and urology on consult and appreciate recommendations. Infectious disease admitted to the case and are currently adjusting antibiotics. Maintain aspiration precautions and one-to-one supervision with feeding. Indwelling catheter related to urinary retention. GI and DVT prophylaxis. We will continue to monitor labs/results and adjust treatment as necessary. Further recommendations pending. We are covering for Dr. Simms I performed an examination of the patient and discussed their management with the nurse practitioner. I have reviewed the nurse practitioner's note and agree with the documented findings and plan of care.
[2017-07-12 12:09] LABS: Glucose,Whole Blood 221 mg/dL (75-99)
[2017-07-12 12:32] LABS: Basophils % (A) 0 %; Eosinophils % (A) 0 %; HCT 37.1 % (39.0-53.0); HGB 11.9 gm/dL (13.0-17.5); Lymphocytes # (A) 1.5 k/uL (1.0-4.8); Lymphocytes % (A) 8 %; MCH 29.8 pg (25.0-35.0); MCHC 32.1 g/dL (31.0-37.0); MCV 92.8 fL (80.0-100.0); Mean Platelet Volume 8.4; Monocytes % (A) 5 %; Neutrophils # (A) 16.5 k/uL (1.3-7.7); Neutrophils % (A) 86 %; Platelet Count 357 k/uL (150-450); RBC 3.99 m/uL (4.30-5.90); RDW 14.7 % (11.5-15.5); WBC 19.1 k/uL (3.8-10.6)
[2017-07-12 12:33] LABS: ALT 13 U/L (21-72); AST 19 U/L (17-59); Albumin 2.9 g/dL (3.5-5.0); Alkaline Phosphatase 52 U/L (38-126); Anion Gap 10 mmol/L; Blood Urea Nitrogen 34 mg/dL (9-20); Calcium 9.1 mg/dL (8.4-10.2); Carbon Dioxide 26 mmol/L (22-30); Chloride 108 mmol/L (98-107); Glucose 184 mg/dL (74-99); Potassium 4.3 mmol/L (3.5-5.1); Sodium 144 mmol/L (137-145); Total Bilirubin 0.3 mg/dL (0.2-1.3); Total Protein 5.8 g/dL (6.3-8.2)
[2017-07-12] MEDS: INSULIN ASPART 100 UNIT/ML 1 ML 10 ML VIAL SQ PRN (12:42)
[2017-07-12] MEDS: MULTIVITAMINS, THERA 1 EACH TAB PO SCH (12:42)
[2017-07-12] MEDS: ASCORBIC ACID 500 MG TAB PO SCH (12:42)
--- NOTE | 2017-07-12 13:15 | PN ---
PROGRESS NOTE DATE OF SERVICE: 07/12/2017 REASON FOR FOLLOWUP: Aspiration pneumonia. INTERVAL HISTORY: The patient is afebrile. He has been breathing comfortably. He did have some cough, but not bringing up any sputum. No nausea or vomiting has been noticed or any diarrhea. The patient did have a modified barium swallow per the nurse. Report did show evidence of aspiration and ID is being notified though the official report is currently pending. PHYSICAL EXAMINATION: On examination, blood pressure is 139/71 with a pulse of 100, temperature 98.2. He is 92% on high-flow oxygen. General description is an elderly male up in the bed in no distress. RESPIRATORY SYSTEM: Unlabored breathing, decreased breath sounds in the bases. No wheeze. HEART: S1, S2. Regular rate and rhythm. ABDOMEN: Soft, no tenderness. LABS: Hemoglobin 11.9, white count 19.1, BUN of 34, creatinine 0.95. DIAGNOSTIC IMPRESSION AND PLAN: Patient with recurrent aspiration pneumonia and to be adjusted to prevent recurrent aspiration. Continue with Azactam, Flagyl. In view of the patient being on multiple antibiotics high risk of a yeast infection, Diflucan will be added in view of the persistent elevated white count. Family present at bedside. Their questions were answered. MMODL / IJN: [id number] /
--- NOTE | 2017-07-12 13:31 | FL ---
EXAMINATION TYPE: FL barium swallow w video DATE OF EXAM: 07/12/2017 MODIFIED SWALLOW / DEGLUTITION STUDY CLINICAL HISTORY: Cough with concern for aspiration. TECHNIQUE: Deglutition study is performed utilizing thin liquid barium and barium thick applesauce a s the patient refused any other consistencies. 1 minute and 41 seconds of fluoroscopy time was utiliz ed. No images were saved as the procedure was video recorded. COMPARISON: None. FINDINGS: The oral and pharyngeal phases show satisfactory initiation and propagation with all modali ties tested. Normal mastication is seen with solid modalities tested. Mild aspiration is seen with large volume thin liquid through a straw however within small volume thin liquid was administered wit h a spoon no aspiration or penetration was identified. No aspiration or penetration with the puree co nsistency. No significant pharyngeal residue was appreciated. IMPRESSION: Mild aspiration with large volume thin liquid through a straw, resolved by using small volumes with a spoon. Please refer to speech therapist notes for further details if necessary.
--- NOTE | 2017-07-12 14:58 | PN ---
PROGRESS NOTE DATE OF SERVICE: 07/12/2017 This is a 67-year-old white male who has a longstanding history of closed head injury and mental impairment, seizure disorder, and also he has had extensive abdominal surgery following the accident and he has had a splenectomy and partial pancreatectomy. Patient also has diabetes mellitus and patient was brought to the emergency room with increasing shortness of breath, fever, chills, nausea and vomiting. In the ER, he was found to have an pneumonia and he was in hypoxic respiratory failure. Patient was admitted to the hospital for further evaluation and treatment. Patient was seen by different specialists in consultation. Dr. Mendez carbajal math and sciences department chair saw him for his respiratory problems and patient was initially started on IV antibiotics and updraft treatments, IV Solu-Medrol. Diabetes was being controlled with NovoLog sliding scale. Patient continued to have fever and patient was seen by Dr. Rodriguez in consultation from Infectious Disease and the patient had a modified barium swallow by the speech therapist and this was positive for aspiration and for fluid and patient has been placed on a special diet as recommended by the speech therapist and the dietitian. Patient also had a severe tremor and involuntary movements and the patient was seen by Dr. Pineda and he felt that the patient has parkinsonism and the patient was placed Sinemet and this has improved his tremor significantly. The patient had acute on chronic diastolic congestive heart failure and the patient was seen by [facility]. Patient today is showing significant improvement. He is more alert and he has been started on some solid diet and patient is tolerating well. Patient is also getting physical therapy. He is gradually improving and when he is clinically stable and the chest x-ray shows clearing of the pneumonia, he will be transferred back to [facility]. MMODL / IJN: [id number] /
--- NOTE | 2017-07-12 16:26 | P.PN ---
Subjective Progress Note Date: 07/12/17 This patient is a 67-year-old male who is being evaluated for Parkinson's disease. His neurological exam findings yesterday were very consistent with moderate to severe Parkinson's disease. He was started on low-dose Sinemet yesterday. He does seem to show some improvement with less degree of tremors noted today on examination. We will continue to titrate the dose of Sinemet for him accordingly. Patient does have a history of closed head injury with mental impairment along with seizure disorder. We did check his Depakote level yesterday and it was therapeutic at 75.1. This is a therapeutic level and we will continue him on his current dose of Depakote. Would recommend consultation with PT OT for him as well during this admission. Patient states he was able to eat his breakfast fairly well but did not eat much of his lunch. He is being treated for several comorbidities including diabetes mellitus, and chronic kidney disease stage III. We are waiting for the recommendations from urology were evaluating him for right testicular swelling. He is to continue on his current antibiotics. His catheter is to be removed in one to 2 days for voiding trial but will need close monitoring. The patient is resting comfortably this afternoon in his bed. He is able to answer most questions appropriately. The patient does seem to have less tremors today on exam. His tremors are exacerbated if he becomes anxious. We did increase his dose of Sinemet to 3 times a day. This is showing some further improvement in controlling his clinical features of Parkinson's disease. He may require further titration depending on his response. The fact that he is responding to Sinemet indicates he does have parkinsonism and possible Parkinson's disease. He is also being treated for known history of closed head injury as well. Dose will likely need further adjustment and increase over the next several weeks. At this time we will continue to follow his response closely. Patient does seem to show improvement with his overall tremors related to Parkinson's disease. He will likely need further titration of the Sinemet dosage over the next month. Clinically the patient has shown significant improvement on his current dose of Sinemet. He is able to participate with more physical therapy evaluations as well. Patient is hoping to return to his residential home upon discharge. Patient was sent for CT angiogram of the test which did come back negative for pulmonary embolus. He continues to do fairly well in terms of his slow recovery since admission to the hospital. We will continue close neurological follow-up with the patient during this admission. Objective - Vital Signs Vital signs: Vital Signs Temp 97.1 F L 07/12/17 15:00 Pulse 99 07/12/17 15:00 Resp 18 07/12/17 15:53 BP 106/67 07/12/17 15:00 Pulse Ox 95 07/12/17 15:00 Intake & Output 07/11/17 07/12/17 07/12/17 18:59 06:59 18:59 Intake Total 200 Output Total 1400 800 Balance -1400 -600 Weight 79 kg Intake: Oral 200 Output: Urine 1400 800 Uretheral (Alfredo) 300 800 Other: Voiding Method Indwelling Catheter Indwelling Catheter Indwelling Catheter # Voids 750 - Exam Physical examination: PHYSICAL EXAMINATION: Patient is resting comfortably in bed. VITAL SIGNS: Blood pressure is [139/71]. Heart rate is [100]. Respiration is [20 ]. Temperature is [98.2]. HEENT: Head is atraumatic, neck is supple, there were no carotid bruits. CHEST: Lungs are clear to auscultation and percussion. CARDIAC: S1, S2 normal rate and rhythm. There is no murmur. ABDOMEN: Soft and nontender. Bowel sounds are present. EXTREMITIES: There is no pedal edema. Peripheral pulses are present. Neurological examination: Patient's neurological examination continues to reveal evidence of bilateral hand tremors and cogwheel rigidity on exam. Muscle tone is showing rigidity mostly in the upper extremities. Overall assessment of his tremors seemed to be less severe as compared to yesterday. - Labs CBC & Chem 7: 07/12/17 12:07 07/12/17 12:07 Labs: Abnormal Lab Results - Last 24 Hours (Table) 07/11/17 07/11/17 07/12/17 Range/Units 16:53 21:06 07:01 WBC (3.8-10.6) k/uL RBC (4.30-5.90) m/uL Hgb (13.0-17.5) gm/dL Hct (39.0-53.0) % Neutrophils # (1.3-7.7) k/uL Chloride (98-107) mmol/L BUN (9-20) mg/dL Glucose (74-99) mg/dL POC Glucose (mg/dL) 197 H 136 H 197 H (75-99) mg/dL ALT (21-72) U/L Total Protein (6.3-8.2) g/dL Albumin (3.5-5.0) g/dL 07/12/17 07/12/17 07/12/17 Range/Units 12:04 12:07 12:07 WBC 19.1 H (3.8-10.6) k/uL RBC 3.99 L (4.30-5.90) m/uL Hgb 11.9 L (13.0-17.5) gm/dL Hct 37.1 L (39.0-53.0) % Neutrophils # 16.5 H (1.3-7.7) k/uL Chloride 108 H (98-107) mmol/L BUN 34 H (9-20) mg/dL Glucose 184 H (74-99) mg/dL POC Glucose (mg/dL) 221 H (75-99) mg/dL ALT 13 L (21-72) U/L Total Protein 5.8 L (6.3-8.2) g/dL Albumin 2.9 L (3.5-5.0) g/dL Assessment and Plan (1) Parkinsonism Current Visit: Yes Status: Acute Code(s): G20 - PARKINSON'S DISEASE SNOMED Code(s): 34189115 (2) Closed head injury Current Visit: Yes Status: Acute Code(s): S09.90XA - UNSPECIFIED INJURY OF HEAD, INITIAL ENCOUNTER SNOMED Code(s): 730253729887 (3) Seizure disorder Current Visit: Yes Status: Acute Code(s): G40.909 - EPILEPSY, UNSP, NOT INTRACTABLE, WITHOUT STATUS EPILEPTICUS SNOMED Code(s): 226278381 (4) Pneumonia Current Visit: Yes Status: Acute Code(s): J18.9 - PNEUMONIA, UNSPECIFIED ORGANISM SNOMED Code(s): 709524266 Plan: This patient is a 67-year-old male who has a history of closed head injury with mental impairment and seizure disorder. Neurology was initially consulted for evaluation of severe tremors. His neurological exam suggested a diagnosis of underlying Parkinson's disease. He has been started on Sinemet and is shown significant improvement. He is doing much better and is much more awake and alert and is not tremulous as he was prior to treatment. We would recommend to continue him on his current dose of Sinemet with slow titration over the next several months. Patient is being considered for transfer back to his longterm and residential living at [facility]. He is clearly doing better in terms of management of the tremors since coming into the hospital. As noted he may require further titration which would take at least several months to adjust his dose gradually. We will be away over the weekend and will reevaluate the patient on Saturday if he is still an inpatient here. Otherwise we would recommend to continue current medical treatment for him. His overall prognosis at this time remains guarded.
[2017-07-12 17:05] LABS: Glucose,Whole Blood 130 mg/dL (75-99)
[2017-07-12] MEDS: TAMSULOSIN 0.4 MG CAP.ER.24H PO SCH (18:09)
[2017-07-12] MEDS: BUDESONIDE 1 MG/2 ML NEBU INHALATION SCH (20:27)
[2017-07-12 21:09] LABS: Glucose,Whole Blood 120 mg/dL (75-99)
[2017-07-12] MEDS: ATORVASTATIN 20 MG TAB PO SCH (22:57)
[2017-07-13] MEDS: methylPREDNISolone SOD SUCCI 40 MG/ML 1 ML VIAL IV SCH ×3 (01:36→21:16)
[2017-07-13 07:22] LABS: Glucose,Whole Blood 201 mg/dL (75-99)
[2017-07-13 08:21] LABS: Basophils % (A) 0 %; Eosinophils % (A) 0 %; HGB 12.5 gm/dL (13.0-17.5); Lymphocytes # (A) 1.5 k/uL (1.0-4.8); Lymphocytes % (A) 11 %; MCH 30.5 pg (25.0-35.0); MCHC 32.8 g/dL (31.0-37.0); MCV 92.9 fL (80.0-100.0); Monocytes # (A) 0.6 k/uL (0-1.0); Monocytes % (A) 4 %; Neutrophils # (A) 11.3 k/uL (1.3-7.7); Neutrophils % (A) 83 %; Platelet Count 351 k/uL (150-450); Poikilocytosis Slight; RBC 4.09 m/uL (4.30-5.90); RDW 14.9 % (11.5-15.5); WBC 13.6 k/uL (3.8-10.6)
[2017-07-13] MEDS: BUDESONIDE 1 MG/2 ML NEBU INHALATION SCH ×2 (08:33→21:36)
[2017-07-13 08:35] LABS: ALT 15 U/L (21-72); AST 20 U/L (17-59); Albumin 2.6 g/dL (3.5-5.0); Alkaline Phosphatase 49 U/L (38-126); Anion Gap 7 mmol/L; Blood Urea Nitrogen 32 mg/dL (9-20); Calcium 8.7 mg/dL (8.4-10.2); Carbon Dioxide 28 mmol/L (22-30); Chloride 109 mmol/L (98-107); Glucose 207 mg/dL (74-99); Potassium 5.1 mmol/L (3.5-5.1); Sodium 144 mmol/L (137-145); Total Bilirubin 0.3 mg/dL (0.2-1.3); Total Protein 5.4 g/dL (6.3-8.2)
[2017-07-13] MEDS: IPRATROPIUM-ALBUTEROL 3 ML NEB INHALATION SCH ×4 (08:36→21:36)
[2017-07-13] MEDS: INSULIN ASPART 100 UNIT/ML 1 ML 10 ML VIAL SQ SCH ×4 (09:18→22:53)
[2017-07-13] MEDS: metroNIDAZOLE 500 MG TAB PO SCH ×3 (09:18→21:17)
[2017-07-13] MEDS: metFORMIN 500 MG TAB PO SCH ×2 (09:18→18:04)
[2017-07-13] MEDS: INSULN ASP PRT/INSULIN ASPART 100 UNIT/ML 10 ML VIAL SQ SCH ×2 (09:18→18:05)
[2017-07-13] MEDS: SERTRALINE 25 MG TAB PO SCH (09:18)
[2017-07-13] MEDS: glipiZIDE 5 MG TAB PO SCH ×2 (09:19→18:04)
[2017-07-13] MEDS: HEPARIN SODIUM,PORCINE 5,000 UNIT/ML 1 ML VIAL SQ SCH ×2 (09:19→21:16)
[2017-07-13] MEDS: LORATADINE 10 MG TAB PO SCH (09:19)
[2017-07-13] MEDS: amLODIPine 10 MG TAB PO SCH (09:19)
[2017-07-13] MEDS: CARBIDOPA-LEVODOPA 25-100 MG 1 EACH TAB PO SCH ×3 (09:19→21:17)
[2017-07-13] MEDS: DIVALPROEX 500 MG TABLET.DR PO SCH ×4 (09:19→21:17)
[2017-07-13] MEDS: PANTOPRAZOLE 40 MG TABLET PO SCH (09:19)
[2017-07-13] MEDS: AZTREONAM 2 GM in SODIUM CHLORIDE 0.9% 100 ML IVPB SCH ×2 (09:39→21:15)
--- NOTE | 2017-07-13 11:23 | P.PN ---
Subjective Progress Note Date: 07/13/17 07/05/17- Patient is being seen examined and evaluated on rounds for follow-up. Patient has bilateral pneumonia right leg from aspiration. Upon examination the patient is resting up in bed on 15 L of high flow nasal cannula, the patient was on airflow yesterday, and has been slowly weaned off. The patient has a indwelling Alfredo catheter at this time due to acute urinary retention. Urology is also on consult. The patient does have an enlarged testicle as well. He continues on Levaquin and vancomycin. There were no labs drawn this morning. We put in for stat labs at this time. Sputum culture has not been obtained at this time. Cardiology, neurology and nephrology is also following with the patient. He continues to complain of shortness of breath with exertion and activity. He does have a congested cough. Repeat chest x-ray will be completed in the morning. He continues on a dysphagia diet with one-to- one supervision. Continues with PT and OT. 07/06/17-07/07/17- 07/08/17- patient has been seen examined and evaluated today on rounds. He is resting up in bed on 10 L of supplemental oxygen via nasal cannula. I did speak with respiratory therapy we will be working to try to wean that down. We will adjust his steroids at this time. He has been working with PT and OT. He does have shortness of breath with exertion as well as a cough that is congested. He is afebrile no further complaints. 07/09/17- Please see Dr. Erendira Abraham note 07/10/17- patient is seen and examined and evaluated on rounds. The patient is resting up in bed on 10 L of supplemental oxygen via nasal cannula. Family is at bedside and updated on plan of care. Patient was seen by Dr. Rodriguez for infectious disease antibiotics are currently being adjusted. Patient is a one- to-one feed and it is suspected that the patient is experiencing recurrent aspiration pneumonias. Patient therapy has been consult that. We can continue to try to wean down his oxygen and demands. He continues on breathing treatments and steroids at this time. 07/11/17- patient is being seen examined and evaluated today on rounds. He continues on 10 L of high flow oxygen via nasal cannula. Chest x-ray was completed today and does show posterior bibasilar infiltrates which may have some improvement from previous chest x-ray. Currently he is also being seen by infectious disease and they're adjusting antibiotics. Patient should continue on IV steroids at this time. All labs and reports have been reviewed. 07/12/17- patient is seen seen examined and evaluated today on rounds. He continues resting up in bed on 10 L of high flow oxygen via nasal cannula. Patient is going for a modified barium swallow today. There are no labs for today, we will order some routine labs to be completed. He continues to follow with infectious disease. Continues with shortness of breath with exertion. States his cough and congestion in her getting better. Currently he is on Solu- Medrol 40 every 8 hours. She is also being seen by neurology. He is afebrile, no further complaints. CTA reviewed. 07/13/2017: Patient seen and examined. Patient is laying in bed. He continues on 10 L high flow nasal cannula. He has no needs or complaints. He is asking for ice cream and Pepsi. He states his cough is getting better. The patient did have mild aspiration with large volume thin liquids through a straw on his modified barium swallow. Objective - Vital Signs Vital signs: Vital Signs Temp 98.3 F 07/13/17 07:00 Pulse 92 07/13/17 08:45 Resp 18 07/13/17 07:00 BP 110/65 07/13/17 07:00 Pulse Ox 96 07/13/17 07:00 Intake & Output 07/12/17 07/13/17 07/13/17 18:59 06:59 18:59 Output Total 700 Balance -700 Weight 88.5 kg Output: Urine 700 Other: Voiding Method Indwelling Catheter Indwelling Catheter Indwelling Catheter # Voids 750 1 - Exam GENERAL EXAM: Alert, comfortable in no apparent distress. HEAD: Normocephalic. EYES: Normal reaction of pupils, equal size. NOSE: Clear with pink turbinates. THROAT: No erythema or exudates. NECK: No masses, no JVD. CHEST: No chest wall deformity. LUNGS: Lung sounds noted to be somewhat coarse bilaterally with decreased bases. CVS: S1 and S2 normal with no audible mumurs, regular rhythm. ABDOMEN: No hepatosplenomegaly, normal bowel sounds, no guarding or rigidity. EXTREMITIES: +1-2 edema noted, pedal pulses palpable. CENTRAL NERVOUS SYSTEM: No focal deficits, tone is normal in all 4 extremities. - Labs CBC & Chem 7: 07/13/17 07:42 07/13/17 07:42 Labs: Abnormal Lab Results - Last 24 Hours (Table) 07/12/17 07/12/17 07/12/17 Range/Units 12:04 12:07 12:07 WBC 19.1 H (3.8-10.6) k/uL RBC 3.99 L (4.30-5.90) m/uL Hgb 11.9 L (13.0-17.5) gm/dL Hct 37.1 L (39.0-53.0) % Neutrophils # 16.5 H (1.3-7.7) k/uL Chloride 108 H (98-107) mmol/L BUN 34 H (9-20) mg/dL Glucose 184 H (74-99) mg/dL POC Glucose (mg/dL) 221 H (75-99) mg/dL ALT 13 L (21-72) U/L Total Protein 5.8 L (6.3-8.2) g/dL Albumin 2.9 L (3.5-5.0) g/dL 07/12/17 07/12/17 07/13/17 Range/Units 16:55 21:07 07:16 WBC (3.8-10.6) k/uL RBC (4.30-5.90) m/uL Hgb (13.0-17.5) gm/dL Hct (39.0-53.0) % Neutrophils # (1.3-7.7) k/uL Chloride (98-107) mmol/L BUN (9-20) mg/dL Glucose (74-99) mg/dL POC Glucose (mg/dL) 130 H 120 H 201 H (75-99) mg/dL ALT (21-72) U/L Total Protein (6.3-8.2) g/dL Albumin (3.5-5.0) g/dL 07/13/17 07/13/17 Range/Units 07:42 07:42 WBC 13.6 H (3.8-10.6) k/uL RBC 4.09 L (4.30-5.90) m/uL Hgb 12.5 L (13.0-17.5) gm/dL Hct 38.0 L (39.0-53.0) % Neutrophils # 11.3 H (1.3-7.7) k/uL Chloride 109 H (98-107) mmol/L BUN 32 H (9-20) mg/dL Glucose 207 H (74-99) mg/dL POC Glucose (mg/dL) (75-99) mg/dL ALT 15 L (21-72) U/L Total Protein 5.4 L (6.3-8.2) g/dL Albumin 2.6 L (3.5-5.0) g/dL Assessment and Plan Assessment: Severe and acute sepsis related to aspiration pneumonia Acute exacerbation of CHF likely acute diastolic heart failure Acute hypoxic respiratory failure related to above Right middle lobe, bilateral lower lobe pneumonia likely aspiration related Uncontrolled diabetes and hyperglycemia Obesity with baseline close head injury Bilateral lower extremity cellulitis 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 Steroids taper. CTA reviewed. Continue to wean down oxygen. Aspirations precautions. Continue with pulmonary hygiene, coughing and deep breathing exercises, and supportive care. Supplemental oxygen to maintain oxygen saturations of 92% or better, try to titrate down. Continue nebulizer treatments. Cardiology, nephrology, neurology and urology on consult and appreciate recommendations. Infectious disease admitted to the case and are currently adjusting antibiotics. Maintain aspiration precautions and one-to-one supervision with feeding. Indwelling catheter related to urinary retention. GI and DVT prophylaxis. We will continue to monitor labs/results and adjust treatment as necessary. Further recommendations pending. Chest physiotherapy, percussion bed. Ultrasound chest.
[2017-07-13 12:12] LABS: Glucose,Whole Blood 239 mg/dL (75-99)
[2017-07-13] MEDS: SODIUM CHLORIDE 0.9% 500 ML IV SCH (12:12)
[2017-07-13] MEDS: ASCORBIC ACID 500 MG TAB PO SCH (12:12)
[2017-07-13] MEDS: MULTIVITAMINS, THERA 1 EACH TAB PO SCH (12:12)
[2017-07-13] MEDS: INSULIN ASPART 100 UNIT/ML 1 ML 10 ML VIAL SQ PRN (13:04)
--- NOTE | 2017-07-13 13:39 | US ---
EXAMINATION TYPE: US chest DATE OF EXAM: 07/13/2017 COMPARISON: CT angio chest 07/11/2017, c-ray chest 07/11/2017 CLINICAL HISTORY: bilateral, edvin for possible thoracentesis. EXAM MEASUREMENTS: Right Pleural Effusion fluid pocket: 2.86 cm Right skin to fluid thickness: 2.1 cm Left Pleural Effusion fluid pocket: 3.4 cm Left skin to fluid thickness: 1.8 cm Right side not marked for possible thoracentesis outside the dept. Left side not marked for possible thoracentesis outside the dept. Pulmonologists are able to review the images in the patient?s EMR. IMPRESSIONS: SMALL, BILATERAL PLEURAL EFFUSIONS.
[2017-07-13 17:15] LABS: Glucose,Whole Blood 148 mg/dL (75-99)
[2017-07-13] MEDS: TAMSULOSIN 0.4 MG CAP.ER.24H PO SCH (18:04)
[2017-07-13 20:46] LABS: Glucose,Whole Blood 161 mg/dL (75-99)
--- NOTE | 2017-07-13 21:50 | PN ---
PROGRESS NOTE DATE OF SERVICE: 07/13/2017. REASON FOR FOLLOWUP: Aspiration pneumonia, recurrent. INTERVAL HISTORY: The patient is afebrile. He is seen to be awake, alert, breathing comfortably. He is asking for ice cream. No chest pain or shortness of breath. He did have a cough, not bringing up any sputum. No nausea, vomiting. No abdominal pain and no diarrhea. EXAMINATION: Blood pressure 122/65 with a pulse of 97, temperature of 98.8. He is 95% on 2L nasal cannula. General description is an elderly male lying in bed in no distress. RESPIRATORY SYSTEM: Unlabored breathing. Some coarse breath sounds in the bases. No wheeze. HEART: S1, S2. Regular rate and rhythm: ABDOMEN: Soft. No tenderness. LAB: Hemoglobin is 12.5, white count 13.6 with a BUN of 32, creatinine 0.79. DIAGNOSTIC IMPRESSION AND PLAN: Patient with recurrent aspiration pneumonia. The patient's diet had been adjusted and did have overall improvement. His white count down to 13,000. Will keep the patient on Azactam and Flagyl, watching the patient closely during feeding to make sure no further aspiration and if he continues to improve, will finish therapy with oral Avelox. Continue supportive care. MMODL / IJN: [id number] /
[2017-07-13] MEDS: ATORVASTATIN 20 MG TAB PO SCH (22:53)
[2017-07-14 07:27] LABS: Glucose,Whole Blood 177 mg/dL (75-99)
[2017-07-14] MEDS: BUDESONIDE 1 MG/2 ML NEBU INHALATION SCH ×2 (08:07→20:09)
[2017-07-14] MEDS: IPRATROPIUM-ALBUTEROL 3 ML NEB INHALATION SCH ×4 (08:07→20:09)
[2017-07-14 08:52] LABS: Basophils % (A) 0 %; Eosinophils # (A) 0.1 k/uL (0-0.7); Eosinophils % (A) 0 %; HCT 36.2 % (39.0-53.0); HGB 12.1 gm/dL (13.0-17.5); Lymphocytes # (A) 2.7 k/uL (1.0-4.8); Lymphocytes % (A) 19 %; MCH 30.8 pg (25.0-35.0); MCHC 33.5 g/dL (31.0-37.0); MCV 91.9 fL (80.0-100.0); Mean Platelet Volume 8.3; Monocytes # (A) 0.9 k/uL (0-1.0); Monocytes % (A) 7 %; Neutrophils # (A) 9.9 k/uL (1.3-7.7); Neutrophils % (A) 72 %; Platelet Count 370 k/uL (150-450); Poikilocytosis Slight; RBC 3.94 m/uL (4.30-5.90); RDW 15.1 % (11.5-15.5); WBC 13.8 k/uL (3.8-10.6)
[2017-07-14 09:03] LABS: ALT 27 U/L (21-72); AST 23 U/L (17-59); Albumin 2.5 g/dL (3.5-5.0); Alkaline Phosphatase 45 U/L (38-126); Anion Gap 5 mmol/L; Blood Urea Nitrogen 31 mg/dL (9-20); Calcium 8.7 mg/dL (8.4-10.2); Carbon Dioxide 27 mmol/L (22-30); Chloride 110 mmol/L (98-107); Glucose 149 mg/dL (74-99); Potassium 4.9 mmol/L (3.5-5.1); Sodium 142 mmol/L (137-145); Total Bilirubin 0.3 mg/dL (0.2-1.3); Total Protein 5.3 g/dL (6.3-8.2)
[2017-07-14] MEDS: metroNIDAZOLE 500 MG TAB PO SCH ×3 (09:22→23:56)
[2017-07-14] MEDS: DIVALPROEX 500 MG TABLET.DR PO SCH ×4 (09:22→22:31)
[2017-07-14] MEDS: SERTRALINE 25 MG TAB PO SCH (09:22)
[2017-07-14] MEDS: glipiZIDE 5 MG TAB PO SCH ×2 (09:23→17:04)
[2017-07-14] MEDS: metFORMIN 500 MG TAB PO SCH ×2 (09:23→17:04)
[2017-07-14] MEDS: amLODIPine 10 MG TAB PO SCH (09:23)
[2017-07-14] MEDS: PANTOPRAZOLE 40 MG TABLET PO SCH (09:23)
[2017-07-14] MEDS: CARBIDOPA-LEVODOPA 25-100 MG 1 EACH TAB PO SCH ×3 (09:24→22:31)
[2017-07-14] MEDS: HEPARIN SODIUM,PORCINE 5,000 UNIT/ML 1 ML VIAL SQ SCH ×2 (09:24→22:31)
[2017-07-14] MEDS: LORATADINE 10 MG TAB PO SCH (09:24)
[2017-07-14] MEDS: methylPREDNISolone SOD SUCCI 40 MG/ML 1 ML VIAL IV SCH ×2 (09:24→22:31)
[2017-07-14] MEDS: INSULIN ASPART 100 UNIT/ML 1 ML 10 ML VIAL SQ SCH ×4 (09:25→22:40)
[2017-07-14] MEDS: INSULN ASP PRT/INSULIN ASPART 100 UNIT/ML 10 ML VIAL SQ SCH ×2 (09:25→17:49)
[2017-07-14] MEDS: AZTREONAM 2 GM in SODIUM CHLORIDE 0.9% 100 ML IVPB SCH ×2 (09:26→22:30)
[2017-07-14 12:28] LABS: Glucose,Whole Blood 162 mg/dL (75-99)
[2017-07-14] MEDS: ASCORBIC ACID 500 MG TAB PO SCH (13:17)
[2017-07-14] MEDS: SODIUM CHLORIDE 0.9% 500 ML IV SCH (13:20)
[2017-07-14] MEDS: MULTIVITAMINS, THERA 1 EACH TAB PO SCH (13:20)
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
[2017-07-14 16:46] LABS: Glucose,Whole Blood 105 mg/dL (75-99)
[2017-07-14] MEDS: TAMSULOSIN 0.4 MG CAP.ER.24H PO SCH (17:05)
[2017-07-14 20:32] LABS: Glucose,Whole Blood 111 mg/dL (75-99)
[2017-07-14] MEDS: ATORVASTATIN 20 MG TAB PO SCH (22:30)
--- NOTE | 2017-07-14 23:15 | PN ---
PROGRESS NOTE DATE OF SERVICE: 07/14/2017. REASON FOR FOLLOWUP VISIT: Aspiration pneumonia. INTERVAL HISTORY: The patient is afebrile. He has been breathing comfortably. Hemodynamically stable. No nausea, vomiting. No chest pain. No abdominal pain. No diarrhea. EXAMINATION: Blood pressure 126/58 with a pulse of 82, temperature 98.1. He is 91% on 10 L high- flow oxygen. General description is an elderly male lying in bed in no distress. RESPIRATORY SYSTEM: Unlabored breathing, but decreased . No wheeze. HEART: S1, S2. Regular rate and rhythm. ABDOMEN: Soft, no tenderness. LABS: Hemoglobin is 12.1, white count 13.8 with a BUN of 31, creatinine 0.78. DIAGNOSTIC IMPRESSION AND PLAN: Patient with recurrent aspiration pneumonia. The patient currently on Azactam and Flagyl and will be continued with aspiration precaution and if the patient continues to improve, hopefully finish therapy with oral Avelox for short course. Continue supportive care. MMROBERTL / ABN: [id number] /
[2017-07-15] MEDS: BUDESONIDE 1 MG/2 ML NEBU INHALATION SCH ×2 (07:08→19:24)
[2017-07-15] MEDS: IPRATROPIUM-ALBUTEROL 3 ML NEB INHALATION SCH ×4 (07:08→19:24)
[2017-07-15 07:48] LABS: Glucose,Whole Blood 201 mg/dL (75-99)
[2017-07-15] MEDS: INSULN ASP PRT/INSULIN ASPART 100 UNIT/ML 10 ML VIAL SQ SCH ×2 (08:03→17:27)
[2017-07-15] MEDS: AZTREONAM 2 GM in SODIUM CHLORIDE 0.9% 100 ML IVPB SCH ×2 (08:04→22:34)
[2017-07-15] MEDS: methylPREDNISolone SOD SUCCI 40 MG/ML 1 ML VIAL IV SCH (08:04)
[2017-07-15] MEDS: INSULIN ASPART 100 UNIT/ML 1 ML 10 ML VIAL SQ SCH ×4 (08:04→21:58)
[2017-07-15] MEDS: HEPARIN SODIUM,PORCINE 5,000 UNIT/ML 1 ML VIAL SQ SCH ×2 (08:04→22:01)
[2017-07-15] MEDS: PANTOPRAZOLE 40 MG TABLET PO SCH (08:06)
[2017-07-15] MEDS: metFORMIN 500 MG TAB PO SCH ×2 (08:06→17:28)
[2017-07-15] MEDS: glipiZIDE 5 MG TAB PO SCH ×2 (08:06→17:28)
[2017-07-15] MEDS: CARBIDOPA-LEVODOPA 25-100 MG 1 EACH TAB PO SCH ×3 (08:07→22:02)
[2017-07-15] MEDS: DIVALPROEX 500 MG TABLET.DR PO SCH ×4 (08:07→22:34)
[2017-07-15] MEDS: LORATADINE 10 MG TAB PO SCH (08:07)
[2017-07-15] MEDS: metroNIDAZOLE 500 MG TAB PO SCH ×3 (08:07→22:02)
[2017-07-15 09:16] LABS: Basophils % (A) 0 %; Eosinophils % (A) 0 %; HCT 36.3 % (39.0-53.0); Lymphocytes # (A) 3.8 k/uL (1.0-4.8); Lymphocytes % (A) 24 %; MCH 31.1 pg (25.0-35.0); MCV 94.1 fL (80.0-100.0); Mean Platelet Volume 8.6; Monocytes # (A) 0.9 k/uL (0-1.0); Monocytes % (A) 6 %; Neutrophils % (A) 69 %; Platelet Count 363 k/uL (150-450); RBC 3.86 m/uL (4.30-5.90); RDW 15.2 % (11.5-15.5); WBC 15.8 k/uL (3.8-10.6)
[2017-07-15] MEDS: SERTRALINE 25 MG TAB PO SCH (09:19)
[2017-07-15] MEDS: amLODIPine 10 MG TAB PO SCH (09:19)
[2017-07-15 09:31] LABS: ALT 22 U/L (21-72); AST 24 U/L (17-59); Albumin 2.8 g/dL (3.5-5.0); Alkaline Phosphatase 56 U/L (38-126); Anion Gap 9 mmol/L; Blood Urea Nitrogen 30 mg/dL (9-20); Carbon Dioxide 28 mmol/L (22-30); Chloride 107 mmol/L (98-107); Glucose 207 mg/dL (74-99); Potassium 5.1 mmol/L (3.5-5.1); Sodium 144 mmol/L (137-145); Total Bilirubin 0.3 mg/dL (0.2-1.3); Total Protein 5.6 g/dL (6.3-8.2)
[2017-07-15] MEDS: ASCORBIC ACID 500 MG TAB PO SCH (11:30)
[2017-07-15] MEDS: MULTIVITAMINS, THERA 1 EACH TAB PO SCH (11:30)
[2017-07-15] MEDS: SODIUM CHLORIDE 0.9% 500 ML IV SCH (11:31)
[2017-07-15 11:40] VITALS: BMI 31.4
[2017-07-15 12:00] LABS: Glucose,Whole Blood 225 mg/dL (75-99)
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
[2017-07-15 17:23] LABS: Glucose,Whole Blood 334 mg/dL (75-99)
[2017-07-15] MEDS: TAMSULOSIN 0.4 MG CAP.ER.24H PO SCH (17:28)
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
--- NOTE | 2017-07-15 19:09 | P.PN ---
Subjective Progress Note Date: 07/15/17 This patient is a 67-year-old male who was initially consulted for evaluation of Parkinson's disease. Patient has shown significant improvement after being started on Sinemet. He is resting comfortably at bedside today and is been able to eat his own dinner fairly well. He is a resident at [facility] and is awaiting possible return there once he is medically stable. He is being treated for aspiration pneumonia and is being closely followed by pulmonary medicine. Terms of his Parkinson's disease his condition has improved significantly on current dose of Sinemet. We would recommend to continue current dose of Sinemet which can be further titrated in the outpatient setting. Patient is to continue to work with physical therapy. He is much more awake and alert and is following simple commands. We will continue close neurological follow-up with the patient during this admission. Objective - Vital Signs Vital signs: Vital Signs Temp 98.3 F 07/15/17 15:00 Pulse 96 07/15/17 15:07 Resp 18 07/15/17 15:00 BP 121/62 07/15/17 15:00 Pulse Ox 92 L 07/15/17 15:00 Intake & Output 07/15/17 07/15/17 07/16/17 06:59 18:59 06:59 Intake Total 960 Output Total 1050 1300 Balance -1050 -340 Weight 88.4 kg 88.4 kg Intake: Oral 960 Output: Urine 1050 1300 Other: Voiding Method Indwelling Catheter Indwelling Catheter - Exam Physical examination: PHYSICAL EXAMINATION: Patient is resting comfortably in bed. VITAL SIGNS: Blood pressure is [121/62]. Heart rate is [105]. Respiration is [18 ]. Temperature is [98.3]. HEENT: Head is atraumatic, neck is supple, there were no carotid bruits. CHEST: Lungs are clear to auscultation and percussion. CARDIAC: S1, S2 normal rate and rhythm. There is no murmur. ABDOMEN: Soft and nontender. Bowel sounds are present. EXTREMITIES: There is no pedal edema. Peripheral pulses are present. Neurological examination: Patient's neurological examination continues to reveal evidence of bilateral hand tremors and cogwheel rigidity on exam. Muscle tone is showing rigidity mostly in the upper extremities. Overall assessment of his tremors seemed to be less severe as compared to his initial evaluation. - Labs CBC & Chem 7: 03/19/18 08:21 07/15/17 08:21 Labs: Abnormal Lab Results - Last 24 Hours (Table) 07/14/17 07/15/17 07/15/17 Range/Units 20:31 07:13 08:21 WBC 15.8 H (3.8-10.6) k/uL RBC 3.86 L (4.30-5.90) m/uL Hgb 12.0 L (13.0-17.5) gm/dL Hct 36.3 L (39.0-53.0) % Neutrophils # 11.0 H (1.3-7.7) k/uL BUN (9-20) mg/dL Glucose (74-99) mg/dL POC Glucose (mg/dL) 111 H 201 H (75-99) mg/dL Total Protein (6.3-8.2) g/dL Albumin (3.5-5.0) g/dL 07/15/17 07/15/17 07/15/17 Range/Units 08:21 11:57 17:08 WBC (3.8-10.6) k/uL RBC (4.30-5.90) m/uL Hgb (13.0-17.5) gm/dL Hct (39.0-53.0) % Neutrophils # (1.3-7.7) k/uL BUN 30 H (9-20) mg/dL Glucose 207 H (74-99) mg/dL POC Glucose (mg/dL) 225 H 334 H (75-99) mg/dL Total Protein 5.6 L (6.3-8.2) g/dL Albumin 2.8 L (3.5-5.0) g/dL Assessment and Plan (1) Parkinsonism Current Visit: Yes Status: Acute Code(s): G20 - PARKINSON'S DISEASE SNOMED Code(s): 80290083 (2) Closed head injury Current Visit: Yes Status: Acute Code(s): S09.90XA - UNSPECIFIED INJURY OF HEAD, INITIAL ENCOUNTER SNOMED Code(s): 986351300736 (3) Seizure disorder Current Visit: Yes Status: Acute Code(s): G40.909 - EPILEPSY, UNSP, NOT INTRACTABLE, WITHOUT STATUS EPILEPTICUS SNOMED Code(s): 923381154 (4) Pneumonia Current Visit: Yes Status: Acute Code(s): J18.9 - PNEUMONIA, UNSPECIFIED ORGANISM SNOMED Code(s): 682155125 Plan: This patient is a 67-year-old male who is being treated for underlying Parkinson 's disease. He has responded well to Sinemet as primary treatment for this condition. He should continue on his current dose of Sinemet which can be further adjusted in the outpatient setting. He is awaiting possible return to [facility] once he is medically stable. He seems to be making very good progress and is alertness is also much improved since admission. We will continue to follow his progress closely during this admission. His overall prognosis at this time remains guarded. We will continue to monitor his progress closely during this admission.
[2017-07-15 20:29] LABS: Glucose,Whole Blood 277 mg/dL (75-99)
[2017-07-15] MEDS: ATORVASTATIN 20 MG TAB PO SCH (22:01)
--- NOTE | 2017-07-15 23:25 | PN ---
PROGRESS NOTE DATE OF SERVICE: 07/15/2017. REASON FOR FOLLOWUP VISIT: Aspiration pneumonia. INTERVAL HISTORY: The patient is afebrile. He seems to be breathing comfortably. Did have mild cough, but not bringing up any sputum. No chest pain. No nausea, vomiting. No abdominal pain or any diarrhea. EXAMINATION: Blood pressure 121/62 with a pulse of 96, temperature 98.3. He is 92% on 8 L nasal cannula. General description is an elderly male lying in bed in no distress. RESPIRATORY SYSTEM: Unlabored breathing with decreased breath sounds in the bases. No wheeze. HEART: S1, S2. Regular rate and rhythm. ABDOMEN: Soft, no tenderness. LABS: BUN of 30, creatinine 0.9, hemoglobin is 12 with white count of 15.8. DIAGNOSTIC IMPRESSION AND PLAN: Patient with recurrent aspiration pneumonia for which the patient currently is on Azactam and Flagyl and is transitioning to oral Avelox on discharge. slightly elevated white count. Continue supportive care. MMODL / IJN: [id number] /
[2017-07-16] MEDS: IPRATROPIUM-ALBUTEROL 3 ML NEB INHALATION SCH ×4 (07:19→20:34)
[2017-07-16] MEDS: BUDESONIDE 1 MG/2 ML NEBU INHALATION SCH ×2 (07:19→20:34)
[2017-07-16 07:44] LABS: Glucose,Whole Blood 124 mg/dL (75-99)
[2017-07-16] MEDS: PANTOPRAZOLE 40 MG TABLET PO SCH (08:02)
[2017-07-16] MEDS: glipiZIDE 5 MG TAB PO SCH ×2 (08:02→17:49)
[2017-07-16] MEDS: metFORMIN 500 MG TAB PO SCH ×2 (08:02→17:48)
[2017-07-16] MEDS: LORATADINE 10 MG TAB PO SCH (08:02)
[2017-07-16] MEDS: ASCORBIC ACID 500 MG TAB PO SCH (08:02)
[2017-07-16] MEDS: HEPARIN SODIUM,PORCINE 5,000 UNIT/ML 1 ML VIAL SQ SCH ×2 (08:02→20:58)
[2017-07-16] MEDS: MULTIVITAMINS, THERA 1 EACH TAB PO SCH (08:02)
[2017-07-16] MEDS: metroNIDAZOLE 500 MG TAB PO SCH ×3 (08:02→21:03)
[2017-07-16] MEDS: amLODIPine 10 MG TAB PO SCH (08:02)
[2017-07-16] MEDS: DIVALPROEX 500 MG TABLET.DR PO SCH ×4 (08:02→21:04)
[2017-07-16] MEDS: CARBIDOPA-LEVODOPA 25-100 MG 1 EACH TAB PO SCH ×3 (08:02→21:03)
[2017-07-16] MEDS: SODIUM CHLORIDE 0.9% 500 ML IV SCH (08:03)
[2017-07-16] MEDS: AZTREONAM 2 GM in SODIUM CHLORIDE 0.9% 100 ML IVPB SCH ×2 (08:03→20:57)
[2017-07-16] MEDS: methylPREDNISolone SOD SUCCI 40 MG/ML 1 ML VIAL IV SCH (08:03)
[2017-07-16] MEDS: SERTRALINE 25 MG TAB PO SCH (08:03)
[2017-07-16] MEDS: INSULIN ASPART 100 UNIT/ML 1 ML 10 ML VIAL SQ SCH ×4 (08:04→21:26)
[2017-07-16] MEDS: INSULN ASP PRT/INSULIN ASPART 100 UNIT/ML 10 ML VIAL SQ SCH ×2 (08:11→17:44)
[2017-07-16] MEDS: FLUCONAZOLE 100 MG TAB PO SCH (11:23)
[2017-07-16 11:53] LABS: Glucose,Whole Blood 228 mg/dL (75-99)
[2017-07-16 16:57] LABS: Glucose,Whole Blood 104 mg/dL (75-99)
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
[2017-07-16] MEDS: TAMSULOSIN 0.4 MG CAP.ER.24H PO SCH (17:49)
--- NOTE | 2017-07-16 17:49 | P.PN ---
Subjective Progress Note Date: 07/16/17 Principal diagnosis: Bilateral pneumonia likely aspiration pneumonia, acute hypoxic respiratory failure, acute exacerbation of CHF likely acute on chronic diastolic heart failure, associated systolic heart failure cannot be associated excluded, lower extremity cellulitis, morbid obesity hypertension hypertensive cardiovascular disease 07/16/2017, patient seen and evaluated examined during the rounds he is breathing comfortably no obvious distress present patient remains on 8 L oxygen , hemodynamic status is stable intermittently tachycardic oxygenation is adequate noted to be 94% on 8 L oxygen, medications reviewed laboratory data, ultrasound finding reviewed very small bilateral pleural effusion is present not enough to tap reviewed 07/15/2017, patient seen and evaluated examined he is more awake and alert today oxygen is down to 8 L saturation is in low 90s he is breathing comfortably , medications as well as laboratory data reviewed renal functions have improved significantly 07/14/2017, patient seen evaluated examined during the rounds, overall breathing comfortably denies any sputum production remains on supplemental oxygen with 10 L saturation in his and low-lying 90s, and denies any sputum production does have intermittent cough remains on broad-spectrum antibiotics ID service following and adjusting therapy Objective - Vital Signs Vital signs: Vital Signs Temp 99.2 F 07/16/17 15:00 Pulse 102 H 07/16/17 15:59 Resp 20 07/16/17 16:29 BP 119/64 07/16/17 15:00 Pulse Ox 94 L 07/16/17 15:00 Intake & Output 07/15/17 07/16/17 07/16/17 18:59 06:59 18:59 Intake Total 960 340 Output Total 1300 500 Balance -340 -500 340 Weight 88.4 kg 88 kg Intake: Oral 960 340 Output: Urine 1300 500 Other: Voiding Method Indwelling Catheter Indwelling Catheter Indwelling Catheter - Exam GENERAL: Patient is well-developed and well-nourished. Patient is nontoxic and well- hydrated and is in mild distress. ENT: Neck is soft and supple. No significant lymphadenopathy is noted. Oropharynx is clear. Moist mucous membranes. EYES: The sclera were anicteric and right conjunctiva were less pink and moist significant reduction in discharge. Extraocular movements were intact and pupils were equal round and reactive to light. Eyelids were unremarkable. PULMONARY: Unlabored respirations. Good breath sounds bilaterally. Slight crackles noted bilateral bases with bilateral basal bronchial breath sounds, improved air entry compared to prior exam CARDIOVASCULAR: There is a regular rate and rhythm without any murmurs gallops or rubs. ABDOMEN: Soft and nontender with normal bowel sounds. No palpable organomegaly was noted. There is no palpable pulsatile mass. SKIN: Skin is clear with no lesions or rashes and otherwise unremarkable. NEUROLOGIC: Patient is alert and oriented x3. Cranial nerves II through XII are grossly intact. Motor and sensory are also intact. Normal speech, volume and content. Symmetrical smile. More tremors than usual, usually patient does not have tremors when sleeping MUSCULOSKELETAL: Normal extremities with adequate strength and full range of motion. 2+ with left being larger than the right. Chronic bilateral lower extremity inflammation he skin changes are noted right greater than left significantly improved though with lesser edema LYMPHATICS: No significant lymphadenopathy is noted - Labs CBC & Chem 7: 07/15/17 08:21 07/15/17 08:21 Labs: Abnormal Lab Results - Last 24 Hours (Table) 07/15/17 07/16/17 07/16/17 Range/Units 20:23 07:29 11:51 POC Glucose (mg/dL) 277 H 124 H 228 H (75-99) mg/dL 07/16/17 Range/Units 16:55 POC Glucose (mg/dL) 104 H (75-99) mg/dL Assessment and Plan Assessment: Severe and acute sepsis related to aspiration pneumonia Leukocytosis likely related to steroids and aspiration pneumonia Acute exacerbation of CHF likely acute diastolic heart failure Ammann gently being diuresed Acute hypoxic respiratory failure related to above Right middle lobe, bilateral lower lobe pneumonia likely aspiration related Uncontrolled diabetes and hyperglycemia Severe morbid obesity with baseline close head injury Bilateral lower extremity cellulitis, continued to improve progressively 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, overall remains stable Severe tremors likely related to close head injury or Parkinson's disease neurology following Plan: Continue gentle hydration, monitor aspiration precautions, increase activity as tolerated, leukocytosis likely related to steroids were tapered down further to once daily Titrated oxygen as tolerated patient would benefit for slow titration off high flow oxygen, now patient can be tried on the nasal cannula forced to 8 L in for saturation 88-90% and above We will continue antibiotics as recommended with infectious disease services Will continue eyedrops with Cipro Maintain patient on DVT and peptic ulcer disease prophylaxis further recommendations pending plan of care as per clinical response of the patient, would. Maintain patient on heparin 5000 units subcu every 12 Time with Patient: Greater than 30
--- NOTE | 2017-07-16 20:13 | P.PN ---
Subjective Progress Note Date: 07/16/17 This patient is a 67-year-old male who was initially consulted for evaluation of Parkinson's disease. Patient has shown significant improvement after being started on Sinemet. He is resting comfortably at bedside today and is been able to eat his own dinner fairly well. He is a resident at [facility] and is awaiting possible return there once he is medically stable. He is being treated for aspiration pneumonia and is being closely followed by pulmonary medicine. Terms of his Parkinson's disease his condition has improved significantly on current dose of Sinemet. We would recommend to continue current dose of Sinemet which can be further titrated in the outpatient setting. Patient was able to eat his meal earlier this morning. He is still having some tremor which seems to be aggravated when he is anxious or nervous. He will need ongoing physical therapy once he returns to [facility]. Patient is to continue to work with physical therapy. He is much more awake and alert and is following simple commands. We will continue close neurological follow-up with the patient during this admission. Objective - Vital Signs Vital signs: Vital Signs Temp 97.8 F 07/16/17 06:31 Pulse 104 H 07/16/17 11:08 Resp 20 07/16/17 06:31 BP 118/71 07/16/17 06:31 Pulse Ox 94 L 07/16/17 06:31 Intake & Output 07/15/17 07/16/17 07/16/17 18:59 06:59 18:59 Intake Total 960 340 Output Total 1300 500 Balance -340 -500 340 Weight 88.4 kg 88 kg Intake: Oral 960 340 Output: Urine 1300 500 Other: Voiding Method Indwelling Catheter Indwelling Catheter Indwelling Catheter - Exam Physical examination: PHYSICAL EXAMINATION: Patient is resting comfortably in bed. VITAL SIGNS: Blood pressure is [119/64]. Heart rate is [100]. Respiration is [18 ]. Temperature is [99.2]. HEENT: Head is atraumatic, neck is supple, there were no carotid bruits. CHEST: Lungs are clear to auscultation and percussion. CARDIAC: S1, S2 normal rate and rhythm. There is no murmur. ABDOMEN: Soft and nontender. Bowel sounds are present. EXTREMITIES: There is no pedal edema. Peripheral pulses are present. Neurological examination: Patient's neurological examination continues to reveal evidence of bilateral hand tremors and cogwheel rigidity on exam. Muscle tone is showing rigidity mostly in the upper extremities. Overall assessment of his tremors seemed to be less severe as compared to his initial evaluation. - Labs CBC & Chem 7: 07/15/17 08:21 07/15/17 08:21 Labs: Abnormal Lab Results - Last 24 Hours (Table) 07/15/17 07/15/17 07/16/17 Range/Units 17:08 20:23 07:29 POC Glucose (mg/dL) 334 H 277 H 124 H (75-99) mg/dL 07/16/17 Range/Units 11:51 POC Glucose (mg/dL) 228 H (75-99) mg/dL Assessment and Plan (1) Parkinsonism Current Visit: Yes Status: Acute Code(s): G20 - PARKINSON'S DISEASE SNOMED Code(s): 97626802 (2) Closed head injury Current Visit: Yes Status: Acute Code(s): S09.90XA - UNSPECIFIED INJURY OF HEAD, INITIAL ENCOUNTER SNOMED Code(s): 523421114150 (3) Seizure disorder Current Visit: Yes Status: Acute Code(s): G40.909 - EPILEPSY, UNSP, NOT INTRACTABLE, WITHOUT STATUS EPILEPTICUS SNOMED Code(s): 629927421 (4) Pneumonia Current Visit: Yes Status: Acute Code(s): J18.9 - PNEUMONIA, UNSPECIFIED ORGANISM SNOMED Code(s): 933128290 Plan: This patient is a 67-year-old male who is being followed for symptoms of Parkinson's disease. He was initially admitted with symptoms of acute pneumonia and rest Jose Alejandro distress. He is making slow progress in his recovery from the pneumonia. He was started on Sinemet this primary treatment for parkinsonism. He has shown significant improvement in the reduction of tremors. His tremor still seem to be bothersome at times when he is anxious or nervous. Patient may benefit from a mild sedative which may ease some of the severe tremors. We will continue him on his current dose of Sinemet. May consider increasing the dose if he remains an inpatient. He is being considered for possible discharge soon to [facility]. We will continue close monitoring of his condition during this admission. His overall prognosis remains guarded. He will require further titration of the Sinemet once he is discharged as well. As noted his overall prognosis at this time remains guarded.
--- NOTE | 2017-07-16 20:47 | PN ---
PROGRESS NOTE DATE OF SERVICE: 07/16/2017 REASON FOR FOLLOWUP: 1. Aspiration pneumonia. 2. Oral thrush. INTERVAL HISTORY: The patient is afebrile. He has been breathing comfortably. Denies having any chest pain. No nausea, vomiting, abdominal pain or diarrhea has been noted. Oral intake seems to be poor with a modified diet. PHYSICAL EXAMINATION: Blood pressure 119/54 with a pulse of 100, temperature 99.2. He is 94% on 8 L nasal cannula. General description is an elderly male lying in bed in no distress. HEENT EXAMINATION: Oral thrush. LUNGS: Unlabored breathing. Decreased intensity of breath sounds. No wheeze. HEART: S1, S2. Regular rate and rhythm. ABDOMEN: Soft. No tenderness. LABS: Hemoglobin is 12 with a white count 15.8. BUN of 30, creatinine 0.91. DIAGNOSTIC IMPRESSION AND PLAN: 1. Patient with recurrent aspiration pneumonia. Did have adjustment of his diet. He will continue with Azactam and Flagyl. I recommend he finish therapy with oral Avelox on discharge. 2. Patient with oral thrush, responsible for this elevated white count. Diflucan has been added, as the patient is at high risk of aspiration with nystatin swish and swallow. Continue supportive care. MMODL / IJN: [id number] /
[2017-07-16 20:52] LABS: Glucose,Whole Blood 125 mg/dL (75-99)
[2017-07-16] MEDS: ATORVASTATIN 20 MG TAB PO SCH (20:58)
[2017-07-17 03:07] VITALS: RESP 18
[2017-07-17 07:36] LABS: Glucose,Whole Blood 88 mg/dL (75-99)
[2017-07-17 08:12] VITALS: BP 123/69; TEMP 98.2
[2017-07-17] MEDS: IPRATROPIUM-ALBUTEROL 3 ML NEB INHALATION SCH ×2 (08:26→11:41)
[2017-07-17] MEDS: BUDESONIDE 1 MG/2 ML NEBU INHALATION SCH (08:26)
[2017-07-17] MEDS: INSULIN ASPART 100 UNIT/ML 1 ML 10 ML VIAL SQ SCH ×2 (09:03→12:46)
[2017-07-17] MEDS: CARBIDOPA-LEVODOPA 25-100 MG 1 EACH TAB PO SCH (09:04)
[2017-07-17] MEDS: glipiZIDE 5 MG TAB PO SCH (09:04)
[2017-07-17] MEDS: DIVALPROEX 500 MG TABLET.DR PO SCH ×2 (09:05→12:46)
[2017-07-17] MEDS: FLUCONAZOLE 100 MG TAB PO SCH (09:05)
[2017-07-17] MEDS: metFORMIN 500 MG TAB PO SCH (09:06)
[2017-07-17] MEDS: PANTOPRAZOLE 40 MG TABLET PO SCH (09:06)
[2017-07-17] MEDS: HEPARIN SODIUM,PORCINE 5,000 UNIT/ML 1 ML VIAL SQ SCH (09:06)
[2017-07-17] MEDS: amLODIPine 10 MG TAB PO SCH (09:06)
[2017-07-17] MEDS: SODIUM CHLORIDE 0.9% 500 ML IV SCH (09:07)
[2017-07-17] MEDS: ASCORBIC ACID 500 MG TAB PO SCH (09:07)
[2017-07-17] MEDS: SERTRALINE 25 MG TAB PO SCH (09:07)
[2017-07-17] MEDS: methylPREDNISolone SOD SUCCI 40 MG/ML 1 ML VIAL IV SCH (09:08)
[2017-07-17] MEDS: MULTIVITAMINS, THERA 1 EACH TAB PO SCH (09:08)
[2017-07-17] MEDS: metroNIDAZOLE 500 MG TAB PO SCH (09:08)
[2017-07-17] MEDS: LORATADINE 10 MG TAB PO SCH (09:08)
[2017-07-17] MEDS: INSULN ASP PRT/INSULIN ASPART 100 UNIT/ML 10 ML VIAL SQ SCH (09:20)
[2017-07-17] MEDS: AZTREONAM 2 GM in SODIUM CHLORIDE 0.9% 100 ML IVPB SCH (10:39)
[2017-07-17 11:44] VITALS: PULSE 90
[2017-07-17 11:51] LABS: Glucose,Whole Blood 175 mg/dL (75-99)
--- NOTE | 2017-07-17 15:57 | PN ---
PROGRESS NOTE DATE OF SERVICE: 07/17/2017 REASON FOR FOLLOWUP: 1. Aspiration pneumonia. 2. Oral thrush. INTERVAL HISTORY: The patient is afebrile. He is breathing comfortably. Denies having any chest pain or shortness of breath. Occasional cough. No abdominal pain. No difficulty swallowing. PHYSICAL EXAMINATION: Blood pressure 123/69 with a pulse of 90, temperature 98.2. He is 92% on 3 L nasal cannula. General description is an elderly male lying in bed in no distress. HEENT EXAMINATION: Oral thrush slightly improved. LUNGS: Unlabored breathing. Decreased breath sounds at the bases. No wheeze. HEART: S1, S2. Regular rate and rhythm. ABDOMEN: Soft. No tenderness. EXTREMITIES: No edema of the feet. LABS: No new labs have been obtained today. DIAGNOSTIC IMPRESSION AND PLAN: 1. Patient with recurrent aspiration pneumonia. His diet has been adjusted. Overall the patient seems to be doing fine at this point. He will finish therapy with oral Avelox 400 daily for 5 days. 2. Patient with oral thrush. Diflucan to continue for about 7 days. MMODL / IJN: [id number] /
--- NOTE | 2017-07-17 19:23 | P.PN ---
Subjective Progress Note Date: 07/17/17 Principal diagnosis: Bilateral pneumonia likely aspiration pneumonia, acute hypoxic respiratory failure, acute exacerbation of CHF likely acute on chronic diastolic heart failure, associated systolic heart failure cannot be associated excluded, lower extremity cellulitis, morbid obesity hypertension hypertensive cardiovascular disease 07/17/2017, patient seen and evaluated examined during the rounds care plan discussed with the primary service patient is being planned for discharge she remains on IV steroids he is on supplemental oxygen as well he was checked off of oxygen sats are 91-92% or much bedbound with this level of oxygenation he will not be eligible for home oxygen, his prescription has been provided for Medrol Dosepak agree with discharge planning with follow-up on outpatient setting nichelle noted that infectious disease service recommended Avelox as outpatient 07/16/2017, patient seen and evaluated examined during the rounds he is breathing comfortably no obvious distress present patient remains on 8 L oxygen , hemodynamic status is stable intermittently tachycardic oxygenation is adequate noted to be 94% on 8 L oxygen, medications reviewed laboratory data, ultrasound finding reviewed very small bilateral pleural effusion is present not enough to tap reviewed 07/15/2017, patient seen and evaluated examined he is more awake and alert today oxygen is down to 8 L saturation is in low 90s he is breathing comfortably , medications as well as laboratory data reviewed renal functions have improved significantly 07/14/2017, patient seen evaluated examined during the rounds, overall breathing comfortably denies any sputum production remains on supplemental oxygen with 10 L saturation in his and low-lying 90s, and denies any sputum production does have intermittent cough remains on broad-spectrum antibiotics ID service following and adjusting therapy Objective - Vital Signs Vital signs: Vital Signs Temp 98.2 F 07/17/17 07:00 Pulse 90 07/17/17 11:53 Resp 18 07/17/17 07:00 BP 123/69 07/17/17 07:00 Pulse Ox 92 L 07/17/17 07:00 Intake & Output 07/17/17 07/17/17 07/18/17 06:59 18:59 06:59 Intake Total 160 Output Total 400 Balance -400 160 Weight 88.2 kg Intake: IV 160 Sodium Chloride 0.9% 500 160 ml @ 20 mls/hr IV .Q24H OSVALDO Rx#:[id number] Output: Urine 400 Other: Voiding Method Indwelling Catheter Indwelling Catheter - Exam GENERAL: Patient is well-developed and well-nourished. Patient is nontoxic and well- hydrated and is in mild distress. ENT: Neck is soft and supple. No significant lymphadenopathy is noted. Oropharynx is clear. Moist mucous membranes. EYES: The sclera were anicteric and right conjunctiva were less pink and moist significant reduction in discharge. Extraocular movements were intact and pupils were equal round and reactive to light. Eyelids were unremarkable. PULMONARY: Unlabored respirations. Good breath sounds bilaterally. Slight crackles noted bilateral bases with bilateral basal bronchial breath sounds, improved air entry compared to prior exam CARDIOVASCULAR: There is a regular rate and rhythm without any murmurs gallops or rubs. ABDOMEN: Soft and nontender with normal bowel sounds. No palpable organomegaly was noted. There is no palpable pulsatile mass. SKIN: Skin is clear with no lesions or rashes and otherwise unremarkable. NEUROLOGIC: Patient is alert and oriented x3. Cranial nerves II through XII are grossly intact. Motor and sensory are also intact. Normal speech, volume and content. Symmetrical smile. More tremors than usual, usually patient does not have tremors when sleeping MUSCULOSKELETAL: Normal extremities with adequate strength and full range of motion. 2+ with left being larger than the right. Chronic bilateral lower extremity inflammation he skin changes are noted right greater than left significantly improved though with lesser edema LYMPHATICS: No significant lymphadenopathy is noted - Labs CBC & Chem 7: 07/15/17 08:21 07/15/17 08:21 Labs: Abnormal Lab Results - Last 24 Hours (Table) 07/16/17 07/17/17 Range/Units 20:27 11:45 POC Glucose (mg/dL) 125 H 175 H (75-99) mg/dL Assessment and Plan Assessment: Severe and acute sepsis related to aspiration pneumonia Leukocytosis likely related to steroids and aspiration pneumonia Acute exacerbation of CHF likely acute diastolic heart failure Ammann gently being diuresed Acute hypoxic respiratory failure related to above significantly improved room air oxygen saturation is 91% Right middle lobe, bilateral lower lobe pneumonia likely aspiration related Uncontrolled diabetes and hyperglycemia Severe morbid obesity with baseline close head injury Bilateral lower extremity cellulitis, continued to improve progressively 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, overall remains stable Severe tremors likely related to close head injury or Parkinson's disease neurology following Plan: Continue monitor aspiration precautions, increase activity as tolerated, leukocytosis likely related to steroids were tapered down further to once daily Titrated oxygen as tolerated patient would benefit for slow titration off high flow oxygen, now patient can be discharged on room air as saturation on room air is 91% with that patient would not qualify for home oxygen Prescription provided for Medrol Dosepak Time with Patient: Greater than 30
--- NOTE | 2017-07-19 11:02 | CDI ---
Last Revision, March 2017 Documentation Clarification Form [facility] Review Date: 07/19/17 1054 From: Areli NORY Spence Admit Date: 06/30/2017 6:39:00 AM Patient Name: Erik Molina Visit Number: [id number] ATTENTION: The Clinical Documentation Specialists (CDI) and [facility] Coding Staff appreciate your assistance in clarifying documentation. Please respond to the clarification below the line at the bottom and electronically sign. The CDI & [facility] Coding staff will review the response and follow-up if needed. Please note: Queries are made part of the Legal Health Record. If you have any questions, please contact the author of this message via ITS. Dr. Louie Erazo pressure ulcer was documented in the Nursing assessments starting on 07/11 continuing until D/C. History/Risk Factors: Pt has hx of nonhealing wounds, Poor nutrional intake, Head injury with right hemiparesis Clinical Indicators: Location: Left Buttock Wound description: 07/11 Per Nursing Documentation: Deep Tissue Injury 3cm x 4 cm , indistinct wound margins, no drainage, and nursing photo taken. Total Protein: 7.3/6.2/5.8/5.4/5.3 Albumin: 4/3.2/2.9/2.6/2.5 Treatment: Turn Q 2 hrs Glucerna Supplements TID Consults: ID for lower extremity wound Elements for accurate and compliant documentation of an ulcer: The location/laterality of the ulcer Etiology (decubitus/pressure, diabetic, PVD) Stage I-IV, Unstageable, Suspected Deep Tissue Injury (To the deepest stage) If the ulcer was present at admission (POA) or occurred after admission In your professional opinion, can you please clarify the diagnosis, location, laterality and whether present on admission (POA): Stage 1 Pressure/Decubitus Ulcer (intact skin, non-blanching redness of local area) Stage 2 Pressure/Decubitus Ulcer (Partial thickness, loss of dermis, pink wound bed) Stage 3 Pressure/Decubitus Ulcer (Full thickness tissue loss) Stage 4 Pressure/Decubitus Ulcer (Full thickness tissue loss with exposed bone , tendon, or muscle. May have slough or eschar present) Unstageable Other condition, please specify Unable to determine Please indicate etiology of pressure ulcer (if known). Please continue to document in your progress notes and discharge summary in order to capture severity of illness and risk of mortality. Include clinical findings that support your diagnosis. MTDD
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
== END 2017-07-17 15:40 | DRG 871 ==
LOC: EC 04:22 → 4MS4W 06:39 → 5MS5E 07-17 02:41
PROVIDERS: ADMIT Internal Medicine; ATTEND Internal Medicine
DX: A41.9 Sepsis, unspecified organism (principal); J69.0 Pneumonitis due to inhalation of food and vomit; J96.01 Acute respiratory failure with hypoxia; N17.0 Acute kidney failure with tubular necrosis; I50.33 Acute on chronic diastolic (congestive) heart failure; L89.320 Pressure ulcer of left buttock, unstageable; J44.1 Chronic obstructive pulmonary disease with (acute) exacerbation; N18.3 Chronic kidney disease, stage 3 (moderate); J45.901 Unspecified asthma with (acute) exacerbation; E66.01 Morbid (severe) obesity due to excess calories; B37.0 Candidal stomatitis; I13.0 Hypertensive heart and chronic kidney disease with heart failure and stage 1 through stage 4 chronic kidney disease, or unspecified chronic kidney disease; G81.91 Hemiplegia, unspecified affecting right dominant side; L03.115 Cellulitis of right lower limb; L03.116 Cellulitis of left lower limb; N17.9 Acute kidney failure, unspecified; E11.22 Type 2 diabetes mellitus with diabetic chronic kidney disease; G20 Parkinson's disease; R13.10 Dysphagia, unspecified; E11.65 Type 2 diabetes mellitus with hyperglycemia; R65.20 Severe sepsis without septic shock; G40.909 Epilepsy, unspecified, not intractable, without status epilepticus; E86.0 Dehydration; D72.829 Elevated white blood cell count, unspecified; T38.0X5A Adverse effect of glucocorticoids and synthetic analogues, initial encounter; N45.3 Epididymo-orchitis; I35.0 Nonrheumatic aortic (valve) stenosis; I44.0 Atrioventricular block, first degree; I87.8 Other specified disorders of veins; F32.9 Major depressive disorder, single episode, unspecified; F41.9 Anxiety disorder, unspecified; R59.0 Localized enlarged lymph nodes; K21.9 Gastro-esophageal reflux disease without esophagitis; R33.9 Retention of urine, unspecified; R32 Unspecified urinary incontinence; Z68.31 Body mass index [BMI] 31.0-31.9, adult; Z79.4 Long term (current) use of insulin; Z79.899 Other long term (current) drug therapy; Z87.820 Personal history of traumatic brain injury; Z86.14 Personal history of Methicillin resistant Staphylococcus aureus infection; Z90.81 Acquired absence of spleen; Z90.411 Acquired partial absence of pancreas; Z90.49 Acquired absence of other specified parts of digestive tract; V89.2XXS Person injured in unspecified motor-vehicle accident, traffic, sequela; Z88.1 Allergy status to other antibiotic agents; Z88.0 Allergy status to penicillin
CPT/HCPCS: 36415; 70450; 71045; 71046; 71250; 71275; 74230; 76604; 78582; 80048; 80053; 80164; 80202; 81003; 83605; 83735; 83880; 84100; 85025; 85027; 85610; 87040; 87086; 87502; 93005; 93306; 93970; 94640; 94667; 94668; 94760; 95816; 96361; 96365; 96375; 99285

== ENCOUNTER → 2018-04-07 | Outpatient (CLI) | payer MEDICARE, OTHER ==
[2018-04-07 11:19] LABS: HCT 38.1 % (39.0-53.0); HGB 12.5 gm/dL (13.0-17.5); MCHC 32.7 g/dL (31.0-37.0); MCV 85.5 fL (80.0-100.0); Mean Platelet Volume 7.2; Platelet Count 418 k/uL (150-450); RBC 4.46 m/uL (4.30-5.90); RDW 15.3 % (11.5-15.5); WBC 9.9 k/uL (3.8-10.6)
[2018-04-07 11:37] LABS: Albumin 3.9 g/dL (3.5-5.0); Calcium 9.3 mg/dL (8.4-10.2); Potassium 5.2 mmol/L (3.5-5.1); Total Bilirubin 0.4 mg/dL (0.2-1.3); Total Protein 7.5 g/dL (6.3-8.2)
--- NOTE | 2018-04-07 14:21 | NM ---
EXAMINATION TYPE: NM bone 3 phase DATE OF EXAM: 04/07/2018 COMPARISON: NONE HISTORY: Right foot plantar aspect first metatarsal head bone pain Triple phase bone scintigraphy was performed following the injection of 24.1 mCi Tc 99m MDP. Immedia te images and 4.75 hours post injection images acquired. FINDINGS: Blood flow: There is increased blood flow to the right medial lower extremity compared to the left. Blood pool: There is increased radiotracer accumulation in the region of the great toe of the right f oot compared to the left on blood pool images. Mild diffuse increased lung pool radiotracer uptake on the right foot is present. Static images: There is focal radiotracer accumulation in the proximal right first digit region mehreen red to the left. There is some increased uptake within the distal first left metatarsal and proximal phalanx left distal digit. COMPARISON: There are no comparison plain films. Comparison plain film is recommended. IMPRESSION: 1. Increased radiotracer in the proximal first digit right foot in 3 phases of bone scan. Findings ca n be compatible with osteomyelitis in the proper clinical setting. Correlation with plain films recom mended. Fracture could be within the differential. 2. Probable degenerative change left first digit metatarsal phalangeal joint space
[2018-04-07 18:15] LABS: Hemoglobin A1C 7.1 % (4.0-6.0)
--- NOTE | 2018-04-09 10:05 | P.ARTDOP ---
Arterial Doppler LOWER EXTREMITY ARTERIAL DOPPLER: DATE OF SERVICE: 04/07/2018 Reason for study: Right foot ulcer. Doppler waveforms: Multiphasic bilaterally throughout. Pulse volume recording: Normal configuration. Pressure gradients: None. Ankle-brachial indices: Greater than 1 bilaterally. Toe pressures: 115 on the right, 113 on the left Impression: Normal study.
== END ==
LOC: RADNMMAIN 07:53
PROVIDERS: ATTEND Thoracic Surgery (Cardiothoracic Vascular Surgery)
DX: R93.89 Abnormal findings on diagnostic imaging of other specified body structures (principal); E13.621 Other specified diabetes mellitus with foot ulcer; E63.8 Other specified nutritional deficiencies
CPT/HCPCS: 84134; 80053; 85027; 83036; 93923; 78315; A9503

== ENCOUNTER → 2018-04-09 | Outpatient (CLI) | payer MEDICARE, OTHER ==
[2018-04-09 20:06] LABS: Hemoglobin A1C 7.2 % (4.0-6.0)
== END | disposition home or self-care (01) ==
LOC: LABWHC1 09:29
PROVIDERS: ATTEND Thoracic Surgery (Cardiothoracic Vascular Surgery)
DX: E13.621 Other specified diabetes mellitus with foot ulcer (principal); L97.509 Non-pressure chronic ulcer of other part of unspecified foot with unspecified severity; E63.8 Other specified nutritional deficiencies
CPT/HCPCS: 36415; 83036; 84134; 85652; 86140

== ENCOUNTER 2018-05-04 12:55 | Emergency (ER) | payer MEDICARE, OTHER ==
[2018-05-04 13:06] VITALS: TEMP 98.6
[2018-05-04 13:19] LABS: Glucose,Whole Blood 55 mg/dL (75-99)
[2018-05-04] MEDS ORDERED: DEXTROSE 50%-WATER 50 ML SYRINGE IVP STA (13:39)
[2018-05-04] MEDS ORDERED: ONDANSETRON 4 MG/2 ML VIAL IVP STA (13:46)
[2018-05-04] MEDS ORDERED: SODIUM CHLORIDE 0.9% 1,000 ML IV ONE (13:47)
--- NOTE | 2018-05-04 13:57 | ED ---
General Adult HPI - General Chief complaint: Nausea/Vomiting/Diarrhea Stated complaint: vomiting/low blood sugar Time Seen by Provider: 05/04/18 13:00 Source: patient, RN notes reviewed, Caregiver Mode of arrival: wheelchair Limitations: no limitations - History of Present Illness Initial comments: This is a 68-year-old male who lives in a shelter and is altered at his baseline. Patient was sent in today because he has been vomiting for 3 days and today his sugar was also low. Patient continues to get insulin according to the caregiver that came with the patient. Patient is unable to keep any food down over the last 3 days. Patient himself is a poor historian but he denies any pain he only complains of being nauseated and vomiting. Caregiver states she's had no difficulty breathing there's been no cough is been no fever or chills. Patient has not complained of any abdominal pain there's been no diarrhea that she knows of. There's been no injury or trauma. Blood sugar when the patient arrived to the ER was 55. - Related Data Home Medications Medication Instructions Recorded Confirmed Divalproex [Depakote] 500 mg PO DAILY 08/27/13 05/04/18 Omeprazole [PriLOSEC] 20 mg PO DAILY 08/27/13 05/04/18 Eucerin Topical Cream 1 applic TOPICAL DAILY 03/04/16 05/04/18 Insulin Aspart [NovoLOG Flexpen] 5 units SQ AC-LUNCH PRN 03/04/16 05/04/18 Insulin Aspart [NovoLOG Flexpen] 5 units SQ AC-SUPPER PRN 03/04/16 05/04/18 Furosemide [Lasix] 20 mg PO HS 03/21/16 05/04/18 Sertraline [Zoloft] 75 mg PO DAILY 03/21/16 05/04/18 Ammonium Lactate Cream [Lac-Hydrin 1 applic TOPICAL DAILY 06/30/17 05/04/18 12% Cream] Ascorbic Acid [Vitamin C] 500 mg PO DAILY 06/30/17 05/04/18 Clotrimazole [Clotrimazole 1% Top 2 drops TOPICAL DAILY 06/30/17 05/04/18 Soln] Furosemide [Lasix] 40 mg PO DAILY 06/30/17 05/04/18 Loratadine [Claritin] 10 mg PO DAILY 06/30/17 05/04/18 Multivitamins, Thera [Multivitamin 1 tab PO DAILY 06/30/17 05/04/18 (formulary)] glipiZIDE [Glucotrol XL] 10 mg PO DAILY 06/30/17 05/04/18 metFORMIN HCL [metFORMIN HCL ER] 1,000 mg PO AC-BID 06/30/17 05/04/18 Atorvastatin [Lipitor] 20 mg PO HS 05/04/18 05/04/18 Carbidopa-Levodopa 25-100 mg 1 tab PO TID 05/04/18 05/04/18 [Sinemet 25-100 mg] Divalproex [Depakote] 250 mg PO HS 05/04/18 05/04/18 Insulin Aspart Protam & Aspart 20 unit SQ DAILY 05/04/18 05/04/18 [NovoLOG MIX 70-30 Flexpen] Ipratropium Nebulized [Atrovent 0.5 mg INHALATION RT-Q8H PRN 05/04/18 05/04/18 Nebulized 0.2 MG/ML] Latanoprost/Pf [Latanoprost 0.005% 1 drop BOTH EYES HS 05/04/18 05/04/18 Eye Drop] Sennosides-Docusate Sodium 1 tab PO BID PRN 05/04/18 05/04/18 [Senokot-S] amLODIPine [Norvasc] 2.5 mg PO BID 05/04/18 05/04/18 Previous Rx's Medication Instructions Recorded Tamsulosin [Flomax] 0.4 mg PO PC-SUPPER #90 cap.er.24h 07/17/17 Linezolid 600 mg PO BID #60 tablet 04/14/18 Allergies Allergy/AdvReac Type Severity Reaction Status Date / Time piperacillin sodium Allergy Rash/Hives Verified 05/04/18 13:38 [From Zosyn] tazobactam sodium Allergy Rash/Hives Verified 05/04/18 13:38 [From Zosyn] Review of Systems ROS Statement: Those systems with pertinent positive or pertinent negative responses have been documented in the HPI. ROS Other: All systems not noted in ROS Statement are negative. Past Medical History Past Medical History: Asthma, Diabetes Mellitus, GERD/Reflux, Hypertension, Neurologic Disorder, Skin Disorder, Vascular Disorder Additional Past Medical History / Comment(s): PRIOR CLOSED HEAD INJURY/ WOUND ON RIGHT FOOT; Seizures History of Any Multi-Drug Resistant Organisms: MRSA Date of last positivie culture/infection: 04/02/18 MDRO Source:: RT FOOT Past Surgical History: Appendectomy, Orthopedic Surgery, Tonsillectomy Additional Past Surgical History / Comment(s): spleenectomy, partial removal of pancreas Past Anesthesia/Blood Transfusion Reactions: No Reported Reaction Past Psychological History: Anxiety, Depression Smoking Status: Never smoker Past Alcohol Use History: None Reported Past Drug Use History: None Reported - Past Family History Mother Family Medical History: Unable to Obtain Father Family Medical History: Unable to Obtain General Exam - General Exam Comments Initial Comments: GENERAL: Patient is well-developed and well-nourished. Patient is nontoxic and well- hydrated and is in mild distress. ENT: Neck is soft and supple. No significant lymphadenopathy is noted. Oropharynx is clear. Moist mucous membranes. Neck has full range of motion without eliciting any pain. EYES: The sclera were anicteric and conjunctiva were pink and moist. Extraocular movements were intact and pupils were equal round and reactive to light. Eyelids were unremarkable. PULMONARY: Unlabored respirations. Good breath sounds bilaterally. No audible rales rhonchi or wheezing was noted. CARDIOVASCULAR: There is a regular rate and rhythm without any murmurs gallops or rubs. ABDOMEN: Soft and nontender with normal bowel sounds. SKIN: Skin is clear with no lesions or rashes and otherwise unremarkable. NEUROLOGIC: Patient is alert and oriented 2. Cranial nerves II through XII are grossly intact. Motor and sensory are also intact. Normal speech, volume and content. Symmetrical smile. MUSCULOSKELETAL: Normal extremities with adequate strength and full range of motion. No lower extremity swelling or edema. No calf tenderness. LYMPHATICS: No significant lymphadenopathy is noted PSYCHIATRIC: Normal psychiatric evaluation. Limitations: no limitations Course Vital Signs 05/04/18 05/04/18 05/04/18 12:58 13:30 14:30 Temperature 98.6 F Pulse Rate 110 H 112 H 109 H Respiratory 18 13 17 Rate Blood Pressure 126/72 124/73 124/73 O2 Sat by Pulse 96 96 98 Oximetry 05/04/18 15:30 Temperature Pulse Rate 111 H Respiratory 17 Rate Blood Pressure 124/73 O2 Sat by Pulse 99 Oximetry Medical Decision Making - Medical Decision Making I gave the patient Zofran on arrival as well as an amp of D50 EKG shows sinus tachycardia at 110 bpm MA interval is 180 Fortress is 78 QT interval 338 QTC is 455. Patient has no ST segment elevation Patient is drinking fluids and eating crackers and peanut butter as well as Jell -O without a problem. Patient has no complete this time. Patient denies any nausea. Patient denies any abdominal pain. Patient states nothing at all is bothering him. - Lab Data Result diagrams: 05/04/18 13:30 05/04/18 13:30 Lab Results 05/04/18 05/04/18 05/04/18 Range/Units 13:04 13:30 13:30 WBC 9.2 (3.8-10.6) k/uL RBC 4.64 (4.30-5.90) m/uL Hgb 12.4 L (13.0-17.5) gm/dL Hct 39.1 (39.0-53.0) % MCV 84.4 (80.0-100.0) fL MCH 26.8 (25.0-35.0) pg MCHC 31.8 (31.0-37.0) g/dL RDW 15.8 H (11.5-15.5) % Plt Count 117 L D (150-450) k/uL Neutrophils % 65 % Lymphocytes % 25 % Monocytes % 6 % Eosinophils % 2 % Basophils % 0 % Neutrophils # 6.0 (1.3-7.7) k/uL Lymphocytes # 2.3 (1.0-4.8) k/uL Monocytes # 0.6 (0-1.0) k/uL Eosinophils # 0.2 (0-0.7) k/uL Basophils # 0.0 (0-0.2) k/uL Sodium 144 (137-145) mmol/L Potassium 3.9 (3.5-5.1) mmol/L Chloride 104 (98-107) mmol/L Carbon Dioxide 27 (22-30) mmol/L Anion Gap 13 mmol/L BUN 18 (9-20) mg/dL Creatinine 1.33 H (0.66-1.25) mg/dL Est GFR (CKD-EPI)AfAm 63 (>60 ml/min/1.73 sqM) Est GFR (CKD-EPI)NonAf 55 (>60 ml/min/1.73 sqM) Glucose 50 L (74-99) mg/dL POC Glucose (mg/dL) 55 L (75-99) mg/dL POC Glu Periodontal Assistant ID Kimmy Gomez Plasma Lactic Acid Med (0.7-2.0) mmol/L Calcium 9.6 (8.4-10.2) mg/dL Magnesium 1.6 (1.6-2.3) mg/dL Total Bilirubin 0.6 (0.2-1.3) mg/dL AST 53 (17-59) U/L ALT 22 (21-72) U/L Alkaline Phosphatase 62 (38-126) U/L Total Protein 7.6 (6.3-8.2) g/dL Albumin 4.3 (3.5-5.0) g/dL Acetone, Qual Positive (Negative) 05/04/18 05/04/18 05/04/18 Range/Units 13:30 13:42 14:22 WBC (3.8-10.6) k/uL RBC (4.30-5.90) m/uL Hgb (13.0-17.5) gm/dL Hct (39.0-53.0) % MCV (80.0-100.0) fL MCH (25.0-35.0) pg MCHC (31.0-37.0) g/dL RDW (11.5-15.5) % Plt Count (150-450) k/uL Neutrophils % % Lymphocytes % % Monocytes % % Eosinophils % % Basophils % % Neutrophils # (1.3-7.7) k/uL Lymphocytes # (1.0-4.8) k/uL Monocytes # (0-1.0) k/uL Eosinophils # (0-0.7) k/uL Basophils # (0-0.2) k/uL Sodium (137-145) mmol/L Potassium (3.5-5.1) mmol/L Chloride (98-107) mmol/L Carbon Dioxide (22-30) mmol/L Anion Gap mmol/L BUN (9-20) mg/dL Creatinine (0.66-1.25) mg/dL Est GFR (CKD-EPI)AfAm (>60 ml/min/1.73 sqM) Est GFR (CKD-EPI)NonAf (>60 ml/min/1.73 sqM) Glucose (74-99) mg/dL POC Glucose (mg/dL) 61 L 130 H (75-99) mg/dL POC Glu Periodontal Assistant ID Lola Clayton KarolynmacarenayueJuly Plasma Lactic Acid Med 3.6 H* (0.7-2.0) mmol/L Calcium (8.4-10.2) mg/dL Magnesium (1.6-2.3) mg/dL Total Bilirubin (0.2-1.3) mg/dL AST (17-59) U/L ALT (21-72) U/L Alkaline Phosphatase (38-126) U/L Total Protein (6.3-8.2) g/dL Albumin (3.5-5.0) g/dL Acetone, Qual (Negative) 05/04/18 Range/Units 15:05 WBC (3.8-10.6) k/uL RBC (4.30-5.90) m/uL Hgb (13.0-17.5) gm/dL Hct (39.0-53.0) % MCV (80.0-100.0) fL MCH (25.0-35.0) pg MCHC (31.0-37.0) g/dL RDW (11.5-15.5) % Plt Count (150-450) k/uL Neutrophils % % Lymphocytes % % Monocytes % % Eosinophils % % Basophils % % Neutrophils # (1.3-7.7) k/uL Lymphocytes # (1.0-4.8) k/uL Monocytes # (0-1.0) k/uL Eosinophils # (0-0.7) k/uL Basophils # (0-0.2) k/uL Sodium (137-145) mmol/L Potassium (3.5-5.1) mmol/L Chloride (98-107) mmol/L Carbon Dioxide (22-30) mmol/L Anion Gap mmol/L BUN (9-20) mg/dL Creatinine (0.66-1.25) mg/dL Est GFR (CKD-EPI)AfAm (>60 ml/min/1.73 sqM) Est GFR (CKD-EPI)NonAf (>60 ml/min/1.73 sqM) Glucose (74-99) mg/dL POC Glucose (mg/dL) 110 H (75-99) mg/dL POC Glu Periodontal Assistant ID Yossi Horn Plasma Lactic Acid Med (0.7-2.0) mmol/L Calcium (8.4-10.2) mg/dL Magnesium (1.6-2.3) mg/dL Total Bilirubin (0.2-1.3) mg/dL AST (17-59) U/L ALT (21-72) U/L Alkaline Phosphatase (38-126) U/L Total Protein (6.3-8.2) g/dL Albumin (3.5-5.0) g/dL Acetone, Qual (Negative) Disposition Clinical Impression: Acute vomiting, Hypoglycemia Disposition: HOME SELF-CARE Instructions: Acute Nausea and Vomiting (ED), Hypoglycemia in a Person with Diabetes (ED) Is patient prescribed a controlled substance at d/c from ED?: No Referrals: Yovanny Dan MD [Primary Care Provider] - 1-2 days Time of Disposition: 16:14
[2018-05-04 14:11] LABS: Basophils % (A) 0 %; Eosinophils # (A) 0.2 k/uL (0-0.7); Eosinophils % (A) 2 %; HCT 39.1 % (39.0-53.0); HGB 12.4 gm/dL (13.0-17.5); Lymphocytes # (A) 2.3 k/uL (1.0-4.8); Lymphocytes % (A) 25 %; MCH 26.8 pg (25.0-35.0); MCHC 31.8 g/dL (31.0-37.0); MCV 84.4 fL (80.0-100.0); Mean Platelet Volume 8.7; Monocytes # (A) 0.6 k/uL (0-1.0); Monocytes % (A) 6 %; Neutrophils % (A) 65 %; RBC 4.64 m/uL (4.30-5.90); RDW 15.8 % (11.5-15.5); WBC 9.2 k/uL (3.8-10.6)
[2018-05-04 14:15] LABS: Platelet Count 117 k/uL (150-450)
--- NOTE | 2018-05-04 14:16 | XR ---
EXAMINATION TYPE: XR chest 2V DATE OF EXAM: 05/04/2018 COMPARISON: 07/11/2017 HISTORY: Nausea and vomiting TECHNIQUE: Frontal and lateral views of the chest are obtained. FINDINGS: There is patchy linear density in the mid and lower lung marcus. Thoracic aorta is atherom atous. Bony thorax is intact. There is no pleural effusion. Heart size is normal. IMPRESSION: Patchy atelectasis in the mid and lower lung marcus improved compared to old exam. No he art failure.
[2018-05-04 14:17] LABS: ALT 22 U/L (21-72); AST 53 U/L (17-59); Albumin 4.3 g/dL (3.5-5.0); Alkaline Phosphatase 62 U/L (38-126); Anion Gap 13 mmol/L; Blood Urea Nitrogen 18 mg/dL (9-20); Calcium 9.6 mg/dL (8.4-10.2); Carbon Dioxide 27 mmol/L (22-30); Chloride 104 mmol/L (98-107); Glucose 50 mg/dL (74-99); Magnesium 1.6 mg/dL (1.6-2.3); Potassium 3.9 mmol/L (3.5-5.1); Sodium 144 mmol/L (137-145); Total Bilirubin 0.6 mg/dL (0.2-1.3); Total Protein 7.6 g/dL (6.3-8.2)
[2018-05-04 14:44] VITALS: BP 124/73
[2018-05-04 16:05] LABS: Glucose,Whole Blood 61 mg/dL (75-99)
[2018-05-04 16:05] LABS: Glucose,Whole Blood 110 mg/dL (75-99)
[2018-05-04 16:05] LABS: Glucose,Whole Blood 130 mg/dL (75-99)
[2018-05-04 16:46] VITALS: PULSE 98; RESP 18
== END 2018-05-04 16:45 | disposition home or self-care (01) ==
LOC: EC 12:55
DX: E11.649 Type 2 diabetes mellitus with hypoglycemia without coma (principal); R11.2 Nausea with vomiting, unspecified; R00.0 Tachycardia, unspecified; J45.909 Unspecified asthma, uncomplicated; K21.9 Gastro-esophageal reflux disease without esophagitis; I10 Essential (primary) hypertension; F32.9 Major depressive disorder, single episode, unspecified; F41.9 Anxiety disorder, unspecified; Z86.14 Personal history of Methicillin resistant Staphylococcus aureus infection; Z79.4 Long term (current) use of insulin; Z79.899 Other long term (current) drug therapy; Z88.1 Allergy status to other antibiotic agents
CPT/HCPCS: 36415; 80053; 82009; 83605; 83735; 85025; 71046; 99284; 96374; 96375; 96361 ×2; J2405

== ENCOUNTER 2018-05-10 14:26 | Emergency (ER) | payer MEDICARE, OTHER ==
[2018-05-10] MEDS ORDERED: SODIUM CHLORIDE 0.9% 1,000 ML IV STA (16:02)
[2018-05-10 16:22] LABS: Anisocytosis Slight; Basophils % (A) 0 %; Eosinophils # (A) 0.3 k/uL (0-0.7); Eosinophils % (A) 3 %; HCT 34.6 % (39.0-53.0); HGB 11.7 gm/dL (13.0-17.5); Lymphocytes # (A) 1.9 k/uL (1.0-4.8); Lymphocytes % (A) 20 %; MCH 27.7 pg (25.0-35.0); MCHC 33.8 g/dL (31.0-37.0); MCV 81.7 fL (80.0-100.0); Mean Platelet Volume 8.7; Monocytes # (A) 0.7 k/uL (0-1.0); Monocytes % (A) 7 %; Neutrophils # (A) 6.5 k/uL (1.3-7.7); Neutrophils % (A) 67 %; Platelet Count 234 k/uL (150-450); RBC 4.23 m/uL (4.30-5.90); RDW 16.2 % (11.5-15.5); WBC 9.6 k/uL (3.8-10.6)
[2018-05-10] MEDS ORDERED: ONDANSETRON 4 MG/2 ML VIAL IVP STA (16:28)
[2018-05-10 16:34] LABS: INR 1.1 (<1.2); Partial Thromboplastin Time 27.7 sec (22.0-30.0); Prothrombin Time 11.2 sec (9.0-12.0)
[2018-05-10 16:37] LABS: Albumin 4.1 g/dL (3.5-5.0); Calcium 9.2 mg/dL (8.4-10.2); Potassium 4.2 mmol/L (3.5-5.1); Total Bilirubin 0.5 mg/dL (0.2-1.3); Total Protein 7.4 g/dL (6.3-8.2)
--- NOTE | 2018-05-10 16:59 | XR ---
Right foot HISTORY: Right foot pain, swelling and erythema, nonhealing wound on plantar surface 3 views of the right foot correlated to prior dated 03/04/2016 The marked distortion seen on previous exam is again noted. Bone mineralization is reduced limiting e valuation. Ankylosis is noted at the first metatarsophalangeal joint, marked arthropathy noted at the metatarsophalangeal joints of the second through fourth digits as on prior, hammertoe deformities ar e again present. There is soft tissue swelling present. Plantar calcaneal spur is noted. IMPRESSION: No significant interval change.
[2018-05-10 17:07] VITALS: TEMP 97.8
[2018-05-10] MEDS ORDERED: SODIUM CHLORIDE 0.9% 500 ML 500 ML IV STA (17:55)
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
[2018-05-10 19:03] VITALS: BP 165/96; PULSE 90; RESP 16
== END 2018-05-10 19:18 | disposition home or self-care (01) ==
LOC: EC 14:26
DX: R11.2 Nausea with vomiting, unspecified (principal); E11.628 Type 2 diabetes mellitus with other skin complications; L08.9 Local infection of the skin and subcutaneous tissue, unspecified; R19.7 Diarrhea, unspecified; J45.909 Unspecified asthma, uncomplicated; K21.9 Gastro-esophageal reflux disease without esophagitis; I10 Essential (primary) hypertension; F32.9 Major depressive disorder, single episode, unspecified; F41.9 Anxiety disorder, unspecified; Z79.4 Long term (current) use of insulin; Z79.899 Other long term (current) drug therapy; Z88.1 Allergy status to other antibiotic agents; Z86.14 Personal history of Methicillin resistant Staphylococcus aureus infection; Z90.49 Acquired absence of other specified parts of digestive tract
CPT/HCPCS: 36415; 93005; 80053; 83605; 84484; 85025; 85610; 85730; 87040; 73630; 99284; 96374; 96361; J2405

== ENCOUNTER 2018-05-21 11:02 | Inpatient (IN) | payer MEDICARE, OTHER ==
[2018-05-16 14:56] VITALS: BMI 32.9
[~2018-05-21 11:02] MED LIST: DEXAMETHASONE SOD PHOSPHATE 10 MG/ML 1 ML VIAL IV ONE; LACTATED RINGERS 1,000 ML IV SCH; LIDOCAINE 1% 20 ML VIAL (10MG/ML) FOR IV START INTRADERMA PRN; MIDAZOLAM 2 MG/2 ML VIAL IV PRN; ceFAZolin IN SWFI 2 GM/20 ML SYRINGE IVP ONE; fentaNYL (PF) 50 MCG/ML 2 ML AMP IV PRN
[2018-05-21] MEDS ORDERED: ONDANSETRON 4 MG/2 ML VIAL IVP ONE (11:54)
[2018-05-21 12:00] LABS: Glucose,Whole Blood 129 mg/dL (75-99)
[2018-05-21] MEDS ORDERED: CHLOROPROCAINE 3% 30 MG/ML 20 ML VIAL ONE (12:14)
[2018-05-21] MEDS ORDERED: fentaNYL (PF) 50 MCG/ML 2 ML AMP ONE (12:14)
[2018-05-21] MEDS ORDERED: SENNOSIDES-DOCUSATE SODIUM 1 EACH TAB PO PRN ×2 (13:37→20:26)
[2018-05-21] MEDS ORDERED: HYDROmorphone 0.5 MG/0.5 ML SYRINGE IVP PRN ×3 (13:37)
[2018-05-21] MEDS ORDERED: HYDROcodone/APAP 5-325MG 1 EACH TAB PO PRN ×2 (13:37)
[2018-05-21] MEDS ORDERED: ONDANSETRON 4 MG/2 ML VIAL IVP PRN (13:37)
--- NOTE | 2018-05-21 14:00 | FL ---
Fluoroscopy History: Distal RT Toe Amputation Distal RT toe amputation. 1 sec fluoro time. 2 images scanned.
--- NOTE | 2018-05-21 14:02 | XR ---
EXAMINATION TYPE: XR foot limited RT DATE OF EXAM: 05/21/2018 CLINICAL HISTORY: pain Distal RT Toe Amputation
[2018-05-21 14:25] LABS: Glucose,Whole Blood 147 mg/dL (75-99)
[2018-05-21 15:44] LABS: Anisocytosis Slight; Basophils % (A) 0 %; Eosinophils # (A) 0.4 k/uL (0-0.7); Eosinophils % (A) 4 %; HCT 32.7 % (39.0-53.0); HGB 10.7 gm/dL (13.0-17.5); Lymphocytes # (A) 1.4 k/uL (1.0-4.8); Lymphocytes % (A) 15 %; MCH 27.2 pg (25.0-35.0); MCHC 32.7 g/dL (31.0-37.0); MCV 83.3 fL (80.0-100.0); Mean Platelet Volume 8.6; Monocytes # (A) 0.2 k/uL (0-1.0); Monocytes % (A) 2 %; Neutrophils # (A) 7.7 k/uL (1.3-7.7); Neutrophils % (A) 79 %; Platelet Count 283 k/uL (150-450); Poikilocytosis Slight; RBC 3.92 m/uL (4.30-5.90); RDW 17.3 % (11.5-15.5); WBC 9.7 k/uL (3.8-10.6)
[2018-05-21 17:31] LABS: Glucose,Whole Blood 210 mg/dL (75-99)
[2018-05-21] MEDS: LACTATED RINGERS 1,000 ML IV SCH ×2 (19:18→20:05)
[2018-05-21] MEDS: ceFAZolin IN SWFI 2 GM/20 ML SYRINGE IVP SCH (20:03)
[2018-05-21] MEDS ORDERED: DEXTROMETHORPHAN PO PRN (20:26)
[2018-05-21] MEDS ORDERED: [UNRECOGNIZED DRUG - OTHER] PO PRN (20:26)
[2018-05-21] MEDS ORDERED: INSULIN ASPART 100 UNIT/ML 1 ML 10 ML VIAL SQ PRN ×2 (20:26)
[2018-05-21] MEDS ORDERED: GUAIFENESIN PO PRN (20:26)
[2018-05-21] MEDS ORDERED: IPRATROPIUM 0.5 MG/2.5 ML NEBU INHALATION PRN (20:26)
[2018-05-21] MEDS ORDERED: PHENYLEPHRINE PO PRN (20:26)
[2018-05-21] MEDS ORDERED: ONDANSETRON 4 MG TAB PO PRN (20:26)
[2018-05-21] MEDS ORDERED: ACETAMINOPHEN PO PRN (20:26)
[2018-05-21] MEDS: CARBIDOPA-LEVODOPA 25-100 MG 1 EACH TAB PO SCH (21:42)
[2018-05-21] MEDS: amLODIPine 2.5 MG TAB PO SCH (21:42)
[2018-05-21] MEDS: FUROSEMIDE 20 MG TAB PO SCH (21:42)
[2018-05-21] MEDS: DIVALPROEX 500 MG TABLET.DR PO SCH (21:42)
[2018-05-21] MEDS: TAMSULOSIN 0.4 MG CAP.ER.24H PO SCH (21:43)
[2018-05-21] MEDS: LATANOPROST 0.005% OPHTH DROPS 2.5 ML BTL BOTH EYES SCH (21:43)
[2018-05-21 22:02] LABS: Glucose,Whole Blood 346 mg/dL (75-99)
[2018-05-21] MEDS ORDERED: INSULIN ASPART 100 UNIT/ML 1 ML 10 ML VIAL SQ ONE (22:34)
[2018-05-21 23:35] LABS: Glucose,Whole Blood 392 mg/dL (75-99)
[2018-05-22] MEDS: ceFAZolin IN SWFI 2 GM/20 ML SYRINGE IVP SCH (03:10)
[2018-05-22 07:08] LABS: Glucose,Whole Blood 233 mg/dL (75-99)
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
[2018-05-22] MEDS: ENOXAPARIN 40 MG/0.4 ML SYRINGE SQ SCH (08:16)
[2018-05-22] MEDS: INSULN ASP PRT/INSULIN ASPART 100 UNIT/ML 10 ML VIAL SQ SCH (08:16)
[2018-05-22] MEDS: glipiZIDE 5 MG TAB PO SCH ×2 (08:16→17:36)
[2018-05-22] MEDS: metFORMIN 500 MG TAB PO SCH ×2 (08:17→17:36)
[2018-05-22] MEDS: CARBIDOPA-LEVODOPA 25-100 MG 1 EACH TAB PO SCH ×3 (08:17→20:23)
[2018-05-22] MEDS: PANTOPRAZOLE 40 MG TABLET PO SCH (08:17)
[2018-05-22] MEDS: LORATADINE 10 MG TAB PO SCH (08:17)
[2018-05-22] MEDS: amLODIPine 2.5 MG TAB PO SCH ×2 (08:18→20:23)
[2018-05-22] MEDS: ASCORBIC ACID 500 MG TAB PO SCH (08:18)
[2018-05-22] MEDS: FUROSEMIDE 40 MG TAB PO SCH (08:18)
[2018-05-22] MEDS: AMMONIUM LACTATE 12% CREAM 140 GM TUBE TOPICAL SCH (08:19)
[2018-05-22] MEDS: SERTRALINE 25 MG TAB PO SCH (08:19)
[2018-05-22] MEDS: DIVALPROEX 500 MG TABLET.DR PO SCH ×2 (08:19→20:23)
[2018-05-22] MEDS: LACTATED RINGERS 1,000 ML IV SCH ×2 (08:20→22:28)
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
[2018-05-22] MEDS: MULTIVITAMINS, THERA 1 EACH TAB PO SCH (11:54)
[2018-05-22 12:12] LABS: Glucose,Whole Blood 65 mg/dL (75-99)
[2018-05-22] MEDS ORDERED: HYDROmorphone 2 MG TAB PO PRN ×3 (12:19→12:21)
[2018-05-22 13:00] LABS: Glucose,Whole Blood 52 mg/dL (75-99)
[2018-05-22 13:13] LABS: Glucose,Whole Blood 211 mg/dL (75-99)
[2018-05-22 17:34] LABS: Glucose,Whole Blood 227 mg/dL (75-99)
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
[2018-05-22] MEDS: TAMSULOSIN 0.4 MG CAP.ER.24H PO SCH (18:12)
[2018-05-22 20:21] LABS: Glucose,Whole Blood 225 mg/dL (75-99)
[2018-05-22] MEDS: LATANOPROST 0.005% OPHTH DROPS 2.5 ML BTL BOTH EYES SCH (20:23)
[2018-05-22] MEDS: FUROSEMIDE 20 MG TAB PO SCH (20:23)
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
[2018-05-23 02:20] VITALS: PULSE 98; RESP 16
[2018-05-23] MEDS: LACTATED RINGERS 1,000 ML IV SCH (05:53)
[2018-05-23 07:21] LABS: Glucose,Whole Blood 101 mg/dL (75-99)
[2018-05-23 08:05] VITALS: BP 163/83; TEMP 98.7
[2018-05-23] MEDS: FUROSEMIDE 40 MG TAB PO SCH (08:39)
[2018-05-23] MEDS: SERTRALINE 25 MG TAB PO SCH (08:39)
[2018-05-23] MEDS: AMMONIUM LACTATE 12% CREAM 140 GM TUBE TOPICAL SCH (08:39)
[2018-05-23] MEDS: metFORMIN 500 MG TAB PO SCH (08:40)
[2018-05-23] MEDS: PANTOPRAZOLE 40 MG TABLET PO SCH (08:40)
[2018-05-23] MEDS: LORATADINE 10 MG TAB PO SCH (08:40)
[2018-05-23] MEDS: MULTIVITAMINS, THERA 1 EACH TAB PO SCH (08:40)
[2018-05-23] MEDS: ASCORBIC ACID 500 MG TAB PO SCH (08:40)
[2018-05-23] MEDS: DIVALPROEX 500 MG TABLET.DR PO SCH (08:40)
[2018-05-23] MEDS: amLODIPine 2.5 MG TAB PO SCH (08:40)
[2018-05-23] MEDS: glipiZIDE 5 MG TAB PO SCH (08:40)
[2018-05-23] MEDS: ENOXAPARIN 40 MG/0.4 ML SYRINGE SQ SCH (08:40)
[2018-05-23] MEDS: CARBIDOPA-LEVODOPA 25-100 MG 1 EACH TAB PO SCH (08:40)
[2018-05-23] MEDS: LINEZOLID 600 MG TAB PO SCH ×3 (11:43→11:44)
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
[2018-05-23] MEDS: INSULN ASP PRT/INSULIN ASPART 100 UNIT/ML 10 ML VIAL SQ SCH (11:44)
[2018-05-23 12:05] LABS: Glucose,Whole Blood 248 mg/dL (75-99)
--- NOTE | 2018-05-23 13:15 | P.DS ---
Providers Date of admission: 05/21/18 11:02 Expected date of discharge: 05/23/18 Attending physician: Jose Morrow Consults: 05/21/18 13:37 Consult Physician Routine Consulting Provider: Daryn Piña Consult Reason/Comments: Right foot infection, amputation Do you want consulting provider notified?: Yes 05/21/18 13:45 Consult Physician Routine Consulting Provider: Ruben Hewitt Consult Reason/Comments: Medical management Do you want consulting provider notified?: Yes Primary care physician: [facility] Course: This is a 68-year-old male who was seen in the office by Dr. Morrow with a right foot ulcer, a prior malunion of the first MTP fusion, and a first metatarsal osteomyelitis. Discussion was had about the possibility of of a right foot partial amputation. Patient follows up to [facility] wound care center. After discussion and consideration the patient elects to proceed with a right foot partial first ray amputation and a right gastrocnemius recession. The patient is seen preoperatively by Dr. Morrow and cleared for surgery. The patient is admitted to [facility] for a right foot partial first ray beautician and a right gastrocnemius recession. The procedures performed without complication or sequelae. He is doing well postoperatively. Vital signs are stable at discharge. Labs are stable at discharge. The patient is transferring well with assistance, he is remaining nonweightbearing on the right lower extremity. The patient is discharged to home on postop day #2 pending medical clearance. Please see orders and refer to the [facility] rec for accurate list of medications. Patient is examined bedside today. He was seen by ID today, and recommendations were made regarding wound VAC and antibiotics. He states his pain is very well controlled currently. He is tolerating his diet well. He is transferring well while remaining nonweightbearing on the right lower extremity. He has an equalizer boot in place. He denies chest pain, shortness of breath, nausea, vomiting, numbness or tingling of the right lower extremity. He denies fevers or chills. Patient has no new complaints today. On examination, the patient is sitting up in bed eating lunch, in no acute distress. Inspection of the right lower extremity, there is a equalizer boot in place. His right lower extremity is wrapped in a dressing. The dressing is clean, dry, and intact. Left calf is soft and nontender. Left dorsalis pedis pulse +2. Brisk capillary refill of left great toe. Right lower extremity neurovascular intact. Sensation is intact to light touch of the right lower extremity. Vital signs stable. Plan - Discharge Summary Discharge Rx Participant: No New Discharge Prescriptions: New Ciprofloxacin HCl [Cipro] 500 mg PO Q12HR #30 tablet Aspirin 325 mg PO DAILY #14 tab Docusate [Colace] 100 mg PO BID #60 capsule Hydrocodone/Acetaminophen [[place] 5-325] 1 - 2 tab PO Q4-6H PRN #40 tab PRN Reason: Pain No Action Omeprazole [PriLOSEC] 20 mg PO DAILY Divalproex [Depakote] 500 mg PO DAILY Eucerin Topical Cream 1 applic TOPICAL DAILY Insulin Aspart [NovoLOG Flexpen] 5 units SQ AC-SUPPER PRN PRN Reason: BG greater than 200 Insulin Aspart [NovoLOG Flexpen] 5 units SQ AC-LUNCH PRN PRN Reason: BG greater than 200 Sertraline [Zoloft] 75 mg PO DAILY Furosemide [Lasix] 20 mg PO HS Ammonium Lactate Cream [Lac-Hydrin 12% Cream] 1 applic TOPICAL DAILY Ascorbic Acid [Vitamin C] 500 mg PO DAILY Furosemide [Lasix] 40 mg PO DAILY glipiZIDE [Glucotrol XL] 10 mg PO DAILY Loratadine [Claritin] 10 mg PO DAILY metFORMIN HCL [metFORMIN HCL ER] 1,000 mg PO AC-BID Multivitamins, Thera [Multivitamin (formulary)] 1 tab PO DAILY Tamsulosin [Flomax] 0.4 mg PO PC-SUPPER #90 cap.er.24h Linezolid 600 mg PO BID #60 tablet Sennosides-Docusate Sodium [Senokot-S] 1 tab PO BID PRN PRN Reason: Constipation Ipratropium Nebulized [Atrovent Nebulized 0.2 MG/ML] 0.5 mg INHALATION RT- Q8H PRN PRN Reason: Shortness Of Breath Insulin Aspart Protam & Aspart [NovoLOG MIX 70-30 Flexpen] 20 unit SQ DAILY Latanoprost/Pf [Latanoprost 0.005% Eye Drop] 1 drop BOTH EYES HS Divalproex [Depakote] 500 mg PO HS Carbidopa-Levodopa 25-100 mg [Sinemet 25-100 mg] 1 tab PO TID amLODIPine [Norvasc] 2.5 mg PO BID Ondansetron [Zofran] 4 mg PO Q8HR PRN #15 tab PRN Reason: Nausea Phenylephrine/Dm/Acetaminop/GG [Tussin Cf Max Severe M-S Cold] 5 ml PO Q4HR PRN PRN Reason: Cough Discharge Medication List Divalproex [Depakote] 500 mg PO DAILY 08/27/13 [History] Omeprazole [PriLOSEC] 20 mg PO DAILY 08/27/13 [History] Eucerin Topical Cream 1 applic TOPICAL DAILY 03/04/16 [History] Insulin Aspart [NovoLOG Flexpen] 5 units SQ AC-LUNCH PRN 03/04/16 [History] Insulin Aspart [NovoLOG Flexpen] 5 units SQ AC-SUPPER PRN 03/04/16 [History] Furosemide [Lasix] 20 mg PO HS 03/21/16 [History] Sertraline [Zoloft] 75 mg PO DAILY 03/21/16 [History] Ammonium Lactate Cream [Lac-Hydrin 12% Cream] 1 applic TOPICAL DAILY 06/30/17 [ History] Ascorbic Acid [Vitamin C] 500 mg PO DAILY 06/30/17 [History] Furosemide [Lasix] 40 mg PO DAILY 06/30/17 [History] Loratadine [Claritin] 10 mg PO DAILY 06/30/17 [History] Multivitamins, Thera [Multivitamin (formulary)] 1 tab PO DAILY 06/30/17 [History ] glipiZIDE [Glucotrol XL] 10 mg PO DAILY 06/30/17 [History] metFORMIN HCL [metFORMIN HCL ER] 1,000 mg PO AC-BID 06/30/17 [History] Tamsulosin [Flomax] 0.4 mg PO PC-SUPPER #90 cap.er.24h 07/17/17 [Rx] Linezolid 600 mg PO BID #60 tablet 04/14/18 [Rx] Carbidopa-Levodopa 25-100 mg [Sinemet 25-100 mg] 1 tab PO TID 05/04/18 [History] Divalproex [Depakote] 500 mg PO HS 05/04/18 [History] Insulin Aspart Protam & Aspart [NovoLOG MIX 70-30 Flexpen] 20 unit SQ DAILY 10/15 [History] Ipratropium Nebulized [Atrovent Nebulized 0.2 MG/ML] 0.5 mg INHALATION RT-Q8H PRN 05/04/18 [History] Latanoprost/Pf [Latanoprost 0.005% Eye Drop] 1 drop BOTH EYES HS 05/04/18 [ History] Sennosides-Docusate Sodium [Senokot-S] 1 tab PO BID PRN 05/04/18 [History] amLODIPine [Norvasc] 2.5 mg PO BID 05/04/18 [History] Ondansetron [Zofran] 4 mg PO Q8HR PRN #15 tab 05/10/18 [Rx] Phenylephrine/Dm/Acetaminop/GG [Tussin Cf Max Severe M-S Cold] 5 ml PO Q4HR PRN 05/14/18 [History] Aspirin 325 mg PO DAILY #14 tab 05/23/18 [Rx] Ciprofloxacin HCl [Cipro] 500 mg PO Q12HR #30 tablet 05/23/18 [Rx] Docusate [Colace] 100 mg PO BID #60 capsule 05/23/18 [Rx] Hydrocodone/Acetaminophen [[place] 5-325] 1 - 2 tab PO Q4-6H PRN #40 tab 05/23/18 [Rx] Follow up Appointment(s)/Referral(s): Ever Winters DO [Doctor of Osteopathic Medicine] - 1 Week (Wound center) Jose Morrow MD [Medical Doctor] - 2 Weeks Activity/Diet/Wound Care/Special Instructions: 1. Accredited Home Care - [phone] 2. Wound Vac supplier - [facility] - will send wound vac with patient at discharge 3. Change wound vac Saturday, Saturday, and Saturday. Use medium black granulofoam. Suction at 125 mmhg, continuous, medium. Patient is to remain nonweightbearing of the right lower extremity until the wound heals. Patient is to remain in equalizer boot on the right lower extremity. [place] will be prescribed on discharge for pain control. Aspirin will be prescribed on discharge for blood clot prevention. Colace will be prescribed on discharge for stool softener. Orthopedics will defer all wound VAC management and antibiotic recommendations to infectious disease. Patient is to follow-up in the wound care center. Follow-up appointment with Dr. Morrow in the office in 2 weeks. Patient is call office with any questions or concerns, . Discharge Disposition: TRANSFER TO SNF/ECF
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
== END 2018-05-23 16:55 | disposition home health service (06) | DRG 617 ==
LOC: 2ORMAIN 11:02 → 4SSUR 14:06
PROVIDERS: ADMIT Orthopaedic Surgery; ATTEND Orthopaedic Surgery
PROC: 0L8N0ZZ Division of Right Lower Leg Tendon, Open Approach (ICD-10-PCS; principal; 2018-05-21 12:30)
PROC: 0Y6M0Z9 Detachment at Right Foot, Partial 1st Ray, Open Approach (ICD-10-PCS; principal; 2018-05-21 12:30)
DX: E11.621 Type 2 diabetes mellitus with foot ulcer (principal); M86.671 Other chronic osteomyelitis, right ankle and foot; E11.42 Type 2 diabetes mellitus with diabetic polyneuropathy; E11.69 Type 2 diabetes mellitus with other specified complication; G20 Parkinson's disease; G40.909 Epilepsy, unspecified, not intractable, without status epilepticus; I10 Essential (primary) hypertension; J44.9 Chronic obstructive pulmonary disease, unspecified; K21.9 Gastro-esophageal reflux disease without esophagitis; L97.519 Non-pressure chronic ulcer of other part of right foot with unspecified severity; R32 Unspecified urinary incontinence; Z87.820 Personal history of traumatic brain injury; Z79.4 Long term (current) use of insulin; Z79.899 Other long term (current) drug therapy; Z86.14 Personal history of Methicillin resistant Staphylococcus aureus infection; Z87.891 Personal history of nicotine dependence; Z90.81 Acquired absence of spleen; Z88.0 Allergy status to penicillin; Z88.8 Allergy status to other drugs, medicaments and biological substances
CPT/HCPCS: 83036; 85025; 88305; 88311

== ENCOUNTER 2018-10-23 19:06 | Emergency (ER) | payer MEDICARE, OTHER ==
[2018-10-23 19:13] VITALS: TEMP 98.7
[2018-10-23] MEDS ORDERED: ONDANSETRON 4 MG/2 ML VIAL IVP STA (19:53)
[2018-10-23] MEDS ORDERED: SODIUM CHLORIDE 0.9% 500 ML 500 ML IV STA (19:53)
[2018-10-23] MEDS ORDERED: SODIUM CHLORIDE 0.9% 1,000 ML IV STA (19:53)
[2018-10-23 20:08] LABS: Basophils % (A) 0 %; Eosinophils # (A) 0.2 k/uL (0-0.7); Eosinophils % (A) 2 %; HCT 42.4 % (39.0-53.0); HGB 14.2 gm/dL (13.0-17.5); Lymphocytes # (A) 1.9 k/uL (1.0-4.8); Lymphocytes % (A) 15 %; MCH 29.8 pg (25.0-35.0); MCHC 33.6 g/dL (31.0-37.0); MCV 88.8 fL (80.0-100.0); Mean Platelet Volume 7.3; Monocytes # (A) 1.1 k/uL (0-1.0); Monocytes % (A) 9 %; Neutrophils # (A) 9.2 k/uL (1.3-7.7); Neutrophils % (A) 73 %; Platelet Count 312 k/uL (150-450); RBC 4.78 m/uL (4.30-5.90); RDW 14.7 % (11.5-15.5); WBC 12.6 k/uL (3.8-10.6)
[2018-10-23 20:16] LABS: ALT <6 U/L (21-72); AST 24 U/L (17-59); African American GFR (CKD) 79 (>60 ml/min/1.73 sqM); Albumin 4.2 g/dL (3.5-5.0); Alkaline Phosphatase 87 U/L (38-126); Amylase 44 U/L (30-110); Anion Gap 13 mmol/L; Blood Urea Nitrogen 29 mg/dL (9-20); Calcium 9.3 mg/dL (8.4-10.2); Carbon Dioxide 30 mmol/L (22-30); Chloride 99 mmol/L (98-107); Glucose 311 mg/dL (74-99); Lipase 42 U/L (23-300); Potassium 3.7 mmol/L (3.5-5.1); Sodium 142 mmol/L (137-145); Total Bilirubin 0.6 mg/dL (0.2-1.3); Total Protein 7.8 g/dL (6.3-8.2)
--- NOTE | 2018-10-23 20:29 | XR ---
EXAMINATION TYPE: XR KUB DATE OF EXAM: 10/23/2018 COMPARISON: 02/18/2011 HISTORY: Vomiting TECHNIQUE: 2 view supine FINDINGS: There is no sign of intestinal obstruction or pneumoperitoneum. Fecal pattern is normal. Th ere is no sign of a mass. There are no pathologic calcifications over the kidneys. IMPRESSION: Nonacute abdomen. No change.
--- NOTE | 2018-10-23 21:21 | CT ---
EXAMINATION TYPE: CT brain wo con DATE OF EXAM: 10/23/2018 COMPARISON: 06/30/2017 HISTORY: fell hit the back of his head Headache CT DLP: 1133.4 mGycm Automated exposure control for dose reduction was used. FINDINGS: There is diffuse cerebral cortical atrophy. There is no mass effect nor midline shift. There is no si gn of intracranial hemorrhage. There is hypodensity in the left anterior temporal lobe. Calvarium is intact. IMPRESSION: MODERATE DIFFUSE CEREBRAL ATROPHY. 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 NO ACUTE INTRACRANIAL ABN ORMALITY. NO CHANGE.
[2018-10-23] MEDS ORDERED: SODIUM CHLORIDE 0.9% 1,000 ML IV ONE (21:58)
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
[2018-10-23] MEDS ORDERED: amLODIPine 5 MG TAB PO STA (22:31)
[2018-10-23 23:12] LABS: Appearance,Urine Clear (Clear); Bilirubin,Urine Negative (Negative); Blood,Urine Trace (Negative); Color,Urine Yellow; Glucose,Urine (UA) 3+ (Negative); Granular Casts,Urine 1 /lpf (0); Hyaline Casts,Urine 4 /lpf (0-2); Ketones,Urine 1+ (Negative); Leukocyte Esterase,Urine Negative (Negative); Mucus,Urine Rare /hpf; Nitrite,Urine Negative (Negative); Protein,Urine 2+ (Negative); RBC,Urine 2 /hpf (0-5); Specific Gravity,Urine 1.015 (1.001-1.035); Urobilinogen,Urine <2.0 mg/dL (<2.0)
[2018-10-23] MEDS ORDERED: ACETAMINOPHEN TAB 500 MG TAB PO STA (23:43)
[2018-10-23 23:59] LABS: Glucose,Whole Blood 224 mg/dL (75-99)
[2018-10-24 00:20] VITALS: BP 180/100; PULSE 90; RESP 18
== END 2018-10-23 23:50 | disposition home or self-care (01) ==
LOC: EC 19:06
DX: E11.65 Type 2 diabetes mellitus with hyperglycemia (principal); R11.10 Vomiting, unspecified; S09.90XA Unspecified injury of head, initial encounter; J45.909 Unspecified asthma, uncomplicated; K21.9 Gastro-esophageal reflux disease without esophagitis; I10 Essential (primary) hypertension; I73.9 Peripheral vascular disease, unspecified; G20 Parkinson's disease; R56.9 Unspecified convulsions; F41.9 Anxiety disorder, unspecified; F32.9 Major depressive disorder, single episode, unspecified; Z86.14 Personal history of Methicillin resistant Staphylococcus aureus infection; Z90.49 Acquired absence of other specified parts of digestive tract; Z98.890 Other specified postprocedural states; Z79.4 Long term (current) use of insulin; Z79.899 Other long term (current) drug therapy; W18.39XA Other fall on same level, initial encounter; W22.8XXA Striking against or struck by other objects, initial encounter; Y92.009 Unspecified place in unspecified non-institutional (private) residence as the place of occurrence of the external cause
CPT/HCPCS: 36415; 80053; 82150; 82009; 83690; 85025; 81001; 74018; 70450; 99284; 96374; 96361 ×3; J2405

== ENCOUNTER 2019-05-20 12:38 | Inpatient (IN) | payer MEDICARE, OTHER ==
[2019-05-20] MEDS ORDERED: MELATONIN 3 MG TABLET PO PRN (13:28)
[2019-05-20] MEDS ORDERED: NALOXONE 0.4 MG/ML 1 ML VIAL IV PRN (13:28)
[2019-05-20] MEDS ORDERED: ONDANSETRON 4 MG/2 ML VIAL IVP PRN (13:28)
[2019-05-20] MEDS ORDERED: ACETAMINOPHEN TAB 325 MG TAB PO PRN (13:28)
[2019-05-20] MEDS: SODIUM CHLORIDE 0.9% 1,000 ML IV SCH (14:16)
[2019-05-20] MEDS ORDERED: VANCOMYCIN IV PER PHARMACY 1 EACH MISC MISCELLANE PRN (14:29)
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
[2019-05-20 14:36] LABS: HCT 38.5 % (39.0-53.0); HGB 12.3 gm/dL (13.0-17.5); MCH 30.5 pg (25.0-35.0); MCV 95.5 fL (80.0-100.0); Mean Platelet Volume 8.2; Platelet Count 465 k/uL (150-450); RBC 4.03 m/uL (4.30-5.90); RDW 14.1 % (11.5-15.5); WBC 8.1 k/uL (3.8-10.6)
[2019-05-20 14:51] LABS: INR 1.1 (<1.2); Prothrombin Time 11.7 sec (9.0-12.0)
[2019-05-20 14:53] LABS: Albumin 3.7 g/dL (3.5-5.0); C Reactive Protein 27.7 mg/L (<10.0); Calcium 9.5 mg/dL (8.4-10.2); Magnesium 1.6 mg/dL (1.6-2.3); Phosphorus 3.7 mg/dL (2.5-4.5); Potassium 4.3 mmol/L (3.5-5.1); Total Bilirubin 0.3 mg/dL (0.2-1.3); Total Protein 7.4 g/dL (6.3-8.2)
[2019-05-20] MEDS ORDERED: VANCOMYCIN 1,750 MG in SODIUM CHLORIDE 0.9% 500 ML 500 ML IVPB ONE (15:00)
[2019-05-20 15:26] LABS: Glucose,Whole Blood 260 mg/dL (75-99)
[2019-05-20] MEDS ORDERED: INSULIN ASPART (NovoLOG) 100 UNIT/ML VIAL SQ ONE (15:41)
[2019-05-20 17:30] LABS: Glucose,Whole Blood 185 mg/dL (75-99)
[2019-05-20] MEDS: INSULIN ASPART (NovoLOG) 100 UNIT/ML VIAL SQ SCH (17:57)
--- NOTE | 2019-05-20 18:01 | XR ---
EXAMINATION TYPE: XR foot complete RT DATE OF EXAM: 05/20/2019 Comparison 05/10/2018 toe amputation osteomyelitis TECHNIQUE: 3 views FINDINGS: There is amputation of the first digit at the level of the base of the first metatarsal. Th ere is deformity at the second and third metatarsal heads consistent with old fractures. There is joo e soft tissue swelling of the forefoot. There is plantar calcaneal spurring. IMPRESSION: Soft tissue swelling. No specific sign of osteomyelitis.
--- NOTE | 2019-05-20 19:19 | MR ---
EXAMINATION TYPE: MR foot RT wo/w con DATE OF EXAM: 05/20/2019 COMPARISON: 05/11/2014 HISTORY: Planter foot ulceration with bone exposure CONTRAST: Standard multiplanar, multisequence MRI departmental protocol utilizing 10 mL intravenous Gadavist ga dolinium contrast. There is amputation of the big toe at the level of the base of the first metatarsal. There is on the STIR images increased signal in the second metatarsal shafts. There is mild increased signal also in the head of the third metatarsal. There is soft tissue ulcer defect at the plantar aspect of the four th metatarsal. There is increased soft tissue fluid signal on the STIR images at the plantar aspect o f the third and fourth metatarsal heads. There is irregular fluid collection around the third and fou rth metatarsal heads. There is mild hammertoe deformity. Contrast images show variable enhancement of the soft tissues around the second and third metatarsal heads. IMPRESSION: Diffuse edema in the entire second metatarsal and also in the third metatarsal head consistent with o steomyelitis. There is mild enhancement in the soft tissues of the forefoot consistent with phlegmon. There is small areas of fluid collection around the second and third metatarsal heads that could be abscess. Ulcerative defect noted on the plantar aspect of the medial forefoot.
[2019-05-20] MEDS ORDERED: INSULN ASP PRT/INSULIN ASPART 100 UNIT/ML 10 ML VIAL SQ SCH (20:00)
[2019-05-20 20:48] LABS: Glucose,Whole Blood 177 mg/dL (75-99)
[2019-05-20] MEDS: DIVALPROEX ER 500 MG TAB.ER.24H PO SCH (21:01)
[2019-05-20] MEDS: CARBIDOPA-LEVODOPA 25-100 MG 1 EACH TAB PO SCH (21:01)
[2019-05-20] MEDS: DOCUSATE 100 MG CAP PO SCH (21:01)
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
[2019-05-21] MEDS: SODIUM CHLORIDE 0.9% 1,000 ML IV SCH (05:55)
[2019-05-21 07:03] LABS: HCT 35.5 % (39.0-53.0); HGB 12.1 gm/dL (13.0-17.5); MCH 32.1 pg (25.0-35.0); MCV 94.3 fL (80.0-100.0); Mean Platelet Volume 7.3; Platelet Count 418 k/uL (150-450); RBC 3.76 m/uL (4.30-5.90); WBC 10.9 k/uL (3.8-10.6)
[2019-05-21 07:04] LABS: Glucose,Whole Blood 54 mg/dL (75-99)
[2019-05-21 07:09] LABS: Potassium 3.8 mmol/L (3.5-5.1)
[2019-05-21 07:45] LABS: Glucose,Whole Blood 81 mg/dL (75-99)
[2019-05-21] MEDS ORDERED: INSULN ASP PRT/INSULIN ASPART 100 UNIT/ML 10 ML VIAL SQ SCH (08:00)
[2019-05-21] MEDS: INSULIN ASPART (NovoLOG) 100 UNIT/ML VIAL SQ SCH ×3 (08:08→17:07)
[2019-05-21] MEDS: DOCUSATE 100 MG CAP PO SCH ×2 (08:09→20:58)
[2019-05-21] MEDS: FERROUS SULFATE 325 MG TAB PO SCH (08:09)
[2019-05-21] MEDS: MULTIVITAMINS, THERA 1 EACH TAB PO SCH (08:09)
[2019-05-21] MEDS: CARBIDOPA-LEVODOPA 25-100 MG 1 EACH TAB PO SCH ×2 (08:26→20:58)
[2019-05-21] MEDS: DIVALPROEX ER 500 MG TAB.ER.24H PO SCH ×2 (08:26→20:57)
[2019-05-21] MEDS: VANCOMYCIN 1,750 MG in SODIUM CHLORIDE 0.9% 500 ML 500 ML IVPB SCH (08:26)
[2019-05-21] MEDS: FUROSEMIDE 20 MG TAB PO SCH (08:29)
[2019-05-21] MEDS: metroNIDAZOLE 500 MG TAB PO SCH ×3 (10:57→21:41)
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
[2019-05-21 11:41] LABS: Glucose,Whole Blood 149 mg/dL (75-99)
[2019-05-21 17:02] LABS: Glucose,Whole Blood 201 mg/dL (75-99)
--- NOTE | 2019-05-21 18:47 | PN ---
PROGRESS NOTE DATE OF SERVICE: 05/21/2019 REASON FOR FOLLOWUP: Right foot osteomyelitis. INTERVAL HISTORY: The patient is currently afebrile. The patient is breathing comfortably. The patient denies having any chest pain or shortness of breath or cough. No nausea. No vomiting or abdominal pain or any worsening pain in the right foot area. PHYSICAL EXAMINATION: Blood pressure 148/84 with a pulse of 82, temperature 97.8. He is 96% on room air. General description is an elderly male lying in bed in no distress. RESPIRATORY SYSTEM: Unlabored breathing. Clear to auscultation anteriorly. HEART: S1, S2. Regular rate and rhythm. ABDOMEN: Soft. No tenderness. Right foot is currently dressed up. No obvious drainage on the dressing. LABS: Hemoglobin 12.1, white count 10.9. DIAGNOSTIC IMPRESSION AND PLAN: Patient with a right foot nonhealing wound in this patient who did have evidence of osteomyelitis on the basis of the foot MRI. Orthopedic Foot Surgery has been consulted. Will await their recommendation for possible debridement or any surgical intervention. The patient is covered with vancomycin and Flagyl; to continue. He will need a PICC line for outpatient antibiotics. Continue supportive care. MMODL / IJN: [id number] /
--- NOTE | 2019-05-21 19:30 | P.PN ---
Subjective Progress Note Date: 05/21/19 (delayed charting seen at 0930) Principal diagnosis: osteomyelitis Patient is a 69-year-old male with a past medical history of insulin- dependent diabetes 2, hypertension, GERD, prior closed head injury who presented at the direction of Dr. Jackson. [facility] found to have a positive culture from a bone biopsy on 05/13/19 that showed e nterococcus and anerobic gram negative. He has a non healing wound on that foot. He was sent in for IV ABX and surgical evaluation. He has a hx of osteomyelitis in the right foot and has undergone an amputation on right great toe ray amputation in Apr 2018. He was started on vanco due to PCN allergy. He was seen by ID and flagyl was added for anerobic coverage. MRI showed diffuse edema and the second metatarsal and third metatarsal head consistent with osteomyelitis and enhancement of soft tissue in the forefoot consistent with phlegmon. Dr. Morrow was consulted as he is well-known to the patient, however the patient threatened to marisela him if he performed surgery on him. Of note the patient has a court-appointed guardian and was not his own decision care. Vascular surgery was consulted to assist in the care of this patient. Patient seen and examined at bedside. He denies any pain in his foot, chest pain, shortness breath, nausea, or vomiting. Objective - Vital Signs Vital signs: Vital Signs Temp 97.8 F 05/21/19 14:34 Pulse 82 05/21/19 14:34 Resp 18 05/21/19 14:34 BP 148/84 05/21/19 14:34 Pulse Ox 96 05/21/19 14:34 Intake & Output 05/21/19 05/21/19 05/22/19 06:59 18:59 06:59 Intake Total 1025 Balance 1025 Intake: Intake, IV Titration 1025 Amount Sodium Chloride 0.9% 1, 525 000 ml @ 75 mls/hr IV . [id number] [facility] Rx#:[id number] Vancomycin 1,750 mg In 500 Sodium Chloride 0.9% 500 ml 500 ml @ 167 mls/hr IVPB Q16H [facility] Rx#: [id number] Other: Voiding Method Diaper # Voids 2 1 # Bowel Movements 1 - Exam General: non toxic, no distress, appears at stated age Derm: warm, dry Head: atraumatic, normocephalic, symmetric Eyes: EOMI, no lid lag, anicteric sclera Mouth: no lip lesion, mucus membranes moist Cardiovascular: S1S2 reg, no murmur, positive posterior tibial pulse bilateral, Lungs: CTA bilateral, no rhonchi, no rales , no accessory muscle use Abdominal: soft, nontender to palpation, no guarding, no appreciable organomegaly Ext: Right foot with dressing in place, no gross muscle atrophy, no edema, no contractures Neuro: CN II-XI grossly intact, no focal neuro deficits Psych: Alert, oriented, appropriate affect - Labs CBC & Chem 7: 05/21/19 06:34 05/21/19 06:34 Labs: Abnormal Lab Results - Last 24 Hours (Table) 05/20/19 05/21/19 05/21/19 Range/Units 20:37 06:34 06:34 WBC 10.9 H (3.8-10.6) k/uL RBC 3.76 L (4.30-5.90) m/uL Hgb 12.1 L (13.0-17.5) gm/dL Hct 35.5 L (39.0-53.0) % Carbon Dioxide 32 H (22-30) mmol/L Glucose 48 L* (74-99) mg/dL POC Glucose (mg/dL) 177 H (75-99) mg/dL 05/21/19 05/21/19 05/21/19 Range/Units 06:52 11:28 16:48 WBC (3.8-10.6) k/uL RBC (4.30-5.90) m/uL Hgb (13.0-17.5) gm/dL Hct (39.0-53.0) % Carbon Dioxide (22-30) mmol/L Glucose (74-99) mg/dL POC Glucose (mg/dL) 54 L 149 H 201 H (75-99) mg/dL Assessment and Plan Assessment: Osteomyelitis of the right foot - MRI confirms osteomyelitis of the second and third metatarsal heads -ID recommendations appreciated: On vancomycin and Flagyl -Consult Dr. Alfredo -CRP 27.7 -Elevate foot DM 2, insulin requiring -Asymptomatic hypoglycemia this morning -A1c pending -Decreased 703/0 - hold metformin and glucotrol -Follow blood sugars closely Systolic murmur - check echo - hx of mild HTN - Lasix - follow blood pressure Parkinsons - sinement HLD -statin Hx of closed head injury - has a guardian DVT prophylaxis: SCDs Discussed with: patient, nursing Anticipated discharge date: 3-[address]: Return to [facility] A total of 35 minutes was spent on the care of this complex patient more than 50% of the time was spent in counseling and care coordination.
[2019-05-21 21:47] LABS: Glucose,Whole Blood 334 mg/dL (75-99)
[2019-05-22] MEDS: VANCOMYCIN 1,750 MG in SODIUM CHLORIDE 0.9% 500 ML 500 ML IVPB SCH ×2 (00:11→16:46)
[2019-05-22] MEDS: SODIUM CHLORIDE 0.9% 1,000 ML IV SCH ×3 (00:14→20:35)
[2019-05-22] MEDS: DEXTROSE 5% IN WATER 1,000 ML IV SCH ×3 (05:01→19:12)
[2019-05-22 07:08] LABS: Glucose,Whole Blood 166 mg/dL (75-99)
[2019-05-22] MEDS: INSULIN ASPART (NovoLOG) 100 UNIT/ML VIAL SQ SCH ×3 (07:23→16:53)
[2019-05-22] MEDS: CARBIDOPA-LEVODOPA 25-100 MG 1 EACH TAB PO SCH ×2 (07:24→20:58)
[2019-05-22] MEDS: FUROSEMIDE 20 MG TAB PO SCH (07:24)
[2019-05-22] MEDS: MULTIVITAMINS, THERA 1 EACH TAB PO SCH (07:24)
[2019-05-22] MEDS: DOCUSATE 100 MG CAP PO SCH ×2 (07:24→20:58)
[2019-05-22] MEDS: FERROUS SULFATE 325 MG TAB PO SCH (07:24)
[2019-05-22] MEDS: DIVALPROEX ER 500 MG TAB.ER.24H PO SCH ×2 (07:24→20:58)
[2019-05-22] MEDS: metroNIDAZOLE 500 MG TAB PO SCH ×3 (07:24→22:37)
[2019-05-22 07:46] LABS: HCT 35.8 % (39.0-53.0); HGB 12.2 gm/dL (13.0-17.5); MCH 32.4 pg (25.0-35.0); MCV 95.2 fL (80.0-100.0); Mean Platelet Volume 7.4; Platelet Count 452 k/uL (150-450); RBC 3.75 m/uL (4.30-5.90); RDW 14.1 % (11.5-15.5)
[2019-05-22 07:51] LABS: Calcium 9.1 mg/dL (8.4-10.2); Potassium 4.4 mmol/L (3.5-5.1)
[2019-05-22 11:45] LABS: Glucose,Whole Blood 267 mg/dL (75-99)
--- NOTE | 2019-05-22 11:55 | ECHOF ---
Referral Reason:murmur MEASUREMENTS -------- HEIGHT: 167.6 cm WEIGHT: 98.0 kg BP: 141/73 RVIDd: 3.3 cm (< 3.3) IVSd: 1.2 cm (0.6 - 1.1) LVIDd: 4.5 cm (3.9 - 5.3) LVPWd: 1.1 cm (0.6 - 1.1) IVSs: 1.5 cm LVIDs: 2.6 cm LVPWs: 1.7 cm LA Diam: 3.6 cm (2.7 - 3.8) LAESV Index (A-L): 22.67 ml/m Ao Diam: 3.4 cm (2.0 - 3.7) AV Cusp: 1.8 cm (1.5 - 2.6) MV EXCURSION: 19.089 mm (> 18.000) MV EF SLOPE: 143 mm/s (70 - 150) EPSS: 0.5 cm MV E Marco Antonio: 0.87 m/s MV DecT: 270 ms MV A Marco Antonio: 1.07 m/s MV E/A Ratio: 0.81 AV maxP.65 mmHg AV meanP.17 mmHg RAP: 5.00 mmHg RVSP: 22.12 mmHg FINDINGS -------- Sinus rhythm. This was a technically adequate study. The left ventricular size is normal. There is borderline concentric left ventricular hypertrophy. Overall left ventricular systolic function is normal with, an EF between 60 - 65 %. The right ventricle is mildly enlarged. Normal LA size by volume 22+/-6 ml/m2. The right atrium is normal in size. Interatrial and interventricular septum intact. There is mild to moderate aortic valve sclerosis. There is mild aortic stenosis present. Peak/oren n gradient across the Aortic Valve is 22.65mmHg / 14.17mmHg. The mitral valve leaflets are mildly thickened. Mild mitral annular calcification present. Mild tricuspid regurgitation present. Right ventricular systolic pressure is normal at < 35 mmHg. The pulmonic valve was not well visualized. The aortic root size is normal. IVC Not well visulized. There is no pericardial effusion. CONCLUSIONS -------- 1. Sinus rhythm. 2. This was a technically adequate study. 3. The left ventricular size is normal. 4. There is borderline concentric left ventricular hypertrophy. 5. Overall left ventricular systolic function is normal with, an EF between 60 - 65 %. 6. The right ventricle is mildly enlarged. 7. Normal LA size by volume 22+/-6 ml/m2. 8. The right atrium is normal in size. 9. Interatrial and interventricular septum intact. 10. There is mild to moderate aortic valve sclerosis. 11. There is mild aortic stenosis present. 12. Peak/mean gradient across the Aortic Valve is 22.65mmHg / 14.17mmHg. 13. The mitral valve leaflets are mildly thickened. 14. Mild mitral annular calcification present. 15. Mild tricuspid regurgitation present. 16. Right ventricular systolic pressure is normal at < 35 mmHg. 17. The pulmonic valve was not well visualized. 18. The aortic root size is normal. 19. IVC Not well visulized. 20. There is no pericardial effusion. [employer]EL ALIGNMENT SPECIALIST: Haylie Kimball RDCS
[2019-05-22] MEDS ORDERED: SODIUM CHLORIDE 0.65% NASAL SPRAY 44 ML BTL NASAL PRN (11:56)
[2019-05-22] MEDS: IPRATROPIUM-ALBUTEROL 3 ML NEB INHALATION PRN (12:18)
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
[2019-05-22 14:14] LABS: Glucose,Whole Blood 316 mg/dL (75-99)
[2019-05-22] MEDS ORDERED: INSULIN ASPART (NovoLOG) 100 UNIT/ML VIAL SQ ONE (14:29)
[2019-05-22] MEDS ORDERED: LIDOCAINE 1% INJ 10MG/ML (20 ML MDV) SQ ONE (14:31)
[2019-05-22] MEDS ORDERED: LIDOCAINE 1% INJ 10MG/ML (20 ML MDV) ONE (14:50)
[2019-05-22 16:02] LABS: Glucose,Whole Blood 238 mg/dL (75-99)
[2019-05-22 16:53] LABS: Glucose,Whole Blood 258 mg/dL (75-99)
[2019-05-22] MEDS ORDERED: INSULN ASP PRT/INSULIN ASPART 100 UNIT/ML 10 ML VIAL SQ SCH (17:30)
--- NOTE | 2019-05-22 19:47 | PN ---
PROGRESS NOTE DATE OF SERVICE: 05/22/2019 REASON FOR FOLLOWUP: Right foot osteomyelitis. INTERVAL HISTORY: The patient is currently afebrile. The patient has been breathing comfortably. Denies having any chest pain or any cough. No nausea, vomiting, abdominal pain or worsening pain to the right foot area. PHYSICAL EXAMINATION: Blood pressure is 110/67, pulse of 79, temperature 98.7. He is 93% on room air. General description is an elderly male lying in bed in no distress. RESPIRATORY SYSTEM: Unlabored breathing. Clear to auscultation anteriorly. HEART: S1, S2. Regular rate and rhythm. ABDOMEN: Soft. No tenderness. LABS: Creatinine 1.03. DIAGNOSTIC IMPRESSION AND PLAN: Patient with right foot osteomyelitis. Outpatient cultures were positive for Enterococcus faecalis and anaerobic Gram-negative bacilli. The patient does have a ZOSYN/PENICILLIN ALLERGY. Patient is currently covered with vancomycin; to continue along with Flagyl for a total of 6 weeks with weekly monitoring of CBC, BMP and sed rate. Continue with supportive care. MMODL / IJN: [id number] /
[2019-05-22 20:25] LABS: Glucose,Whole Blood 205 mg/dL (75-99)
[2019-05-22] MEDS ORDERED: INSULIN DETEMIR (LEVEMIR) 100 UNIT/ML SYR SQ SCH (21:00)
[2019-05-22 23:48] LABS: Hemoglobin A1C 6.4 % (4.0-6.0)
[2019-05-23] MEDS ORDERED: VANCOMYCIN TROUGH DUE 1 EACH MISC MISCELLANE ONE (07:00)
[2019-05-23 07:13] LABS: Glucose,Whole Blood 110 mg/dL (75-99)
[2019-05-23] MEDS: INSULIN ASPART (NovoLOG) 100 UNIT/ML VIAL SQ SCH ×5 (07:18→17:08)
[2019-05-23 07:29] LABS: HGB 12.3 gm/dL (13.0-17.5); MCH 31.4 pg (25.0-35.0); MCHC 33.3 g/dL (31.0-37.0); MCV 94.2 fL (80.0-100.0); Mean Platelet Volume 7.6; Platelet Count 404 k/uL (150-450); RBC 3.92 m/uL (4.30-5.90); RDW 14.1 % (11.5-15.5); WBC 9.6 k/uL (3.8-10.6)
[2019-05-23 07:54] LABS: African American GFR (CKD) >90 (>60 ml/min/1.73 sqM); Anion Gap 7 mmol/L; Blood Urea Nitrogen 17 mg/dL (9-20); Calcium 9.2 mg/dL (8.4-10.2); Carbon Dioxide 28 mmol/L (22-30); Chloride 105 mmol/L (98-107); Glucose 104 mg/dL (74-99); Non-African American GFR(CKD) 84 (>60 ml/min/1.73 sqM); Potassium 4.2 mmol/L (3.5-5.1); Sodium 140 mmol/L (137-145)
[2019-05-23] MEDS: VANCOMYCIN 1,750 MG in SODIUM CHLORIDE 0.9% 500 ML 500 ML IVPB SCH (08:23)
[2019-05-23] MEDS: CARBIDOPA-LEVODOPA 25-100 MG 1 EACH TAB PO SCH ×2 (08:25→21:02)
[2019-05-23] MEDS: metroNIDAZOLE 500 MG TAB PO SCH ×3 (08:25→21:02)
[2019-05-23] MEDS: DOCUSATE 100 MG CAP PO SCH ×2 (08:25→21:02)
[2019-05-23] MEDS: FUROSEMIDE 20 MG TAB PO SCH (08:25)
[2019-05-23] MEDS: MULTIVITAMINS, THERA 1 EACH TAB PO SCH (08:25)
[2019-05-23] MEDS: FERROUS SULFATE 325 MG TAB PO SCH (08:25)
[2019-05-23] MEDS: DIVALPROEX ER 500 MG TAB.ER.24H PO SCH ×2 (08:25→21:02)
[2019-05-23] MEDS: SODIUM CHLORIDE 0.9% 1,000 ML IV SCH ×2 (08:26→12:52)
[2019-05-23 08:52] LABS: Erythrocyte Sedimentation Rate 39 mm/hr (0-15)
[2019-05-23] MEDS: IPRATROPIUM-ALBUTEROL 3 ML NEB INHALATION PRN (11:15)
[2019-05-23 11:46] LABS: Glucose,Whole Blood 320 mg/dL (75-99)
[2019-05-23] MEDS ORDERED: ARTIFICIAL TEARS OINTMENT 3.5 GM TUBE BOTH EYES PRN (12:14)
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
--- NOTE | 2019-05-23 13:49 | P.PN ---
Subjective Progress Note Date: 05/23/19 Principal diagnosis: osteomyelitis Patient is a 69-year-old male with a past medical history of insulin- dependent diabetes 2, hypertension, GERD, prior closed head injury who presented at the direction of Dr. Jackson. [facility] found to have a positive culture from a bone biopsy on 05/13/19 that showed enterococcus and anerobic gram negative. He has a non healing wound on that foot. He was sent in for IV ABX and surgical evaluation. He has a hx of osteomyelitis in the right foot and has undergone an amputation on right great toe ray amputation in Apr 2018. He was started on vanco due to PCN allergy. He was seen by ID and flagyl was added for anerobic coverage. MRI showed diffuse edema and the second metatarsal and third metatarsal head consistent with osteomyelitis and enhancement of soft tissue in the forefoot consistent with phlegmon. Dr. Morrow was consulted as he is well-known to the patient, however the patient threatened to marisela him if he performed surgery on him. Of note the patient has a court-appointed guardian and was not his own decision care. Vascular surgery was consulted to assist in the care of this patient and then recommended debridement in the wound care center and consideration of surgery if fails antibiotics. PICC line placed and plan is for 6 days of Vanco and oral flagyl. Currently awaiting insurance auth for vanco will go home with [facility] care. Patient seen and examined at bedside. Awake and pleasant, no chest pain, SOB, or nausea. Sister present at bedside. All questions answered. Reports that he wants his eye drops, will attempt to find out RX from alf. Objective - Vital Signs Vital signs: Vital Signs Temp 98.4 F 05/23/19 01:53 Pulse 74 05/23/19 11:27 Resp 12 05/23/19 07:00 BP 148/86 05/23/19 07:00 Pulse Ox 94 L 05/23/19 07:00 Intake & Output 05/22/19 05/23/19 05/23/19 18:59 06:59 18:59 Intake Total 675 1195 Balance 675 1195 Weight 98 kg Intake: Intake, IV Titration 675 1175 Amount Sodium Chloride 0.9% 1, 675 675 000 ml @ 75 mls/hr IV . [id number] [facility] Rx#:[id number] Vancomycin 1,750 mg In 500 Sodium Chloride 0.9% 500 ml 500 ml @ 167 mls/hr IVPB Q16H [facility] Rx#: [id number] Oral 20 Other: Voiding Method Bedside Commode Bedside Commode Bedside Commode Diaper Diaper Diaper Incontinent Incontinent Incontinent # Voids 1 2 - Exam General: non toxic, no distress, appears at stated age Derm: warm, dry Head: atraumatic, normocephalic, symmetric Eyes: EOMI, no lid lag, anicteric sclera Mouth: no lip lesion, mucus membranes moist Cardiovascular: S1S2 reg, + murmur, positive posterior tibial pulse bilateral, Lungs: CTA bilateral, no rhonchi, no rales , no accessory muscle use Abdominal: soft, nontender to palpation, no guarding, no appreciable organomegaly Ext: Right foot with dressing in place, no gross muscle atrophy, no edema, no contractures Neuro: CN II-XI grossly intact, no focal neuro deficits Psych: Alert, oriented, pleasant and smiling - Labs CBC & Chem 7: 05/23/19 06:39 05/23/19 06:39 Labs: Abnormal Lab Results - Last 24 Hours (Table) 05/21/19 05/22/19 05/22/19 Range/Units 06:04 14:02 15:47 RBC (4.30-5.90) m/uL Hgb (13.0-17.5) gm/dL Hct (39.0-53.0) % ESR (0-15) mm/hr Glucose (74-99) mg/dL POC Glucose (mg/dL) 316 H 238 H (75-99) mg/dL Hemoglobin A1c 6.4 H (4.0-6.0) % 05/22/19 05/22/19 05/23/19 Range/Units 16:30 20:12 06:39 RBC (4.30-5.90) m/uL Hgb (13.0-17.5) gm/dL Hct (39.0-53.0) % ESR (0-15) mm/hr Glucose 104 H (74-99) mg/dL POC Glucose (mg/dL) 258 H 205 H (75-99) mg/dL Hemoglobin A1c (4.0-6.0) % 05/23/19 05/23/19 05/23/19 Range/Units 06:39 07:02 11:35 RBC 3.92 L (4.30-5.90) m/uL Hgb 12.3 L (13.0-17.5) gm/dL Hct 37.0 L (39.0-53.0) % ESR 39 H (0-15) mm/hr Glucose (74-99) mg/dL POC Glucose (mg/dL) 110 H 320 H (75-99) mg/dL Hemoglobin A1c (4.0-6.0) % Microbiology - Last 24 Hours (Table) 05/20/19 17:06 Blood Culture - Preliminary Blood No Growth after 48 hours Assessment and Plan Assessment: Osteomyelitis of the right foot - Plan IV vanco for 6 weeks with oral flagyl, outpatient follow-up with Dr. Rodriguez and Dr. Alfredo no plans for surgical debridement or intervention during this hospital stay. - MRI confirms osteomyelitis of the second and third metatarsal heads -CRP 27.7 -Elevate foot - non weight bearing right lower extremity - Await approval for IV ABX, PICC placed 05/22/2019 DM 2, insulin requiring -Asymptomatic hypoglycemia 05/21 -A1c 6.4 - levemir incresed - SSI and frixed dose. Plan on 70/30 and metformin again on discharge. - hold metformin -Follow blood sugars closely HTN - Lasix - follow blood pressure Parkinsons - sinement HLD -statin Hx of closed head injury - has a guardian Systolic murmur due to arotic sclerosis DVT prophylaxis: SCDs Discussed with: patient, nursing Anticipated discharge date: saturday Anticipated discharge place: Return to [facility] A total of 35 minutes was spent on the care of this complex patient more than 50% of the time was spent in counseling and care coordination.
[2019-05-23 17:06] LABS: Glucose,Whole Blood 421 mg/dL (75-99)
[2019-05-23 20:33] LABS: Glucose,Whole Blood 278 mg/dL (75-99)
[2019-05-23] MEDS: INSULIN DETEMIR (LEVEMIR) 100 UNIT/ML SYR SQ SCH (21:03)
[2019-05-24] MEDS: VANCOMYCIN 1,750 MG in SODIUM CHLORIDE 0.9% 500 ML 500 ML IVPB SCH ×2 (00:22→15:59)
[2019-05-24] MEDS: SODIUM CHLORIDE 0.9% 1,000 ML IV SCH ×2 (00:28→12:13)
[2019-05-24 07:08] LABS: Glucose,Whole Blood 131 mg/dL (75-99)
[2019-05-24] MEDS: INSULIN ASPART (NovoLOG) 100 UNIT/ML VIAL SQ SCH ×6 (07:22→17:14)
[2019-05-24] MEDS: MULTIVITAMINS, THERA 1 EACH TAB PO SCH (07:23)
[2019-05-24] MEDS: FERROUS SULFATE 325 MG TAB PO SCH (07:23)
[2019-05-24] MEDS: DOCUSATE 100 MG CAP PO SCH ×2 (07:23→21:14)
[2019-05-24] MEDS: DIVALPROEX ER 500 MG TAB.ER.24H PO SCH ×2 (07:23→21:13)
[2019-05-24] MEDS: CARBIDOPA-LEVODOPA 25-100 MG 1 EACH TAB PO SCH ×2 (07:23→21:13)
[2019-05-24] MEDS: metroNIDAZOLE 500 MG TAB PO SCH ×3 (07:23→21:13)
[2019-05-24] MEDS: FUROSEMIDE 20 MG TAB PO SCH (07:23)
[2019-05-24 07:24] LABS: African American GFR (CKD) >90 (>60 ml/min/1.73 sqM); Non-African American GFR(CKD) 87 (>60 ml/min/1.73 sqM)
[2019-05-24 11:58] LABS: Glucose,Whole Blood 255 mg/dL (75-99)
[2019-05-24 16:53] LABS: Glucose,Whole Blood 222 mg/dL (75-99)
--- NOTE | 2019-05-24 17:00 | P.PN ---
Subjective Progress Note Date: 05/24/19 Principal diagnosis: osteomyelitis Patient is a 69-year-old male with a past medical history of insulin- dependent diabetes 2, hypertension, GERD, prior closed head injury who presented at the direction of Dr. Jackson. He is being [facility] found to have a positive culture from a bone biopsy on 05/13/19 that showed enterococcus and anerobic gram negative. He has a non healing wound on that foot. He was sent in for IV ABX and surgical evaluation. He has a hx of osteomyelitis in the right foot and has undergone an amputation on right great toe ray amputation in Apr 2018. He was started on vanco due to PCN allergy. He was seen by ID and flagyl was added for anerobic coverage. MRI showed diffuse edema and the second metatarsal and third metatarsal head consistent with osteomyelitis and enhancement of soft tissue in the forefoot consistent with phlegmon. Dr. Morrow was consulted as he is well-known to the patient, however the patient threatened to marisela him if he performed surgery on him. Of note the patient has a court-appointed guardian and was not his own decision care. Vascular surgery was consulted to assist in the care of this patient and then recommended debridement in the wound care center and consideration of surgery if fails antibiotics. PICC line placed and plan is for 6 days of Vanco and oral flagyl. Currently awaiting insurance auth for vanco will go home with [facility]. Patient seen and examined at bedside. Appears more anxious and concerned today, denies any chest pain, shortness breath, nausea, or vomiting. Again fixated on rotating his insulin between his right and his left, her repeat this multiple times throughout through out our conversation. Objective - Vital Signs Vital signs: Vital Signs Temp 98.5 F 05/24/19 15:00 Pulse 90 05/23/19 23:54 Resp 18 05/24/19 15:00 BP 158/88 05/24/19 15:00 Pulse Ox 93 L 05/24/19 15:00 Intake & Output 05/23/19 05/24/19 05/24/19 18:59 06:59 18:59 Intake Total 950 375 Balance 950 375 Intake: Intake, IV Titration 950 375 Amount Sodium Chloride 0.9% 1, 450 375 000 ml @ 75 mls/hr IV . [id number] [facility] Rx#:[id number] Vancomycin 1,750 mg In 500 Sodium Chloride 0.9% 500 ml 500 ml @ 167 mls/hr IVPB Q16H [facility] Rx#: [id number] Other: Voiding Method Bedside Commode Bedside Commode Bedside Commode Diaper Diaper Diaper Incontinent Incontinent Incontinent # Voids 3 - Exam General: non toxic, no distress, appears at stated age Derm: warm, dry Head: atraumatic, normocephalic, symmetric Eyes: EOMI, no lid lag, anicteric sclera Mouth: no lip lesion, mucus membranes moist Cardiovascular: S1S2 reg, + murmur, positive posterior tibial pulse bilateral, Lungs: Decreased bs bilateral, no rhonchi, no rales , no accessory muscle use Ext: Right foot with dressing in place, no gross muscle atrophy, no edema, no contractures Neuro: CN II-XI grossly intact, no focal neuro deficits Psych: Alert, oriented, pleasant and smiling - Labs CBC & Chem 7: 05/23/19 06:39 05/24/19 06:34 Labs: Abnormal Lab Results - Last 24 Hours (Table) 05/23/19 05/23/19 05/24/19 Range/Units 16:55 20:21 06:55 POC Glucose (mg/dL) 421 H 278 H 131 H (75-99) mg/dL 05/24/19 05/24/19 Range/Units 11:47 16:42 POC Glucose (mg/dL) 255 H 222 H (75-99) mg/dL Microbiology - Last 24 Hours (Table) 05/20/19 17:06 Blood Culture - Preliminary Blood No Growth after 72 hours Assessment and Plan Assessment: Osteomyelitis of the right foot - Plan IV vanco for 6 weeks with oral flagyl, outpatient follow-up with Dr. Rodriguez and Dr. Alfredo no plans for surgical debridement or intervention during this hospital stay. - MRI confirms osteomyelitis of the second and third metatarsal heads -CRP 27.7 -Elevate foot - non weight bearing right lower extremity - Await approval for IV ABX, PICC placed 05/22/2019 DM 2, insulin requiring -Asymptomatic hypoglycemia 05/21 -A1c 6.4 - levemir - SSI and fixed dose increased. Plan on 70/30 and metformin again on discharge. - hold metformin -Follow blood sugars closely HTN - Lasix - follow blood pressure Parkinsons - sinement HLD -statin Hx of closed head injury - has a guardian Systolic murmur due to arotic sclerosis Return to [facility] once insurance auth obtained for vanco DVT prophylaxis: SCDs Discussed with: patient, nursing Anticipated discharge date: saturday Anticipated discharge place: Return to [facility] A total of 35 minutes was spent on the care of this complex patient more than 50% of the time was spent in counseling and care coordination.
[2019-05-24 20:27] LABS: Glucose,Whole Blood 160 mg/dL (75-99)
[2019-05-24] MEDS: INSULIN DETEMIR (LEVEMIR) 100 UNIT/ML SYR SQ SCH (20:41)
[2019-05-24] MEDS ORDERED: LATANOPROST 0.005% OPHTH DROPS 2.5 ML BTL BOTH EYES SCH (21:00)
--- NOTE | 2019-05-25 06:47 | PN ---
PROGRESS NOTE DATE OF SERVICE: 05/24/2019. REASON FOR FOLLOWUP: Right foot osteomyelitis. INTERVAL HISTORY: The patient is currently afebrile, has been breathing comfortably. Denies having any chest pain or any cough. No nausea, no vomiting. No abdominal pain or any worsening pain in the right foot. PHYSICAL EXAMINATION: Blood pressure 136/77 with a pulse of 80, temperature 98.3. He is 97% on room air. General description is an elderly male lying in bed in no distress. RESPIRATORY SYSTEM: Unlabored breathing, clear to auscultation anteriorly. HEART: S1, S2. Regular rate and rhythm. ABDOMEN: Soft, no tenderness. Right foot is currently dressed up. No obvious drainage on the dressing. LABS: Sed rate of 39. CRP 27.7. DIAGNOSTIC IMPRESSION AND PLAN: Patient with right foot osteomyelitis. Outpatient culture has been positive for Enterococcus faecalis and anaerobic gram-negative bacilli in this patient who did have a ZOSYN allergy. Currently covered with vancomycin and Flagyl, awaiting PICC line placement and outpatient IV antibiotic arrangement for discharge. Continue supportive care. MMODL / IJN: [id number] /
[2019-05-25 06:54] LABS: Glucose,Whole Blood 102 mg/dL (75-99)
[2019-05-25] MEDS ORDERED: VANCOMYCIN TROUGH DUE 1 EACH MISC MISCELLANE ONE (07:00)
[2019-05-25 07:49] VITALS: RESP 12; TEMP 98
[2019-05-25] MEDS: INSULIN ASPART (NovoLOG) 100 UNIT/ML VIAL SQ SCH ×4 (08:01→12:37)
[2019-05-25] MEDS: DIVALPROEX ER 500 MG TAB.ER.24H PO SCH (08:14)
[2019-05-25] MEDS: metroNIDAZOLE 500 MG TAB PO SCH (08:14)
[2019-05-25] MEDS: VANCOMYCIN 1,750 MG in SODIUM CHLORIDE 0.9% 500 ML 500 ML IVPB SCH (08:14)
[2019-05-25] MEDS: CARBIDOPA-LEVODOPA 25-100 MG 1 EACH TAB PO SCH (08:14)
[2019-05-25] MEDS: MULTIVITAMINS, THERA 1 EACH TAB PO SCH (08:14)
[2019-05-25] MEDS: FUROSEMIDE 20 MG TAB PO SCH (08:14)
[2019-05-25] MEDS: FERROUS SULFATE 325 MG TAB PO SCH (08:14)
[2019-05-25] MEDS: DOCUSATE 100 MG CAP PO SCH (08:14)
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
[2019-05-25 12:14] LABS: Glucose,Whole Blood 157 mg/dL (75-99)
[2019-05-25 16:12] VITALS: BP 176/76; PULSE 82
--- NOTE | 2019-05-25 18:32 | PN ---
PROGRESS NOTE DATE OF SERVICE: 05/25/2019 REASON FOR FOLLOW UP: Right foot osteomyelitis. INTERVAL HISTORY: The patient is currently afebrile. The patient is breathing comfortably. He denies having any chest pain or cough. No nausea, vomiting, abdominal pain or pain in the right foot. PHYSICAL EXAMINATION: Blood pressure is 136/80 with a pulse of 90, temperature 98, he is 96% on room air. General description is an elderly male lying in bed in no distress. Respiratory system: Unlabored breathing, clear to auscultation anteriorly. Heart S1, S2. Regular rate and rhythm. Abdomen soft, no tenderness. LABS: No new labs have been obtained today. His sed rate was 39. CRP was 27.7. Last ( ) 0.90. Vanco trough mildly elevated. DIAGNOSTIC IMPRESSION AND PLAN: Patient with right foot osteomyelitis. This patient's outpatient cultures have been positive for Enterococcus faecalis and anaerobic gram-negative bacilli. The patient is ALLERGIC TO PENICILLIN. Currently on vancomycin, dosing to be adjusted by the pharmacy to keep the trough around 15, to continue for a total of 6 weeks along with oral Flagyl with weekly monitoring of CBC and BMP with close outpatient followup. MMODL / IJN: [id number] /
[2019-05-26] MEDS ORDERED: VANCOMYCIN 1,500 MG in SODIUM CHLORIDE 0.9% 250 ML IVPB SCH ×2
--- NOTE | 2019-05-26 18:50 | IR ---
PICC LINE PLACEMENT: HISTORY: Infection requiring long-term antibiotic therapy PROCEDURE: Ultrasound and fluoroscopic guidance of PICC line placement. COMPLICATIONS: None ANESTHESIA: 1. 1% Lidocaine locally. FINDINGS/TECHNIQUE: The procedure was explained to the patient. The risks, complications, benefits and alternatives were discussed and any questions were answered. Informed consent was obtained. The patient was placed supine on the fluoroscopic table and prepped and draped in the usual sterile fash ion. Utilizing a 21 gauge needle and sonographic and fluoroscopic guidance, access in the right bas ilic vein was achieved and there is placement of a 0.018 guidewire. The vein is patent. A 4-F sheat h was placed over the guidewire. The guidewire and dilator were removed and a 4-F. PICC line was mariluz deb through the sheath with the tip at the level of the SVC. The sheath was removed, the catheter wa s flushed and sutured into position. The patient was stable throughout the procedure and remained st able upon discharge from the Department of Radiology. The vein puncture was patent under ultrasound. A rice scale image was obtained to document patency of the vein punctured. All elements of the maximal barrier technique were utilized. FLUOROSCOPY TIME: 0.3 minutes, one image submitted IMPRESSION: Successful PICC line placement under ultrasound and fluoroscopic guidance.
== END 2019-05-25 16:05 | disposition home health service (06) | DRG 638 ==
LOC: 4SSUR 12:55
PROVIDERS: ADMIT Internal Medicine; ATTEND Internal Medicine
PROC: 02HV33Z Insertion of Infusion Device into Superior Vena Cava, Percutaneous Approach (ICD-10-PCS; principal; 2019-05-22 13:45)
DX: E11.69 Type 2 diabetes mellitus with other specified complication (principal); M86.171 Other acute osteomyelitis, right ankle and foot; L97.516 Non-pressure chronic ulcer of other part of right foot with bone involvement without evidence of necrosis; E11.649 Type 2 diabetes mellitus with hypoglycemia without coma; G20 Parkinson's disease; E11.621 Type 2 diabetes mellitus with foot ulcer; I10 Essential (primary) hypertension; K21.9 Gastro-esophageal reflux disease without esophagitis; J45.909 Unspecified asthma, uncomplicated; F41.9 Anxiety disorder, unspecified; F32.9 Major depressive disorder, single episode, unspecified; E66.9 Obesity, unspecified; E78.5 Hyperlipidemia, unspecified; R29.818 Other symptoms and signs involving the nervous system; R32 Unspecified urinary incontinence; I35.8 Other nonrheumatic aortic valve disorders; B95.2 Enterococcus as the cause of diseases classified elsewhere; H04.123 Dry eye syndrome of bilateral lacrimal glands; R15.9 Full incontinence of feces; G40.909 Epilepsy, unspecified, not intractable, without status epilepticus; Z68.34 Body mass index [BMI] 34.0-34.9, adult; Z79.4 Long term (current) use of insulin; Z79.899 Other long term (current) drug therapy; Z89.411 Acquired absence of right great toe; Z87.820 Personal history of traumatic brain injury; Z86.14 Personal history of Methicillin resistant Staphylococcus aureus infection; Z90.81 Acquired absence of spleen; Z98.42 Cataract extraction status, left eye; Z98.41 Cataract extraction status, right eye; Z90.411 Acquired partial absence of pancreas; Z90.49 Acquired absence of other specified parts of digestive tract; Z88.1 Allergy status to other antibiotic agents; Z88.0 Allergy status to penicillin
CPT/HCPCS: 36573; 80048; 80053; 80202; 82565; 83036; 83735; 84100; 84134; 85027; 85610; 85652; 86140; 87040; 93306; 94640

== ENCOUNTER 2019-06-23 15:00 | Day surgery (SDC) | payer MEDICARE, OTHER ==
[2019-06-23 14:25] VITALS: BP 130/84; PULSE 91; RESP 14; TEMP 98.2
--- NOTE | 2019-06-23 16:25 | IR ---
EXAMINATION TYPE: IR cvc insert >=5 years DATE OF EXAM: 06/23/2019 COMPARISON: NONE CLINICAL HISTORY: Infection Needs long-term intravenous access for antibiotics. PROCEDURE: Hand hygiene obtained with soap and water and alcohol-based hand rub. After informed consent, the skin overlying the right brachial vein was localized with ultrasound and noted to be compressible and patent. Incidental note made of professional venous thrombosis in the ri ght basilic vein. An ultrasound image was obtained and submitted on the patient's chart. The overlyi ng skin was prepped and draped and Lidocaine was used for local anesthesia. A skin parisa was made wit h a scalpel. Access was gained to the vein under ultrasound guidance with a 21 gauge needle and a 0. 018 inch wire was advanced. Access site was dilated with Peel-Away sheath and catheter tailored to t he appropriate length and advanced such that the distal tip is at the cavoatrial junction. Spot imag e was obtained verifying placement. Catheter was fixed to the skin and a sterile dressing was placed following hemostasis. Catheter was aspirated and flushed with saline. Patient was discharged in st able condition without complication.Maximal barrier technique is utilized. Ultrasound image is docum ented on the chart. Ultrasound used with sterile technique. Fluoro time and fluoroscopic images submitted to document procedure: 17 intraoperative C-arm images, 0.8 minutes fluoroscopy time IMPRESSION: STATUS POST ULTRASOUND AND FLUOROSCOPIC GUIDED PICC LINE PLACEMENT, READY FOR USE. THIS PROCEDURE WAS PERFORMED BY THE UNDERSIGNED. Incidental note made of superficial venous thrombosis.
[2019-06-25 07:27] LABS: Glucose,Whole Blood 151 mg/dL (75-99)
== END 2019-06-23 17:30 ==
LOC: CATHCVL 15:00
PROVIDERS: ATTEND Radiology Diagnostic Radiology
DX: M86.9 Osteomyelitis, unspecified (principal); I82.611 Acute embolism and thrombosis of superficial veins of right upper extremity; Z88.1 Allergy status to other antibiotic agents
CPT/HCPCS: 36573; C1751; C1769

== ENCOUNTER 2020-03-06 16:22 | Inpatient (IN) | payer MEDICARE, OTHER ==
[2020-03-06] MEDS ORDERED: SODIUM CHLORIDE 0.9% 1,000 ML IV ONE ×2 (17:00→21:40)
--- NOTE | 2020-03-06 17:12 | ED ---
Altered Mental Status HPI - General Chief Complaint: Altered Mental Status Stated Complaint: Altered Mental Status Time Seen by Provider: 03/06/20 16:59 Source: patient, RN notes reviewed, old records reviewed, Caregiver Mode of arrival: wheelchair Limitations: no limitations - History of Present Illness Initial Comments: This is a 70-year-old male who refuses to answer questions or participating history taking. Patient's brought in by caregiver disease not acting himself shaky angry and altered mentally. History obtained by EMS and patient's prior charting MD Complaint: altered mental status, other (Angry and argumentative) -: hour(s) Severity: mild Consistency of Symptoms: waxing and waning, getting worse Associated Symptoms: denies other symptoms - Related Data Home Medications Medication Instructions Recorded Confirmed Eucerin Cream 1 applic TOPICAL HS@199912/30/19 03/06/20 RX: Ammonium Lactate Cream 1 applic TOPICAL DAILY@119912/30/19 03/06/20 [Lac-Hydrin 12% Cream] RX: Aspirin EC [Ecotrin Low Dose] 81 mg PO DAILY@79912/30/19 03/06/20 RX: Atorvastatin Calcium [Lipitor] 20 mg PO DAILY@0800 12/30/19 03/06/20 RX: Carbidopa/Levodopa 1 tab SUBLINGUAL BID@0800,159912/30/19 03/06/20 [Carbidopa-Levo 25-250 mg Odt] RX: Clotrimazole Topical Soln 2 drops TOPICAL HS@199912/30/19 03/06/20 [Mycelex Topical Soln] RX: Divalproex ER [Depakote ER] 1,000 mg PO BID@0800,159912/30/19 03/06/20 RX: Furosemide [Lasix] 20 mg PO DAILY@159912/30/19 03/06/20 RX: Gabapentin [Neurontin] 300 mg PO BID@0800,1600 12/30/19 03/06/20 RX: HYDROcodone/APAP 5-325MG 1 tab PO TID@0800,1400,199912/30/19 03/06/20 [[place] 5-325] RX: Latanoprost/Pf [Latanoprost 1 drop BOTH EYES HS@199912/30/19 03/06/20 0.005% Eye Drop] RX: Multivitamins, Thera 1 tab PO DAILY@0812/30/19 03/06/20 [Multivitamin (formulary)] RX: Pantoprazole [Protonix] 40 mg PO DAILY@79912/30/19 03/06/20 RX: Prochlorperazine [Compazine] 10 mg PO BID@0800,199912/30/19 03/06/20 RX: Sennosides/Docusate Sodium 2 tab PO HS@1600 PRN 12/30/19 03/06/20 [Senna Plus 8.6-50 mg Softgel] RX: Sertraline HCl [Zoloft] 75 mg PO DAILY@79912/30/19 03/06/20 RX: Sodium Chloride [Saline Nasal 1 spray EA NOSTRIL BID@08,199912/30/19 03/06/20 [place]] RX: amantadine HCL [Amantadine] 100 mg PO DAILY@0812/30/19 03/06/20 RX: metFORMIN HCL [Glucophage] 1,000 mg PO BID@0800,159912/30/19 03/06/20 Furosemide [Lasix] 40 mg PO DAILY@0803/06/20 03/06/20 Insulin Detemir [Levemir Flextouch] 15 units SQ HS@199903/06/20 03/06/20 Insulin Lispro [humaLOG Kwikpen] See Protocol SQ QID 03/06/20 03/06/20 Mupirocin [Mupirocin 2%] 1 applic TOPICAL BID@08,199903/06/20 03/06/20 RX: Metoprolol Tartrate [Lopressor] 50 mg PO BID@0800,159903/06/20 03/06/20 Vortioxetine Hydrobromide 10 mg PO DAILY@0803/06/20 03/06/20 [Trintellix] amLODIPine [Norvasc] 2.5 mg PO DAILY@0800 03/06/20 03/06/20 glipiZIDE XL [Glucotrol Xl] 10 mg PO DAILY@1600 03/06/20 03/06/20 Previous Rx's Medication Instructions Recorded RX: LORazepam [Ativan] 0.5 mg PO TID@0800,1400,1999 PRN #0 01/03/20 Allergies Allergy/AdvReac Type Severity Reaction Status Date / Time piperacillin [From Zosyn] Allergy Nausea & Verified 03/06/20 19:20 Vomiting tazobactam [From Zosyn] Allergy Nausea & Verified 03/06/20 19:20 Vomiting Review of Systems ROS Statement: Those systems with pertinent positive or pertinent negative responses have been documented in the HPI. ROS Other: All systems not noted in ROS Statement are negative. Past Medical History Past Medical History: Diabetes Mellitus, GERD/Reflux, Hyperlipidemia, Hypertension Additional Past Medical History / Comment(s): closed head injury, History of Any Multi-Drug Resistant Organisms: None Reported Past Surgical History: Unable to Obtain Past Anesthesia/Blood Transfusion Reactions: No Reported Reaction Smoking Status: Never smoker Past Alcohol Use History: None Reported Past Drug Use History: None Reported - Past Family History Father History Unknown: Yes General Exam - General Exam Comments Initial Comments: Left lower extremity cellulitis Limitations: no limitations General appearance: alert, in no apparent distress Head exam: Present: atraumatic, normocephalic, normal inspection Eye exam: Present: normal appearance, PERRL, EOMI. Absent: scleral icterus, conjunctival injection, periorbital swelling ENT exam: Present: normal exam, mucous membranes moist Neck exam: Present: normal inspection. Absent: tenderness, meningismus, lymphadenopathy Respiratory exam: Present: normal lung sounds bilaterally. Absent: respiratory distress, wheezes, rales, rhonchi, stridor Cardiovascular Exam: Present: regular rate, normal rhythm, normal heart sounds. Absent: systolic murmur, diastolic murmur, rubs, gallop, clicks GI/Abdominal exam: Present: soft, normal bowel sounds. Absent: distended, tenderness, guarding, rebound, rigid Extremities exam: Present: normal inspection, full ROM, normal capillary refill. Absent: tenderness, pedal edema, joint swelling, calf tenderness Back exam: Present: normal inspection Neurological exam: Present: alert, oriented X3, CN II-XII intact Psychiatric exam: Present: normal affect, normal mood Skin exam: Present: warm, dry, intact, normal color. Absent: rash Course Vital Signs 03/06/20 03/06/20 16:36 19:39 Temperature 97.3 F L Pulse Rate 85 79 Respiratory 18 18 Rate Blood Pressure 145/87 158/90 O2 Sat by Pulse 92 L 10 L Oximetry - Reevaluation(s) Reevaluation #1: 03/06/20 21:43 Medical record is reviewed Reevaluation #2: 03/06/20 21:43 Patient continues to say that he is going to marisela anyone who presents October asthma question Reevaluation #3: 03/06/20 21:43 Caregiver informed of results Medical Decision Making - Medical Decision Making 70 male for altered mental status agitation and shakiness, patient has left lower extremity cellulitis as well as altered mental status. Patient will admit for persistent evaluation treatment, IV antibiotics - Lab Data Result diagrams: 03/06/20 17:06 03/06/20 17:06 Lab Results 03/06/20 03/06/20 03/06/20 Range/Units 17:06 17:06 17:06 WBC 6.8 (3.8-10.6) k/uL RBC 3.72 L (4.30-5.90) m/uL Hgb 12.1 L (13.0-17.5) gm/dL Hct 36.0 L (39.0-53.0) % MCV 96.7 (80.0-100.0) fL MCH 32.6 (25.0-35.0) pg MCHC 33.7 (31.0-37.0) g/dL RDW 14.6 (11.5-15.5) % Plt Count 204 (150-450) k/uL Neutrophils % 69 % Lymphocytes % 20 % Monocytes % 7 % Eosinophils % 1 % Basophils % 2 % Neutrophils # 4.7 (1.3-7.7) k/uL Lymphocytes # 1.3 (1.0-4.8) k/uL Monocytes # 0.5 (0-1.0) k/uL Eosinophils # 0.1 (0-0.7) k/uL Basophils # 0.1 (0-0.2) k/uL PT 11.8 (9.0-12.0) sec INR 1.2 H (<1.2) APTT 27.3 (22.0-30.0) sec Sodium (137-145) mmol/L Potassium (3.5-5.1) mmol/L Chloride (98-107) mmol/L Carbon Dioxide (22-30) mmol/L Anion Gap mmol/L BUN (9-20) mg/dL Creatinine (0.66-1.25) mg/dL Est GFR (CKD-EPI)AfAm (>60 ml/min/1.73 sqM) Est GFR (CKD-EPI)NonAf (>60 ml/min/1.73 sqM) Glucose (74-99) mg/dL Plasma Lactic Acid Med (0.7-2.0) mmol/L Calcium (8.4-10.2) mg/dL Phosphorus (2.5-4.5) mg/dL Magnesium (1.6-2.3) mg/dL Total Bilirubin (0.2-1.3) mg/dL AST (17-59) U/L ALT (4-49) U/L Alkaline Phosphatase (38-126) U/L Ammonia (<30) umol/L Creatine Kinase (55-170) U/L Troponin I (0.000-0.034) ng/mL Total Protein (6.3-8.2) g/dL Albumin (3.5-5.0) g/dL TSH (0.465-4.680) mIU/L Urine Color Yellow Urine Appearance Clear (Clear) Urine pH 6.5 (5.0-8.0) Ur Specific [place] 1.018 (1.001-1.035) Urine Protein 1+ H (Negative) Urine Glucose (UA) 2+ H (Negative) Urine Ketones Trace H (Negative) Urine Blood Negative (Negative) Urine Nitrite Negative (Negative) Urine Bilirubin Negative (Negative) Urine Urobilinogen <2.0 (<2.0) mg/dL Ur Leukocyte Esterase Negative (Negative) Urine RBC 1 (0-5) /hpf Urine WBC <1 (0-5) /hpf Urine Opiates Screen Detected H (NotDetected) Ur Oxycodone Screen Not Detected (NotDetected) Urine Methadone Screen Not Detected (NotDetected) Ur Propoxyphene Screen Not Detected (NotDetected) Ur Barbiturates Screen Not Detected (NotDetected) U Tricyclic Antidepress Not Detected (NotDetected) Ur Phencyclidine Scrn Not Detected (NotDetected) Ur Amphetamines Screen Not Detected (NotDetected) U Methamphetamines Scrn Not Detected (NotDetected) U Benzodiazepines Scrn Detected H (NotDetected) Urine Cocaine Screen Not Detected (NotDetected) U Marijuana (THC) Screen Not Detected (NotDetected) Serum Alcohol mg/dL 03/06/20 03/06/20 03/06/20 Range/Units 17:06 17:06 17:06 WBC (3.8-10.6) k/uL RBC (4.30-5.90) m/uL Hgb (13.0-17.5) gm/dL Hct (39.0-53.0) % MCV (80.0-100.0) fL MCH (25.0-35.0) pg MCHC (31.0-37.0) g/dL RDW (11.5-15.5) % Plt Count (150-450) k/uL Neutrophils % % Lymphocytes % % Monocytes % % Eosinophils % % Basophils % % Neutrophils # (1.3-7.7) k/uL Lymphocytes # (1.0-4.8) k/uL Monocytes # (0-1.0) k/uL Eosinophils # (0-0.7) k/uL Basophils # (0-0.2) k/uL PT (9.0-12.0) sec INR (<1.2) APTT (22.0-30.0) sec Sodium 135 L (137-145) mmol/L Potassium 4.0 (3.5-5.1) mmol/L Chloride 100 (98-107) mmol/L Carbon Dioxide 28 (22-30) mmol/L Anion Gap 7 mmol/L BUN 26 H (9-20) mg/dL Creatinine 1.25 (0.66-1.25) mg/dL Est GFR (CKD-EPI)AfAm 68 (>60 ml/min/1.73 sqM) Est GFR (CKD-EPI)NonAf 58 (>60 ml/min/1.73 sqM) Glucose 259 H (74-99) mg/dL Plasma Lactic Acid Med 1.4 (0.7-2.0) mmol/L Calcium 8.6 (8.4-10.2) mg/dL Phosphorus 4.3 (2.5-4.5) mg/dL Magnesium 1.9 (1.6-2.3) mg/dL Total Bilirubin 0.4 (0.2-1.3) mg/dL AST 24 (17-59) U/L ALT 11 (4-49) U/L Alkaline Phosphatase 68 (38-126) U/L Ammonia <9 (<30) umol/L Creatine Kinase 110 (55-170) U/L Troponin I <0.012 (0.000-0.034) ng/mL Total Protein 6.4 (6.3-8.2) g/dL Albumin 3.3 L (3.5-5.0) g/dL TSH 1.100 (0.465-4.680) mIU/L Urine Color Urine Appearance (Clear) Urine pH (5.0-8.0) Ur Specific [place] (1.001-1.035) Urine Protein (Negative) Urine Glucose (UA) (Negative) Urine Ketones (Negative) Urine Blood (Negative) Urine Nitrite (Negative) Urine Bilirubin (Negative) Urine Urobilinogen (<2.0) mg/dL Ur Leukocyte Esterase (Negative) Urine RBC (0-5) /hpf Urine WBC (0-5) /hpf Urine Opiates Screen (NotDetected) Ur Oxycodone Screen (NotDetected) Urine Methadone Screen (NotDetected) Ur Propoxyphene Screen (NotDetected) Ur Barbiturates Screen (NotDetected) U Tricyclic Antidepress (NotDetected) Ur Phencyclidine Scrn (NotDetected) Ur Amphetamines Screen (NotDetected) U Methamphetamines Scrn (NotDetected) U Benzodiazepines Scrn (NotDetected) Urine Cocaine Screen (NotDetected) U Marijuana (THC) Screen (NotDetected) Serum Alcohol <10 mg/dL - EKG Data -: EKG Interpreted by Me (EKG shows sinus rhythm 79 [place] 204 QRS 88 QTc 474) - Radiology Data Radiology results: report reviewed (CT brain and chest x-ray are negative for acute disease), image reviewed Disposition Clinical Impression: Altered mental status, Weakness, Dehydration, Cellulitis of left leg Disposition: ADMITTED IP TO THIS HOSP Condition: Fair Is patient prescribed a controlled substance at d/c from ED?: No Referrals: Yovanny Dan MD [Primary Care Provider] - 1-2 days
[2020-03-06 17:55] LABS: Basophils # (A) 0.1 k/uL (0-0.2); Basophils % (A) 2 %; Eosinophils # (A) 0.1 k/uL (0-0.7); Eosinophils % (A) 1 %; HGB 12.1 gm/dL (13.0-17.5); Lymphocytes # (A) 1.3 k/uL (1.0-4.8); Lymphocytes % (A) 20 %; MCH 32.6 pg (25.0-35.0); MCHC 33.7 g/dL (31.0-37.0); MCV 96.7 fL (80.0-100.0); Mean Platelet Volume 7.8; Monocytes # (A) 0.5 k/uL (0-1.0); Monocytes % (A) 7 %; Neutrophils # (A) 4.7 k/uL (1.3-7.7); Neutrophils % (A) 69 %; Platelet Count 204 k/uL (150-450); RBC 3.72 m/uL (4.30-5.90); RDW 14.6 % (11.5-15.5); WBC 6.8 k/uL (3.8-10.6)
[2020-03-06 18:06] LABS: Lactic Acid, Venous 1.4 mmol/L (0.7-2.0)
[2020-03-06 18:09] LABS: ALT 11 U/L (4-49); AST 24 U/L (17-59); African American GFR (CKD) 68 (>60 ml/min/1.73 sqM); Albumin 3.3 g/dL (3.5-5.0); Alcohol <10 mg/dL; Alkaline Phosphatase 68 U/L (38-126); Anion Gap 7 mmol/L; Blood Urea Nitrogen 26 mg/dL (9-20); Calcium 8.6 mg/dL (8.4-10.2); Carbon Dioxide 28 mmol/L (22-30); Chloride 100 mmol/L (98-107); Creatine Kinase 110 U/L (55-170); Glucose 259 mg/dL (74-99); Magnesium 1.9 mg/dL (1.6-2.3); Non-African American GFR(CKD) 58 (>60 ml/min/1.73 sqM); Phosphorus 4.3 mg/dL (2.5-4.5); Sodium 135 mmol/L (137-145); Total Bilirubin 0.4 mg/dL (0.2-1.3); Total Protein 6.4 g/dL (6.3-8.2)
[2020-03-06] MEDS ORDERED: KETOROLAC 15 MG/ML 1 ML VIAL IVP STA (18:12)
[2020-03-06] MEDS ORDERED: ACETAMINOPHEN TAB 500 MG TAB PO STA (18:12)
[2020-03-06] MEDS ORDERED: DIAZEPAM 5 MG/ML 2 ML INJ IVP STA (18:12)
[2020-03-06 18:28] LABS: INR 1.2 (<1.2); Partial Thromboplastin Time 27.3 sec (22.0-30.0); Prothrombin Time 11.8 sec (9.0-12.0)
--- NOTE | 2020-03-06 19:25 | CT ---
EXAMINATION TYPE: CT brain wo con DATE OF EXAM: 03/06/2020 COMPARISON: 10/23/2018 HISTORY: Altered mental status CT DLP: 1104.4 mGycm Automated exposure control for dose reduction was used. There is cerebral cortical atrophy. There is no mass effect nor midline shift. There is no sign of in tracranial hemorrhage. There is some hypodensity inferior left temporal lobe. The calvarium is intact . IMPRESSION: Cerebral atrophy. No acute intracranial abnormality. 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 No kenney ge.
[2020-03-06 20:17] LABS: Appearance,Urine Clear (Clear); Bilirubin,Urine Negative (Negative); Blood,Urine Negative (Negative); Color,Urine Yellow; Glucose,Urine (UA) 2+ (Negative); Ketones,Urine Trace (Negative); Leukocyte Esterase,Urine Negative (Negative); Nitrite,Urine Negative (Negative); PH, Urine 6.5 (5.0-8.0); Protein,Urine 1+ (Negative); RBC,Urine 1 /hpf (0-5); Specific Gravity,Urine 1.018 (1.001-1.035); Urobilinogen,Urine <2.0 mg/dL (<2.0); WBC,Urine <1 /hpf (0-5)
[2020-03-06 20:21] LABS: Cocaine Screen,Urine Not Detected (NotDetected); Phencyclidine Screen,Urine Not Detected (NotDetected); Urn Cannabinoid Scrn Not Detected (NotDetected)
[2020-03-06 20:22] LABS: Amphetamine Screen,Urine Not Detected (NotDetected); Barbiturate Screen,Urine Not Detected (NotDetected); Benzodiazepines Screen,Urine Detected (NotDetected); Methadone Screen, Urine Not Detected (NotDetected); Opiate Screen,Urine Detected (NotDetected); Oxycodone Screen, Urine Not Detected (NotDetected); Tricyclic Antidepressant,Urine Not Detected (NotDetected)
--- NOTE | 2020-03-06 21:21 | XR ---
EXAMINATION TYPE: XR chest 1V portable DATE OF EXAM: 03/06/2020 COMPARISON: 05/04/2018 HISTORY: Cough TECHNIQUE: FINDINGS: There is an enlarged heart. There is poor inspiration with atelectasis and infiltrate at th e lung bases. There is pulmonary vascular congestion. IMPRESSION: Mild heart failure that appears new compared to old exam. There is increasing infiltrate and atelectasis at the lung bases compared to old exam.
[2020-03-06] MEDS ORDERED: LORazepam 2 MG/ML INJ IV PRN (21:41)
[2020-03-07 04:49] LABS: Glucose,Whole Blood 161 mg/dL (75-99)
[2020-03-07 07:20] LABS: Glucose,Whole Blood 192 mg/dL (75-99)
[2020-03-07] MEDS: PANTOPRAZOLE 40 MG/10 ML VIAL IVP SCH (09:16)
[2020-03-07] MEDS: ONDANSETRON 4 MG/2 ML VIAL IVP PRN ×2 (09:16→17:05)
[2020-03-07] MEDS ORDERED: FUROSEMIDE 10 MG/ML 4 ML VIAL IV STA (10:52)
[2020-03-07 12:20] LABS: Glucose,Whole Blood 230 mg/dL (75-99)
[2020-03-07] MEDS ORDERED: SENNOSIDES-DOCUSATE SODIUM 1 EACH TAB PO PRN (13:52)
[2020-03-07] MEDS ORDERED: LORazepam 0.5 MG TAB PO PRN (14:00)
[2020-03-07] MEDS: HYDROcodone/APAP 5-325MG 1 EACH TAB PO SCH ×2 (14:19→20:19)
[2020-03-07] MEDS: GABAPENTIN 300 MG CAP PO SCH (16:48)
[2020-03-07] MEDS: METOPROLOL TARTRATE 50 MG TAB PO SCH (16:48)
[2020-03-07] MEDS: metFORMIN 500 MG TAB PO SCH (16:48)
[2020-03-07] MEDS: FUROSEMIDE 20 MG TAB PO SCH (16:48)
[2020-03-07] MEDS: DIVALPROEX ER 500 MG TAB.ER.24H PO SCH (16:48)
[2020-03-07] MEDS: CARBIDOPA-LEVODOPA 25-250 MG 1 EACH TAB PO SCH (16:51)
[2020-03-07] MEDS: glipiZIDE 5 MG TAB PO SCH (17:05)
[2020-03-07 17:07] LABS: Glucose,Whole Blood 206 mg/dL (75-99)
[2020-03-07] MEDS: INSULIN ASPART (NovoLOG) 100 UNIT/ML VIAL SQ SCH ×2 (18:04→20:20)
[2020-03-07 20:13] LABS: Glucose,Whole Blood 239 mg/dL (75-99)
[2020-03-07] MEDS: INSULIN DETEMIR (LEVEMIR) 100 UNIT/ML SYR SQ SCH (20:20)
[2020-03-07] MEDS: CLOTRIMAZOLE 1% CREAM 15 GM TUBE TOPICAL SCH (20:20)
[2020-03-07] MEDS: LATANOPROST 0.005% OPHTH DROPS 2.5 ML BTL BOTH EYES SCH (20:20)
[2020-03-07] MEDS: MUPIROCIN 2% OINT 22 GM TUBE TOPICAL SCH (20:20)
[2020-03-07] MEDS: SODIUM CHLORIDE 0.65% NASAL SPRAY 44 ML BTL INTRANASAL SCH (20:21)
[2020-03-07] MEDS: MINERAL OIL-WHITE PETROLATUM 120 GM JAR TOPICAL SCH (20:21)
[2020-03-07] MEDS: PROCHLORPERAZINE 10 MG TAB PO SCH (20:35)
[2020-03-08 06:18] LABS: Basophils # (A) 0.1 k/uL (0-0.2); Basophils % (A) 1 %; Eosinophils # (A) 0.1 k/uL (0-0.7); Eosinophils % (A) 1 %; HCT 39.7 % (39.0-53.0); HGB 12.9 gm/dL (13.0-17.5); Lymphocytes # (A) 2.9 k/uL (1.0-4.8); Lymphocytes % (A) 37 %; MCH 31.8 pg (25.0-35.0); MCHC 32.4 g/dL (31.0-37.0); MCV 98.2 fL (80.0-100.0); Monocytes # (A) 0.5 k/uL (0-1.0); Monocytes % (A) 6 %; Neutrophils # (A) 4.1 k/uL (1.3-7.7); Neutrophils % (A) 53 %; Platelet Count 192 k/uL (150-450); RBC 4.05 m/uL (4.30-5.90); RDW 14.5 % (11.5-15.5); WBC 7.8 k/uL (3.8-10.6)
[2020-03-08] MEDS: INSULIN ASPART (NovoLOG) 100 UNIT/ML VIAL SQ SCH ×4 (07:13→21:08)
[2020-03-08 07:23] LABS: Glucose,Whole Blood 55 mg/dL (75-99)
[2020-03-08 07:25] LABS: Glucose,Whole Blood 51 mg/dL (75-99)
[2020-03-08 07:48] LABS: Glucose,Whole Blood 81 mg/dL (75-99)
[2020-03-08] MEDS: PANTOPRAZOLE 40 MG/10 ML VIAL IVP SCH (08:00)
[2020-03-08] MEDS: VORTIOXETINE HYDROBROMIDE 10 MG TABLET PO SCH (08:00)
[2020-03-08] MEDS: amLODIPine 2.5 MG TAB PO SCH (08:00)
[2020-03-08] MEDS: ASPIRIN 81 MG PO SCH (08:01)
[2020-03-08] MEDS: ATORVASTATIN 20 MG TAB PO SCH (08:01)
[2020-03-08] MEDS: CARBIDOPA-LEVODOPA 25-250 MG 1 EACH TAB PO SCH ×2 (08:01→17:44)
[2020-03-08] MEDS: MULTIVITAMINS, THERA 1 EACH TAB PO SCH (08:01)
[2020-03-08] MEDS: FUROSEMIDE 40 MG TAB PO SCH (08:01)
[2020-03-08] MEDS: DIVALPROEX ER 500 MG TAB.ER.24H PO SCH ×2 (08:01→17:43)
[2020-03-08] MEDS: METOPROLOL TARTRATE 50 MG TAB PO SCH ×2 (08:02→17:42)
[2020-03-08] MEDS: HYDROcodone/APAP 5-325MG 1 EACH TAB PO SCH ×3 (08:02→21:08)
[2020-03-08] MEDS: GABAPENTIN 300 MG CAP PO SCH ×2 (08:02→17:43)
[2020-03-08] MEDS: metFORMIN 500 MG TAB PO SCH ×2 (08:03→17:43)
[2020-03-08] MEDS: PROCHLORPERAZINE 10 MG TAB PO SCH ×2 (08:03→21:08)
[2020-03-08] MEDS: SERTRALINE 50 MG TAB PO SCH (08:03)
[2020-03-08] MEDS: glipiZIDE 5 MG TAB PO SCH ×2 (08:04→17:44)
[2020-03-08] MEDS: MUPIROCIN 2% OINT 22 GM TUBE TOPICAL SCH ×2 (08:13→21:09)
[2020-03-08] MEDS: SODIUM CHLORIDE 0.65% NASAL SPRAY 44 ML BTL INTRANASAL SCH ×2 (08:14→21:09)
--- NOTE | 2020-03-08 08:28 | HP ---
HISTORY AND PHYSICAL DATE OF SERVICE: 03/07/2020 CHIEF COMPLAINT: Change in mental status and cellulitis. HISTORY OF PRESENT ILLNESS: This 70-year-old gentleman with a past medical history of multiple medical problems, including diabetes mellitus, GERD, hypertension, hyperlipidemia, history of closed-head injury, history of abnormal movements, being followed by Dr. Dan in the outpatient setting, was admitted with change in mental status. The patient's caregiver thought that the patient was shaking and angry and had some change in mental status. Patient has some erythema of the left lower leg and there is some callus formation in the right foot also. The foot is deformed. The patient is shaking. The patient is admitted for further evaluation and treatment for possible cellulitis. There is no history of any fever, rigor or chills. No history of trauma. The patient is unable to give a coherent history. Most of the history is taken from my discussion with staff as well as review of chart at this time. PAST MEDICAL HISTORY: History of diabetes mellitus, GERD, hypertension, hyperlipidemia, closed-head injury. HOME MEDICATIONS: Trintellix, mupirocin, saline nasal spray, Compazine, Zoloft, Senna, Glucophage, multivitamins, Lopressor, Ativan, Levemir, Latanoprost, [place], Humalog, Glucotrol, Neurontin, Lasix, Eucerin, Depakote, Mycelex, carbidopa L-dopa, Norvasc. Lipitor, Ecotrin, amantadine. ALLERGIES: ZOSYN. Family history, social history, review of systems could not be taken because of change in mental status. Previous history of smoking, per chart. PHYSICAL EXAMINATION: Patient is conscious, confused. Pulse 82, blood pressure 157/78, respiration 16, temperature 98 degrees, T-max 100 degrees, pulse ox 96% on 2 L. HEENT: Conjunctivae normal. NECK: No jugular venous distention. CARDIOVASCULAR SYSTEM: S1, S2 muffled. RESPIRATORY SYSTEM: Breath sounds diminished at the bases. Bilateral scattered rhonchi and crackles. ABDOMEN: Soft, non-tender. LEGS: Significant erythema of the left lower leg and some cellulitic process in the right foot also present. NERVOUS SYSTEM: No focal deficit. LABS: WBC 6.8, hemoglobin 12.1. INR 1.2. Sodium 135. Glucose 161. UA noted. ASSESSMENT: 1. Acute cellulitis of the left leg and the right foot with possible sepsis. 2. Change in mental status, acute on chronic metabolic encephalopathy. 3. Hyponatremia. 4. Anemia, normocytic anemia of chronic disease. 5. Diabetes mellitus, type 2. 6. Gastroesophageal reflux disease. 7. Hypertension. 8. Hyperlipidemia. 9. Gait dysfunction. 10.History of closed-head injury. 11.Remote history of nicotine dependence. 12.Obesity with body mass index 35.4. RECOMMENDATIONS AND DISCUSSION: In this 70-year-old gentleman who presented with multiple complex medical issues, we will monitor the patient closely, continue the current medications, continue symptomatic treatment. Otherwise at this time I would recommend broad-spectrum IV antibiotics and cultures. Resume the home medications. Monitor fluid/electrolyte balance closely. I would also recommend infectious disease evaluation. Repeat labs. Prognosis is guarded because of multiple complex medical issues. Further recommendations to follow. A copy of this dictation is being forwarded to Dr. Dan, who is the primary physician. MMODL / IJN: [id number] /
[2020-03-08 09:44] LABS: African American GFR (CKD) 58.6 (60.0-200.0); Anion Gap 8.3 mmol/L (4.00-12.00); BUN/Creat Ratio 15.71 Ratio (12.00-20.00); Calcium 8.5 mg/dL (8.7-10.3); Carbon Dioxide 30.7 mmol/L (21.6-31.8); Potassium 4.9 mmol/L (3.5-5.5)
--- NOTE | 2020-03-08 11:49 | CONS ---
CONSULTATION DATE OF SERVICE: 03/07/2020. REASON FOR CONSULTATION: Lower extremity cellulitis. HISTORY OF PRESENT ILLNESS: The patient is a 70-year-old male who was brought to the ER at [facility] yesterday by the caregiver with concern for the patient not acting himself. Patient is noticed to be shaky, angry and did have some mental status changes. Noticed to have some swelling and erythema to the left lower extremity. With these symptoms the patient was evaluated by the ER physician. On arrival to the ER, the patient was afebrile. Subsequently, spiked a fever of 100 degrees Fahrenheit this morning. The patient did have a normal white count with no left shift. Kidney function was normal. Liver enzymes are normal. Urine was negative. Urine drug screen was positive for benzo and opiates: was normal. Patient did have CT of the brain negative for any bleed. Chest x-ray with mild heart failure. Patient did have a history of a ZOSYN allergy. Patient was started on Rocephin 1 g daily with concern for left lower extremity cellulitis. Infectious Disease was consulted for further management. Patient at time of my evaluation, denies significant pain to the left lower extremity. Patient did have mild swelling and redness, but denies any history of any trauma or drainage from the left leg. No chest pain. No shortness of breath. No cough. No abdominal pain or any diarrhea. REVIEW OF SYSTEMS: Positive points have been mentioned in HPI. Rest of systems negative. PAST MEDICAL HISTORY: Diabetes mellitus, hypertension, hyperlipidemia, gastroesophageal reflux disease, and closed head injury. PAST SURGICAL HISTORY: No major surgery reported. SOCIAL HISTORY: No history of smoking, drinking or drug use. FAMILY HISTORY: No pertinent findings noticed. ALLERGIES: To ZOSYN with a rash. No history of anaphylaxis. Has tolerated Rocephin without any problem. MEDICATIONS: Include the patient is currently on Rocephin 1 g q.12 hours. He is on clotrimazole cream, Depakote, , Lasix, Neurontin, Glucotrol, Levemir, Ativan, Glucophage, Lopressor, cream, aspirin, Norvasc, [place]. PHYSICAL EXAMINATION: Blood pressure is 133/78 with a pulse of 66, temperature 98.3, he is 98% on 2 L nasal cannula. General description is an elderly male lying in bed in no distress. HEENT: Shows no pallor or scleral icterus. Oral mucosa membrane is moist, no pharyngeal erythema, no thrush. NECK: Trachea central, no thyromegaly. LUNGS: Unlabored breathing, decreased breath sounds in the base. No wheeze. HEART: S1, S2. Regular rate and rhythm. ABDOMEN: Soft, no tenderness. No guarding or rigidity. EXTREMITIES: Left leg did have minimal swelling, slight redness, minimal warmth. No open wound or any drainage. NEUROLOGIC: The patient is awake, alert, oriented. Mood and affect normal. LABS: Hemoglobin is 12.1, white count of 6.8, BUN of 26, creatinine 1.5. Liver enzymes normal. Electrolytes are normal. Urine negative. IMPRESSION: 1. Patient with mental status changes which is likely multifactorial in this patient with concern for possible left lower extremity cellulitis in this patient did have diffuse swelling and redness, likely streptococcal disease. 2. Patient with PENICILLIN allergy that will limit the number of antibiotics safe to use; however, has tolerated cephalosporins without any problem. PLAN: 1. Discontinue the Rocephin. 2. Will start the patient on cefazolin 2 g q.8 hours. 3. We will follow on clinical condition and culture to further adjust medication if needed. Thank you for this consultation. Will follow this patient along with you. MMODL / IJN: [id number] /
[2020-03-08 12:19] LABS: Glucose,Whole Blood 240 mg/dL (75-99)
[2020-03-08] MEDS: AMMONIUM LACTATE 12% CREAM 140 GM TUBE TOPICAL SCH (14:15)
[2020-03-08 14:29] LABS: Non-African American GFR(CKD) 50.5 (60.0-200.0)
[2020-03-08 16:47] LABS: Glucose,Whole Blood 199 mg/dL (75-99)
--- NOTE | 2020-03-08 16:49 | PN ---
PROGRESS NOTE DATE OF SERVICE: 03/08/2020 This 70-year-old gentleman who was admitted with acute cellulitis of the left leg is being closely monitored. Patient also had a callus lesion on the right foot. The patient is on broad-spectrum IV antibiotics. No chest pain. No palpitations. No fever. Review of systems could not be taken; the patient is confused. PHYSICAL EXAMINATION: On exam, alert and oriented x3. The pulse is 70, blood pressure 160/77, respiration 18, temperature 99.2, pulse ox 98% on 2 L. HEENT: Conjunctivae normal. NECK: No jugular venous distention. CARDIOVASCULAR SYSTEM: S1, S2 muffled. RESPIRATORY SYSTEM: Breath sounds diminished at the bases. A few scattered rhonchi and crackles. ABDOMEN: Soft, non-tender. LEGS: Leg cellulitis. NERVOUS SYSTEM: No focal deficit. CURRENT MEDICATIONS: Reviewed. They include Moz[place], Symmetrel, Norvasc, aspirin, Lipitor, Sinemet, cefazolin, Lotrimin, Depakote, Lasix, Neurontin, NovoLog, Levemir, lactic acid, Ativan, Glucophage, lopressor, Bactroban, multivitamins, Protonix, Compazine, Senokot, Zoloft, sodium chloride, Trintellix. ASSESSMENT: 1. Acute cellulitis of the left leg with right foot with possible sepsis, present on admission. 2. Change in mental status, acute on chronic metabolic encephalopathy, multifactorial. 3. Diabetes mellitus, type 2, uncontrolled with hypoglycemia. 4. Hyponatremia. 5. Anemia, normocytic anemia of chronic disease. 6. Gastroesophageal reflux disease. 7. Hypertension. 8. Hyperlipidemia. 9. Gait dysfunction. 10.History of closed-head injury. 11.Remote history of nicotine dependence. 12.Obesity with body mass index of 35.4. RECOMMENDATIONS AND DISCUSSION: I recommend to continue current medications, continue with the monitoring, symptomatic treatment. Will adjust the diabetic medications as well as insulin. Continue with IV antibiotics. Patient was started on cefazolin by Infectious Disease. Will continue to follow the cultures, which are negative so far. Will continue to monitor. Further recommendations to follow. MMODL / IJN: [id number] /
[2020-03-08] MEDS: FUROSEMIDE 20 MG TAB PO SCH (17:43)
[2020-03-08 20:43] LABS: Glucose,Whole Blood 206 mg/dL (75-99)
[2020-03-08] MEDS: LATANOPROST 0.005% OPHTH DROPS 2.5 ML BTL BOTH EYES SCH (21:08)
[2020-03-08] MEDS: INSULIN DETEMIR (LEVEMIR) 100 UNIT/ML SYR SQ SCH (21:08)
[2020-03-08] MEDS: CLOTRIMAZOLE 1% CREAM 15 GM TUBE TOPICAL SCH (21:09)
[2020-03-08] MEDS: MINERAL OIL-WHITE PETROLATUM 120 GM JAR TOPICAL SCH (21:09)
[2020-03-09 02:46] LABS: Glucose,Whole Blood 160 mg/dL (75-99)
--- NOTE | 2020-03-09 05:10 | PN ---
PROGRESS NOTE DATE OF SERVICE: 03/08/2020 REASON FOR FOLLOWUP: Left lower extremity cellulitis. INTERVAL HISTORY: The patient is currently afebrile. The patient is breathing comfortably. Denies having any chest pain or shortness of breath or cough. No nausea, no vomiting. No abdominal pain, or worsening pain to the left leg. PHYSICAL EXAMINATION: Blood pressure 114/63 with a pulse of 56, temperature 97.7. He is 93% on 2 L nasal cannula. General description is an elderly male lying in bed in no distress. RESPIRATORY SYSTEM: Unlabored breathing, clear to auscultation anteriorly. HEART: S1, S2. Regular rate and rhythm. ABDOMEN: Soft, no tenderness. Left leg swelling and redness slightly decreased. LABS: Hemoglobin is 12.9, white count 7.8. BUN of 22, creatinine is 1.4. DIAGNOSTIC IMPRESSION AND PLAN: Patient with acute left lower extremity cellulitis in this patient covered with cefazolin to continue and will monitor his clinical course closely. Continue supportive care. MMODL / IJN: [id number] /
[2020-03-09 06:50] LABS: Basophils # (A) 0.1 k/uL (0-0.2); Basophils % (A) 1 %; Eosinophils # (A) 0.1 k/uL (0-0.7); Eosinophils % (A) 1 %; HCT 41.5 % (39.0-53.0); HGB 13.5 gm/dL (13.0-17.5); Hypochromasia Slight; Lymphocytes # (A) 2.9 k/uL (1.0-4.8); Lymphocytes % (A) 35 %; MCH 32.1 pg (25.0-35.0); MCHC 32.5 g/dL (31.0-37.0); MCV 98.7 fL (80.0-100.0); Macrocytosis Slight; Mean Platelet Volume 7.8; Monocytes # (A) 0.5 k/uL (0-1.0); Monocytes % (A) 6 %; Neutrophils # (A) 4.6 k/uL (1.3-7.7); Neutrophils % (A) 57 %; Platelet Count 203 k/uL (150-450); RBC 4.21 m/uL (4.30-5.90); RDW 14.8 % (11.5-15.5); WBC 8.2 k/uL (3.8-10.6)
[2020-03-09 06:59] LABS: Glucose,Whole Blood 120 mg/dL (75-99)
[2020-03-09] MEDS: SERTRALINE 50 MG TAB PO SCH (08:39)
[2020-03-09] MEDS: GABAPENTIN 300 MG CAP PO SCH ×2 (08:40→15:49)
[2020-03-09] MEDS: HYDROcodone/APAP 5-325MG 1 EACH TAB PO SCH ×3 (08:40→21:52)
[2020-03-09] MEDS: VORTIOXETINE HYDROBROMIDE 10 MG TABLET PO SCH (08:40)
[2020-03-09] MEDS: PANTOPRAZOLE 40 MG/10 ML VIAL IVP SCH (08:40)
[2020-03-09] MEDS: metFORMIN 500 MG TAB PO SCH ×2 (08:40→15:49)
[2020-03-09] MEDS: METOPROLOL TARTRATE 50 MG TAB PO SCH ×2 (08:40→15:49)
[2020-03-09] MEDS: MULTIVITAMINS, THERA 1 EACH TAB PO SCH (08:40)
[2020-03-09] MEDS: ATORVASTATIN 20 MG TAB PO SCH (08:40)
[2020-03-09] MEDS: ASPIRIN 81 MG PO SCH (08:40)
[2020-03-09] MEDS: PROCHLORPERAZINE 10 MG TAB PO SCH ×2 (08:40→23:08)
[2020-03-09] MEDS: DIVALPROEX ER 500 MG TAB.ER.24H PO SCH ×2 (08:41→15:50)
[2020-03-09] MEDS: amLODIPine 2.5 MG TAB PO SCH (08:41)
[2020-03-09] MEDS: FUROSEMIDE 40 MG TAB PO SCH (08:41)
[2020-03-09] MEDS: CARBIDOPA-LEVODOPA 25-250 MG 1 EACH TAB PO SCH ×2 (08:41→15:49)
[2020-03-09] MEDS: INSULIN ASPART (NovoLOG) 100 UNIT/ML VIAL SQ SCH ×4 (08:41→21:50)
[2020-03-09] MEDS: glipiZIDE 5 MG TAB PO SCH ×2 (08:41→15:49)
[2020-03-09] MEDS: SODIUM CHLORIDE 0.65% NASAL SPRAY 44 ML BTL INTRANASAL SCH ×2 (08:42→21:52)
[2020-03-09] MEDS: MUPIROCIN 2% OINT 22 GM TUBE TOPICAL SCH ×2 (08:42→21:52)
[2020-03-09 09:30] LABS: African American GFR (CKD) 64.1 (60.0-200.0); Anion Gap 7.3 mmol/L (4.00-12.00); BUN/Creat Ratio 16.15 Ratio (12.00-20.00); Calcium 8.4 mg/dL (8.7-10.3); Carbon Dioxide 28.7 mmol/L (21.6-31.8); Non-African American GFR(CKD) 55.3 (60.0-200.0); Potassium 4.6 mmol/L (3.5-5.5)
[2020-03-09 11:28] LABS: Glucose,Whole Blood 112 mg/dL (75-99)
[2020-03-09] MEDS: AMMONIUM LACTATE 12% CREAM 140 GM TUBE TOPICAL SCH (11:45)
[2020-03-09] MEDS: FUROSEMIDE 20 MG TAB PO SCH (15:49)
[2020-03-09 17:10] LABS: Glucose,Whole Blood 51 mg/dL (75-99)
[2020-03-09 17:26] LABS: Glucose,Whole Blood 58 mg/dL (75-99)
[2020-03-09 17:36] LABS: Glucose,Whole Blood 96 mg/dL (75-99)
--- NOTE | 2020-03-09 17:56 | PN ---
PROGRESS NOTE DATE OF SERVICE: 03/09/2020 This 70-year-old gentleman who was admitted with acute cellulitis of the left leg is being closely monitored. No chest pain. No palpitations. Sensorium is unchanged. The cultures are negative so far. The labs are reviewed. PHYSICAL EXAMINATION: The patient is nonverbal. Pulse 61, blood pressure 107/62, respirations 17, temperature 98.7, pulse ox 94% on 2 L. HEENT: Conjunctivae normal. NECK: No jugular venous distention. CARDIOVASCULAR SYSTEM: S1, S2 muffled. RESPIRATORY SYSTEM: Breath sounds diminished at the bases. Scattered rhonchi. ABDOMEN: Soft, non-tender. LEGS: Cellulitis. NERVOUS SYSTEM: Unchanged. LABS: CBC within normal limits. Glucose 115. ASSESSMENT: 1. Acute cellulitis of the left leg with right foot with possible sepsis, present on admission. 2. Change in mental status, acute on chronic metabolic encephalopathy, multifactorial. 3. Diabetes mellitus, type 2, uncontrolled with hypoglycemia. 4. Hyponatremia. 5. Anemia, normocytic anemia of chronic disease. 6. Gastroesophageal reflux disease. 7. Hypertension. 8. Hyperlipidemia. 9. Gait dysfunction. 10.History of closed-head injury. 11.Remote history of nicotine dependence. 12.Obesity with body mass index of 35.4. RECOMMENDATIONS AND DISCUSSION: I recommend to continue current medications, continue with the monitoring, symptomatic treatment. Otherwise, at this time I would recommend monitoring the blood sugars closely. Continue with the antibiotics. Prognosis guarded because of multiple complex medical issues. further recommendations to follow. MMODL / IJN: [id number] / MTDD
[2020-03-09 20:28] LABS: Glucose,Whole Blood 219 mg/dL (75-99)
[2020-03-09] MEDS: INSULIN DETEMIR (LEVEMIR) 100 UNIT/ML SYR SQ SCH (21:49)
[2020-03-09] MEDS: LATANOPROST 0.005% OPHTH DROPS 2.5 ML BTL BOTH EYES SCH (21:51)
[2020-03-09] MEDS: CLOTRIMAZOLE 1% CREAM 15 GM TUBE TOPICAL SCH (21:51)
[2020-03-09] MEDS: MINERAL OIL-WHITE PETROLATUM 120 GM JAR TOPICAL SCH (21:52)
--- NOTE | 2020-03-09 23:17 | PN ---
PROGRESS NOTE DATE OF SERVICE: 03/09/2020 REASON FOR FOLLOWUP: Left lower extremity cellulitis. INTERVAL HISTORY: The patient is currently afebrile. The patient is breathing comfortably. Denies having any chest pain or shortness of breath or cough. No nausea, vomiting, abdominal pain or pain to the left lower extremity. PHYSICAL EXAMINATION: Blood pressure 114/55, pulse of 50, temperature of 98.5. He is 99% on 2 L nasal cannula. General description is a elderly male lying in bed in no distress. RESPIRATORY SYSTEM: Unlabored breathing. Clear to auscultation anteriorly. HEART: S1, S2. Regular rate and rhythm. ABDOMEN: Soft. No tenderness. Left leg swelling and redness slightly decreased. DIAGNOSTIC IMPRESSION AND PLAN: Patient with acute left lower extremity cellulitis with diffuse swelling and redness. Patient is covered with cefazolin; to continue. Finish therapy with oral Keflex and monitor clinical course closely. MMODL / IJN: [id number] /
[2020-03-10 01:41] LABS: Glucose,Whole Blood 125 mg/dL (75-99)
[2020-03-10] MEDS: ONDANSETRON 4 MG/2 ML VIAL IVP PRN (01:59)
[2020-03-10] MEDS ORDERED: ACETAMINOPHEN TAB 325 MG TAB PO PRN (04:02)
[2020-03-10 06:59] LABS: Basophils % (A) 1 %; Eosinophils % (A) 0 %; HCT 36.2 % (39.0-53.0); HGB 12.2 gm/dL (13.0-17.5); Lymphocytes # (A) 1.7 k/uL (1.0-4.8); Lymphocytes % (A) 26 %; MCH 32.4 pg (25.0-35.0); MCHC 33.7 g/dL (31.0-37.0); MCV 96.1 fL (80.0-100.0); Mean Platelet Volume 7.8; Monocytes # (A) 0.5 k/uL (0-1.0); Monocytes % (A) 7 %; Neutrophils # (A) 4.2 k/uL (1.3-7.7); Neutrophils % (A) 65 %; Platelet Count 201 k/uL (150-450); RBC 3.77 m/uL (4.30-5.90); RDW 14.4 % (11.5-15.5); WBC 6.5 k/uL (3.8-10.6)
[2020-03-10 07:21] LABS: Glucose,Whole Blood 111 mg/dL (75-99)
[2020-03-10] MEDS: INSULIN ASPART (NovoLOG) 100 UNIT/ML VIAL SQ SCH ×4 (07:34→20:42)
[2020-03-10] MEDS: HYDROcodone/APAP 5-325MG 1 EACH TAB PO SCH ×3 (08:24→20:20)
[2020-03-10] MEDS: ASPIRIN 81 MG PO SCH (08:24)
[2020-03-10] MEDS: GABAPENTIN 300 MG CAP PO SCH ×2 (08:24→15:44)
[2020-03-10] MEDS: glipiZIDE 5 MG TAB PO SCH ×2 (08:24→17:41)
[2020-03-10] MEDS: amLODIPine 2.5 MG TAB PO SCH (08:24)
[2020-03-10] MEDS: FUROSEMIDE 40 MG TAB PO SCH (08:25)
[2020-03-10] MEDS: DIVALPROEX ER 500 MG TAB.ER.24H PO SCH ×2 (08:25→15:44)
[2020-03-10] MEDS: MULTIVITAMINS, THERA 1 EACH TAB PO SCH (08:25)
[2020-03-10] MEDS: METOPROLOL TARTRATE 50 MG TAB PO SCH ×2 (08:25→15:44)
[2020-03-10] MEDS: ATORVASTATIN 20 MG TAB PO SCH (08:25)
[2020-03-10] MEDS: PANTOPRAZOLE 40 MG TABLET PO SCH (08:26)
[2020-03-10] MEDS: CARBIDOPA-LEVODOPA 25-250 MG 1 EACH TAB PO SCH ×2 (08:27→15:44)
[2020-03-10] MEDS: metFORMIN 500 MG TAB PO SCH ×2 (08:28→15:44)
[2020-03-10] MEDS: MUPIROCIN 2% OINT 22 GM TUBE TOPICAL SCH ×2 (08:28→20:23)
[2020-03-10] MEDS: VORTIOXETINE HYDROBROMIDE 10 MG TABLET PO SCH (08:28)
[2020-03-10] MEDS: SERTRALINE 50 MG TAB PO SCH (08:28)
[2020-03-10] MEDS: SODIUM CHLORIDE 0.65% NASAL SPRAY 44 ML BTL INTRANASAL SCH ×2 (08:28→20:23)
[2020-03-10] MEDS: PROCHLORPERAZINE 10 MG TAB PO SCH ×2 (08:28→20:20)
[2020-03-10 10:22] LABS: African American GFR (CKD) 70.6 (60.0-200.0); Anion Gap 7.7 mmol/L (4.00-12.00); BUN/Creat Ratio 16.67 Ratio (12.00-20.00); Calcium 8.4 mg/dL (8.7-10.3); Carbon Dioxide 32.3 mmol/L (21.6-31.8); Non-African American GFR(CKD) 60.9 (60.0-200.0)
[2020-03-10 11:27] LABS: Glucose,Whole Blood 127 mg/dL (75-99)
[2020-03-10] MEDS: AMMONIUM LACTATE 12% CREAM 140 GM TUBE TOPICAL SCH (13:07)
[2020-03-10] MEDS: FUROSEMIDE 20 MG TAB PO SCH (15:44)
[2020-03-10 17:27] LABS: Glucose,Whole Blood 128 mg/dL (75-99)
[2020-03-10 19:54] LABS: Glucose,Whole Blood 149 mg/dL (75-99)
[2020-03-10] MEDS: MINERAL OIL-WHITE PETROLATUM 120 GM JAR TOPICAL SCH (20:23)
[2020-03-10] MEDS: LATANOPROST 0.005% OPHTH DROPS 2.5 ML BTL BOTH EYES SCH (20:23)
[2020-03-10] MEDS: INSULIN DETEMIR (LEVEMIR) 100 UNIT/ML SYR SQ SCH (20:42)
--- NOTE | 2020-03-10 20:57 | XR ---
EXAMINATION TYPE: XR chest 1V portable DATE OF EXAM: 03/10/2020 COMPARISON: 03/06/2020 HISTORY: Cough There is pulmonary airspace edema. There is blunting of the costophrenic angles. Heart is enlarged. IMPRESSION: Congestive heart failure with pleural effusions and pulmonary edema that is the same or s lightly worse than recent exam.
--- NOTE | 2020-03-10 21:19 | PN ---
PROGRESS NOTE DATE OF SERVICE: 03/10/2020 This 70-year-old gentleman who was admitted with acute cellulitis was running fever. A Covid test has come back positive today. The patient closely monitored. No chest pain. No palpitations. No fever. Past medical history reviewed. REVIEW OF SYSTEMS: Review of systems could not be taken, the patient is confused. CURRENT MEDICATIONS: Reviewed and include: 1. Tylenol. 2. [place]. 3. Symmetrel. 4. Norvasc. 5. Aspirin. 6. Lipitor. 7. Sinemet. 9. Lasix. 10.Neurontin. 11.Glucotrol. 12.NovoLog. 13.Celexa. 14.Ativan. 15.Metformin. 16.Doses are reviewed. PHYSICAL EXAM: Patient is conscious, nonverbal. Pulse 66, blood pressure 120/77, respirations 20, temperature 99.1, T-max 100.5, pulse ox 98% on 3 L. HEENT: Conjunctivae normal. NECK: No JVD. CARDIOVASCULAR: S1, S2 muffled. RESPIRATORY: Breath sounds diminished in the bases. Bilateral scattered rhonchi and crackles. ABDOMEN: Soft, nontender. LEGS are no edema. No swelling. LABS: WBC 6.2, hemoglobin 12.2. ASSESSMENT: 1. Acute cellulitis of the right foot with possible sepsis present on admission. 2. Covid-19 positive. 3. Mild hypoxia with acute hypoxic respiratory failure, rule out pneumonia. 4. Change in mental status with acute on chronic metabolic encephalopathy multifactorial. 5. Diabetes mellitus type 2, uncontrolled with hypoglycemia. 6. Hyponatremia. 7. Anemia, normocytic anemia of chronic disease. 8. Gastroesophageal reflux disease. 9. Hypertension. 10.Hyperlipidemia. 11.History of gait dysfunction. 12.History of closed-head injury. 13.Remote history of nicotine dependence. 14.Obesity with body mass index of 35.4. RECOMMENDATIONS AND DISCUSSION: Recommend to continue current medications, monitoring and symptomatic treatment. Otherwise at this time I would order the inflammatory markers with Covid. I would also order a portable chest x-ray and closely follow with Dr. Rodriguez. Continue the rest of medications. Already on antibiotics. Prognosis guarded. Further recommendations to follow. MMODL / IJN: [id number] / MTDD
[2020-03-10 21:22] LABS: C Reactive Protein 188.3 mg/L (<10.0)
[2020-03-10] MEDS ORDERED: AZITHROMYCIN 500 MG in SODIUM CHLORIDE 0.9% 250 ML IVPB ONE (22:00)
[2020-03-10] MEDS: ENOXAPARIN 40 MG/0.4 ML SYRINGE SQ SCH (22:27)
[2020-03-10] MEDS: ZINC SULFATE 220 MG CAP PO SCH (22:27)
[2020-03-10] MEDS: dexAMETHasone 2 MG TAB PO SCH (22:27)
--- NOTE | 2020-03-10 23:17 | PN ---
PROGRESS NOTE DATE OF SERVICE: 03/10/2020 REASON FOR FOLLOWUP: 1. Left lower extremity cellulitis. 2. Positive COVID test. INTERVAL HISTORY: The patient did have a low-grade fever this morning of 100.5 degrees Fahrenheit. The patient also noticed to be slightly hypoxic requiring supplemental oxygen. The patient has been breathing comfortably . Denies any chest pain or cough. No nausea, no vomiting. No abdominal pain or diarrhea or pain to the left lower extremity. PHYSICAL EXAMINATION: Blood pressure 122/73 with a pulse of 66, temperature 99.1, T-max 100.5. He is 90% on 3 L nasal cannula. General description is an elderly male lying in bed in no distress. RESPIRATORY SYSTEM: Unlabored breathing, decreased breath sounds in the bases. No wheeze. HEART: S1, S2. Regular rate and rhythm. ABDOMEN: Soft, no tenderness. LABS: [place] PCR was positive. CRP is 188. LDH is normal. Lactic acid normal. D-dimer was normal. Chest x-ray completed this evening shows congestive heart failure, pleural effusion slightly worse than recent exam. DIAGNOSTIC IMPRESSION AND PLAN: 1. Patient with left lower extremity cellulitis for which the patient is currently covered with cefazolin. 2. Patient now with new fever and concern for possible COVID-19 infection. The patient will be empirically started on Lovenox, Zithromax, Decadron, zinc sulfate, off to droplet isolation. We will also check nasopharyngeal swab PCR for confirmation of his COVID-19 and continue supportive care. MMODL / IJN: [id number] /
[2020-03-10] MEDS: CLOTRIMAZOLE 1% CREAM 15 GM TUBE TOPICAL SCH (23:45)
[2020-03-11 04:30] LABS: Ferritin 548.8 ng/mL (22.0-322.0)
[2020-03-11 06:56] LABS: Basophils % (A) 1 %; Eosinophils % (A) 0 %; HCT 38.5 % (39.0-53.0); HGB 13.1 gm/dL (13.0-17.5); Lymphocytes % (A) 21 %; MCH 32.5 pg (25.0-35.0); MCV 95.7 fL (80.0-100.0); Mean Platelet Volume 8.4; Monocytes # (A) 0.2 k/uL (0-1.0); Monocytes % (A) 4 %; Neutrophils # (A) 3.4 k/uL (1.3-7.7); Neutrophils % (A) 73 %; Platelet Count 203 k/uL (150-450); RBC 4.03 m/uL (4.30-5.90); RDW 14.3 % (11.5-15.5); WBC 4.6 k/uL (3.8-10.6)
[2020-03-11 07:24] LABS: Glucose,Whole Blood 208 mg/dL (75-99)
[2020-03-11] MEDS: DIVALPROEX ER 500 MG TAB.ER.24H PO SCH ×2 (08:32→17:40)
[2020-03-11] MEDS: ATORVASTATIN 20 MG TAB PO SCH (08:32)
[2020-03-11] MEDS: PANTOPRAZOLE 40 MG TABLET PO SCH (08:32)
[2020-03-11] MEDS: FUROSEMIDE 40 MG TAB PO SCH (08:32)
[2020-03-11] MEDS: HYDROcodone/APAP 5-325MG 1 EACH TAB PO SCH ×3 (08:32→21:59)
[2020-03-11] MEDS: GABAPENTIN 300 MG CAP PO SCH ×2 (08:32→17:40)
[2020-03-11] MEDS: metFORMIN 500 MG TAB PO SCH ×2 (08:33→17:40)
[2020-03-11] MEDS: MULTIVITAMINS, THERA 1 EACH TAB PO SCH (08:33)
[2020-03-11] MEDS: ZINC SULFATE 220 MG CAP PO SCH (08:33)
[2020-03-11] MEDS: ENOXAPARIN 40 MG/0.4 ML SYRINGE SQ SCH (08:33)
[2020-03-11] MEDS: METOPROLOL TARTRATE 50 MG TAB PO SCH ×2 (08:33→17:40)
[2020-03-11] MEDS: AZITHROMYCIN 500 MG TAB PO SCH (08:33)
[2020-03-11] MEDS: dexAMETHasone 2 MG TAB PO SCH (08:33)
[2020-03-11] MEDS: SERTRALINE 50 MG TAB PO SCH (08:33)
[2020-03-11] MEDS: INSULIN ASPART (NovoLOG) 100 UNIT/ML VIAL SQ SCH ×4 (08:34→22:00)
[2020-03-11] MEDS: ASPIRIN 81 MG PO SCH (08:36)
[2020-03-11] MEDS: MUPIROCIN 2% OINT 22 GM TUBE TOPICAL SCH ×2 (08:42→22:02)
[2020-03-11] MEDS: SODIUM CHLORIDE 0.65% NASAL SPRAY 44 ML BTL INTRANASAL SCH ×2 (08:42→22:02)
[2020-03-11] MEDS: glipiZIDE 5 MG TAB PO SCH ×2 (09:37→17:40)
[2020-03-11] MEDS: PROCHLORPERAZINE 10 MG TAB PO SCH ×2 (09:37→22:00)
[2020-03-11] MEDS: CARBIDOPA-LEVODOPA 25-250 MG 1 EACH TAB PO SCH ×2 (09:37→17:40)
[2020-03-11] MEDS: amLODIPine 2.5 MG TAB PO SCH (09:37)
[2020-03-11] MEDS: VORTIOXETINE HYDROBROMIDE 10 MG TABLET PO SCH (09:37)
[2020-03-11] MEDS: AMMONIUM LACTATE 12% CREAM 140 GM TUBE TOPICAL SCH (09:38)
[2020-03-11 10:06] LABS: C Reactive Protein 19.8 mg/dL (0.0-0.8)
[2020-03-11 11:39] LABS: Glucose,Whole Blood 300 mg/dL (75-99)
[2020-03-11 13:34] VITALS: BMI 35.4
[2020-03-11 17:23] LABS: Glucose,Whole Blood 263 mg/dL (75-99)
[2020-03-11] MEDS: FUROSEMIDE 20 MG TAB PO SCH (17:40)
[2020-03-11] MEDS: CLOTRIMAZOLE 1% CREAM 15 GM TUBE TOPICAL SCH (21:52)
[2020-03-11 21:53] LABS: Glucose,Whole Blood 293 mg/dL (75-99)
[2020-03-11] MEDS: INSULIN DETEMIR (LEVEMIR) 100 UNIT/ML SYR SQ SCH (22:00)
[2020-03-11] MEDS: LATANOPROST 0.005% OPHTH DROPS 2.5 ML BTL BOTH EYES SCH (22:01)
[2020-03-11] MEDS: MINERAL OIL-WHITE PETROLATUM 120 GM JAR TOPICAL SCH (22:02)
--- NOTE | 2020-03-11 22:43 | PN ---
PROGRESS NOTE DATE OF SERVICE: 03/11/2020 REASON FOR FOLLOWUP: 1. Left lower extremity cellulitis. 2. Possible COVID-19 infection. INTERVAL HISTORY: Patient is currently afebrile. Patient is breathing comfortably. The patient denies having any chest pain, minimal cough, not bringing up any sputum. No nausea, no vomiting. No abdominal pain or pain to the left lower extremity. PHYSICAL EXAMINATION: Blood pressure 115/41 with a pulse of 78, temperature 96.8. He is 92% on room air. General description is an elderly male up in the chair in no distress. Respiratory system: Unlabored breathing. Extremities: No edema of the feet. LABS: Ferritin is 548. CRP yesterday was 118, it is down to 19.8. elevated. IMPRESSION/PLAN: 1. Patient with left lower extremity cellulitis, to continue with cefazolin. 2. Patient now with possible COVID-19 infection pneumonia in this patient clinically responded to the Zithromax. Dexamethasone and Lovenox to continue while waiting for the PCR testing for the Covid-19 and continue with droplet isolation. MMODL / IJN: [id number] /
[2020-03-12 07:52] LABS: Glucose,Whole Blood 217 mg/dL (75-99)
[2020-03-12] MEDS: ENOXAPARIN 40 MG/0.4 ML SYRINGE SQ SCH (09:20)
[2020-03-12] MEDS: INSULIN ASPART (NovoLOG) 100 UNIT/ML VIAL SQ SCH ×4 (09:20→20:20)
[2020-03-12] MEDS: ASPIRIN 81 MG PO SCH (09:24)
[2020-03-12] MEDS: SERTRALINE 50 MG TAB PO SCH (09:24)
[2020-03-12] MEDS: DIVALPROEX ER 500 MG TAB.ER.24H PO SCH ×2 (09:25→15:20)
[2020-03-12] MEDS: metFORMIN 500 MG TAB PO SCH ×2 (09:25→17:56)
[2020-03-12] MEDS: METOPROLOL TARTRATE 50 MG TAB PO SCH ×2 (09:25→15:21)
[2020-03-12] MEDS: ATORVASTATIN 20 MG TAB PO SCH (09:26)
[2020-03-12] MEDS: HYDROcodone/APAP 5-325MG 1 EACH TAB PO SCH ×3 (09:26→20:20)
[2020-03-12] MEDS: AZITHROMYCIN 500 MG TAB PO SCH (09:26)
[2020-03-12] MEDS: GABAPENTIN 300 MG CAP PO SCH ×2 (09:26→15:20)
[2020-03-12] MEDS: PANTOPRAZOLE 40 MG TABLET PO SCH (09:26)
[2020-03-12] MEDS: FUROSEMIDE 40 MG TAB PO SCH (09:26)
[2020-03-12] MEDS: dexAMETHasone 2 MG TAB PO SCH (09:27)
[2020-03-12] MEDS: CARBIDOPA-LEVODOPA 25-250 MG 1 EACH TAB PO SCH ×2 (09:27→15:20)
[2020-03-12] MEDS: glipiZIDE 5 MG TAB PO SCH ×2 (09:29→17:56)
[2020-03-12] MEDS: amLODIPine 2.5 MG TAB PO SCH (09:29)
[2020-03-12] MEDS: VORTIOXETINE HYDROBROMIDE 10 MG TABLET PO SCH (09:29)
[2020-03-12] MEDS: PROCHLORPERAZINE 10 MG TAB PO SCH ×2 (09:29→20:30)
[2020-03-12] MEDS: MULTIVITAMINS, THERA 1 EACH TAB PO SCH (09:32)
[2020-03-12] MEDS: ZINC SULFATE 220 MG CAP PO SCH (09:32)
[2020-03-12] MEDS: SODIUM CHLORIDE 0.65% NASAL SPRAY 44 ML BTL INTRANASAL SCH ×2 (09:34→20:22)
[2020-03-12] MEDS: MUPIROCIN 2% OINT 22 GM TUBE TOPICAL SCH ×2 (09:34→20:21)
[2020-03-12 12:32] LABS: Glucose,Whole Blood 187 mg/dL (75-99)
[2020-03-12] MEDS: AMMONIUM LACTATE 12% CREAM 140 GM TUBE TOPICAL SCH (12:48)
[2020-03-12] MEDS: FUROSEMIDE 20 MG TAB PO SCH (15:20)
[2020-03-12 17:28] LABS: Glucose,Whole Blood 184 mg/dL (75-99)
--- NOTE | 2020-03-12 17:35 | CONS ---
CONSULTATION HISTORY: This is a 70-year-old male patient who was seen in the emergency room on March 06. He apparently was brought in by a caregiver in a wheelchair. The patient apparently was not giving any history in the emergency room. He was apparently refusing to answer any questions or participate in history taking. Apparently the reason for bringing the patient in with mental status change. It is unclear to me as to whether or not the patient is having any respiratory issues at this point. He did test positive for COVID- 19 on March 10. In addition, a chest x-ray on March 06 showed infiltrative atelectatic changes at the lung bases, and a repeat chest x-ray on March 10 showed changes of congestive heart failure and pleural effusion. Again, it is currently very difficult to get any history from this patient. MEDICATIONS: Reviewed. He is on Eucerin cream, Lac-Hydrin lotion, Ecotrin, Lipitor, carbidopa/levodopa, Mycelex tropical solution, Depakote ER, Lasix gabapentin, [place], eye drops, multivitamins Protonix, Compazine, senna, Zoloft, saline nasal spray, amantadine, metformin, Lasix insulin, metoprolol, Trintellix, amlodipine Glucotrol, and Ativan. ALLERGIES: Zosyn. MEDICAL HISTORY: Diabetes mellitus, GERD, hyperlipidemia, hypertension. He also has a history of closed head injury. SURGICAL HISTORY: Unknown. SOCIAL HISTORY: Negative for tobacco, alcohol or illicit drug use. FAMILY HISTORY: Unknown. REVIEW OF SYSTEMS: Not obtainable. PHYSICAL EXAM: Current vital signs are reviewed. Temperature 96.9, heart rate 52, respiratory rate 20, blood pressure 123/66, saturations are 92% on the 40% venturi mask. Appears in no acute distress. HEENT: Examination is grossly unremarkable. NECK: Supple cardiovascular examination reveals regular rhythm rate. Heart sounds are distant. Heart rate 53 beats per minute. LUNGS: Reveal some bibasilar crackles. There are some expiratory rhonchi. No wheezes. ABDOMEN: Soft. EXTREMITIES: Intact. Minimal edema. SKIN: Without rash. NEUROLOGIC: Examination is difficult to assess. The patient is mostly nonverbal. LABS: Reviewed. White count 4.6, hemoglobin 13.1, hematocrit 38.5, platelet count 203,000. D-dimer 0.29. Sodium 139, , chloride 99, CO2 of 32, anion gap is 7.7, BUN and creatinine were 20 and 1.2. LDH was 253 down from 599. C-reactive protein is 19.8 down from 188 and procalcitonin level 0.13. COVID testing was positive as mentioned. Microbiology is negative. Chest x-ray from March 10, showed changes primarily of fluid overload. There is cardiomegaly and bilateral effusions and it would be difficult to know whether not there is any underlying pneumonia as well. CURRENT MEDICATIONS: Reviewed. Currently, he is on Atenolol, amantadine, amlodipine, Lac-Hydrin lotion, aspirin Lipitor, Zithromax, Sinemet, Ancef, Lotrimin cream, Decadron, Depakote Lovenox, Lasix, gabapentin, [place] insulin, eye drops, Ativan, metformin, Eucerin cream, multivitamins, Bactroban ointment, Zofran Protonix, Compazine, Senokot, Zoloft, saline nasal spray, Trintellix, and zinc. ASSESSMENT: 1. COVID-19 positive, difficult to know whether not the patient is symptomatic. 2. Fluid overload/CHF versus COVID-19 pneumonia. 3. History of diabetes. 4. History of gastroesophageal reflux disease. 5. History of hypertension. 6. History of hyperlipidemia. 7. History of closed head injury. PLAN: The patient's Lasix will be switched to IV. Additional recommendations and suggestions forthcoming. Prognosis is guarded. We will continue to monitor the patient closely. Followup chest x-ray. No additional recommendations are made. MMODL / IJN: [id number] / TEJAS
[2020-03-12] MEDS: FUROSEMIDE 10 MG/ML 4 ML VIAL IV SCH (20:19)
[2020-03-12] MEDS: MINERAL OIL-WHITE PETROLATUM 120 GM JAR TOPICAL SCH (20:21)
[2020-03-12] MEDS: LATANOPROST 0.005% OPHTH DROPS 2.5 ML BTL BOTH EYES SCH (20:21)
[2020-03-12] MEDS: CLOTRIMAZOLE 1% CREAM 15 GM TUBE TOPICAL SCH (20:21)
[2020-03-12 20:30] LABS: Glucose,Whole Blood 222 mg/dL (75-99)
[2020-03-12] MEDS: INSULIN DETEMIR (LEVEMIR) 100 UNIT/ML SYR SQ SCH (20:47)
--- NOTE | 2020-03-12 23:05 | PN ---
PROGRESS NOTE DATE OF SERVICE: 03/12/2020 REASON FOR FOLLOWUP: 1. Left leg cellulitis. 2. Covid-19 infection. INTERVAL HISTORY: Patient is currently afebrile. The patient's nurse noticed possible choking on the food/water. Diet has been adjusted. Patient still requiring supplemental oxygen. No vomiting or diarrhea reported or any other changes in clinical condition. PHYSICAL EXAMINATION: Blood pressure 134/66, pulse of 54, temperature 97. He is 93% on 5 L nasal cannula. General description is an elderly male lying in bed in no distress. Respiratory system: Unlabored breathing, decreased intensity of breath sounds reported by the nursing staff. Extremities: No edema of the feet. LABS: No new labs have been obtained today. DIAGNOSTIC IMPRESSION/PLAN: 1. Patient with left leg cellulitis. Currently covered with cefazolin. 2. Patient with Covid positive and hypoxemia and possible aspiration as per the nursing staff. The patient has been started on IV Lasix. We will see response to it. Continue with dexamethasone, Lovenox, iron sulfate and monitor clinical course closely. MMODL / IJN: [id number] /
[2020-03-13 05:20] LABS: Basophils # (A) 0.1 k/uL (0-0.2); Basophils % (A) 1 %; Eosinophils % (A) 0 %; HCT 41.4 % (39.0-53.0); HGB 13.5 gm/dL (13.0-17.5); Lymphocytes # (A) 1.6 k/uL (1.0-4.8); Lymphocytes % (A) 15 %; MCH 31.5 pg (25.0-35.0); MCHC 32.6 g/dL (31.0-37.0); MCV 96.5 fL (80.0-100.0); Mean Platelet Volume 9.2; Monocytes # (A) 0.6 k/uL (0-1.0); Monocytes % (A) 6 %; Neutrophils # (A) 8.7 k/uL (1.3-7.7); Neutrophils % (A) 76 %; Platelet Count 344 k/uL (150-450); RBC 4.29 m/uL (4.30-5.90); RDW 14.4 % (11.5-15.5); WBC 11.3 k/uL (3.8-10.6)
[2020-03-13 07:51] LABS: Glucose,Whole Blood 206 mg/dL (75-99)
--- NOTE | 2020-03-13 08:14 | XR ---
EXAMINATION TYPE: XR chest 1V portable DATE OF EXAM: 03/13/2020 HISTORY: Shortness of breath. COMPARISON: 03/10/2020 TECHNIQUE: Single view of the chest is submitted. FINDINGS: Demonstrated are scattered senescent parenchymal change. Persistent right upper lobe, right perihilar and right lower lobe infiltrate as well as left perihila r and left lower lobe infiltrate. No pleural effusions are noted. The heart is stable. Hilar and mediastinal structures are within normal limits. Degenerative changes are seen of the dorsal spine. IMPRESSION: 1. Findings suggest underlying pneumonia likely Covid 19 pneumonia. Correlate clinically.
[2020-03-13] MEDS: ATORVASTATIN 20 MG TAB PO SCH (08:19)
[2020-03-13] MEDS: AZITHROMYCIN 500 MG TAB PO SCH (08:19)
[2020-03-13] MEDS: GABAPENTIN 300 MG CAP PO SCH ×2 (08:19→16:44)
[2020-03-13] MEDS: PANTOPRAZOLE 40 MG TABLET PO SCH (08:19)
[2020-03-13] MEDS: SERTRALINE 50 MG TAB PO SCH (08:21)
[2020-03-13] MEDS: DIVALPROEX ER 500 MG TAB.ER.24H PO SCH ×2 (08:22→16:41)
[2020-03-13] MEDS: MULTIVITAMINS, THERA 1 EACH TAB PO SCH (08:23)
[2020-03-13] MEDS: HYDROcodone/APAP 5-325MG 1 EACH TAB PO SCH ×3 (08:23→22:17)
[2020-03-13] MEDS: metFORMIN 500 MG TAB PO SCH ×2 (08:23→16:41)
[2020-03-13] MEDS: INSULIN ASPART (NovoLOG) 100 UNIT/ML VIAL SQ SCH ×4 (08:24→22:32)
[2020-03-13] MEDS: ENOXAPARIN 40 MG/0.4 ML SYRINGE SQ SCH (08:25)
[2020-03-13] MEDS: FUROSEMIDE 10 MG/ML 4 ML VIAL IV SCH ×2 (08:25→22:31)
[2020-03-13] MEDS: PROCHLORPERAZINE 10 MG TAB PO SCH ×2 (08:25→22:31)
[2020-03-13] MEDS: dexAMETHasone 2 MG TAB PO SCH (08:26)
[2020-03-13] MEDS: amLODIPine 2.5 MG TAB PO SCH (08:26)
[2020-03-13] MEDS: CARBIDOPA-LEVODOPA 25-250 MG 1 EACH TAB PO SCH ×2 (08:27→16:42)
[2020-03-13] MEDS: VORTIOXETINE HYDROBROMIDE 10 MG TABLET PO SCH (08:27)
[2020-03-13] MEDS: glipiZIDE 5 MG TAB PO SCH ×2 (08:27→18:09)
[2020-03-13] MEDS: ASPIRIN 81 MG PO SCH (08:27)
[2020-03-13] MEDS: METOPROLOL TARTRATE 50 MG TAB PO SCH ×2 (08:28→16:41)
[2020-03-13 10:07] LABS: African American GFR (CKD) 53.9 (60.0-200.0); Albumin 3.5 g/dL (3.80-4.90); Albumin/Globulin Ratio 1.25 (1.60-3.17); Anion Gap 11.4 mmol/L (4.00-12.00); BUN/Creat Ratio 28.67 Ratio (12.00-20.00); C Reactive Protein 8.4 mg/dL (0.0-0.8); Carbon Dioxide 33.6 mmol/L (21.6-31.8); Globulin 2.8 g/dL (1.6-3.3); Non-African American GFR(CKD) 46.5 (60.0-200.0); Total Bilirubin 0.1 mg/dL (0.3-1.2); Total Protein 6.3 g/dL (6.2-8.2)
[2020-03-13 12:09] LABS: Glucose,Whole Blood 152 mg/dL (75-99)
[2020-03-13] MEDS: MUPIROCIN 2% OINT 22 GM TUBE TOPICAL SCH ×2 (13:39→22:19)
[2020-03-13] MEDS: ZINC SULFATE 220 MG CAP PO SCH (13:39)
[2020-03-13] MEDS: SODIUM CHLORIDE 0.65% NASAL SPRAY 44 ML BTL INTRANASAL SCH ×2 (13:39→22:32)
[2020-03-13] MEDS: AMMONIUM LACTATE 12% CREAM 140 GM TUBE TOPICAL SCH (13:40)
[2020-03-13] MEDS ORDERED: REMDESIVIR 200 MG in SODIUM CHLORIDE 0.9% 250 ML IVPB ONE (17:00)
[2020-03-13 17:35] LABS: Glucose,Whole Blood 277 mg/dL (75-99)
--- NOTE | 2020-03-13 18:56 | P.PN ---
Subjective Progress Note Date: 03/11/20 Principal diagnosis: Left leg cellulitis COVID 19 infection 70-year-old male patient admitted with acute cellulitis of left lower extremity; patient was tested for covert 19 which came back positive; patient has no complaints of palpitations or shortness of breath Objective - Vital Signs Vital signs: Vital Signs Temp 99.7 F H 03/11/20 04:24 Pulse 69 03/11/20 04:24 Resp 18 03/11/20 04:24 BP 144/74 03/11/20 04:24 Pulse Ox 98 03/11/20 04:24 Intake & Output 03/10/20 03/11/20 03/11/20 18:59 06:59 18:59 Intake Total 240 540 Balance 240 540 Intake: Intake, IV Titration 300 Amount Azithromycin 500 mg In 250 Sodium Chloride 0.9% 250 ml @ 250 mls/hr IVPB ONCE ONE Rx#:[id number] ceFAZolin 2 gm In Sodium 50 Chloride 0.9% 50 ml @ 100 mls/hr IVPB Q8HR [facility] Rx# :[id number] Oral 240 240 Other: Voiding Method Diaper Diaper Diaper Incontinent Incontinent Incontinent # Voids 3 4 - Exam PHYSICAL EXAMINATION: GENERAL: The patient is alert and oriented x3, not in any acute distress. Well developed, well nourished. HEENT: Pupils are round and equally reacting to light. EOMI. No scleral icterus. No conjunctival pallor. Normocephalic, atraumatic. No pharyngeal erythema. No thyromegaly. CARDIOVASCULAR: S1 and S2 present. No murmurs, rubs, or gallops. PULMONARY: Chest is clear to auscultation, no wheezing or crackles. ABDOMEN: Soft, nontender, nondistended, normoactive bowel sounds. No palpable organomegaly. MUSCULOSKELETAL: No joint swelling or deformity. EXTREMITIES: No cyanosis, clubbing, or pedal edema. NEUROLOGICAL: Gross neurological examination did not reveal any focal deficits. SKIN: No rashes. - Labs CBC & Chem 7: 03/13/20 04:29 03/13/20 04:29 Labs: Abnormal Lab Results - Last 24 Hours (Table) 03/10/20 03/10/20 03/10/20 Range/Units 15:30 17:25 19:50 RBC (4.30-5.90) m/uL Hct (39.0-53.0) % POC Glucose (mg/dL) 128 H 149 H (75-99) mg/dL Ferritin (22.0-322.0) ng/mL Lactate Dehydrogenase (120-246) U/L C-Reactive Protein (<10.0) mg/L Procalcitonin (0.02-0.09) ng/mL Coronavirus (PCR) Detected A (Not Detectd) 03/10/20 03/11/20 03/11/20 Range/Units 20:43 06:40 06:40 RBC 4.03 L (4.30-5.90) m/uL Hct 38.5 L (39.0-53.0) % POC Glucose (mg/dL) (75-99) mg/dL Ferritin 548.8 H (22.0-322.0) ng/mL Lactate Dehydrogenase (120-246) U/L C-Reactive Protein 188.3 H (<10.0) mg/L Procalcitonin 0.13 H (0.02-0.09) ng/mL Coronavirus (PCR) (Not Detectd) 03/11/20 03/11/20 03/11/20 Range/Units 06:40 07:22 11:37 RBC (4.30-5.90) m/uL Hct (39.0-53.0) % POC Glucose (mg/dL) 208 H 300 H (75-99) mg/dL Ferritin (22.0-322.0) ng/mL Lactate Dehydrogenase 253 H (120-246) U/L C-Reactive Protein 19.8 H (<10.0) mg/L Procalcitonin (0.02-0.09) ng/mL Coronavirus (PCR) (Not Detectd) Assessment and Plan Assessment: 1. Left leg cellulitis; continue with IV cefazolin; ID on board 2. COVID- 19 infection; patient remains on Zithromax, dexamethasone, Lovenox and iron sulfate 3. Fluid overload/CHF; IV Lasix 40 mg every 12 hours 4. Diabetes mellitus; Glucotrol 5 mg by mouth twice a day; monitor Accu-Cheks before meals and at bedtime with insulin sliding scale 5. Hypertension; amlodipine 2.5 mg daily 6. Hyperlipidemia; Lipitor 20 mg by mouth daily at bedtime DVT prophylaxis; subcu Lovenox CODE STATUS; full code
--- NOTE | 2020-03-13 19:00 | P.PN ---
Subjective Progress Note Date: 03/12/20 Principal diagnosis: Left leg cellulitis COVID 19 infection 70-year-old male patient admitted with acute cellulitis of left lower extremity; patient was tested for covert 19 which came back positive; patient has no complaints of palpitations or shortness of breath 03/12/2020 Patient is seen and evaluated in room at bedside; vital signs are reviewed; don pickens remains afebrile; patient has been having episodes of choking on food and water; patient has been evaluated by therapy and diet has been adjusted; patient remains on supplemental oxygen; continue with oral azithromycin, dexamethasone, vitamin C, vitamin D and zinc sulfate Objective - Vital Signs Vital signs: Vital Signs Temp 97.5 F L 03/12/20 05:02 Pulse 52 L 03/12/20 05:02 Resp 18 03/12/20 05:02 BP 134/72 03/12/20 05:02 Pulse Ox 91 L 03/12/20 05:02 Intake & Output 03/11/20 03/12/20 03/12/20 18:59 06:59 18:59 Intake Total 340 Balance 340 Weight 99.5 kg Intake: Intake, IV Titration 50 Amount ceFAZolin 2 gm In Sodium 50 Chloride 0.9% 50 ml @ 100 mls/hr IVPB Q8HR [facility] Rx# :[id number] Oral 290 Other: Voiding Method Diaper Diaper Diaper Incontinent Incontinent Incontinent # Voids 2 2 2 - Exam PHYSICAL EXAMINATION: GENERAL: The patient is alert and oriented x3, not in any acute distress. Well developed, well nourished. HEENT: Pupils are round and equally reacting to light. EOMI. No scleral icterus. No conjunctival pallor. Normocephalic, atraumatic. No pharyngeal erythema. No thyromegaly. CARDIOVASCULAR: S1 and S2 present. No murmurs, rubs, or gallops. PULMONARY: Chest is clear to auscultation, no wheezing or crackles. ABDOMEN: Soft, nontender, nondistended, normoactive bowel sounds. No palpable organomegaly. MUSCULOSKELETAL: No joint swelling or deformity. EXTREMITIES: No cyanosis, clubbing, or pedal edema. NEUROLOGICAL: Gross neurological examination did not reveal any focal deficits. SKIN: No rashes. - Labs CBC & Chem 7: 03/13/20 04:29 03/13/20 04:29 Labs: Abnormal Lab Results - Last 24 Hours (Table) 03/11/20 03/11/20 03/12/20 Range/Units 17:21 21:45 07:43 POC Glucose (mg/dL) 263 H 293 H 217 H (75-99) mg/dL 03/12/20 Range/Units 12:29 POC Glucose (mg/dL) 187 H (75-99) mg/dL Assessment and Plan Assessment: 1. Left leg cellulitis; continue with IV cefazolin; ID on board 2. COVID- 19 infection; patient remains on Zithromax, dexamethasone, Lovenox and iron sulfate 3. Fluid overload/CHF; IV Lasix 40 mg every 12 hours 4. Diabetes mellitus; Glucotrol 5 mg by mouth twice a day; monitor Accu-Cheks before meals and at bedtime with insulin sliding scale 5. Hypertension; amlodipine 2.5 mg daily 6. Hyperlipidemia; Lipitor 20 mg by mouth daily at bedtime DVT prophylaxis; subcu Lovenox CODE STATUS; full code
--- NOTE | 2020-03-13 19:02 | P.PN ---
Subjective Progress Note Date: 03/13/20 Principal diagnosis: Left leg cellulitis COVID 19 infection 70-year-old male patient admitted with acute cellulitis of left lower extremity; patient was tested for covert 19 which came back positive; patient has no complaints of palpitations or shortness of breath 03/12/2020 Patient is seen and evaluated in room at bedside; vital signs are reviewed; don pickens remains afebrile; patient has been having episodes of choking on food and water; patient has been evaluated by therapy and diet has been adjusted; patient remains on supplemental oxygen; continue with oral azithromycin, dexamethasone, vitamin C, vitamin D and zinc sulfate 03/13/2020 Patient is seen and evaluated in room at bedside; vital signs are stable; SpO2 of 94% on 5 L; continue with current management; ID and pulmonary embolic Objective - Vital Signs Vital signs: Vital Signs Temp 96.7 F L 03/13/20 06:05 Pulse 56 L 03/13/20 06:05 Resp 19 03/13/20 06:05 BP 150/66 03/13/20 06:05 Pulse Ox 89 L 03/13/20 06:05 Intake & Output 03/12/20 03/13/20 03/13/20 18:59 06:59 18:59 Weight 89.5 kg Other: Voiding Method Diaper Diaper Incontinent Incontinent # Voids 2 3 - Exam PHYSICAL EXAMINATION: GENERAL: The patient is alert and oriented x3, not in any acute distress. Well developed, well nourished. HEENT: Pupils are round and equally reacting to light. EOMI. No scleral icterus. No conjunctival pallor. Normocephalic, atraumatic. No pharyngeal erythema. No thyromegaly. CARDIOVASCULAR: S1 and S2 present. No murmurs, rubs, or gallops. PULMONARY: Chest is clear to auscultation, no wheezing or crackles. ABDOMEN: Soft, nontender, nondistended, normoactive bowel sounds. No palpable organomegaly. MUSCULOSKELETAL: No joint swelling or deformity. EXTREMITIES: No cyanosis, clubbing, or pedal edema. NEUROLOGICAL: Gross neurological examination did not reveal any focal deficits. SKIN: No rashes. - Labs CBC & Chem 7: 03/13/20 04:29 03/13/20 04:29 Labs: Abnormal Lab Results - Last 24 Hours (Table) 03/12/20 03/12/20 03/13/20 Range/Units 17:21 20:04 04:29 WBC (3.8-10.6) k/uL RBC (4.30-5.90) m/uL Neutrophils # (1.3-7.7) k/uL D-Dimer (<0.60) mg/L FEU Sodium (135-145) mmol/L Carbon Dioxide (21.6-31.8) mmol/L BUN (9.0-27.0) mg/dL Est GFR (CKD-EPI)AfAm (60.0-200.0) Est GFR (CKD-EPI)NonAf (60.0-200.0) BUN/Creatinine Ratio (12.00-20.00) Ratio Glucose (70-110) mg/dL POC Glucose (mg/dL) 184 H 222 H (75-99) mg/dL Total Bilirubin (0.3-1.2) mg/dL ALT (10-49) U/L Lactate Dehydrogenase (120-246) U/L C-Reactive Protein (0.0-0.8) mg/dL Albumin (3.80-4.90) g/dL Albumin/Globulin Ratio (1.60-3.17) g/dL Procalcitonin 0.12 H (0.02-0.09) ng/mL 03/13/20 03/13/20 03/13/20 Range/Units 04:29 04:29 04:29 WBC 11.3 H (3.8-10.6) k/uL RBC 4.29 L (4.30-5.90) m/uL Neutrophils # 8.7 H (1.3-7.7) k/uL D-Dimer 0.60 H (<0.60) mg/L FEU Sodium 147 H (135-145) mmol/L Carbon Dioxide 33.6 H (21.6-31.8) mmol/L BUN 43.0 H (9.0-27.0) mg/dL Est GFR (CKD-EPI)AfAm 53.9 L (60.0-200.0) Est GFR (CKD-EPI)NonAf 46.5 L (60.0-200.0) BUN/Creatinine Ratio 28.67 H (12.00-20.00) Ratio Glucose 199 H (70-110) mg/dL POC Glucose (mg/dL) (75-99) mg/dL Total Bilirubin 0.1 L (0.3-1.2) mg/dL ALT 8 L (10-49) U/L Lactate Dehydrogenase 354 H (120-246) U/L C-Reactive Protein 8.4 H (0.0-0.8) mg/dL Albumin 3.50 L (3.80-4.90) g/dL Albumin/Globulin Ratio 1.25 L (1.60-3.17) g/dL Procalcitonin (0.02-0.09) ng/mL 03/13/20 03/13/20 Range/Units 07:42 12:08 WBC (3.8-10.6) k/uL RBC (4.30-5.90) m/uL Neutrophils # (1.3-7.7) k/uL D-Dimer (<0.60) mg/L FEU Sodium (135-145) mmol/L Carbon Dioxide (21.6-31.8) mmol/L BUN (9.0-27.0) mg/dL Est GFR (CKD-EPI)AfAm (60.0-200.0) Est GFR (CKD-EPI)NonAf (60.0-200.0) BUN/Creatinine Ratio (12.00-20.00) Ratio Glucose (70-110) mg/dL POC Glucose (mg/dL) 206 H 152 H (75-99) mg/dL Total Bilirubin (0.3-1.2) mg/dL ALT (10-49) U/L Lactate Dehydrogenase (120-246) U/L C-Reactive Protein (0.0-0.8) mg/dL Albumin (3.80-4.90) g/dL Albumin/Globulin Ratio (1.60-3.17) g/dL Procalcitonin (0.02-0.09) ng/mL Assessment and Plan Assessment: 1. Left leg cellulitis; continue with IV cefazolin; ID on board 2. COVID- 19 infection; patient remains on Zithromax, dexamethasone, Lovenox and iron sulfate 3. Fluid overload/CHF; IV Lasix 40 mg every 12 hours 4. Diabetes mellitus; Glucotrol 5 mg by mouth twice a day; monitor Accu-Cheks before meals and at bedtime with insulin sliding scale 5. Hypertension; amlodipine 2.5 mg daily 6. Hyperlipidemia; Lipitor 20 mg by mouth daily at bedtime DVT prophylaxis; subcu Lovenox CODE STATUS; full code
[2020-03-13 21:37] LABS: Glucose,Whole Blood 309 mg/dL (75-99)
[2020-03-13] MEDS: INSULIN DETEMIR (LEVEMIR) 100 UNIT/ML SYR SQ SCH (22:18)
[2020-03-13] MEDS: MINERAL OIL-WHITE PETROLATUM 120 GM JAR TOPICAL SCH (22:19)
[2020-03-13] MEDS: LATANOPROST 0.005% OPHTH DROPS 2.5 ML BTL BOTH EYES SCH (22:19)
[2020-03-13] MEDS: CLOTRIMAZOLE 1% CREAM 15 GM TUBE TOPICAL SCH (22:33)
--- NOTE | 2020-03-14 00:25 | PN ---
PROGRESS NOTE DATE OF SERVICE: March 13, 2020 This is a patient who was seen in consultation yesterday. A 70-year-old male patient seen in the emergency room on March 06. He was apparently brought in by caregiver in a wheelchair. The patient apparently was poorly verbal or nonverbal at that time, refusing to answer questions or participate in history taking. The patient did test positive for COVID-19 on March 10. A chest x-ray on March 06 showed infiltrative and atelectatic changes at the lung bases. A repeat chest x-ray on the shows worsening abnormality. The patient currently seems to be resting relatively comfortably. The patient is on O2 at 5 L. Saturations are anywhere between 89% to 94%. He appears a bit more tachypneic today than he did yesterday. The patient states that he feels about the same today as he did yesterday. He is not coughing up any phlegm. Denies any chest pain or pressure. PHYSICAL EXAMINATION: VITAL SIGNS: Currently, temperature 98.3, heart rate 57, respiratory rate 19, blood pressure 131/66 and 5 L saturations running at 94%. GENERAL: The patient has some very mild conversational dyspnea. No audible wheezing or use of accessory muscles. HEENT: Examination is grossly unremarkable. Nasal O2 in place. NECK: Supple. Full range of motion. No adenopathy. Neck veins are flat. CARDIOVASCULAR: Examination reveals regular rhythm and rate. S1, S2 normal. No S3, S4, or murmur. LUNGS: Reveal bibasilar crackles with a few scattered expiratory rhonchi. No wheezes. ABDOMEN: Soft. Bowel sounds are heard. EXTREMITIES: Are intact. Minimal edema. SKIN: Without rash. NEUROLOGIC: Examination is nonfocal. LABS: Labs are reviewed. White count 11.3, hemoglobin 13.5, hematocrit 41.4, platelet count 344,000. D-dimer 0.6. Sodium 147, potassium 4, chloride 102, CO2 of 34. BUN is 43, creatinine 1.5. LDH 354. C-reactive protein 8.4. N-terminal proBNP 1910. Procalcitonin 0.12. Microbiologic studies are pending or negative. Chest x-ray today shows soft bilateral infiltrates, more so on the right side than on the left. There may be small effusions. MEDICATIONS: Medications are reviewed. We did add remdesivir to the patient's regimen. Other medications that he is currently on include Tylenol, amantadine, amlodipine, Lac-Hydrin lotion, aspirin, Lipitor, Zithromax, carbidopa/levodopa, Ancef, Lotrimin cream, Decadron, Depakote, Lovenox, Lasix, gabapentin, glipizide, [place], insulin, eye drops, metformin, metoprolol, mineral oil, multivitamins, Bactroban ointment, Zofran, Protonix, Compazine, remdesivir, Senna, Zoloft, saline nasal rinse, Trintellix and zinc. ASSESSMENT: 1. COVID-19 pneumonitis/pneumonia, currently a bit worse, started on Remdesivir today. 2. Possible mild fluid overload. 3. History of diabetes mellitus. 4. Gastroesophageal reflux disease. 5. Hypertension. 6. Hyperlipidemia. 7. History of closed head injury. 8. Patient is a poor historian. PLAN: The patient will start remdesivir for 5 days today. Today he gets 200 mg IV piggyback. He will have 100 mg for the next 4 days. The rest of his medications are appropriate. We will continue to follow. Prognosis is guarded. Repeat inflammatory markers over the next few days, and repeat chest x-ray. MMODL / IJN: [id number] / MTDD
--- NOTE | 2020-03-14 04:52 | PN ---
PROGRESS NOTE DATE OF SERVICE: 03/13/2020 REASON FOR FOLLOWUP: 1. Left leg cellulitis. 2. Pneumonia possible COVID-19. INTERVAL HISTORY: The patient is currently afebrile. The patient is breathing comfortably, currently on 5 L nasal cannula. Denies having any chest pain. Did have some cough. No vomiting and no diarrhea has been reported. PHYSICAL EXAMINATION: Blood pressure 131/66, pulse of 56, temperature 98.3. He is 94% on 5 L nasal cannula. General description is an elderly male lying in bed in no distress. RESPIRATORY SYSTEM: Unlabored breathing, coarse breath sounds by the nursing staff. EXTREMITIES: No edema of the feet. LABS: Chest x-ray suggestive of pneumonia likely COVID-19. DIAGNOSTIC IMPRESSION AND PLAN: 1. Patient with left lower extremity cellulitis that has been adequately treated. Cefazolin discontinued. 2. Patient with pneumonia concern for possible COVID-19. The patient had been started on remdesivir. Zithromax will be discontinued. Continue with dexamethasone, Lovenox along with droplet isolation and respiratory support. Continue supportive care. MMODL / IJN: [id number] /
[2020-03-14 07:27] LABS: Glucose,Whole Blood 96 mg/dL (75-99)
[2020-03-14] MEDS: DIVALPROEX ER 500 MG TAB.ER.24H PO SCH ×2 (08:21→19:11)
[2020-03-14] MEDS: SERTRALINE 50 MG TAB PO SCH (08:21)
[2020-03-14] MEDS: PANTOPRAZOLE 40 MG TABLET PO SCH (08:21)
[2020-03-14] MEDS: ATORVASTATIN 20 MG TAB PO SCH (08:22)
[2020-03-14] MEDS: metFORMIN 500 MG TAB PO SCH ×2 (08:22→17:28)
[2020-03-14] MEDS: METOPROLOL TARTRATE 50 MG TAB PO SCH ×2 (08:22→17:34)
[2020-03-14] MEDS: ASPIRIN 81 MG PO SCH (08:22)
[2020-03-14] MEDS: HYDROcodone/APAP 5-325MG 1 EACH TAB PO SCH ×3 (08:23→20:52)
[2020-03-14] MEDS: MULTIVITAMINS, THERA 1 EACH TAB PO SCH (08:24)
[2020-03-14] MEDS: ENOXAPARIN 40 MG/0.4 ML SYRINGE SQ SCH (08:24)
[2020-03-14] MEDS: GABAPENTIN 300 MG CAP PO SCH ×2 (08:24→17:29)
[2020-03-14] MEDS: FUROSEMIDE 10 MG/ML 4 ML VIAL IV SCH (08:39)
[2020-03-14] MEDS: ZINC SULFATE 220 MG CAP PO SCH ×2 (08:39→09:14)
[2020-03-14] MEDS: INSULIN ASPART (NovoLOG) 100 UNIT/ML VIAL SQ SCH ×4 (09:06→21:42)
[2020-03-14] MEDS: dexAMETHasone 2 MG TAB PO SCH (09:14)
[2020-03-14] MEDS: VORTIOXETINE HYDROBROMIDE 10 MG TABLET PO SCH (09:15)
[2020-03-14] MEDS: amLODIPine 2.5 MG TAB PO SCH (09:15)
[2020-03-14] MEDS: CARBIDOPA-LEVODOPA 25-250 MG 1 EACH TAB PO SCH (09:15)
[2020-03-14] MEDS: PROCHLORPERAZINE 10 MG TAB PO SCH ×2 (09:15→20:47)
[2020-03-14] MEDS: glipiZIDE 5 MG TAB PO SCH ×2 (09:15→17:28)
[2020-03-14] MEDS: MUPIROCIN 2% OINT 22 GM TUBE TOPICAL SCH ×2 (09:16→20:44)
[2020-03-14] MEDS: SODIUM CHLORIDE 0.65% NASAL SPRAY 44 ML BTL INTRANASAL SCH ×2 (09:17→20:44)
[2020-03-14 10:58] LABS: Glucose,Whole Blood 152 mg/dL (75-99)
[2020-03-14] MEDS: AMMONIUM LACTATE 12% CREAM 140 GM TUBE TOPICAL SCH (13:26)
--- NOTE | 2020-03-14 16:17 | P.PN ---
Subjective Progress Note Date: 03/14/20 Principal diagnosis: COVID 19 related infection This is a 70-year-old white male patient with past medical history of fall close head injury, nonverbal, who was seen in the emergency room on March 06 when he was brought in by his caregiver and was found to be positive for COVID 19 on March 10. His chest x-ray on 03/06/2020 showed infiltrative and atelectatic changes at the lung bases, and a repeat chest x-ray on March 10 showed a worsening abnormality. Patient developed worsening hypoxemia, he was placed on supplemental oxygen, he remains on 5 L of oxygen pulse ox of 95%, low grade fever this afternoon, otherwise has been afebrile since 03/10/2020. He was started on oral dexamethasone, IV Lasix, Remdesivir. His follow-up chest x- ray on 03/13/2020 showing persistent right upper lobe, right perihilar and right lower lobe infiltrates as well as left perihilar and left lower lobe infiltrates. Today's labs have been reviewed, showing white blood cell count of 11.3, hemoglobin of 13.5, d-dimer is 0.70, sodium is 147, potassium is 4.0, chloride is 102, BUN of 43, creatinine is 1.5, LDH has decreased to 354 from admission, CRP is down to 8.4 from 188.3, pro-calcitonin is 0.12, patient is nonverbal, not able to provide much history. Objective - Vital Signs Vital signs: Vital Signs Temp 99.1 F 03/14/20 13:00 Pulse 65 03/14/20 13:00 Resp 22 03/14/20 13:00 BP 140/70 03/14/20 13:00 Pulse Ox 95 03/14/20 13:00 Intake & Output 03/13/20 03/14/20 03/14/20 18:59 06:59 18:59 Intake Total 100 220 Output Total 4 2 Balance 96 220 -2 Weight 83 kg Intake: Intake, IV Titration 100 Amount ceFAZolin 2 gm In Sodium 100 Chloride 0.9% 50 ml @ 100 mls/hr IVPB Q8HR [facility] Rx# :[id number] Oral 220 Output: Urine 4 2 Other: Voiding Method Diaper Diaper Diaper Incontinent Incontinent Incontinent # Voids 3 2 2 # Bowel Movements 0 0 0 - Exam GENERAL EXAM: Alert, but nonverbal, 70-year-old white male, on 5 L of oxygen pulse ox 95% comfortable in no apparent distress. HEAD: Normocephalic/atraumatic. EYES: Normal reaction of pupils, equal size. Conjunctiva pink, sclera white. NOSE: Clear with pink turbinates. THROAT: No erythema or exudates. NECK: No masses, no JVD, no thyroid enlargement, no adenopathy. CHEST: No chest wall deformity. Symmetrical expansion. LUNGS: Equal air entry with no crackles, wheeze, rhonchi or dullness. CVS: Regular rate and rhythm, normal S1 and S2, no gallops, no murmurs, no rubs ABDOMEN: Soft, nontender. No hepatosplenomegaly, normal bowel sounds, no guarding or rigidity. EXTREMITIES: No clubbing, no edema, no cyanosis, 2+ pulses and upper and lower extremities. MUSCULOSKELETAL: Muscle strength and tone normal. SPINE: No scoliosis or deformity SKIN: No rashes CENTRAL NERVOUS SYSTEM: nonverbal, No focal deficits, tone is normal in all 4 extremities. - Labs CBC & Chem 7: 03/13/20 04:29 03/13/20 04:29 Labs: Abnormal Lab Results - Last 24 Hours (Table) 03/13/20 03/13/20 03/14/20 Range/Units 17:33 21:33 10:57 POC Glucose (mg/dL) 277 H 309 H 152 H (75-99) mg/dL Assessment and Plan Plan: Assessment: #1. COVID 19 pneumonitis/pneumonia, started on Remdevir yesterday on 03/13/2020, with bilateral infiltrates, and acute hypoxic respiratory failure #2. Possible mild fluid overload #3. History of diabetes mellitus #4. GERD/reflux #5. Hypertension #6. Hyperlipidemia #7. History of closed head injury #8. Patient is a poor historian, and he is nonverbal Plan: Continue current medical treatment, continue diuresis, we will cut back the Lasix to once daily, continue Decadron, Remdesivir, patient is calm and comfortable, wean FiO2, follow-up chest x-ray in the morning. Accurate intake and output, follow-up labs, Follow-up inflammatory markers. I performed a history & physical examination of the patient and discussed their management with my nurse practitioner, Shanelle Huynh. I reviewed the nurse practitioner's note and agree with the documented findings and plan of care. Lung sounds are positive for diminished breath sounds. The findings and the impression was discussed with the patient. I attest to the documentation by the nurse practitioner. Time with Patient: Less than 30
[2020-03-14] MEDS: REMDESIVIR 100 MG in SODIUM CHLORIDE 0.9% 250 ML IVPB SCH (17:33)
[2020-03-14 17:56] LABS: Glucose,Whole Blood 261 mg/dL (75-99)
[2020-03-14] MEDS: LATANOPROST 0.005% OPHTH DROPS 2.5 ML BTL BOTH EYES SCH (20:44)
[2020-03-14] MEDS: MINERAL OIL-WHITE PETROLATUM 120 GM JAR TOPICAL SCH (20:44)
[2020-03-14] MEDS: CLOTRIMAZOLE 1% CREAM 15 GM TUBE TOPICAL SCH (20:44)
[2020-03-14 21:20] LABS: Glucose,Whole Blood 311 mg/dL (75-99)
[2020-03-14] MEDS: INSULIN DETEMIR (LEVEMIR) 100 UNIT/ML SYR SQ SCH (21:41)
--- NOTE | 2020-03-14 22:26 | PN ---
PROGRESS NOTE DATE OF SERVICE: 03/14/2020 REASON FOR FOLLOW UP: Pneumonia, possible Covid 19. INTERVAL HISTORY: Patient is currently afebrile. The patient is breathing comfortably. The patient denies having any chest pain. Minimal cough. No abdominal pain or diarrhea. EXAMINATION: Blood pressure 140/70 with a pulse of 65, temperature 99.1. He is 95% on 5 L nasal cannula. General description is an elderly male lying in bed in no distress. Respiratory system: Unlabored breathing, decreased breath sounds at the base. No wheeze. HEART: S1, S2. Regular rate and rhythm. Abdomen soft. No tenderness. LABS: No new labs have been obtained today. DIAGNOSTIC IMPRESSION/PLAN: Patient with low-grade fever, hypoxemia, concern for COVID-19 pneumonia patient is currently on Dexamethasone, Lovenox, and Remdesivir to continue along with respiratory support and monitor clinical course closely. MMODL / IJN: [id number] /
[2020-03-15 06:38] LABS: Basophils # (A) 0.1 k/uL (0-0.2); Basophils % (A) 1 %; Eosinophils # (A) 0.1 k/uL (0-0.7); Eosinophils % (A) 1 %; HCT 40.7 % (39.0-53.0); HGB 13.1 gm/dL (13.0-17.5); Hypochromasia Slight; Lymphocytes # (A) 2.2 k/uL (1.0-4.8); Lymphocytes % (A) 24 %; MCH 31.3 pg (25.0-35.0); MCHC 32.1 g/dL (31.0-37.0); MCV 97.5 fL (80.0-100.0); Mean Platelet Volume 9.7; Monocytes # (A) 0.6 k/uL (0-1.0); Monocytes % (A) 7 %; Neutrophils # (A) 5.9 k/uL (1.3-7.7); Neutrophils % (A) 63 %; Platelet Count 358 k/uL (150-450); RBC 4.17 m/uL (4.30-5.90); RDW 15.3 % (11.5-15.5); WBC 9.4 k/uL (3.8-10.6)
[2020-03-15 07:21] LABS: Glucose,Whole Blood 111 mg/dL (75-99)
[2020-03-15] MEDS: INSULIN ASPART (NovoLOG) 100 UNIT/ML VIAL SQ SCH ×4 (07:25→20:29)
[2020-03-15] MEDS: HYDROcodone/APAP 5-325MG 1 EACH TAB PO SCH ×3 (08:39→20:18)
[2020-03-15] MEDS: glipiZIDE 5 MG TAB PO SCH ×2 (08:39→15:04)
[2020-03-15] MEDS: PROCHLORPERAZINE 10 MG TAB PO SCH ×2 (08:39→20:18)
[2020-03-15] MEDS: dexAMETHasone 2 MG TAB PO SCH (08:39)
[2020-03-15] MEDS: GABAPENTIN 300 MG CAP PO SCH ×2 (08:39→15:03)
[2020-03-15] MEDS: metFORMIN 500 MG TAB PO SCH ×2 (08:40→15:03)
[2020-03-15] MEDS: METOPROLOL TARTRATE 50 MG TAB PO SCH ×2 (08:40→15:03)
[2020-03-15] MEDS: CARBIDOPA-LEVODOPA 25-250 MG 1 EACH TAB PO SCH ×2 (08:40→15:03)
[2020-03-15] MEDS: MULTIVITAMINS, THERA 1 EACH TAB PO SCH (08:40)
[2020-03-15] MEDS: VORTIOXETINE HYDROBROMIDE 10 MG TABLET PO SCH (08:40)
[2020-03-15] MEDS: amLODIPine 2.5 MG TAB PO SCH (08:40)
[2020-03-15] MEDS: DIVALPROEX ER 500 MG TAB.ER.24H PO SCH ×2 (08:41→15:03)
[2020-03-15] MEDS: SERTRALINE 50 MG TAB PO SCH (08:41)
[2020-03-15] MEDS: ASPIRIN 81 MG PO SCH (08:41)
[2020-03-15] MEDS: PANTOPRAZOLE 40 MG TABLET PO SCH (08:41)
[2020-03-15] MEDS: ENOXAPARIN 40 MG/0.4 ML SYRINGE SQ SCH (08:42)
[2020-03-15] MEDS: SODIUM CHLORIDE 0.65% NASAL SPRAY 44 ML BTL INTRANASAL SCH ×2 (08:44→20:20)
[2020-03-15] MEDS: MUPIROCIN 2% OINT 22 GM TUBE TOPICAL SCH ×2 (08:44→20:20)
[2020-03-15] MEDS: AMMONIUM LACTATE 12% CREAM 140 GM TUBE TOPICAL SCH (08:44)
[2020-03-15] MEDS ORDERED: FUROSEMIDE 10 MG/ML 4 ML VIAL IV SCH (09:00)
[2020-03-15 10:01] LABS: ALT <8 U/L (10-49); AST 22 U/L (14-35); African American GFR (CKD) 58.6 (60.0-200.0); Albumin/Globulin Ratio 1.21 (1.60-3.17); Alkaline Phosphatase 67 U/L (41-126); BUN/Creat Ratio 33.57 Ratio (12.00-20.00); C Reactive Protein 18.9 mg/dL (0.0-0.8); Calcium 9.2 mg/dL (8.7-10.3); Chloride 112 mmol/L (96-109); Globulin 2.9 g/dL (1.6-3.3); Glucose 98 mg/dL (70-110); LDH 362 U/L (120-246); Non-African American GFR(CKD) 50.5 (60.0-200.0); Potassium 3.9 mmol/L (3.5-5.5); Sodium 156 mmol/L (135-145); Total Bilirubin 0.2 mg/dL (0.3-1.2); Total Protein 6.4 g/dL (6.2-8.2)
[2020-03-15 11:27] LABS: Glucose,Whole Blood 150 mg/dL (75-99)
--- NOTE | 2020-03-15 12:08 | XR ---
EXAMINATION TYPE: XR chest 1V portable DATE OF EXAM: 03/15/2020 COMPARISON: 03/13/2020 INDICATION: Covid 19 pneumonia TECHNIQUE: Single frontal view of the chest is obtained. FINDINGS: The heart size is normal. The pulmonary vasculature is normal. Diffuse infiltrate is present throughout the bilateral lung marcus. This has slight improvement from the comparison. Follow-up is recommended IMPRESSION: 1. Diffuse infiltrate with slight improvement over the interval.
[2020-03-15] MEDS: DEXTROSE 5% IN WATER 1,000 ML IV SCH ×2 (13:11→22:55)
--- NOTE | 2020-03-15 14:45 | P.PN ---
Subjective Progress Note Date: 03/15/20 Principal diagnosis: COVID 19 related infection This is a 70-year-old white male patient with past medical history of fall close head injury, nonverbal, who was seen in the emergency room on March 06 when he was brought in by his caregiver and was found to be positive for COVID 19 on March 10. His chest x-ray on 03/06/2020 showed infiltrative and atelectatic changes at the lung bases, and a repeat chest x-ray on March 10 showed a worsening abnormality. Patient developed worsening hypoxemia, he was placed on supplemental oxygen, he remains on 5 L of oxygen pulse ox of 95%, low grade fever this afternoon, otherwise has been afebrile since 03/10/2020. He was started on oral dexamethasone, IV Lasix, Remdesivir. His follow-up chest x- ray on 03/13/2020 showing persistent right upper lobe, right perihilar and right lower lobe infiltrates as well as left perihilar and left lower lobe infiltrates. Today's labs have been reviewed, showing white blood cell count of 11.3, hemoglobin of 13.5, d-dimer is 0.70, sodium is 147, potassium is 4.0, chloride is 102, BUN of 43, creatinine is 1.5, LDH has decreased to 354 from admission, CRP is down to 8.4 from 188.3, pro-calcitonin is 0.12, patient is nonverbal, not able to provide much history. On 03/15/2020 patient seen in follow-up on medical surgical floor. He is resting in bed, appears to be a bit more lethargic on today's exam, clinically he appears very dry, mucous membranes are dry, he has not been taking in much in the way of oral intake. He remains on 5 L of oxygen with a pulse ox of 94%, low-grade fevers this afternoon, with a temp of 99.9 degrees Fahrenheit, her breathing seems to be nonlabored, no cough, respirations are shallow, lung sounds are diminished, patient tested positive for Covid 19 he is on revisit ear, day 3. He has been on diuretics as well, however on today's labs his sodi um is up to 156, yesterday because of back to Lasix, today we will discontinue the Lasix and we will start the patient on IV fluids. Today's labs have been reviewed showing LDH relatively stable at 362 although increased from admission, and CRP is also increased at 18.9, pro-calcitonin was 0.12, d-dimer 0.20, white count is 9.4. Patient is on the oral Decadron, zinc sulfate, he is on prophylactic doses of Lovenox. Objective - Vital Signs Vital signs: Vital Signs Temp 99.9 F H 03/15/20 11:20 Pulse 110 H 03/15/20 11:20 Resp 28 H 03/15/20 11:20 BP 161/89 03/15/20 11:20 Pulse Ox 94 L 03/15/20 11:20 Intake & Output 03/14/20 03/15/20 03/15/20 18:59 06:59 18:59 Intake Total 340 220 Output Total 4 Balance -4 340 220 Intake: Intake, IV Titration 100 Amount Dextrose 5% in Water 1, 100 000 ml @ 100 mls/hr IV . Q10H [facility] Rx#:[id number] Oral 340 120 Output: Urine 4 Other: Voiding Method Diaper Diaper Diaper Incontinent Incontinent Incontinent # Voids 2 2 2 # Bowel Movements 0 0 - Exam GENERAL EXAM: more lethargic on today's exam, but nonverbal, 70-year-old white male, on 5 L of oxygen pulse ox 95% comfortable in no apparent distress. HEAD: Normocephalic/atraumatic. EYES: Normal reaction of pupils, equal size. Conjunctiva pink, sclera white. NOSE: Clear with pink turbinates. THROAT: No erythema or exudates. NECK: No masses, no JVD, no thyroid enlargement, no adenopathy. CHEST: No chest wall deformity. Symmetrical expansion. LUNGS: Equal air entry with no crackles, wheeze, rhonchi or dullness. CVS: Regular rate and rhythm, normal S1 and S2, no gallops, no murmurs, no rubs ABDOMEN: Soft, nontender. No hepatosplenomegaly, normal bowel sounds, no guarding or rigidity. EXTREMITIES: No clubbing, no edema, no cyanosis, 2+ pulses and upper and lower extremities. MUSCULOSKELETAL: Muscle strength and tone normal. SPINE: No scoliosis or deformity SKIN: No rashes CENTRAL NERVOUS SYSTEM: nonverbal, No focal deficits, tone is normal in all 4 extremities. - Labs CBC & Chem 7: 03/15/20 05:33 03/15/20 05:33 Labs: Abnormal Lab Results - Last 24 Hours (Table) 03/14/20 03/14/20 03/14/20 Range/Units 17:38 18:22 21:06 RBC (4.30-5.90) m/uL Sodium (135-145) mmol/L Chloride (96-109) mmol/L Carbon Dioxide (21.6-31.8) mmol/L BUN (9.0-27.0) mg/dL Est GFR (CKD-EPI)AfAm (60.0-200.0) Est GFR (CKD-EPI)NonAf (60.0-200.0) BUN/Creatinine Ratio (12.00-20.00) Ratio POC Glucose (mg/dL) 261 H 311 H (75-99) mg/dL Total Bilirubin (0.3-1.2) mg/dL ALT (10-49) U/L Lactate Dehydrogenase (120-246) U/L C-Reactive Protein (0.0-0.8) mg/dL Albumin (3.80-4.90) g/dL Albumin/Globulin Ratio (1.60-3.17) g/dL Procalcitonin 0.12 H (0.02-0.09) ng/mL 03/15/20 03/15/20 03/15/20 Range/Units 05:33 05:33 07:18 RBC 4.17 L (4.30-5.90) m/uL Sodium 156 H (135-145) mmol/L Chloride 112 H (96-109) mmol/L Carbon Dioxide 33.0 H (21.6-31.8) mmol/L BUN 47.0 H (9.0-27.0) mg/dL Est GFR (CKD-EPI)AfAm 58.6 L (60.0-200.0) Est GFR (CKD-EPI)NonAf 50.5 L (60.0-200.0) BUN/Creatinine Ratio 33.57 H (12.00-20.00) Ratio POC Glucose (mg/dL) 111 H (75-99) mg/dL Total Bilirubin 0.2 L (0.3-1.2) mg/dL ALT <8 L (10-49) U/L Lactate Dehydrogenase 362 H (120-246) U/L C-Reactive Protein 18.9 H (0.0-0.8) mg/dL Albumin 3.50 L (3.80-4.90) g/dL Albumin/Globulin Ratio 1.21 L (1.60-3.17) g/dL Procalcitonin (0.02-0.09) ng/mL 03/15/20 Range/Units 11:25 RBC (4.30-5.90) m/uL Sodium (135-145) mmol/L Chloride (96-109) mmol/L Carbon Dioxide (21.6-31.8) mmol/L BUN (9.0-27.0) mg/dL Est GFR (CKD-EPI)AfAm (60.0-200.0) Est GFR (CKD-EPI)NonAf (60.0-200.0) BUN/Creatinine Ratio (12.00-20.00) Ratio POC Glucose (mg/dL) 150 H (75-99) mg/dL Total Bilirubin (0.3-1.2) mg/dL ALT (10-49) U/L Lactate Dehydrogenase (120-246) U/L C-Reactive Protein (0.0-0.8) mg/dL Albumin (3.80-4.90) g/dL Albumin/Globulin Ratio (1.60-3.17) g/dL Procalcitonin (0.02-0.09) ng/mL Assessment and Plan Plan: Assessment: #1. COVID 19 pneumonitis/pneumonia, started on Remdevir yesterday on 03/13/2020, with bilateral infiltrates, and acute hypoxic respiratory failure #2. Possible mild fluid overload, patient has been diuresed, chest x-ray only showing very slight improvement over the interval #3. History of diabetes mellitus #4. GERD/reflux #5. Hypertension #6. Hyperlipidemia #7. History of closed head injury #8. Patient is a poor historian, and he is nonverbal #9. Hypernatremia related to diuretic therapy, and poor oral intake and a free water deficit Plan: Continue Decadron, we'll discontinue the Lasix, we'll start the patient on D5W at a rate of 100 ML per hour, maintain aspiration precautions, follow up labs tomorrow, continue with Remdesivir. CODE STATUS needs to be addressed, patient has multiple chronic medical conditions, patient is at baseline very debilitated, with supportive treatment, should his condition worsen, his prognosis would be very guarded. I performed a history & physical examination of the patient and discussed their management with my nurse practitioner, Shanelle Huynh. I reviewed the nurse practitioner's note and agree with the documented findings and plan of care. Lung sounds are positive for diminished breath sounds. The findings and the impression was discussed with the patient. I attest to the documentation by the nurse practitioner. Time with Patient: Less than 30
[2020-03-15 16:44] LABS: Glucose,Whole Blood 245 mg/dL (75-99)
[2020-03-15] MEDS: REMDESIVIR 100 MG in SODIUM CHLORIDE 0.9% 250 ML IVPB SCH (17:11)
[2020-03-15 20:00] LABS: Glucose,Whole Blood 170 mg/dL (75-99)
[2020-03-15] MEDS: MINERAL OIL-WHITE PETROLATUM 120 GM JAR TOPICAL SCH (20:19)
[2020-03-15] MEDS: LATANOPROST 0.005% OPHTH DROPS 2.5 ML BTL BOTH EYES SCH (20:20)
[2020-03-15] MEDS: CLOTRIMAZOLE 1% CREAM 15 GM TUBE TOPICAL SCH (20:20)
[2020-03-15] MEDS: INSULIN DETEMIR (LEVEMIR) 100 UNIT/ML SYR SQ SCH (20:28)
--- NOTE | 2020-03-15 23:14 | P.PN ---
Subjective Progress Note Date: 03/14/20 Principal diagnosis: Acute COVID-19 pneumonia 70-year-old male patient admitted with acute cellulitis of left lower extremity; patient was tested for covert 19 which came back positive; patient has no complaints of palpitations or shortness of breath 03/12/2020 Patient is seen and evaluated in room at bedside; vital signs are reviewed; patient remains afebrile; patient has been having episodes of choking on food and water; patient has been evaluated by therapy and diet has been adjusted; patient remains on supplemental oxygen; continue with oral azithromycin, dexamethasone, vitamin C, vitamin D and zinc sulfate 03/13/2020 Patient is seen and evaluated in room at bedside; vital signs are stable; SpO2 of 94% on 5 L; continue with current management; ID and pulmonary embolic 03/15/2020 Patient is nonverbal. Currently lying in the bed comfortably. Chest x-ray showed persistent right upper lobe right perihilar and right lower lobe infiltrates as well as left lower lobe infiltrates. Laboratory data showed WBC count of 11.3, hemoglobin 13.5, sodium 147, potassium 4.0, chloride 102 and BUN 43 and creatinine 1.5 Patient is not eating very well. On pured and honey thickened liquids. Patient is being continued on remdesivir and dexamethasone. ID and pulmonary is following. Current medications reviewed. Objective - Vital Signs Vital signs: Vital Signs Temp 99.1 F 03/14/20 13:00 Pulse 65 03/14/20 13:00 Resp 22 03/14/20 13:00 BP 140/70 03/14/20 13:00 Pulse Ox 95 03/14/20 13:00 Intake & Output 03/13/20 03/14/20 03/14/20 18:59 06:59 18:59 Intake Total 100 220 Output Total 4 2 Balance 96 220 -2 Weight 83 kg Intake: Intake, IV Titration 100 Amount ceFAZolin 2 gm In Sodium 100 Chloride 0.9% 50 ml @ 100 mls/hr IVPB Q8HR [facility] Rx# :[id number] Oral 220 Output: Urine 4 2 Other: Voiding Method Diaper Diaper Diaper Incontinent Incontinent Incontinent # Voids 3 2 2 # Bowel Movements 0 0 0 - Exam PHYSICAL EXAMINATION: GENERAL: The patient is alert non verbal , not in any acute distress. Normocephalic, atraumatic. No pharyngeal erythema. No thyromegaly. CARDIOVASCULAR: S1 and S2 present. No murmurs, rubs, or gallops. PULMONARY: Chest is clear to auscultation, no wheezing or crackles. ABDOMEN: Soft, nontender, nondistended, normoactive bowel sounds. No palpable organomegaly. MUSCULOSKELETAL: No joint swelling or deformity. EXTREMITIES: No cyanosis, clubbing, or pedal edema. NEUROLOGICAL: Gross neurological examination did not reveal any focal deficits. SKIN: No rashes. - Labs CBC & Chem 7: 03/15/20 05:33 03/15/20 05:33 Labs: Abnormal Lab Results - Last 24 Hours (Table) 03/13/20 03/13/20 03/14/20 Range/Units 17:33 21:33 10:57 POC Glucose (mg/dL) 277 H 309 H 152 H (75-99) mg/dL Assessment and Plan Assessment: 1. Acute COVID- 19 infection; Acute hypoxic respiratory failure patient remains on Zithromax, dexamethasone, Lovenox and remdesivir 2. Left leg cellulitis; improving 3. Fluid overload/CHF; IV Lasix 40 mg every 12 hours 4. Diabetes mellitus; Glucotrol 5 mg by mouth twice a day; monitor Accu-Cheks before meals and at bedtime with insulin sliding scale 5. Hypertension; amlodipine 2.5 mg daily 6. Hyperlipidemia; Lipitor 20 mg by mouth daily at bedtime 7. History of closed head injury. DVT prophylaxis; subcu Lovenox CODE STATUS; full code Time with Patient: Greater than 30
--- NOTE | 2020-03-15 23:17 | P.PN ---
Subjective Progress Note Date: 03/15/20 Principal diagnosis: Acute COVID-19 pneumonia 70-year-old male patient admitted with acute cellulitis of left lower extremity; patient was tested for covert 19 which came back positive; patient has no complaints of palpitations or shortness of breath 03/12/2020 Patient is seen and evaluated in room at bedside; vital signs are reviewed; patient remains afebrile; patient has been having episodes of choking on food and water; patient has been evaluated by therapy and diet has been adjusted; patient remains on supplemental oxygen; continue with oral azithromycin, dexamethasone, vitamin C, vitamin D and zinc sulfate 03/13/2020 Patient is seen and evaluated in room at bedside; vital signs are stable; SpO2 of 94% on 5 L; continue with current management; ID and pulmonary embolic 03/14/2020 Patient is nonverbal. Currently lying in the bed comfortably. Chest x-ray showed persistent right upper lobe right perihilar and right lower lobe infiltrates as well as left lower lobe infiltrates. Laboratory data showed WBC count of 11.3, hemoglobin 13.5, sodium 147, potassium 4.0, chloride 102 and BUN 43 and creatinine 1.5 Patient is not eating very well. On pured and honey thickened liquids. Patient is being continued on remdesivir and dexamethasone. ID and pulmonary is following. 03/15/2020 Patient is currently lying in the bed. awake but lethargic. Patient has not been taking much oral intake. Currently still remains on oxygen at 5 L via nasal cannula. Sodium level increased to 156 today and IV fluids have been changed to D5 water. Patient is being continued on dexamethasone and remdesivir. BUN 47 creatinine 1.4 and potassium 3.9 Current medications reviewed. Objective - Vital Signs Vital signs: Vital Signs Temp 97.3 F L 03/15/20 19:55 Pulse 94 03/15/20 19:55 Resp 28 H 03/15/20 11:20 BP 186/96 03/15/20 19:55 Pulse Ox 93 L 03/15/20 20:36 Intake & Output 03/15/20 03/15/20 03/16/20 06:59 18:59 06:59 Intake Total 340 220 Balance 340 220 Intake: Intake, IV Titration 100 Amount Dextrose 5% in Water 1, 100 000 ml @ 100 mls/hr IV . Q10H [facility] Rx#:[id number] Oral 340 120 Other: Voiding Method Diaper Diaper Incontinent Incontinent # Voids 2 2 # Bowel Movements 0 - Exam PHYSICAL EXAMINATION: GENERAL: The patient is alert non verbal , not in any acute distress. Normocephalic, atraumatic. No pharyngeal erythema. No thyromegaly. CARDIOVASCULAR: S1 and S2 present. No murmurs, rubs, or gallops. PULMONARY: Chest is clear to auscultation, no wheezing or crackles. ABDOMEN: Soft, nontender, nondistended, normoactive bowel sounds. No palpable organomegaly. MUSCULOSKELETAL: No joint swelling or deformity. EXTREMITIES: No cyanosis, clubbing, or pedal edema. NEUROLOGICAL: Gross neurological examination did not reveal any focal deficits. SKIN: No rashes. - Labs CBC & Chem 7: 03/15/20 05:33 03/15/20 05:33 Labs: Abnormal Lab Results - Last 24 Hours (Table) 03/14/20 03/14/20 03/15/20 Range/Units 18:22 21:06 05:33 RBC 4.17 L (4.30-5.90) m/uL Sodium (135-145) mmol/L Chloride (96-109) mmol/L Carbon Dioxide (21.6-31.8) mmol/L BUN (9.0-27.0) mg/dL Est GFR (CKD-EPI)AfAm (60.0-200.0) Est GFR (CKD-EPI)NonAf (60.0-200.0) BUN/Creatinine Ratio (12.00-20.00) Ratio POC Glucose (mg/dL) 311 H (75-99) mg/dL Total Bilirubin (0.3-1.2) mg/dL ALT (10-49) U/L Lactate Dehydrogenase (120-246) U/L C-Reactive Protein (0.0-0.8) mg/dL Albumin (3.80-4.90) g/dL Albumin/Globulin Ratio (1.60-3.17) g/dL Procalcitonin 0.12 H (0.02-0.09) ng/mL 03/15/20 03/15/20 03/15/20 Range/Units 05:33 07:18 11:25 RBC (4.30-5.90) m/uL Sodium 156 H (135-145) mmol/L Chloride 112 H (96-109) mmol/L Carbon Dioxide 33.0 H (21.6-31.8) mmol/L BUN 47.0 H (9.0-27.0) mg/dL Est GFR (CKD-EPI)AfAm 58.6 L (60.0-200.0) Est GFR (CKD-EPI)NonAf 50.5 L (60.0-200.0) BUN/Creatinine Ratio 33.57 H (12.00-20.00) Ratio POC Glucose (mg/dL) 111 H 150 H (75-99) mg/dL Total Bilirubin 0.2 L (0.3-1.2) mg/dL ALT <8 L (10-49) U/L Lactate Dehydrogenase 362 H (120-246) U/L C-Reactive Protein 18.9 H (0.0-0.8) mg/dL Albumin 3.50 L (3.80-4.90) g/dL Albumin/Globulin Ratio 1.21 L (1.60-3.17) g/dL Procalcitonin (0.02-0.09) ng/mL 03/15/20 03/15/20 Range/Units 16:40 19:58 RBC (4.30-5.90) m/uL Sodium (135-145) mmol/L Chloride (96-109) mmol/L Carbon Dioxide (21.6-31.8) mmol/L BUN (9.0-27.0) mg/dL Est GFR (CKD-EPI)AfAm (60.0-200.0) Est GFR (CKD-EPI)NonAf (60.0-200.0) BUN/Creatinine Ratio (12.00-20.00) Ratio POC Glucose (mg/dL) 245 H 170 H (75-99) mg/dL Total Bilirubin (0.3-1.2) mg/dL ALT (10-49) U/L Lactate Dehydrogenase (120-246) U/L C-Reactive Protein (0.0-0.8) mg/dL Albumin (3.80-4.90) g/dL Albumin/Globulin Ratio (1.60-3.17) g/dL Procalcitonin (0.02-0.09) ng/mL Assessment and Plan Assessment: 1. Acute COVID- 19 infection; Acute hypoxic respiratory failure patient remains on Zithromax, dexamethasone, Lovenox and remdesivir 2. Left leg cellulitis; improving 3. Fluid overload/CHF; IV Lasix 40 mg every 12 hours 4. Diabetes mellitus; Glucotrol 5 mg by mouth twice a day; monitor Accu-Cheks before meals and at bedtime with insulin sliding scale 5. Hypertension; amlodipine 2.5 mg daily 6. Hyperlipidemia; Lipitor 20 mg by mouth daily at bedtime 7. History of closed head injury. 8. Hyponatremia secondary to volume depletion and poor oral intake. IV fluids changed to D5 water at 100 cc/h. DVT prophylaxis; subcu Lovenox CODE STATUS; full code Time with Patient: Greater than 30
--- NOTE | 2020-03-16 00:21 | PN ---
PROGRESS NOTE DATE OF SERVICE: 03/15/2020 REASON FOR FOLLOWUP: Pneumonia. INTERVAL HISTORY: The patient is currently afebrile. He was noticed to be lethargic and weak, unable to provide any history. No vomiting, no diarrhea or any other change reported by the nursing staff. PHYSICAL EXAMINATION: Blood pressure 186/96, pulse 94, temperature 97.3. He is 93% on high flow Ventimask. General description is an elderly male lying in bed in no distress. RESPIRATORY SYSTEM: Unlabored breathing. Decreased breath sounds at the bases. No wheeze. HEART: S1, S2. Regular rate and rhythm. ABDOMEN: Soft, no tenderness. LAB: Hemoglobin 13.1, white count 9.4. BUN of 47, creatinine 1.4. DIAGNOSTIC IMPRESSION AND PLAN: Patient with acute respiratory failure, pneumonia, multifactorial, possible COVID- 19 pneumonia for which the patient is currently being treated with dexamethasone, Lovenox, and remdesivir and will monitor his clinical course closely. Continue with supportive care. MMODL / IJN: [id number] /
[2020-03-16 06:55] LABS: Basophils # (A) 0.1 k/uL (0-0.2); Basophils % (A) 1 %; Eosinophils # (A) 0.1 k/uL (0-0.7); Eosinophils % (A) 1 %; HCT 41.9 % (39.0-53.0); HGB 13.2 gm/dL (13.0-17.5); Hypochromasia Slight; Lymphocytes # (A) 1.9 k/uL (1.0-4.8); Lymphocytes % (A) 21 %; MCH 30.8 pg (25.0-35.0); MCHC 31.6 g/dL (31.0-37.0); MCV 97.6 fL (80.0-100.0); Mean Platelet Volume 10.5; Monocytes # (A) 0.9 k/uL (0-1.0); Monocytes % (A) 9 %; Neutrophils # (A) 6.1 k/uL (1.3-7.7); Neutrophils % (A) 65 %; Platelet Count 453 k/uL (150-450); Poikilocytosis Slight; RBC 4.29 m/uL (4.30-5.90); RDW 15.3 % (11.5-15.5); WBC 9.3 k/uL (3.8-10.6)
[2020-03-16 07:10] LABS: Glucose,Whole Blood 287 mg/dL (75-99)
[2020-03-16 07:53] LABS: Large Platelets Present
[2020-03-16] MEDS: GABAPENTIN 300 MG CAP PO SCH ×2 (09:14→15:56)
[2020-03-16] MEDS: PANTOPRAZOLE 40 MG TABLET PO SCH (09:14)
[2020-03-16] MEDS: DIVALPROEX ER 500 MG TAB.ER.24H PO SCH ×2 (09:14→15:56)
[2020-03-16] MEDS: amLODIPine 2.5 MG TAB PO SCH (09:14)
[2020-03-16] MEDS: glipiZIDE 5 MG TAB PO SCH ×2 (09:14→16:21)
[2020-03-16] MEDS: ATORVASTATIN 20 MG TAB PO SCH (09:14)
[2020-03-16] MEDS: CARBIDOPA-LEVODOPA 25-250 MG 1 EACH TAB PO SCH ×2 (09:14→15:56)
[2020-03-16] MEDS: ASPIRIN 81 MG PO SCH (09:14)
[2020-03-16] MEDS: HYDROcodone/APAP 5-325MG 1 EACH TAB PO SCH ×4 (09:14→19:58)
[2020-03-16] MEDS: VORTIOXETINE HYDROBROMIDE 10 MG TABLET PO SCH (09:15)
[2020-03-16] MEDS: ZINC SULFATE 220 MG CAP PO SCH (09:15)
[2020-03-16] MEDS: SERTRALINE 50 MG TAB PO SCH (09:15)
[2020-03-16] MEDS: MULTIVITAMINS, THERA 1 EACH TAB PO SCH (09:15)
[2020-03-16] MEDS: metFORMIN 500 MG TAB PO SCH ×2 (09:15→15:56)
[2020-03-16] MEDS: PROCHLORPERAZINE 10 MG TAB PO SCH ×2 (09:15→19:58)
[2020-03-16] MEDS: METOPROLOL TARTRATE 50 MG TAB PO SCH ×2 (09:15→15:57)
[2020-03-16] MEDS: dexAMETHasone 2 MG TAB PO SCH (09:15)
[2020-03-16] MEDS: ENOXAPARIN 40 MG/0.4 ML SYRINGE SQ SCH (09:16)
[2020-03-16] MEDS: INSULIN ASPART (NovoLOG) 100 UNIT/ML VIAL SQ SCH ×4 (09:16→19:57)
[2020-03-16] MEDS: SODIUM CHLORIDE 0.65% NASAL SPRAY 44 ML BTL INTRANASAL SCH ×2 (09:17→19:58)
[2020-03-16] MEDS: AMMONIUM LACTATE 12% CREAM 140 GM TUBE TOPICAL SCH (09:17)
[2020-03-16] MEDS: DEXTROSE 5% IN WATER 1,000 ML IV SCH ×2 (09:18→19:59)
[2020-03-16] MEDS: MUPIROCIN 2% OINT 22 GM TUBE TOPICAL SCH ×2 (09:18→19:58)
[2020-03-16 09:26] LABS: ALT <8 U/L (10-49); AST 24 U/L (14-35); African American GFR (CKD) 64.1 (60.0-200.0); Albumin/Globulin Ratio 1.13 (1.60-3.17); Alkaline Phosphatase 68 U/L (41-126); BUN/Creat Ratio 29.23 Ratio (12.00-20.00); Calcium 9.1 mg/dL (8.7-10.3); Carbon Dioxide 34.8 mmol/L (21.6-31.8); Chloride 112 mmol/L (96-109); Glucose 278 mg/dL (70-110); LDH 324 U/L (120-246); Non-African American GFR(CKD) 55.3 (60.0-200.0); Potassium 3.9 mmol/L (3.5-5.5); Sodium 155 mmol/L (135-145); Total Bilirubin 0.2 mg/dL (0.3-1.2); Total Protein 6.4 g/dL (6.2-8.2)
[2020-03-16 11:25] LABS: Glucose,Whole Blood 294 mg/dL (75-99)
--- NOTE | 2020-03-16 15:17 | P.PN ---
Subjective Progress Note Date: 03/16/20 Principal diagnosis: COVID 19 related infection This is a 70-year-old white male patient with past medical history of fall close head injury, nonverbal, who was seen in the emergency room on March 06 when he was brought in by his caregiver and was found to be positive for COVID 19 on March 10. His chest x-ray on 03/06/2020 showed infiltrative and atelectatic changes at the lung bases, and a repeat chest x-ray on March 10 showed a worsening abnormality. Patient developed worsening hypoxemia, he was placed on supplemental oxygen, he remains on 5 L of oxygen pulse ox of 95%, low grade fever this afternoon, otherwise has been afebrile since 03/10/2020. He was started on oral dexamethasone, IV Lasix, Remdesivir. His follow-up chest x- ray on 03/13/2020 showing persistent right upper lobe, right perihilar and right lower lobe infiltrates as well as left perihilar and left lower lobe infiltrates. Today's labs have been reviewed, showing white blood cell count of 11.3, hemoglobin of 13.5, d-dimer is 0.70, sodium is 147, potassium is 4.0, chloride is 102, BUN of 43, creatinine is 1.5, LDH has decreased to 354 from admission, CRP is down to 8.4 from 188.3, pro-calcitonin is 0.12, patient is nonverbal, not able to provide much history. On 03/15/2020 patient seen in follow-up on medical surgical floor. He is resting in bed, appears to be a bit more lethargic on today's exam, clinically he appears very dry, mucous membranes are dry, he has not been taking in much in the way of oral intake. He remains on 5 L of oxygen with a pulse ox of 94%, low-grade fevers this afternoon, with a temp of 99.9 degrees Fahrenheit, her breathing seems to be nonlabored, no cough, respirations are shallow, lung sounds are diminished, patient tested positive for Covid 19 he is on revisit ear, day 3. He has been on diuretics as well, however on today's labs his sodi um is up to 156, yesterday because of back to Lasix, today we will discontinue the Lasix and we will start the patient on IV fluids. Today's labs have been reviewed showing LDH relatively stable at 362 although increased from admission, and CRP is also increased at 18.9, pro-calcitonin was 0.12, d-dimer 0.20, white count is 9.4. Patient is on the oral Decadron, zinc sulfate, he is on prophylactic doses of Lovenox. On 03/16/2020 patient seen in follow-up On the medical surgical floor, he is on 50% Ventimask, his pulse ox is 92%, he is afebrile, he is able to mumble, but for the most part is 90 able to communicate, does not appear to be in any respiratory distress, resting quietly in bed, drowsy, but arousable, has not been eating much, mucous membranes are dry, he is on D5W currently infusing at 100 ML per hour, today's labs have been reviewed, serum sodium is 155, potassium 3.9, chloride is 112, CO2 is 35, B1 is 38 creatinine is 1.3, LDH 324, CRP is 14. D-dimer today 0.24, Lasix remains on hold. Continues on Remdesivir, Decadron. Yesterday's chest x-ray showed diffuse infiltrate with slight improvement over the interval. Objective - Vital Signs Vital signs: Vital Signs Temp 98.5 F 03/16/20 12:18 Pulse 93 03/16/20 12:18 Resp 24 03/16/20 12:18 BP 172/91 03/16/20 12:18 Pulse Ox 92 L 03/16/20 12:18 Intake & Output 03/15/20 03/16/20 03/16/20 18:59 06:59 18:59 Intake Total 220 900 Balance 220 900 Weight 82.5 kg Intake: Intake, IV Titration 100 900 Amount Dextrose 5% in Water 1, 100 900 000 ml @ 100 mls/hr IV . Q10H [facility] Rx#:[id number] Oral 120 Other: Voiding Method Diaper Diaper Diaper Incontinent Incontinent Incontinent # Voids 2 - Exam GENERAL EXAM: Minimal responsive on today's exam, arousable, but still drowsy, 70-year-old white male, on 50% Ventimask, with a pulse ox of 92% comfortable in no apparent distress. HEAD: Normocephalic/atraumatic. EYES: Normal reaction of pupils, equal size. Conjunctiva pink, sclera white. NOSE: Clear with pink turbinates. THROAT: No erythema or exudates. NECK: No masses, no JVD, no thyroid enlargement, no adenopathy. CHEST: No chest wall deformity. Symmetrical expansion. LUNGS: Equal air entry with no crackles, wheeze, rhonchi or dullness. CVS: Regular rate and rhythm, normal S1 and S2, no gallops, no murmurs, no rubs ABDOMEN: Soft, nontender. No hepatosplenomegaly, normal bowel sounds, no guarding or rigidity. EXTREMITIES: No clubbing, no edema, no cyanosis, 2+ pulses and upper and lower extremities. MUSCULOSKELETAL: Muscle strength and tone normal. SPINE: No scoliosis or deformity SKIN: No rashes CENTRAL NERVOUS SYSTEM: nonverbal, No focal deficits, tone is normal in all 4 extremities. - Labs CBC & Chem 7: 03/16/20 05:31 03/16/20 05:31 Labs: Abnormal Lab Results - Last 24 Hours (Table) 03/15/20 03/15/20 03/16/20 Range/Units 16:40 19:58 05:31 RBC 4.29 L (4.30-5.90) m/uL Plt Count 453 H (150-450) k/uL Sodium (135-145) mmol/L Chloride (96-109) mmol/L Carbon Dioxide (21.6-31.8) mmol/L BUN (9.0-27.0) mg/dL Est GFR (CKD-EPI)NonAf (60.0-200.0) BUN/Creatinine Ratio (12.00-20.00) Ratio Glucose (70-110) mg/dL POC Glucose (mg/dL) 245 H 170 H (75-99) mg/dL Total Bilirubin (0.3-1.2) mg/dL ALT (10-49) U/L Lactate Dehydrogenase (120-246) U/L C-Reactive Protein (0.0-0.8) mg/dL Albumin (3.80-4.90) g/dL Albumin/Globulin Ratio (1.60-3.17) g/dL 03/16/20 03/16/20 03/16/20 Range/Units 05:31 07:08 11:23 RBC (4.30-5.90) m/uL Plt Count (150-450) k/uL Sodium 155 H (135-145) mmol/L Chloride 112 H (96-109) mmol/L Carbon Dioxide 34.8 H (21.6-31.8) mmol/L BUN 38.0 H (9.0-27.0) mg/dL Est GFR (CKD-EPI)NonAf 55.3 L (60.0-200.0) BUN/Creatinine Ratio 29.23 H (12.00-20.00) Ratio Glucose 278 H (70-110) mg/dL POC Glucose (mg/dL) 287 H 294 H (75-99) mg/dL Total Bilirubin 0.2 L (0.3-1.2) mg/dL ALT <8 L (10-49) U/L Lactate Dehydrogenase 324 H (120-246) U/L C-Reactive Protein 14.0 H (0.0-0.8) mg/dL Albumin 3.40 L (3.80-4.90) g/dL Albumin/Globulin Ratio 1.13 L (1.60-3.17) g/dL Assessment and Plan Plan: Assessment: #1. COVID 19 pneumonitis/pneumonia, started on Remdevir yesterday on 03/13/2020, with bilateral infiltrates, and acute hypoxic respiratory failure #2. Possible mild fluid overload, patient has been diuresed, chest x-ray only showing very slight improvement over the interval #3. History of diabetes mellitus #4. GERD/reflux #5. Hypertension #6. Hyperlipidemia #7. History of closed head injury #8. Patient is a poor historian, and he is nonverbal #9. Hypernatremia related to diuretic therapy, and poor oral intake and a free water deficit Plan: Continue with D5W at 100 ML per hour, maintain aspiration precautions, follow up labs in the morning, monitor urine output, monitor mentation, continue with Remdesivir, Decadron. Continue Lovenox. Wean FiO2. Encourage oral intake, maintain aspiration precautions. Continue to follow. I performed a history & physical examination of the patient and discussed their management with my nurse practitioner, Shanelle Huynh. I reviewed the nurse practitioner's note and agree with the documented findings and plan of care. Lung sounds are positive for diminished breath sounds. The findings and the impression was discussed with the patient. I attest to the documentation by the nurse practitioner. Time with Patient: Less than 30
[2020-03-16] MEDS: REMDESIVIR 100 MG in SODIUM CHLORIDE 0.9% 250 ML IVPB SCH (16:23)
[2020-03-16 17:22] LABS: Glucose,Whole Blood 202 mg/dL (75-99)
[2020-03-16 19:45] LABS: Glucose,Whole Blood 128 mg/dL (75-99)
[2020-03-16] MEDS: CLOTRIMAZOLE 1% CREAM 15 GM TUBE TOPICAL SCH (19:58)
[2020-03-16] MEDS: LATANOPROST 0.005% OPHTH DROPS 2.5 ML BTL BOTH EYES SCH (19:58)
[2020-03-16] MEDS: MINERAL OIL-WHITE PETROLATUM 120 GM JAR TOPICAL SCH (19:58)
[2020-03-16] MEDS: INSULIN DETEMIR (LEVEMIR) 100 UNIT/ML SYR SQ SCH (20:46)
[2020-03-16 21:35] VITALS: RESP 16
--- NOTE | 2020-03-16 23:38 | PN ---
PROGRESS NOTE DATE OF SERVICE: 03/16/2020 REASON FOR FOLLOWUP: COVID-19 pneumonia. INTERVAL HISTORY: The patient is currently afebrile. The patient remains to be lethargic and unable to provide any history. Oral intake remains to be poor by the nursing staff. No diarrhea or any other changes reported by the nursing staff. The patient himself was not able to provide any history. PHYSICAL EXAMINATION: Blood pressure 172/91 with a pulse of 93, temperature 98.5. He is 92% on Ventimask. General description is an elderly male lying in bed in no distress. RESPIRATORY SYSTEM: Unlabored breathing, decreased breath sounds at the bases. No wheeze. HEART: S1, S2. Regular rate and rhythm. ABDOMEN: Soft, no tenderness. LABS: Hemoglobin 13.2, white count 9.3, BUN of 38, creatinine is 1.3. LDH of 324, which is down from 362 and CRP is down to 14 from 18.9. DIAGNOSTIC IMPRESSION AND PLAN: Patient with acute respiratory failure and pneumonia concern is for possible COVID-19 in this patient currently covered with remdesivir, dexamethasone and Lovenox, to continue along with respiratory support and aspiration precautions. Monitor clinical course closely. MMODL / IJN: [id number] /
[2020-03-17] MEDS: DEXTROSE 5% IN WATER 1,000 ML IV SCH ×2 (05:14→16:02)
[2020-03-17 07:23] LABS: Glucose,Whole Blood 234 mg/dL (75-99)
[2020-03-17] MEDS: INSULIN ASPART (NovoLOG) 100 UNIT/ML VIAL SQ SCH ×4 (09:13→17:48)
[2020-03-17] MEDS: glipiZIDE 5 MG TAB PO SCH ×2 (09:13→16:04)
[2020-03-17] MEDS: ASPIRIN 81 MG PO SCH (09:14)
[2020-03-17] MEDS: PANTOPRAZOLE 40 MG TABLET PO SCH (09:14)
[2020-03-17] MEDS: amLODIPine 2.5 MG TAB PO SCH (09:14)
[2020-03-17] MEDS: ATORVASTATIN 20 MG TAB PO SCH (09:15)
[2020-03-17] MEDS: GABAPENTIN 300 MG CAP PO SCH ×2 (09:15→16:03)
[2020-03-17] MEDS: CARBIDOPA-LEVODOPA 25-250 MG 1 EACH TAB PO SCH ×2 (09:15→16:02)
[2020-03-17] MEDS: DIVALPROEX ER 500 MG TAB.ER.24H PO SCH ×2 (09:15→16:02)
[2020-03-17] MEDS: metFORMIN 500 MG TAB PO SCH ×2 (09:16→16:03)
[2020-03-17] MEDS: METOPROLOL TARTRATE 50 MG TAB PO SCH ×2 (09:16→16:03)
[2020-03-17] MEDS: HYDROcodone/APAP 5-325MG 1 EACH TAB PO SCH ×2 (09:16→13:19)
[2020-03-17] MEDS: MULTIVITAMINS, THERA 1 EACH TAB PO SCH (09:16)
[2020-03-17] MEDS: PROCHLORPERAZINE 10 MG TAB PO SCH (09:17)
[2020-03-17] MEDS: dexAMETHasone 2 MG TAB PO SCH (09:18)
[2020-03-17] MEDS: VORTIOXETINE HYDROBROMIDE 10 MG TABLET PO SCH (09:18)
[2020-03-17] MEDS: SERTRALINE 50 MG TAB PO SCH (09:18)
[2020-03-17] MEDS: ZINC SULFATE 220 MG CAP PO SCH (09:19)
[2020-03-17] MEDS: ENOXAPARIN 40 MG/0.4 ML SYRINGE SQ SCH (09:19)
[2020-03-17] MEDS: MUPIROCIN 2% OINT 22 GM TUBE TOPICAL SCH (09:21)
[2020-03-17] MEDS: SODIUM CHLORIDE 0.65% NASAL SPRAY 44 ML BTL INTRANASAL SCH (09:21)
[2020-03-17 10:07] LABS: Basophils # (A) 0.1 k/uL (0-0.2); Basophils % (A) 1 %; Eosinophils # (A) 0.1 k/uL (0-0.7); Eosinophils % (A) 1 %; HCT 43.2 % (39.0-53.0); HGB 13.7 gm/dL (13.0-17.5); Hypochromasia Slight; Lymphocytes # (A) 2.3 k/uL (1.0-4.8); Lymphocytes % (A) 25 %; MCH 31.5 pg (25.0-35.0); MCHC 31.8 g/dL (31.0-37.0); MCV 99.1 fL (80.0-100.0); Macrocytosis Slight; Mean Platelet Volume 9.5; Monocytes # (A) 0.7 k/uL (0-1.0); Monocytes % (A) 8 %; Neutrophils # (A) 5.9 k/uL (1.3-7.7); Neutrophils % (A) 64 %; Platelet Count 504 k/uL (150-450); Poikilocytosis Slight; RBC 4.36 m/uL (4.30-5.90); WBC 9.2 k/uL (3.8-10.6)
[2020-03-17 11:39] LABS: Glucose,Whole Blood 215 mg/dL (75-99)
[2020-03-17 13:19] LABS: Large Platelets Present
[2020-03-17 13:20] LABS: Howell-Jolly Bodies Present; RBC Fragments Present
[2020-03-17] MEDS: AMMONIUM LACTATE 12% CREAM 140 GM TUBE TOPICAL SCH (13:20)
--- NOTE | 2020-03-17 15:10 | P.PN ---
Subjective Progress Note Date: 03/17/20 Acute COVID-19 pneumonia 70-year-old male patient admitted with acute cellulitis of left lower extremity; patient was tested for covert 19 which came back positive; patient has no com plaints of palpitations or shortness of breath 03/12/2020 Patient is seen and evaluated in room at bedside; vital signs are reviewed; patient remains afebrile; patient has been having episodes of choking on food and water; patient has been evaluated by therapy and diet has been adjusted; patient remains on supplemental oxygen; continue with oral azithromycin, dexamethasone, vitamin C, vitamin D and zinc sulfate 03/13/2020 Patient is seen and evaluated in room at bedside; vital signs are stable; SpO2 of 94% on 5 L; continue with current management; ID and pulmonary embolic 03/14/2020 Patient is nonverbal. Currently lying in the bed comfortably. Chest x-ray showed persistent right upper lobe right perihilar and right lower lobe infiltrates as well as left lower lobe infiltrates. Laboratory data showed WBC count of 11.3, hemoglobin 13.5, sodium 147, potassium 4.0, chloride 102 and BUN 43 and creatinine 1.5 Patient is not eating very well. On pured and honey thickened liquids. Pat ient is being continued on remdesivir and dexamethasone. ID and pulmonary is following. 03/15/2020 Patient is currently lying in the bed. awake but lethargic. Patient has not been taking much oral intake. Currently still remains on oxygen at 5 L via nasal cannula. Sodium level increased to 156 today and IV fluids have been changed to D5 water. Patient is being continued on dexamethasone and remdesivir. BUN 47 creatinine 1.4 and potassium 3.9 Current medications reviewed. 03/16/2020 Patient seen and evaluated in follow-up today and continues to be quite lethargic although arousable. Patient is currently on 15 L via Ventimask with oxygen saturations of 92% with no real improvement. Discussed with legal guardian and family and patient is currently being evaluated for comfort measures and CODE STATUS was changed to no code. Patient is not eating and continues to deteriorate. Awaiting hospice consult at this time. Objective - Vital Signs Vital signs: Vital Signs Temp 98.0 F 03/17/20 05:00 Pulse 100 03/17/20 05:00 Resp 16 03/17/20 05:00 BP 167/91 03/17/20 05:00 Pulse Ox 95 03/17/20 05:00 Intake & Output 03/16/20 03/17/20 03/17/20 18:59 06:59 18:59 Intake Total 1100 Balance 1100 Intake: Intake, IV Titration 1100 Amount Dextrose 5% in Water 1, 1100 000 ml @ 100 mls/hr IV . Q10H [facility] Rx#:[id number] Other: Voiding Method Diaper Diaper Incontinent Incontinent # Voids 3 2 # Bowel Movements 0 - Exam GENERAL: The patient is asleep and very lethargic although somewhat arousable, non verbal , not in any acute distress. Normocephalic, atraumatic. No pharyngeal erythema. No thyromegaly. CARDIOVASCULAR: S1 and S2 present. No murmurs, rubs, or gallops. PULMONARY: Diminished breath sounds bilaterally, with some scattered rhonchi and no wheezing or crackles. ABDOMEN: Soft, nontender, nondistended, normoactive bowel sounds. No palpable organomegaly. MUSCULOSKELETAL: No joint swelling or deformity. EXTREMITIES: No cyanosis, clubbing, or pedal edema. NEUROLOGICAL: Gross neurological examination did not reveal any focal deficits. SKIN: No rashes. - Labs CBC & Chem 7: 03/17/20 09:07 03/16/20 05:31 Labs: Abnormal Lab Results - Last 24 Hours (Table) 03/11/20 03/16/20 03/16/20 Range/Units 03:30 17:14 19:35 Plt Count (150-450) k/uL POC Glucose (mg/dL) 202 H 128 H (75-99) mg/dL Coronavirus (PCR) Detected A (Not Detected) 03/17/20 03/17/20 03/17/20 Range/Units 07:21 09:07 11:38 Plt Count 504 H (150-450) k/uL POC Glucose (mg/dL) 234 H 215 H (75-99) mg/dL Coronavirus (PCR) (Not Detected) Assessment and Plan Assessment: Acute Covid 19 infection Acute hypoxic respiratory failure Left leg cellulitis, improving Fluid overload/congestive heart failure Diabetes mellitus Hypertension Hyperlipidemia History of closed head injury Hyponatremia secondary to volume depletion and poor oral intake DVT prophylaxis No code Plan: Patient is maintained on Remdesivir, zinc supplements, dexamethasone with no real improvement. Patient is currently also on 15 L Ventimask. Patient is not eating and extremely lethargic. CODE STATUS was changed to no code today by legal guardian and are agreeable to comfort measures. Awaiting hospice consult to initiate these orders. Prognosis is poor. Further recommendations to follow.
--- NOTE | 2020-03-17 15:10 | P.PN ---
Subjective Progress Note Date: 03/17/20 Principal diagnosis: COVID 19 related infection This is a 70-year-old white male patient with past medical history of fall close head injury, nonverbal, who was seen in the emergency room on March 06 when he was brought in by his caregiver and was found to be positive for COVID 19 on March 10. His chest x-ray on 03/06/2020 showed infiltrative and atelectatic changes at the lung bases, and a repeat chest x-ray on March 10 showed a worsening abnormality. Patient developed worsening hypoxemia, he was placed on supplemental oxygen, he remains on 5 L of oxygen pulse ox of 95%, low grade fever this afternoon, otherwise has been afebrile since 03/10/2020. He was started on oral dexamethasone, IV Lasix, Remdesivir. His follow-up chest x- ray on 03/13/2020 showing persistent right upper lobe, right perihilar and right lower lobe infiltrates as well as left perihilar and left lower lobe infiltrates. Today's labs have been reviewed, showing white blood cell count of 11.3, hemoglobin of 13.5, d-dimer is 0.70, sodium is 147, potassium is 4.0, chloride is 102, BUN of 43, creatinine is 1.5, LDH has decreased to 354 from admission, CRP is down to 8.4 from 188.3, pro-calcitonin is 0.12, patient is nonverbal, not able to provide much history. On 03/15/2020 patient seen in follow-up on medical surgical floor. He is resting in bed, appears to be a bit more lethargic on today's exam, clinically he appears very dry, mucous membranes are dry, he has not been taking in much in the way of oral intake. He remains on 5 L of oxygen with a pulse ox of 94%, low-grade fevers this afternoon, with a temp of 99.9 degrees Fahrenheit, her breathing seems to be nonlabored, no cough, respirations are shallow, lung sounds are diminished, patient tested positive for Covid 19 he is on revisit ear, day 3. He has been on diuretics as well, however on today's labs his sodi um is up to 156, yesterday because of back to Lasix, today we will discontinue the Lasix and we will start the patient on IV fluids. Today's labs have been reviewed showing LDH relatively stable at 362 although increased from admission, and CRP is also increased at 18.9, pro-calcitonin was 0.12, d-dimer 0.20, white count is 9.4. Patient is on the oral Decadron, zinc sulfate, he is on prophylactic doses of Lovenox. On 03/16/2020 patient seen in follow-up On the medical surgical floor, he is on 50% Ventimask, his pulse ox is 92%, he is afebrile, he is able to mumble, but for the most part is 90 able to communicate, does not appear to be in any respiratory distress, resting quietly in bed, drowsy, but arousable, has not been eating much, mucous membranes are dry, he is on D5W currently infusing at 100 ML per hour, today's labs have been reviewed, serum sodium is 155, potassium 3.9, chloride is 112, CO2 is 35, B1 is 38 creatinine is 1.3, LDH 324, CRP is 14. D-dimer today 0.24, Lasix remains on hold. Continues on Remdesivir, Decadron. Yesterday's chest x-ray showed diffuse infiltrate with slight improvement over the interval. On 03/17/2020 patient seen in follow-up on medical surgical floor, he is resting comfortably in bed, in no acute distress, she still requiring her percent nonrebreather, his pulse ox is above 100%, appears to be in no acute respiratory distress, no tachypnea, patient is nonverbal. Last chest x-ray was done 2 days ago. Today's labs have been reviewed, EDC has been noted, BMP is pending. He remains on D5W at 100 ML per hour. He continues on Remdesivir, Decadron. Lung sounds are diminished. Objective - Vital Signs Vital signs: Vital Signs Temp 98.0 F 03/17/20 05:00 Pulse 100 03/17/20 05:00 Resp 16 03/17/20 05:00 BP 167/91 03/17/20 05:00 Pulse Ox 95 03/17/20 05:00 Intake & Output 03/16/20 03/17/20 03/17/20 18:59 06:59 18:59 Intake Total 1100 Balance 1100 Intake: Intake, IV Titration 1100 Amount Dextrose 5% in Water 1, 1100 000 ml @ 100 mls/hr IV . Q10H [facility] Rx#:[id number] Other: Voiding Method Diaper Diaper Incontinent Incontinent # Voids 3 2 # Bowel Movements 0 - Exam GENERAL EXAM: Arousable, but still drowsy, 70-year-old white male, on 50% Ventimask, with a pulse ox of 92% comfortable in no apparent distress. HEAD: Normocephalic/atraumatic. EYES: Normal reaction of pupils, equal size. Conjunctiva pink, sclera white. NOSE: Clear with pink turbinates. THROAT: No erythema or exudates. NECK: No masses, no JVD, no thyroid enlargement, no adenopathy. CHEST: No chest wall deformity. Symmetrical expansion. LUNGS: Equal air entry with no crackles, wheeze, rhonchi or dullness. CVS: Regular rate and rhythm, normal S1 and S2, no gallops, no murmurs, no rubs ABDOMEN: Soft, nontender. No hepatosplenomegaly, normal bowel sounds, no guarding or rigidity. EXTREMITIES: No clubbing, no edema, no cyanosis, 2+ pulses and upper and lower extremities. MUSCULOSKELETAL: Muscle strength and tone normal. SPINE: No scoliosis or deformity SKIN: No rashes CENTRAL NERVOUS SYSTEM: nonverbal, No focal deficits, tone is normal in all 4 extremities. - Labs CBC & Chem 7: 03/17/20 09:07 03/16/20 05:31 Labs: Abnormal Lab Results - Last 24 Hours (Table) 03/11/20 03/16/20 03/16/20 Range/Units 03:30 17:14 19:35 Plt Count (150-450) k/uL POC Glucose (mg/dL) 202 H 128 H (75-99) mg/dL Coronavirus (PCR) Detected A (Not Detected) 03/17/20 03/17/20 03/17/20 Range/Units 07:21 09:07 11:38 Plt Count 504 H (150-450) k/uL POC Glucose (mg/dL) 234 H 215 H (75-99) mg/dL Coronavirus (PCR) (Not Detected) Assessment and Plan Plan: Assessment: #1. COVID 19 pneumonitis/pneumonia, started on Remdevir yesterday on 03/13/2020, with bilateral infiltrates, and acute hypoxic respiratory failure #2. Possible mild fluid overload, patient has been diuresed, chest x-ray only showing very slight improvement over the interval #3. History of diabetes mellitus #4. GERD/reflux #5. Hypertension #6. Hyperlipidemia #7. History of closed head injury #8. Patient is a poor historian, and he is nonverbal #9. Hypernatremia related to diuretic therapy, and poor oral intake and a free water deficit Plan: Continue current medical treatment, vital signs have been stable, no worsening dyspnea, still requiring high flow oxygen, does not appear to be in any acute distress, no fever, continues on Remdesivir and Decadron. CMP pending for today I performed a history & physical examination of the patient and discussed their management with my nurse practitioner, Shanelle Huynh. I reviewed the nurse practitioner's note and agree with the documented findings and plan of care. Lung sounds are positive for diminished breath sounds. The findings and the impression was discussed with the patient. I attest to the documentation by the nurse practitioner. Time with Patient: Less than 30
[2020-03-17 15:16] VITALS: BP 181/81; PULSE 96; TEMP 98.1
[2020-03-17 15:46] LABS: ALT <8 U/L (10-49); AST 20 U/L (14-35); African American GFR (CKD) 78.4 (60.0-200.0); Albumin/Globulin Ratio 0.97 (1.60-3.17); Alkaline Phosphatase 72 U/L (41-126); BUN/Creat Ratio 24.55 Ratio (12.00-20.00); C Reactive Protein 13.7 mg/dL (0.0-0.8); Calcium 8.8 mg/dL (8.7-10.3); Carbon Dioxide 35.5 mmol/L (21.6-31.8); Chloride 112 mmol/L (96-109); Globulin 3.2 g/dL (1.6-3.3); Glucose 269 mg/dL (70-110); Non-African American GFR(CKD) 67.7 (60.0-200.0); Potassium 3.9 mmol/L (3.5-5.5); Total Bilirubin 0.4 mg/dL (0.3-1.2); Total Protein 6.3 g/dL (6.2-8.2)
[2020-03-17 16:13] LABS: Sodium 154 mmol/L (135-145)
[2020-03-17 16:16] LABS: LDH 364 U/L (120-246)
[2020-03-17 16:56] LABS: Glucose,Whole Blood 162 mg/dL (75-99)
[2020-03-17] MEDS: REMDESIVIR 100 MG in SODIUM CHLORIDE 0.9% 250 ML IVPB SCH (17:48)
--- NOTE | 2020-03-18 06:54 | CDI ---
Documentation Clarification Form Date: 03/18/2020 06:28:00 AM From: Nica Salas Phone: If you have a question about this query, please contact Amelie Ramsey, Farm Specialist at [phone] between 8am and 5pm. Admit Date: 03/06/2020 09:40:00 PM Patient Name: Erik Molina Visit Number: [id number] Discharge Date: 03/17/2020 06:17:00 PM ATTENTION: The Clinical Documentation Specialists (CDI) and [facility] Coding Staff appreciate your assistance in clarifying documentation. Please respond to the clarification below the line at the bottom and electronically sign. The CDI & [facility] Coding staff will review the response and follow-up if needed. Please note: Queries are made part of the Legal Health Record. If you have any questions, please contact the author of this message via ITS. Dr. Micky Mojica The patient presented with Covid, pneumonia, acute cellulitis of the left leg and right foot with possible sepsis POA documented in H and P and Dr. Edwards's Progress notes. Documentation of sepsis does not continue through the chart. Did patient have sepsis or was it ruled out? If patient had sepsis was it due to Covid pneumonia or due to the cellulitis. Please clarify. History/Risk Factors: Covid positive - pneumonia, cellulitis bilateral LE's. metabolic encephalopathy, respiratory failure WBC 6.8 Lactic acid: 1.4 Vitals signs on admission: 97.3 F, 85 bpm, 145/87, 92% RA Treatment: Discontinue Rocephin start on cefazolin 2g q 8 hours Zithromax, Dexamethasone ID Consult: Cellulitis likely streptococcal disease Antibiotics: Rocephin, Cefazolin, Zithromas In your professional opinion, please clarify if these findings signify one of the following conditions, whether the condition is POA, and cause, if known: Condition Sepsis ruled out SIRS, without underlying infectious process Sepsis Sepsis due to cellulitis Sepsis due to Covid pneumonia Severe Sepsis Septic Shock Other, please specify Unable to determin SIRS Criteria (2 or more of the following may indicate SIRS): -Temperature < 96.8F (36C) or > 101.0F (38.3C) -Heart Rate > 90 bpm -Respiratory Rate > 20 breaths/min or PaCO2 < 32 mmHg -White Blood Cell Count > 12,000 or < 4,000 cells/mm3 or > 10% bands -Lactate >2.0 mmol/L (>4.0 is equivalent to septic shock) Sepsis due to cellulitis MTDD
--- NOTE | 2020-03-18 10:50 | P.PN ---
Subjective Progress Note Date: 03/16/20 Principal diagnosis: Acute COVID-19 pneumonia 70-year-old male patient admitted with acute cellulitis of left lower extremity; patient was tested for covert 19 which came back positive; patient has no complaints of palpitations or shortness of breath 03/12/2020 Patient is seen and evaluated in room at bedside; vital signs are reviewed; patient remains afebrile; patient has been having episodes of choking on food and water; patient has been evaluated by therapy and diet has been adjusted; patient remains on supplemental oxygen; continue with oral azithromycin, dexamethasone, vitamin C, vitamin D and zinc sulfate 03/13/2020 Patient is seen and evaluated in room at bedside; vital signs are stable; SpO2 of 94% on 5 L; continue with current management; ID and pulmonary embolic 03/14/2020 Patient is nonverbal. Currently lying in the bed comfortably. Chest x-ray showed persistent right upper lobe right perihilar and right lower lobe infiltrates as well as left lower lobe infiltrates. Laboratory data showed WBC count of 11.3, hemoglobin 13.5, sodium 147, potassium 4.0, chloride 102 and BUN 43 and creatinine 1.5 Patient is not eating very well. On pured and honey thickened liquids. Patient is being continued on remdesivir and dexamethasone. ID and pulmonary is following. 03/15/2020 Patient is currently lying in the bed. awake but lethargic. Patient has not been taking much oral intake. Currently still remains on oxygen at 5 L via nasal cannula. Sodium level increased to 156 today and IV fluids have been changed to D5 water. Patient is being continued on dexamethasone and remdesivir. BUN 47 creatinine 1.4 and potassium 3.9 03/16/2020 Patient is currently on 50% Ventimask and pulse ox is 92%. Patient has been afebrile. Patient has not communicated baseline. Resting comfortably on bed is still drowsy but arousable. Patient is being continued on D5 water at her as per hour. Serum sodium level improved to 155 today. Other laboratory data reviewed. Patient is being continued on Decadron and Remdesivir. Pulmonary is following. Prognosis remains guarded this time. Current medications reviewed. Objective - Vital Signs Vital signs: Vital Signs Temp 98.5 F 03/16/20 12:18 Pulse 93 03/16/20 12:18 Resp 24 03/16/20 12:18 BP 172/91 03/16/20 12:18 Pulse Ox 92 L 03/16/20 12:18 Intake & Output 03/16/20 03/16/20 03/17/20 06:59 18:59 06:59 Intake Total 900 Balance 900 Weight 82.5 kg Intake: Intake, IV Titration 900 Amount Dextrose 5% in Water 1, 900 000 ml @ 100 mls/hr IV . Q10H [facility] Rx#:[id number] Other: Voiding Method Diaper Diaper Incontinent Incontinent # Voids 3 - Exam PHYSICAL EXAMINATION: GENERAL: The patient is alert non verbal , not in any acute distress. Normocephalic, atraumatic. No pharyngeal erythema. No thyromegaly. CARDIOVASCULAR: S1 and S2 present. No murmurs, rubs, or gallops. PULMONARY: Chest is clear to auscultation, no wheezing or crackles. ABDOMEN: Soft, nontender, nondistended, normoactive bowel sounds. No palpable organomegaly. MUSCULOSKELETAL: No joint swelling or deformity. EXTREMITIES: No cyanosis, clubbing, or pedal edema. NEUROLOGICAL: Gross neurological examination did not reveal any focal deficits. SKIN: No rashes. - Labs CBC & Chem 7: 03/17/20 09:07 03/17/20 09:07 Labs: Abnormal Lab Results - Last 24 Hours (Table) 03/15/20 03/16/20 03/16/20 Range/Units 19:58 05:31 05:31 RBC 4.29 L (4.30-5.90) m/uL Plt Count 453 H (150-450) k/uL Sodium 155 H (135-145) mmol/L Chloride 112 H (96-109) mmol/L Carbon Dioxide 34.8 H (21.6-31.8) mmol/L BUN 38.0 H (9.0-27.0) mg/dL Est GFR (CKD-EPI)NonAf 55.3 L (60.0-200.0) BUN/Creatinine Ratio 29.23 H (12.00-20.00) Ratio Glucose 278 H (70-110) mg/dL POC Glucose (mg/dL) 170 H (75-99) mg/dL Total Bilirubin 0.2 L (0.3-1.2) mg/dL ALT <8 L (10-49) U/L Lactate Dehydrogenase 324 H (120-246) U/L C-Reactive Protein 14.0 H (0.0-0.8) mg/dL Albumin 3.40 L (3.80-4.90) g/dL Albumin/Globulin Ratio 1.13 L (1.60-3.17) g/dL 03/16/20 03/16/20 03/16/20 Range/Units 07:08 11:23 17:14 RBC (4.30-5.90) m/uL Plt Count (150-450) k/uL Sodium (135-145) mmol/L Chloride (96-109) mmol/L Carbon Dioxide (21.6-31.8) mmol/L BUN (9.0-27.0) mg/dL Est GFR (CKD-EPI)NonAf (60.0-200.0) BUN/Creatinine Ratio (12.00-20.00) Ratio Glucose (70-110) mg/dL POC Glucose (mg/dL) 287 H 294 H 202 H (75-99) mg/dL Total Bilirubin (0.3-1.2) mg/dL ALT (10-49) U/L Lactate Dehydrogenase (120-246) U/L C-Reactive Protein (0.0-0.8) mg/dL Albumin (3.80-4.90) g/dL Albumin/Globulin Ratio (1.60-3.17) g/dL Assessment and Plan Assessment: 1. Acute COVID- 19 infection; Acute hypoxic respiratory failure patient remains on Zithromax, dexamethasone, Lovenox and remdesivir 2. Left leg cellulitis; improving 3. Fluid overload/CHF; IV Lasix 40 mg every 12 hours. On hold now. 4. Diabetes mellitus; Glucotrol 5 mg by mouth twice a day; monitor Accu-Cheks before meals and at bedtime with insulin sliding scale 5. Hypertension; amlodipine 2.5 mg daily 6. Hyperlipidemia; Lipitor 20 mg by mouth daily at bedtime 7. History of closed head injury. 8. Hyponatremia secondary to volume depletion and poor oral intake. IV fluids changed to D5 water at 100 cc/h. DVT prophylaxis; subcu Lovenox CODE STATUS; DO NOT RESUSCITATE/DO NOT INTUBATE Time with Patient: Greater than 30
--- NOTE | 2020-03-18 14:40 | P.DS ---
Providers Date of admission: 03/06/20 21:40 Expected date of discharge: 03/17/20 Attending physician: Ricarda Edwards Consults: 03/07/20 10:53 Consult Physician Routine Consulting Provider: Jai Rodriguez Consult Reason/Comments: LLE cellulitis Do you want consulting provider notified?: Yes 03/10/20 18:58 Consult Physician Routine Consulting Provider: Jai Rodriguez Consult Reason/Comments: rapid covid test positive Do you want consulting provider notified?: Yes 03/12/20 07:04 Consult Physician Routine Consulting Provider: Mark Mendoza Consult Reason/Comments: covid positive Do you want consulting provider notified?: Yes Primary care physician: Yovanny Dan Hospital Course: Final diagnosis Acute Covid 19 infection Acute hypoxic respiratory failure Left leg cellulitis, improving Fluid overload/congestive heart failure Diabetes mellitus Hypertension Hyperlipidemia History of closed head injury Hyponatremia secondary to volume depletion and poor oral intake DVT prophylaxis No code Discharge disposition Patient is being admitted GIP with [facility] hospice comfort measures only. Legal guardian authorization obtained. Hospital course This is a 70-year-old male who was recently admitted acute cellulitis of the left lower extremity and also tested for Covid 19 and was positive and was being closely monitored. Patient's clinical status continued to deteriorate and CODE STATUS was changed to no code. Family and legal guardian agreeable to hospice with comfort measures. Please refer to previous dictations for further HPI. On exam vital signs are as follows: Temp is 98.1F, pulse is 96, respirations are 16, blood pressure is 181/81, oxygen saturation is 90% on 15 L Ventimask. Cardio S1, S2 are muffled. Respiratory system shows diminished breath sounds bilaterally with scattered rhonchi noted throughout. Abdomen is soft and nontender. Nervous system is diffuse weakness. Patient Condition at Discharge: Poor Plan - Discharge Summary Discharge Rx Participant: No New Discharge Prescriptions: No Action HYDROcodone/APAP 5-325MG [Moss 5-325] 1 tab PO TID@0800,1400,2000 Gabapentin [Neurontin] 300 mg PO BID@0800,1600 Furosemide [Lasix] 20 mg PO DAILY@1600 Divalproex ER [Depakote ER] 1,000 mg PO BID@0800,1600 Clotrimazole Topical Soln [Mycelex Topical Soln] 2 drops TOPICAL HS@2000 Aspirin EC [Ecotrin Low Dose] 81 mg PO DAILY@0800 Atorvastatin Calcium [Lipitor] 20 mg PO DAILY@0800 Ammonium Lactate Cream [Lac-Hydrin 12% Cream] 1 applic TOPICAL DAILY@1200 amantadine HCL [Amantadine] 100 mg PO DAILY@0800 Eucerin Cream 1 applic TOPICAL HS@1999 Prochlorperazine [Compazine] 10 mg PO BID@0800,1999 Sertraline HCl [Zoloft] 75 mg PO DAILY@0800 Sennosides/Docusate Sodium [Senna Plus 8.6-50 mg Softgel] 2 tab PO HS@1600 PRN PRN Reason: Constipation Sodium Chloride [Saline Nasal Boyds] 1 spray EA NOSTRIL BID@0800,1999 Pantoprazole [Protonix] 40 mg PO DAILY@0800 metFORMIN HCL [Glucophage] 1,000 mg PO BID@0800,1600 Multivitamins, Thera [Multivitamin (formulary)] 1 tab PO DAILY@0800 Latanoprost/Pf [Latanoprost 0.005% Eye Drop] 1 drop BOTH EYES HS@1999 Carbidopa/Levodopa [Carbidopa-Levo 25-250 mg Odt] 1 tab SUBLINGUAL BID@0800,1600 LORazepam [Ativan] 0.5 mg PO TID@0800,1400,1999 PRN #0 PRN Reason: Anxiety amLODIPine [Norvasc] 2.5 mg PO DAILY@0800 Furosemide [Lasix] 40 mg PO DAILY@0800 glipiZIDE XL [Glucotrol Xl] 10 mg PO DAILY@1600 Insulin Detemir [Levemir Flextouch] 15 units SQ HS@1999 Insulin Lispro [humaLOG Kwikpen] See Protocol SQ QID Metoprolol Tartrate [Lopressor] 50 mg PO BID@0800,1600 Mupirocin [Mupirocin 2%] 1 applic TOPICAL BID@0800,1999 Vortioxetine Hydrobromide [Trintellix] 10 mg PO DAILY@0800 Discharge Medication List Ammonium Lactate Cream [Lac-Hydrin 12% Cream] 1 applic TOPICAL DAILY@1200 12/30/19 [History] Aspirin EC [Ecotrin Low Dose] 81 mg PO DAILY@0800 12/30/19 [History] Atorvastatin Calcium [Lipitor] 20 mg PO DAILY@0800 12/30/19 [History] Carbidopa/Levodopa [Carbidopa-Levo 25-250 mg Odt] 1 tab SUBLINGUAL BID@0800,159912/30/19 [History] Clotrimazole Topical Soln [Mycelex Topical Soln] 2 drops TOPICAL HS@199912/30/19 [History] Divalproex ER [Depakote ER] 1,000 mg PO BID@0800,159912/30/19 [History] Eucerin Cream 1 applic TOPICAL HS@199912/30/19 [History] Furosemide [Lasix] 20 mg PO DAILY@159912/30/19 [History] Gabapentin [Neurontin] 300 mg PO BID@0800,159912/30/19 [History] HYDROcodone/APAP 5-325MG [Moss 5-325] 1 tab PO TID@0800,1400,199912/30/19 [History] Latanoprost/Pf [Latanoprost 0.005% Eye Drop] 1 drop BOTH EYES HS@199912/30/19 [History] Multivitamins, Thera [Multivitamin (formulary)] 1 tab PO DAILY@0812/30/19 [History] Pantoprazole [Protonix] 40 mg PO DAILY@79912/30/19 [History] Prochlorperazine [Compazine] 10 mg PO BID@08,199912/30/19 [History] Sennosides/Docusate Sodium [Senna Plus 8.6-50 mg Softgel] 2 tab PO HS@1600 PRN 12/30/19 [History] Sertraline HCl [Zoloft] 75 mg PO DAILY@79912/30/19 [History] Sodium Chloride [Saline Nasal Boyds] 1 spray EA NOSTRIL BID@08,199912/30/19 [History] amantadine HCL [Amantadine] 100 mg PO DAILY@0812/30/19 [History] metFORMIN HCL [Glucophage] 1,000 mg PO BID@0800,159912/30/19 [History] LORazepam [Ativan] 0.5 mg PO TID@0800,1399,1999 PRN #0 01/03/20 [Rx] Furosemide [Lasix] 40 mg PO DAILY@0800 03/06/20 [History] Insulin Detemir [Levemir Flextouch] 15 units SQ HS@199903/06/20 [History] Insulin Lispro [humaLOG Kwikpen] See Protocol SQ QID 03/06/20 [History] Metoprolol Tartrate [Lopressor] 50 mg PO BID@0800,1600 03/06/20 [History] Mupirocin [Mupirocin 2%] 1 applic TOPICAL BID@799,199903/06/20 [History] Vortioxetine Hydrobromide [Trintellix] 10 mg PO DAILY@0803/06/20 [History] amLODIPine [Norvasc] 2.5 mg PO DAILY@0803/06/20 [History] glipiZIDE XL [Glucotrol Xl] 10 mg PO DAILY@159903/06/20 [History] Follow up Appointment(s)/Referral(s): Yovanny Dan MD [Primary Care Provider] - 1-2 days Activity/Diet/Wound Care/Special Instructions: pt lives a [facility] home - per guardian the home may be able to transport the pt home at time of d/c if someone is available - nurse to call , if there is no one available to transport the pt we can use a wheel chair van for transport. Discharge Disposition: HOME SELF-CARE
== END 2020-03-17 18:17 | disposition hospice, inpatient (51) | DRG 177 ==
LOC: EC 16:22 → MERGE 21:40 → 6NMEDSUR 21:40
PROVIDERS: ADMIT Hospitalist; ATTEND Hospitalist
DX: U07.1 COVID-19 (principal); G93.41 Metabolic encephalopathy; J12.89 Other viral pneumonia; J96.01 Acute respiratory failure with hypoxia; A41.9 Sepsis, unspecified organism; E87.0 Hyperosmolality and hypernatremia; E87.1 Hypo-osmolality and hyponatremia; L03.115 Cellulitis of right lower limb; L03.116 Cellulitis of left lower limb; T17.928A Food in respiratory tract, part unspecified causing other injury, initial encounter; T50.2X5A Adverse effect of carbonic-anhydrase inhibitors, benzothiadiazides and other diuretics, initial encounter; Z68.35 Body mass index [BMI] 35.0-35.9, adult; D63.8 Anemia in other chronic diseases classified elsewhere; E11.649 Type 2 diabetes mellitus with hypoglycemia without coma; E66.9 Obesity, unspecified; E78.5 Hyperlipidemia, unspecified; E86.0 Dehydration; I11.0 Hypertensive heart disease with heart failure; I50.9 Heart failure, unspecified; K21.9 Gastro-esophageal reflux disease without esophagitis; Z66 Do not resuscitate; Z51.5 Encounter for palliative care; R26.9 Unspecified abnormalities of gait and mobility; Z87.820 Personal history of traumatic brain injury; Z88.0 Allergy status to penicillin; Z88.8 Allergy status to other drugs, medicaments and biological substances; Z79.4 Long term (current) use of insulin; Z79.82 Long term (current) use of aspirin; Z79.899 Other long term (current) drug therapy; Z79.891 Long term (current) use of opiate analgesic; Z87.891 Personal history of nicotine dependence
CPT/HCPCS: 36415; 51701; 70450; 71045; 80048; 80053; 80306; 80320; 81001; 82140; 82550; 82728; 83605; 83615; 83735; 83880; 84100; 84145; 84443; 84484; 85025; 85379; 85610; 85730; 86140; 87635; 93005; 94760; 96361; 96365; 96375; 99285

== ENCOUNTER 2020-03-17 18:28 | Inpatient (IN) | payer MEDICAID ==
[~2020-03-17 18:28] MED LIST changes: +ATROPINE OPHTH SOLN 1% 5ML BTL ONE; -DEXAMETHASONE SOD PHOSPHATE 10 MG/ML 1 ML VIAL IV ONE; -LACTATED RINGERS 1,000 ML IV SCH; -LIDOCAINE 1% 20 ML VIAL (10MG/ML) FOR IV START INTRADERMA PRN; -MIDAZOLAM 2 MG/2 ML VIAL IV PRN; -ceFAZolin IN SWFI 2 GM/20 ML SYRINGE IVP ONE; -fentaNYL (PF) 50 MCG/ML 2 ML AMP IV PRN
[2020-03-17] MEDS ORDERED: GLYCOPYRROLATE 0.2 MG/ML 2 ML VIAL IVP PRN (21:12)
[2020-03-17] MEDS ORDERED: ACETAMINOPHEN SUPPOSITORY 650 MG SUPP RECTAL PRN (21:15)
[2020-03-17] MEDS ORDERED: ONDANSETRON 4 MG TAB PO PRN (21:16)
[2020-03-17] MEDS ORDERED: LORazepam 2 MG/ML INJ IV PRN (21:20)
[2020-03-17] MEDS ORDERED: SCOPOLAMINE 1.5MG/72HR PATCH TRANSDERM SCH (21:30)
[2020-03-17] MEDS ORDERED: MORPHINE SULFATE (100 MG/2 ML) 100 MG in SODIUM CHLORIDE 0.9% 100 ML IV PRN (21:45)
[2020-03-18] MEDS: MORPHINE SULFATE 2 MG/ML SYRINGE IVP PRN ×2 (00:53→15:48)
[2020-03-18 12:53] VITALS: BMI 35.4
--- NOTE | 2020-03-18 14:53 | P.HPIM ---
History of Present Illness H&P Date: 03/18/20 This is a 70-year-old male who was recently admitted for acute cellulitis of the lower extremities, increasing shakiness, and altered mental status and was also tested for Covid 19 and was positive. Patient is nonverbal and has been becoming increasingly angry and altered [facility] at [facility]. Patient has not been eating and not getting out of bed and has been alert and oriented 0-1. Patient's respiratory status continued to deteriorate requiring oxygen and was currently maintained on 15 L Ventimask with intermittent use of nonrebreather. Discussed CODE STATUS and treatment plan with legal guardian and family members and they were agreeable to hospice consult with comfort measures only as the patient continued to deteriorate. Family wanted patient to be comfortable with no further intervention. Patient was initiated on Remdesivir, zinc, and dexamethasone and continued to show no real improvement. Patient will be signed on GIP with [facility]. Review of Systems ROS unobtainable: due to mental status Past Medical History Past Medical History: Diabetes Mellitus, GERD/Reflux, Hyperlipidemia, Hypertension Additional Past Medical History / Comment(s): closed head injury, parkinson's disease History of Any Multi-Drug Resistant Organisms: None Reported Past Surgical History: Unable to Obtain Past Anesthesia/Blood Transfusion Reactions: No Reported Reaction Past Psychological History: Unable to Obtain Smoking Status: Former smoker Past Alcohol Use History: None Reported Past Drug Use History: None Reported - Past Family History Father History Unknown: Yes Medications and Allergies Home Medications Medication Instructions Recorded Confirmed Type Ammonium Lactate Cream [Lac-Hydrin 1 applic TOPICAL DAILY@1200 12/30/19 03/06/20 History 12% Cream] Aspirin EC [Ecotrin Low Dose] 81 mg PO DAILY@79912/30/19 03/06/20 History Atorvastatin Calcium [Lipitor] 20 mg PO DAILY@0812/30/19 03/06/20 History Carbidopa/Levodopa [Carbidopa-Levo 1 tab SUBLINGUAL BID@0800,159912/30/19 03/06/20 History 25-250 mg Odt] Clotrimazole Topical Soln [Mycelex 2 drops TOPICAL HS@199912/30/19 03/06/20 History Topical Soln] Divalproex ER [Depakote ER] 1,000 mg PO BID@0800,159912/30/19 03/06/20 History Eucerin Cream 1 applic TOPICAL HS@199912/30/19 03/06/20 History Furosemide [Lasix] 20 mg PO DAILY@159912/30/19 03/06/20 History Gabapentin [Neurontin] 300 mg PO BID@0800,159912/30/19 03/06/20 History HYDROcodone/APAP 5-325MG [Sumrall 1 tab PO TID@0800,1400,199912/30/19 03/06/20 History 5-325] Latanoprost/Pf [Latanoprost 0.005% 1 drop BOTH EYES HS@199912/30/19 03/06/20 History Eye Drop] Multivitamins, Thera [Multivitamin 1 tab PO DAILY@79912/30/19 03/06/20 History (formulary)] Pantoprazole [Protonix] 40 mg PO DAILY@79912/30/19 03/06/20 History Prochlorperazine [Compazine] 10 mg PO BID@08,199912/30/19 03/06/20 History Sennosides/Docusate Sodium [Senna 2 tab PO HS@1599 PRN 12/30/19 03/06/20 History Plus 8.6-50 mg Softgel] Sertraline HCl [Zoloft] 75 mg PO DAILY@79912/30/19 03/06/20 History Sodium Chloride [Saline Nasal 1 spray EA NOSTRIL BID@08,199912/30/19 03/06/20 History [place]] amantadine HCL [Amantadine] 100 mg PO DAILY@79912/30/19 03/06/20 History metFORMIN HCL [Glucophage] 1,000 mg PO BID@0800,159912/30/19 03/06/20 History LORazepam [Ativan] 0.5 mg PO TID@0800,1399,1999 PRN #0 01/03/20 03/06/20 Rx Furosemide [Lasix] 40 mg PO DAILY@79903/06/20 03/06/20 History Insulin Detemir [Levemir Flextouch] 15 units SQ HS@199903/06/20 03/06/20 History Insulin Lispro [humaLOG Kwikpen] See Protocol SQ QID 03/06/20 03/06/20 History Metoprolol Tartrate [Lopressor] 50 mg PO BID@0800,1600 03/06/20 03/06/20 History Mupirocin [Mupirocin 2%] 1 applic TOPICAL BID@0800,199903/06/20 03/06/20 History Vortioxetine Hydrobromide 10 mg PO DAILY@0800 03/06/20 03/06/20 History [Trintellix] amLODIPine [Norvasc] 2.5 mg PO DAILY@0800 03/06/20 03/06/20 History glipiZIDE XL [Glucotrol Xl] 10 mg PO DAILY@1600 03/06/20 03/06/20 History Allergies Allergy/AdvReac Type Severity Reaction Status Date / Time piperacillin [From Zosyn] Allergy Nausea & Verified 03/06/20 19:20 Vomiting tazobactam [From Zosyn] Allergy Nausea & Verified 03/06/20 19:20 Vomiting Physical Exam Vitals: Vital Signs Temp Pulse Resp BP Pulse Ox 03/18/20 00:05 14 03/17/20 20:37 98.3 F 105 H 14 161/87 91 L Intake and Output 03/17/20 03/18/20 03/18/20 22:59 06:59 14:59 Other: Voiding Method Diaper Diaper Incontinent Incontinent # Voids 1 0 Weight 99.5 kg 99.5 kg GENERAL: The patient is asleep and very lethargic although somewhat arousable, non verbal , in mild respiratory acute distress. Normocephalic, atraumatic. No pharyngeal erythema. No thyromegaly. Mucous membranes dry CARDIOVASCULAR: S1 and S2 present. No murmurs, rubs, or gallops. PULMONARY: Diminished breath sounds bilaterally, with some scattered rhonchi and no wheezing or crackles. ABDOMEN: Soft, nontender, nondistended, normoactive bowel sounds. No palpable organomegaly. MUSCULOSKELETAL: No joint swelling or deformity. EXTREMITIES: No cyanosis, clubbing, or pedal edema. NEUROLOGICAL: Unable to assess, diffusely weak SKIN: No rashes. Thrombosis Risk Factor Assmnt - Choose All That Apply Any of the Below Risk Factors Present?: Yes Each Factor Represents 1 point: Medical pt on bed rest Other Risk Factors: Yes Each Risk Factor Represents 2 Points: Age 61-74 years Other congenital or acquired thrombophilia - If yes, enter type in comment: No Thrombosis Risk Factor Assessment Total Risk Factor Score: 3 Thrombosis Risk Factor Assessment Level: Moderate Risk Assessment and Plan Assessment: Acute Covid 19 infection Acute hypoxic respiratory failure Left leg cellulitis, improving Fluid overload/congestive heart failure Diabetes mellitus Hypertension Hyperlipidemia History of closed head injury Hyponatremia secondary to volume depletion and poor oral intake DVT prophylaxis No code Plan: Continue with [facility] comfort measures only. Will continue to monitor closely.
[2020-03-18 20:40] VITALS: BP 169/99; PULSE 129; RESP 22; TEMP 97.9
== END 2020-03-19 07:12 | disposition hospice, home (50) | DRG 951 ==
LOC: MERGE 18:28 → 6NMEDSUR 18:28
PROVIDERS: ADMIT Hospitalist; ATTEND Hospitalist
DX: Z51.5 Encounter for palliative care (principal); U07.1 COVID-19; J96.01 Acute respiratory failure with hypoxia; E87.1 Hypo-osmolality and hyponatremia; L03.116 Cellulitis of left lower limb; L03.115 Cellulitis of right lower limb; I11.0 Hypertensive heart disease with heart failure; I50.9 Heart failure, unspecified; G20 Parkinson's disease; E11.9 Type 2 diabetes mellitus without complications; Z79.4 Long term (current) use of insulin; E78.5 Hyperlipidemia, unspecified; K21.9 Gastro-esophageal reflux disease without esophagitis; R41.82 Altered mental status, unspecified; E86.9 Volume depletion, unspecified; Z79.82 Long term (current) use of aspirin; Z79.899 Other long term (current) drug therapy; Z87.891 Personal history of nicotine dependence; Z88.1 Allergy status to other antibiotic agents; Z66 Do not resuscitate; Z87.828 Personal history of other (healed) physical injury and trauma